=== PATIENT | female | born 1980 | race Caucasian/White ===

== ENCOUNTER 2020-06-09 20:26 | Emergency (ER) | payer MEDICAID ==
[~2020-06-09] VITALS: Ht 175.3 cm; Wt 78.5 kg
[2020-06-09] MEDS ORDERED: METHADONE HCL10 MG PO (20:43)
[2020-06-09] MEDS ORDERED: BACTRIM DS TAB1 EACH PO (20:44)
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
== END 2020-06-09 21:10 | disposition home or self-care (01) ==
LOC: ED 20:26
DX: L03.114 Cellulitis of left upper limb (principal); F11.10 Opioid abuse, uncomplicated; F17.200 Nicotine dependence, unspecified, uncomplicated; Z88.8 Allergy status to other drugs, medicaments and biological substances; Z88.0 Allergy status to penicillin; Z79.899 Other long term (current) drug therapy
CPT/HCPCS: 99283

== ENCOUNTER → 2020-06-12 | Emergency (ER) | payer MEDICAID ==
[~2020-06-12] VITALS: Ht 175.3 cm; Wt 78.5 kg
[~2020-06-12] MED LIST: BACTRIM DS TAB1 EACH PO; METHADONE HCL10 MG PO
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
--- OUTSIDE RECORDS SUMMARY | ~2020-06-12 | XMS | Encounter Summary ---
Demographics + + + | Address | [address] | | | [address] | | | [place] [address] | + + + | Home Phone | | + + + | Preferred Language | Unknown | + + + | Marital Status | Legally | + + + | Jain Affiliation | 1013 | + + + | Race | White | + + + | Ethnic Group | Not or | + + + Author + + + | Author | [facility] | | | and [place] | + + + | Organization | [facility] | | | and [...] Team Providers + +------+ + | Care Roof Tile Layer Name | Role | Phone | + +------+ + PCP | Unavailable | + +------+ + Encounter Details +--------+ + + + + | Date | Type | Department | Care Team | Description | +--------+ + + + + | 12/09/ | [facility] | YI JEFFERSON | Deon Garciater W, | | | 2008 - | Encounter | [facility] | [address] | | | | | EMERGENCY CENTER | [address] [place], [place] | | | 12/10/ | | [address] | [address] | | | 2007 | | [place] | | | | | | [id number] | | | | | | [phone] | | | +--------+ + + + [...] + + documented as of this encounter ED Notes Sergio Garcia MD - 07/18/2013 4:12 PM PSTPATIENT NAME: Madhuri Pennington TREATMENT DATE: 12/10/2007 AGE/SEX: 27/F [id number] : 1980 CHIEF COMPLAINT: Wants to kill herself, cut her wrists earlier tonight. HISTORY OF PRESENT ILLNESS: This is a 27-year-old woman who presents to the emergency dep artment this evening, having come by automobile with her parents from the [facility] where she states she has been depressed since age 13, wanting to . Tonight placed a significa nt laceration across her volar left wrist. PAST MEDICAL HISTORY: Past history indicates multiple suicide attempts, depression dating back many years, and diagnosis of bipolar illness. CURRENT MEDICATIONS: Effexor, trazodone, Ativan, clonazepam and was recently started on l ithium. ALLERGIES: Penicillin, Naprosyn and Phenergan. HABITS: Cigarettes: One pack per day. Has been a drug user, methamphetamines up until s everal months ago, and has used marijuana sporadically. Uses alcohol occasionally. FAMILY AND SOCIAL HISTORY: She was for three years, has a no contact order with h er . They are . She has children ages nine and two, daughters who are in her care but are this evening with her . Her parents are in attendance with her in the emergency department [facility]. REVIEW OF SYSTEMS: CONSTITUTIONAL: She has had 20 pounds of weight gain over the past 12 months. Eyes, ears, nose and throat negative. CARDIOVASCULAR: No chest pain, palpitations . RESPIRATORY: No cough or wheeze. GASTROINTESTINAL: Some post-meal symptoms of nausea, occasional abdominal pain. GENITOURINARY: No urinary or vaginal symptoms. MUSCULOSKELET AL: Negative. Skin and endocrine negative. PHYSICAL EXAMINATION: GENERAL: Physical exam shows a woman who is occasionally tearful, stating she wants to . VITAL SIGNS: Blood pressure of 114/79, pulse 103, respirations 16, temperature 98. HEENT: Eyes show equally reactive pupils. Full extraocular movements. Mouth and throat negative. NECK: Supple. There is no adenopathy. There is a question of a slight goiter present. No nodules are palpable. CHEST: Clear. HEART: Regular rate and rhythm, normal auscultation, no murmurs heard. ABDOMEN: Soft, mild amount of obesity , no organomegaly, masses or tenderness. EXTREMITIES: No calf tenderness, no edema. Ther marcos is a 5 cm full-thickness laceration to the volar left wrist transversely. She has ann l sensation in the fingers, normal finger function and motor strength. COURSE IN THE EMERGENCY DEPARTMENT: The patient was given Ativan 1 mg IM, Lortab 5 mg p.o ., Benadryl 25 mg p.o. Her wrist initially was evaluated and was cleansed, prepped, draped , infiltrated with 1% Xylocaine and MADHURI PENNINGTON [id number] [facility] [id number] EMERGENCY DEPARTMENT RECORD Sergio morales MD E-Sign: N [facility] THIS REPORT IS CONFIDENTIAL AND NOT TO BE RELEASED WITHOUT PROPER AUTHORIZATION. [facility] epinephrine, and a single-layer skin closure with interrupted 5-0 nylon sutures, 10 suture s were placed. Labs were obtained with CBC, CMP, UA which were all within normal limits. Blood alcohol level and TSH were pending. A urine toxicology screen showed positive for ma rijuana and benzodiazepines. Patient was seen by psychiatric triage. EMERGENCY DEPARTMENT DIAGNOSIS: 1. Depression with suicidal ideation and suicide attempt this evening. 2. Bipolar illnes s. 3. A 5 cm laceration left wrist. 4. History of abdominal pain, possible gallbladder disease. DISPOSITION: Patient, after being seen by psychiatric triage, plans [facility] were made, but beds are not available either at [place] or at [facility] this night. Patient is contracted for safety and will go to a motel this evening for the rest of the night with her parents and has been instructed to call caryn mccrary to psychiatric triage in the morning for possible inpatient therapy. Sergio Garcia MD P WWB/sle #[id number] cc: Sergio morales MD TOÑO PENNINGTON [id number] [facility] [id number] EMERGENCY DEPARTMENT RECORD Sergio morales MD E-Sign: N [facility] THIS REPORT IS CONFIDENTIAL AND NOT TO BE RELEASED WITHOUT PROPER AUTHORIZATION.Electronica llnii signed by Ngozi Littlejohn Conversion at 07/20/2013 4:58 AM PSTdocumented in this enc ounter Plan of Treatment Not on filedocumented as of this encounter Visit Diagnoses Not on filedocumented in this encounter"
--- OUTSIDE RECORDS SUMMARY | ~2020-06-12 | XMS | Encounter Summary ---
Demographics + + + | Address | [address] | | | [address] | | | [place] [address] | + + + | Home Phone | | + + + | Preferred Language | Unknown | + + + | Marital Status | Legally | + + + | Pentecostalism Affiliation | 1013 | + + + | Race | White | + + + | Ethnic Group | Not or | + + + Author + + + | Author | [facility] | | | and [place] | + + + | Organization | [facility] | | | [...] Team Providers + +------+ + | Care Executive Director Name | Role | Phone | + +------+ + | No, Physician | PCP | Unavailable | + +------+ + Reason for Referral Evaluate & Treat (Emergency) +--------+ + + + + + | Status | Reason | Specialty | Diagnoses / | Referred By | Referred To | | | | | Procedures | Contact | Contact | +--------+ + + + + + | Closed | Specialty | Wound Care | Diagnoses | Silvino, | [facility] | | | Services | | Encounter | Ting Elizondo, | Wound Care | | | Required | | for post | PA-C [address] | | | | | surgical | [address] | [place], | | | | | wound check | [place], [place] | [place] [address] | | | | | Encounter | [address] | Phone: | | | | | for removal | Phone: | [phone] | | | | | of abscess | [phone] | Fax: | | | | | packing | Fax: | [phone] | | | | | | [phone] | | +--------+ + + + + + Reason for Visit + + + | Reason | Comments | + + + | Post-op Problem | pt states she was reccently admitted but left ama prior to wound | | | care instructions. states she has packing in her arm and needs to | | | follow up with wound clinic. states she cannot get ahcarolin of | | | ulises who did surgery on arm. | + + + Encounter Details +--------+ + + + + | Date | Type | Department | Care Team | Description | +--------+ + + + + | 04/17/ | Emergency | [facility] | Ting Dubois, | Encounter for post | | 2020 | | MEDICAL CENTER | [place] [address] | surgical wound check | | | | EMER[facility]ENTER | [address] [place], [place] | (Primary Dx); | | | | [address] | [address] | Encounter for | | | | [place], [place] | | removal of abscess | | | | [address] | Curt Ortiz | packing | | | | [phone] | MD Russell [address] | | | | [address] | | | | | | [place] [address] | | | | | | [phone] | | | | | | | | +--------+ + + + + Social History + +-------+ +--------+------+ | Tobacco Use | Types | Packs/Day | Years | Date | | | | | Used | | + +-------+ +--------+------+ | Current Every Day | | 0.25 | | | | Smoker | | | | | + +-------+ +--------+------+ + +---+---+---+ | Smokeless Tobacco: | | | | | Never Used | | | | + +---+---+---+ + + +---------+ + | Alcohol Use | Drinks/Week | oz/Week | Comments | + + +---------+ + | Not Currently | | | Alcoholic | | | | | Drinks/day: rarely | + + +---------+ + + + + | Sex Assigned at | Date Recorded | | | | + + + | Not on file | | + + + documented as of this encounter Last Filed Vital Signs + + + + + | Vital Sign | Reading | Time Taken | Comments | + + + + + | Blood Pressure | 106/66 | 04/17/2020 1:57 PM | | | | | PDT | | + + + + + | Pulse | 83 | 04/17/2020 1:57 PM | | | | | PDT | | + + + + + | Temperature | 36.4 C (97.6 F) | 04/17/2020 1:57 PM | | | | | PDT | | + + + + + | Respiratory Rate | 16 | 04/17/2020 1:57 PM | | | | | PDT | | + + + + + | Oxygen Saturation | 100% | 04/17/2020 1:57 PM | | | | | PDT | | + + + + + | Inhaled Oxygen | - | - | | | Concentration | | | | + + + + + | Weight | 78 kg (171 lb 15.3 | 04/17/2020 1:57 PM | | | | oz) | PDT | | + + + + + | Height | - | - | | + + + + + | Body Mass Index | 25.39 | 04/15/2020 9:17 AM | | | | | PDT | | + + + + + documented in this encounter Functional Status + + + + | Functional Status | Response | Date of Assessment | + + + + | Are you blind or do you have serious | No | 04/15/2020 | | difficulty seeing, even when wearing | | | | glasses? | | | + + + + | Do you have serious difficulty walking or | No | 04/15/2020 | | climbing stairs? (5 years old or older) | | | + + + + | Do you have difficulty dressing or bathing? | No | 04/15/2020 | | (5 years old or older) | | | + + + + | Because of a physical, mental, or emotional | No | 04/15/2020 | | condition, do you have difficulty doing | | | | errands alone such as visiting a doctor's | | | | office or shopping? [15 years old or | | | | older)] | | | + + + + + + + + | Cognitive Status | Response | Date of Assessment | + + + + | Because of a physical, mental, or emotional | No | 04/15/2020 | | condition, do you have serious difficulty | | | | concentrating, remembering, or making | | | | decisions? (5 years old or older) | | | + + + + documented as of this encounter Discharge Instructions Instructions Ting Dubois PA-C - 04/17/2020Take your antibiotics as directed. You ma y want to take a probiotic or eat some yogurt to make sure your gut and vaginal bacteria sta y healthy. Follow directions from the wound care nurse on how to manage your wound. Please call the wound care clinic and your surgeon to schedule follow-up visits. I wrote you a karlo ne care referral. Please return to the ER for any new or worsening symptoms such as fever, increased arm pain, arm redness, etc. AttachmentsThe following attachments cannot be sent through Care Everywhere.Wound Care ([facility])documented in this encounter Medications at Time of Discharge + + + +---------+ + + | Medication | Sig | Dispensed | Refills | Start | End Date | | | | | | Date | | + + + +---------+ + + | Albuterol Sulfate | AERS | | 0 | 02/01/20 | | | (PROAIR HFA IN) | | | | 12 | | + + + +---------+ + + | baclofen | Take 1 tablet by | | 0 | 09/27/19 | | | (LIORESAL) 10 mg | mouth 3 (three) | | | 18 | | | tablet | times daily. | | | | | + + + +---------+ + + | bismuth | | | 0 | | | | subsalicylate (PEPTO | | | | | | | BISMOL) 262 mg/15 | | | | | | | mL suspension | | | | | | + + + +---------+ + + | buprenorphine | USE PER TAPER | | 0 | 04/28/20 | | | (SUBUTEX) 2 mg SUBL | INSTRUCTIONS | | | 18 | | + + + +---------+ + + | | PLACE 1 & 1 2 (ONE & | | 0 | 03/06/20 | | | buprenorphine-naloxo | ONE HALF) TABLETS | | | 19 | | | ne (SUBOXONE) 8-2 mg | UNDER THE TONGUE | | | | | | SL tablet | TWICE DAILY FOR 7 | | | | | | | DAYS | | | | | + + + +---------+ + + | buPROPion | | | 0 | 05/02/20 | | | (WELLBUTRIN XL) 150 | | | | 18 | | | mg 24 hr tablet | | | | | | + + + +---------+ + + | docusate sodium | One po bid for stool | | 0 | 04/04/20 | | | (COLACE) 100 mg | softening | | | 17 | | | capsule | | | | | | + + + +---------+ + + | EPINEPHrine | TOÑO | | 0 | 02/01/20 | | | (EPIPEN IJ) | | | | 12 | | + + + +---------+ + + | EPINEPHrine | Inject 0.3 mLs into | | 0 | 20 | | | auto-injector 0.3 | the muscle as | | | 14 | | | mg/0.3 mL injection | needed. | | | | | + + + +---------+ + + | fluticasone | | | 0 | 10/19/19 | | | (FLONASE) 50 | | | | 17 | | | mcg/nasal spray | | | | | | + + + +---------+ + + | fluticasone | 2 INH per nostril | | 0 | 02/01/20 | | | (FLONASE) 50 | daily | | | 12 | | | mcg/nasal spray | | | | | | + + + +---------+ + + | hydrOXYzine | TAKE ONE CAPSULE BY | | 0 | 05/03/20 | | | (VISTARIL) 50 MG | MOUTH EVERY 6 HOURS | | | 18 | | | capsule | NEEDED | | | | | + + + +---------+ + + | ibuprofen | Take 600 mg by mouth | | 0 | 02/01/20 | | | (ADVIL,MOTRIN) 600 | every 6 hours as | | | 12 | | | MG tablet | needed. | | | | | + + + +---------+ + + | | TB24; Take one | | 0 | 02/01/20 | | | Loratadine-Pseudoeph | tablet orally daily | | | 12 | | | edrine (CLARITIN-D | | | | | | | 24 HOUR PO) | | | | | | + + + +---------+ + + | multivitamin | one tablet by mouth | | 0 | 02/01/20 | | | (THERAGRAN) tablet | daily | | | 12 | | + + + +---------+ + + | naproxen | Take 1 tablet by | | 0 | 03/03/20 | | | (NAPROSYN) 500 mg | mouth 2 (two) times | | | 17 | | | tablet | daily as needed. | | | | | + + + +---------+ + + | ondansetron | Take 1 tablet by | 12 | 0 | 01/04/20 | | | (ZOFRAN ODT) 4 mg | mouth every 8 hours | tablet | | 20 | | | disintegrating | as needed for | | | | | | tablet | Nausea. | | | | | + + + +---------+ + + | ondansetron | TAKE 1 TABLET BY | | 0 | 03/01/20 | | | (ZOFRAN) 4 mg tablet | MOUTH EVERY 6 HOURS | | | 19 | | + + + +---------+ + + | PEG | Take 8 oz by mouth | | 0 | 12/01/19 | | | [id number]-NaCl- | every 20 (twenty) | | | 18 | | | NaSulf 227.1 g PACK | minutes. Drink 8oz | | | | | | | every 20 minutes | | | | | | | until bowel | | | | | | | movements occur | | | | | + + + +---------+ + + | tiZANidine | Take 1-2 capsules by | | 0 | 05/03/20 | | | (ZANAFLEX) 4 MG | mouth nightly as | | | 17 | | | capsule | needed for Muscle | | | | | | | spasms. | | | | | + + + +---------+ + + | traZODone | TAKE 1 OR 2 TABLETS | | 0 | 05/03/20 | | | (DESYREL) 50 mg | BY MOUTH AT BEDTIME | | | 18 | | | tablet | NEEDED | | | | | + + + +---------+ + + | clindamycin | Take 1 capsule by | 30 | 0 | 04/16/20 | | | (CLEOCIN) 300 MG | mouth 3 times daily | capsule | | 20 | 0 | | capsule | for 10 days. | | | | | + + + +---------+ + + | doxycycline | Take 1 capsule by | 28 | 0 | 04/16/20 | | | (VIBRAMYCIN) 100 mg | mouth 2 times daily | capsule | | 20 | 0 | | capsule | for 14 days. | | | | | + + + +---------+ + + | lactobacillus | Take 1 tablet by | 84 | 0 | 04/16/20 | | | (FLORANEX) tablet | mouth 3 times daily | tablet | | 20 | 0 | | | for 28 days. | | | | | + + + +---------+ + + documented as of this encounter Progress Notes Rachel Dowell RN - 04/17/2020 3:10 PM PDT 04/17/20 1506 Visit Information Visit Type Initial wound assessment Wound 04/15/201756 Incision Right shoulder Placement Date/Time: 04/15/201756 Present on Hospital Admission: Yes Primary Wound Type : Incision Side: Right Location: shoulder Wound WDL ex Dressing Appearance moist drainage Base clean;moist;pink;granulating Wound Base Comment Muscle noted. Periwound Area intact;dry Wound Length (cm) 2.5 cm Wound Width (cm) 7 cm Wound Depth (cm) 1.5 cm Wound Surface Area (cm^2) 17.5 cm^2 Wound Volume (cm^3) 26.25 cm^3 Undermining [depth (cm)/Location] 9-12 1.5cm, 4-8 oclock 8cm Drainage Characteristics/Odor serosanguineous Drainage Amount small Wound Cleaning cleansed with;sterile normal saline Dressing silver impregnated dressing;hydrofiber;foam;elastic bandage Packing packed with-specify (1 full sheet and 1/2 sheet of aquacel AG+) Wound Bed% Granulation 51-75% Wound Image Visit Summary Skilled Needs Yes Interventions to be Provided Ongoing assessment needed Discipline Providing Treatment WOCN Next Wound/Ostomy Visit Date 04/24/20 Floor RN called regarding need for dressing change, pt left AMA after surgical debridement by Dr. Frank. Pt stating she doesn't think she can do this dressing change, pt will have foll ow up appt with [facility] for wound management. Dressing applied today for pt, lidocaine used to wound bed for pain control. 1 sheet of aquacel AG+ used to undermining and to fill wound bed. 1/2 sheet of aquacel AG+ placed on top. Covered with foam border and secured with jyothi wrap. As long as no strike thru drainage to foam dressing, ok to leave dressing 3-5 days and have follow up wound dressing done at [facility]. JOSE Lisa RN CWON 04/17/20 15:16 PDT [facility] ED Notes Melly Kapadia RN - 04/17/2020 2:20 PM PDTWound care nurse called to assist with dressing. ing Dubois PA-C - 04/17/2020 1:[address] [facility] Department of Emergency Medicine No flowsheet data found. History of Present Illness Patient Identification Minoo Watson is a 40 y.o. female. Patient information was obtained from patient History/Exam limitations: none. Patient presented to the Emergency Department by: Car Chief Complaint Chief Complaint Patient presents with Post-op Problem pt states she was reccently admitted but left ama prior to wound care instructions. state s she has packing in her arm and needs to follow up with wound clinic. states she cannot get ahold of dr frank who did surgery on arm. 40 y.o. female presents to ED with chief complaint of wound check. She has a history of a nxiety, depression and IM heroin abuse. She presented to the ED on 04/14 for shoulder pain, C T scan showed a large abscess. She was admitted and received IV antibiotics and I&D was per formed by Dr. Frank on 04/15 and a small needle fragment was also removed at that time. She le ft AMA last night. She was prescribed doxycycline and clindamycin. She comes in today for w ound check and directions on how to get into wound care. She reports feeling well. PCP: No Physician on file Immunization History Administered Date(s) Administered TDAP, (ADOL/ADULT) 02/14/2011, 05/01/2012, 02/29/2016 Past Medical History: Diagnosis Date Asthma due to seasonal allergies Back pain 12/18/2009 Bipolar disorder (HCC) 09/2008 Patient denies Depression Herniated disc, cervical C5,C6 Heroin abuse (HCC) Intramuscular use IVDU (intravenous drug user) Joint pain Seasonal allergies Past Surgical History: Procedure Laterality Date SECTION x 2 COLONOSCOPY HERNIA REPAIR HYSTERECTOMY Bilateral 04/13/2017 Procedure: ROBOTIC ASSISTED LAPAROSCOPIC HYSTERECTOMY WITH SALPINGECTOMY; Surgeon: Glenn aleman MD; Location: [facility] MAIN OR; Service: TIRE LAYER; Laterality: Bilateral; INCISION AND DRAINAGE Right 04/15/2020 Procedure: INCISION AND DRAINAGE -DELTOID; Surgeon: Minoo Frank MD; Location: [facility] MAIN OR UPPER GASTROINTESTINAL ENDOSCOPY 2009 Prior to Admission medications Medication Sig Start Date End Date Taking? Authorizing Provider Albuterol Sulfate (PROAIR HFA IN) AERS 02/01/12 DATA MIGRATION RICK SR baclofen (LIORESAL) 10 mg tablet Take 1 tablet by mouth 3 (three) times daily. 09/27/17 Hi storical Provider, bismuth subsalicylate (PEPTO BISMOL) 262 mg/15 mL suspension Historical Provider, buprenorphine (SUBUTEX) 2 mg SUBL USE PER TAPER INSTRUCTIONS 04/28/18 Historical Provider, buprenorphine-naloxone (SUBOXONE) 8-[address] 1 & 1 2 (ONE & ONE HALF) TABLETS U NDER THE TONGUE TWICE DAILY FOR 7 DAYS 03/06/19 Historical Provider, buPROPion (WELLBUTRIN XL) 150 mg 24 hr tablet 05/02/18 Historical Provider, clindamycin (CLEOCIN) 300 MG capsule Take 1 capsule by mouth 3 times daily for 10 days. 04/1604/26/20 Marty Alvarez MD docusate sodium (COLACE) 100 mg capsule One po bid for stool softening 04/04/17 Historical Provider, doxycycline (VIBRAMYCIN) 100 mg capsule Take 1 capsule by mouth 2 times daily for 14 days. 04/16/20 04/30/20 Marty Alvarez MD EPINEPHrine (EPIPEN IJ) TOÑO 02/01/12 DATA MIGRATION RICK SR EPINEPHrine auto-injector 0.3 mg/0.3 mL injection Inject 0.3 mLs into the muscle as needed. 02/25/14 Historical Provider, fluticasone (FLONASE) 50 mcg/nasal spray 10/19/16 Historical Provider, fluticasone (FLONASE) 50 mcg/nasal spray 2 INH per nostril daily 02/01/12 DATA MIGRATION E DI SR hydrOXYzine (VISTARIL) 50 MG capsule TAKE ONE CAPSULE BY MOUTH EVERY 6 HOURS NEEDED 05/03 Historical Provider, ibuprofen (ADVIL,MOTRIN) 600 MG tablet Take 600 mg by mouth every 6 hours as needed. 2 DATA MIGRATION RICK SR lactobacillus (FLORANEX) tablet Take 1 tablet by mouth 3 times daily for 28 days. 04/16/2005/14/20 Marty Alvarez MD Loratadine-Pseudoephedrine (CLARITIN-D 24 HOUR PO) TB24; Take one tablet orally daily DATA MIGRATION RICK SR multivitamin (THERAGRAN) tablet one tablet by mouth daily 02/01/12 DATA MIGRATION RICK SR naproxen (NAPROSYN) 500 mg tablet Take 1 tablet by mouth 2 (two) times daily as needed. 02/11 10/29 Historical Provider, ondansetron (ZOFRAN ODT) 4 mg disintegrating tablet Take 1 tablet by mouth every 8 hours as needed for Nausea. 01/04/20 Vitaly Kaufman MD ondansetron (ZOFRAN) 4 mg tablet TAKE 1 TABLET BY MOUTH EVERY 6 HOURS 03/01/19 Historical Provider, PEG 5885-RMa-[id number]-NaCl-NaSulf 227.1 g PACK Take 8 oz by mouth every 20 (twenty) minutes. D rink 8oz every 20 minutes until bowel movements occur 11/30/17 Historical Provider, tiZANidine (ZANAFLEX) 4 MG capsule Take 1-2 capsules by mouth nightly as needed for Muscle spasms. 05/03/17 Historical Provider, traZODone (DESYREL) 50 mg tablet TAKE 1 OR 2 TABLETS BY MOUTH AT BEDTIME NEEDED 05/03/18 Historical Provider, Allergies Allergen Reactions Bee Venom Anaphylaxis Codeine Hives, Rash and Shortness Of Breath Morphine Morphine And Related Other (See Comments) Abstracted Penicillins Hives Promethazine Hcl Droperidol Anxiety Lactose Intolerance (Gi) Other (See Comments) Social History Socioeconomic History Marital status: Legally Spouse name: Not on file Number of children: Not on file Years of education: Not on file Highest education level: Not on file Occupational History Not on file Social Needs Financial resource strain: Not on file Food insecurity Worry: Not on file Inability: Not on file Transportation needs Medical: Not on file Non-medical: Not on file Tobacco Use Smoking status: Current Every Day Smoker Packs/day: 0.25 Smokeless tobacco: Never Used Substance and Sexual Activity Alcohol use: Not Currently Comment: Alcoholic Drinks/day: rarely Drug use: Yes Types: Heroin, Methamphetamines Comment: Drug use: No Sexual activity: Yes Lifestyle Physical activity Days per week: Not on file Minutes per session: Not on file Stress: Not on file Relationships Social connections Talks on phone: Not on file Gets together: Not on file Attends restoration service: Not on file Active member of club or organization: Not on file Attends meetings of clubs or organizations: Not on file Relationship status: Not on file Intimate partner violence Fear of current or ex partner: Not on file Emotionally abused: Not on file Physically abused: Not on file Forced sexual activity: Not on file Other Topics Concern Not on file Social History Narrative Lives in [place], independent with activities of daily living, no falls, full code. Has 2 children. Fabien recently. 14 yrs old Daughter has severe depression. Continues t o smoke a pack a day. Since August relapsed on heroin abuse denies alcohol use. Family History Problem Relation Age of Onset Stroke Father Stroke Maternal Grandmother Diabetes Maternal Grandmother Diabetes Maternal Grandfather Heart attack Maternal Grandfather Malig hypertherm Neg Hx Review of Systems Review of Systems As in history of present illness. A ten-system review was otherwise negative. Pertinent positives: Healing wound Physical Exam Patient Vitals for the past 24 hrs: BP Temp Temp src Pulse Resp SpO2 Weight 04/17/20 1357 106/66 36.4 C (97.6 F) Temporal 83 16 100 % 78 kg (171 lb 15.3 oz) Body mass index is 25.39 kg/m. No LMP recorded. Patient has had a hysterectomy. Pulse Oximetry interpretation: normal Physical Exam Physical Exam Constitutional: Comments: nontoxic appearing, NAD HENT: Head: Normocephalic. Eyes: Conjunctiva/sclera: Conjunctivae normal. Neck: Musculoskeletal: Normal range of motion. Pulmonary: Effort: Pulmonary effort is normal. Musculoskeletal: Comments: Moving all extremities. No deformity Neurological: General: No focal deficit present. Psychiatric: Mood and Affect: Mood normal. Skin: General: Skin is warm and dry. RUE: Large postsurgical dressing over the right upper arm. When removed there is an 8 cm t ransverse incision with large amount of packing in place. No surrounding erythema or draina ge. No odor. Medical Decision Making and Emergency Department Course Records Reviewed Old medical records. Nursing notes. ED Department Course 14:08 -called Dr. Frank, pt's surgeon. She recommends removing the packing which is one long strip of Kerlix. Apply wet-to-dry dressing and refer her to wound care. 14:15 - called wound care nurse who will come evaluate pt MDM: 40 y.o. female presents with wound check. Vitals: WNL. Shee is afebrile and nontoxic-appea ring. Packing was removed and new dressing was placed. Wound care states that wet-to-dry d ressings need to be changed 3 times a day. Patient does not tolerate dressing changes on he r own, she starts to gag. She therefore felt that that an aquacel dressing would be best fo r her. She states that this will likely last up to a week. Wound care discussed with pt. Wou nd care referral written. The social media content manager tried to get her an appointment with wound care , however they will not accept referral from the hospital and need a referral from a primary . Patient does not have a primary. They are working with insurance to get an exception wri tten. If patient is unable to get in with wound care this week she will return here for rec heck. Advised on ED return precautions. All questions addressed. Medications lidocaine (XYLOCAINE) 4% topical solution 10 mL (10 mLs Topical Given 04/17/20 1447) Laboratory Evaluation Results None Available Labs reviewed and interpreted by me. Radiology Evaluation Available radiology studies reviewed and interpreted contemporaneously by me. Diagnosis 1. Encounter for post surgical wound check 2. Encounter for removal of abscess packing Disposition: ED Disposition ED Disposition Condition Comment Discharge Good Follow-up Information [facility]. Specialty: Emergency Medicine Why: wound recheck in 3 days if you can't get in with wound care Contact information: [address] [facility] [address] GENERAL SURGERY. Why: call today or tomorrow for a post op visit Contact information: [address] [facility] [address] [facility] OUTPATIENT WOUND [facility]ARE. Specialty: Wound Care Why: wound care - call today to schedule appointment Contact information: [address] [facility] [address] Discharge Medications: This note was dictated using voice recognition software. Please contact me if there are an y questions regarding its content. Ting Dubois PA-C 04/17/20 1520 Addendum for dragon dictation error Ting Dubois PA-C 04/17/20 1520 Associated attestation - Curt Ortiz MD - 04/17/2020 3:30 PM PDTI have supervis ed the advanced architectural practice manager and have reviewed the note. documented in this encounter Miscellaneous Notes Plan of Izzy De Luna MSW - 04/18/2020 11:33 AM PDTCalled Wound Care clinic again to follow up this morning to see if they had heard back from Dr. Frank's office. [facility] that they did receive a new wound care referral from Dr Conrad and that kirstin ent was given an appt with [facility] General [facility] for today for follow up.Electronically sig evette by FLAKO Villaseñor at 04/18/2020 11:43 AM PDTPlan of Izzy De Luna MSW - 0 04/17/2020 4:[address] Frank's office again, left message, informed that "Pineda" had already left the office before getting the message but the office is aware of the patient's needs for wound care to be set up.Electronically signed by FLAKO Villaseñor at 0 4:58 PM PDTPlan of Izzy De Luna MSW - 04/17/2020 3:31 PM PDTReceived call shari khoury from [facility]ound Care ([facility]) who states insurance will require the wound care order, the therapy plan, and the insurance auth all from Dr. Frank's office before wound care can b e set up. 3:26pm contacted Dr. Frank's office [phone], spoke with vice president payment who will send message shari khoury to provider for assistance. 3:3 3 PM PDTPlan of Care - Izzy Anguiano MSW - 04/17/2020 3:16 PM PDTMet with patient who st ates she is in agreement with following up with OP wound care, reports she has transportatio n and knows where the clinic is. Contacted [facility]/Wound Care [phone] option 2 who acknowledges receipt of the referral but s tates that [facility] is requiring an order from a PCP, patient does not have a PCP. [facility] is awaiting call back for possible insurance auth from [facility] without PCP. Updated provider Ting; will await update from [facility], patient may need to d/c and f/ up on insurance auth after d/c. 3 :19 PM PDTdocumented in this encounter Plan of Treatment + +------+--------+ + + | Name | Type | Priori | Associated Diagnoses | Date/Time | | | | ty | | | + +------+--------+ + + | ED INFORMATION | MARTHA | Routin | | 04/17/2020 1:51 PM | | EXCHANGE | | e | | PDT | + +------+--------+ + + + + +--------+ + + | Name | Type | Priori | Associated Diagnoses | Order Schedule | | | | ty | | | + + +--------+ + + | Ambulatory Referral | Outpatient | STAT | Encounter for post | Ordered: 04/17/2020 | | to [facility]ound | Referral | | surgical wound | | | Clinic | | | check Encounter for | | | | | | removal of abscess | | | | | | packing | | + + +--------+ + + documented as of this encounter Procedures + +--------+ + + + | Procedure Name | Priori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
--- OUTSIDE RECORDS SUMMARY | ~2020-06-12 | XMS | Encounter Summary ---
Demographics + + + | Address | [address] | | | [address] | | | [place] [address] | + + + | Home Phone | | + + + | Preferred Language | Unknown | + + + | Marital Status | Legally | + + + | Bahai Affiliation | 1013 | + + + | Race | White | + + + | Ethnic Group | Not or | + + + Author + + + | Author | [facility] | | | and [place] | + + + | Organization | [facility] | | | and [place] | + + + | Address | Unknown | + + + | Phone | Unavailable | + + + Support + + +---------+ + | Name | Relationship | Address | Phone | + + +---------+ + | Magalis Love | ECON | Unknown | | + + +---------+ + | Tom Valdivia | ECON | Unknown | | + + +---------+ + Care Team Providers + +------+ + | Care Spa Host Name | Role | Phone | + +------+ + PCP | Unavailable | + +------+ + Encounter Details +--------+ + + + + | Date | Type | Department | Care Team | Description | +--------+ + + + + | 08/03/ | Emergency | [facility] | Jamilah Bhattn S, | Acute generalized | | 2017 - | | MEDICAL CENTER | MD [address] | abdominal pain; Slow | | | | EMERGENCY CENTER | [place], [place] | transit | | 04/15/ | | [address] | [address] | constipation | | 2017 | | [place], [place] | | | | | | [address] | | | | | | [phone] | | | +--------+ + + + [...] + + + | Blood Pressure | 110/62 | 04/15/2017 12:03 AM | | | | | PDT | | + + + + + | Pulse | 63 | 04/15/2017 12:03 AM | | | | | PDT | | + + + + + | Temperature | 36.7 C (98 F) | 04/15/2017 12:03 AM | | | | | PDT | | + + + + + | Respiratory Rate | 17 | 04/15/2017 12:03 AM | | | | | PDT | | + + + + + | Oxygen Saturation | - | - | | + + + + + | Inhaled Oxygen | - | - | | | Concentration | | | | + + + + + | Weight | 94.8 kg (209 lb) | 04/15/2017 12:03 AM | | | | | PDT | | + + + + + | Height | - | - | | + + + + + | Body Mass Index | 30.86 | 04/13/2017 5:57 PM | | | | | PDT | | + + + + + documented in this encounter Medications at Time of [...] bid for stool | | 0 | / | | | (COLACE) 100 mg | [...] 0.3 mLs into | | 0 | 02/26/20 | | | auto-injector 0.3 | the [...] + + + +---------+ + + | loratadine | Take 10 mg by mouth | | 0 | 02/01/20 | | | (CLARITIN) 10 mg | Daily. | | | 12 | 0 | | tablet | | | | | | + + + +---------+ + + | omeprazole | Take 20 mg by mouth | | 0 | 02/01/20 | | | (PRILOSEC) 20 mg | Daily. | | | 12 | 0 | | capsule | | | | | | + + + +---------+ + + | polyethylene | 17 GM by mouth with | | 0 | 02/01/20 | | | glycol (MIRALAX) | 8 oz. of water by | | | 12 | 0 | | powder | mouth daily for | | | | | | | constipation | | | | | + + + +---------+ + + | venlafaxine | Take 150 mg by mouth | | 0 | 02/01/20 | | | (EFFEXOR XR) 150 mg | Daily. | | | 12 | 0 | | 24 hr capsule | | | | | | + + + +---------+ + + documented as of this encounter Progress Notes Conversion Transaction, Provider Unknown - 04/14/2017 7:11 PM PDTFormatting of this note m ight be different from the original. Case Management by FLAKO Lopez at 04/14/171910 Author: FLAKO Lopez Service: (none) Author Type: Frozen Food Selector Filed: 04/14/171910 Date of Service: 04/14/171910 Status: Signed Customer Account Manager: FLAKO Lopez (Frozen Food Selector) [place] PDMP Report Rx Details (6 Mo.) Fill Date Drug Description Qty. Prescriber CS MED 2017-04-11 OXYCODONE HCL 5 MG TABLET 40 [facility] 2 50 2017-04-07 HYDROCODON-ACETAMINOPHN 10-325 120 ANN [facility]G 2 40 2017-04-01 HYDROCODON-ACETAMINOPHN 10-325 30 ANN ANG 2 42.857 2017-03-08 DIAZEPAM 2 MG TABLET 14 TOM MAJANO 0 2017-03-03 HYDROCODON-ACETAMINOPHN 10-325 120 ANN ANG 2 40 2017-01-31 HYDROCODON-ACETAMINOPHN 10-325 120 ANN ANG 2 40 2017-01-03 HYDROCODON-ACETAMINOPHN 10-325 120 ANN ANG 2 40 2016-12-06 HYDROCODON-ACETAMINOPHN 10-325 120 ANN ANG 2 40 2016-11-05 HYDROCODON-ACETAMINOPHN 10-325 120 ANN ANG 2 40 docume nted in this encounter ED Notes Alan Bhatt MD - 04/14/2017 7:17 PM PDTFormatting of this note might be different f rom the original. ED Provider Notes by Alan Bhatt DO at 04/14/171916 Author: Alan Bhatt DO Service: Emergency Department Author Type: Physician Filed: 04/15/171925 Date of Service: 04/14/171916 Status: Signed Customer Account Manager: Alan Bhatt DO (Physician) [facility] Department of Emergency Medicine 7:17 PM 04/14/2017 History of Present Illness Patient Identification Minoo Pennington is a 37 y.o. female. Patient information was obtained from patient. History/Exam limitations: none. Patient presented to the Emergency Department by: Car Chief Complaint Chief Complaint Patient presents with Post-op Problem "I had a hysterectomy yesterday, I can't pee and I haven't pooped in 5 days" Pt presents to the ED with post op problem. Onset of symptoms was today, with a worsening c ourse since that time. Severity is described as moderate. Patient says that she had a hyster ectomy yesterday performed by Dr. Scott, and has been experiencing extreme suprapubic p ain today. She called [facility], spoke with Dr. Bey, who advised her to present to ED because it was after hours. Patient also complains of constipation, has not had a BM in 5 days, and urinary rentention. Denies fever or any other symptoms at this time The patient reports am bulation and movement worsens symptoms, and nothing relieves symptoms. Care prior to arrival consisted of stool softeners for constipation with no relief. Past Medical History Diagnosis Date Asthma due to seasonal allergies Back pain 12/18/2009 Bipolar disorder (HCC) 09/2008 Herniated disc, cervical C5,C6 Joint pain Seasonal allergies Past Surgical History Procedure Laterality Date SECTION x 2 COLONOSCOPY ESOPHAGOGASTRODUODENOSCOPY 2009 HERNIA REPAIR ROBOTIC ASSISTED HYSTERECTOMY Bilateral 04/13/2017 Procedure: ROBOTIC ASSISTED LAPAROSCOPIC HYSTERECTOMY WITH SALPINGECTOMY; Surgeon: Lexy aleman MD; Location: [facility] MAIN OR; Service: JOB ORDER CLERK; Laterality: Bilateral; Prior to Admission medications Medication Sig Start Date End Date Taking? Authorizing Provider Bismuth Subsalicylate (PEPTO-BISMOL PO) Take by mouth. Historical Provider docusate sodium (COLACE) 100 MG capsule One po bid for stool softening 04/04/17 Lexy guzman MD EPINEPHrine (EPIPEN) 0.3 MG/0.3ML injection Inject 0.3 mLs into the muscle as needed. RITIKA Holt fluticasone (FLONASE) 50 MCG/ACT nasal 1 spray by Each Nare route daily. 10/19/16 10/19/17 Yuri Her PA-C HYDROcodone-acetaminophen (NORCO) 10-325 MG per tablet Take 1 tablet by mouth every 6 (six) hours as needed for Pain. 04/07/17 RITIKA Woodward ibuprofen (MOTRIN) 800 MG tablet Take 1 tablet by mouth every 8 (eight) hours as needed for Pain. 04/04/17 04/14/17 Lexy Scott MD naproxen (NAPROSYN) 500 MG tablet Take 1 tablet by mouth 2 (two) times daily as needed. 02/11 10/29 RITIKA Woodward oxyCODONE (ROXICODONE) 5 MG immediate release tablet Take 1 tablet by mouth every 4 (four) hours as needed for Pain. 04/04/17 04/14/17 Lexy Scott MD polyethylene glycol (GLYCOLAX) packet Take 17 g by mouth daily. Historical Provider tizanidine (ZANAFLEX) 4 MG capsule Take 1 capsule by mouth 2 (two) times daily as needed fo r Muscle spasms. 1 to 2 tablets at bedtime. 03/03/17 RITIKA Woodward Allergies Allergen Reactions Bee Venom Anaphylaxis Morphine And Related Other (See Comments) Abstracted Penicillins Hives Inapsine [Droperidol] Anxiety Lactose Intolerance (Gi) Abdominal Pain Social History Social History Marital status: Spouse name: N/A Number of children: N/A Years of education: N/A Occupational History Not on file. Social History Main Topics Smoking status: Current Every Day Smoker Packs/day: 0.50 Years: 17.00 Smokeless tobacco: Never Used Alcohol use Yes Comment: rarely Drug use: No Comment: Quit IV drug use in 2010. Sexual activity: Not on file Other Topics Concern Not on file Social History Narrative No narrative on file Family History Problem Relation Age of Onset Stroke Father Stroke Maternal Grandmother Diabetes Maternal Grandmother Diabetes Maternal Grandfather Heart attack Maternal Grandfather Malig hypertherm Neg Hx Review of Systems Constitutional: Negative for: fever or chills Cardiovascular: Negative for: chest pain Respiratory: Negative for: cough or shortness of breath Gastrointestinal: Positive for: abdominal pain secondary to hysterectomy performed yesterd ay Negative for: vomiting or abdominal pain Genitourinary: Positive for: decreased urine output and constipation Negative for: dysuria, flank pain, or hematuria Musculoskeletal: Negative for: myalgias or arthralgias Skin: Negative for: rash or lesion Neuro and psych: Negative for: fainting or dizziness All other systems were reviewed and are subjectively reported as negative. Physical Exam BP 119/77 (BP Location: Left upper arm) | Pulse 79 | Temp 98 F (36.7 C) (Temporal) | Resp 18 | Wt 94.8 kg (209 lb) | LMP 03/21/2017 (Approximate) | SpO2 97% | BMI 30.86 kg/ m Vitals: WNL Pulse Oximetry Interpretation: Normal General: Alert, in moderate distress, but not requiring any emergent interventions Eyes: Normal inspection, pupils equal and round, non-icteric sclera ENT: Ears normal Nose normal without discharge or drainage Pharynx normal with no exudates or discharge Neck: Normal inspection with no lymphadenopathy Supple Full ROM Cardiovascular: Normal rate and rhythm, no extra sounds No murmurs rubs or gallops Focal PMI Respiratory: No respiratory distress or wheezing Normal excursion No retractions Abdomen: Soft, non-tender, non-distended Hyperactive bowel sounds Cramping Back: Normal inspection Without tenderness or deformity Skin: Color normal Warm and dry Neuro: No gross motor/sensory deficit GCS 15 No cerebellar deficits Alert and oriented to person, place, time and situation. Medical Decision Making and Emergency Department Course ED Department Course Pt presents with abdominal pain secondary to post op. On exam patient has hyperactive bowel sounds, and is cramping. I have considered the possible differential diagnoses, but are no t limited to: Acute urinary retention constipated after surgery bowel obstruction, vs other. Will order labs, imaging, treat symptomatically, and reevaluate patient. 9:02 PM XR abdominal is negative. There are no signs of perforation or obstruction. 10:14 PM UA resulted and is normal. Cardiac panel shows decreased platelets (134), elevated neutrophils (8.06), otherwise unremarkable. 10:16 PM Pt reevaluation. Patient feels crampy, but is tolerating well. I have discussed my clinical impression and treatment plan with the pt. We have specificall y discussed the signs and symptoms that would constitute the need for an immediate return to the ED, the importance of continued outpatient f/u and the importance of compliance with th e d/c instructions. Medications lidocaine (XYLOCAINE) 2 % uro-ject gel 10 mL (10 mLs Urethral Given 04/14/171950) sodium chloride (bolus) 0.9 % 2,000 mL (0 mLs Intravenous Stopped 04/14/172152) diazepam (VALIUM) injection 10 mg (10 mg Intravenous Given 04/14/172054) diphenhydrAMINE (BENADRYL) injection 50 mg (50 mg Intravenous Given 04/14/172054) lactulose (CHRONULAC) 10 GM/15ML solution 20 g (20 g Oral Given 04/14/172041) aluminum-magnesium hydroxide-simethicone (MAALOX) 200-200-20 MG/5ML suspension 30 mL (30 mL s Oral Given 04/14/172041) polyethylene glycol (GoLYTELY,NuLYTELY) suspension 4,000 mL (4,000 mLs Oral Given 04/14/17) metoclopramide (REGLAN) injection 10 mg (10 mg Intravenous Given 04/14/172301) Patient Vitals for the past 24 hrs: BP Pulse Resp SpO2 04/15/17 0002 110/62 63 17 - 04/14/17 2320 104/62 65 14 97 % 04/14/17 2100 136/82 63 14 94 % 04/14/177 115/72 77 16 99 % Records Reviewed Old ED records reviewed (Using the electronic record system of [facility], Mirela williamson reviewed the records with regard to the past medical/surgical history, previous medic ations, and allergies). Nursing notes reviewed for chief complaint, medications, clinical presentation and vital si gns Laboratory Evaluation Results Procedure Component Value Ref Range Date/Time Type and Screen [[id number]] Collected: 04/14/172206 Order Status: Completed Specimen: Blood Updated: 04/14/178 ABO/RH(D) O NEGATIVE ANTIBODY SCREEN NEGATIVE ARM BAND NUMBER -- [id number] Testing performed at [facility];[address] [place] [address];[place] [address] Cardiac Panel [[id number]] (Abnormal) Collected: 04/14/172200 Order Status: Completed Updated: 04/14/172238 WBC 11.63 (H) 3.80 - 11.00 K/uL RBC 3.95 3.70 - 5.10 M/uL HGB 11.7 11.3 - 15.5 g/dL HCT 34.6 34.0 - 46.0 % MCV 87.5 80.0 - 100.0 fl MCH 29.6 27.0 - 34.0 pg MCHC 33.8 32.0 - 35.5 g/dL RDW SD 41.1 37 - 53 fl PLT 134 (L) 150 - 400 K/uL MPV 9.1 fl DIFF TYPE AUTOMATED NEUTROPHILS 69.24 % LYMPHOCYTES 21.17 % MONOCYTES 7.99 % EOSINOPHILS 0.66 % BASOPHILS 0.94 % NEUTROPHILS ABS 8.06 (H) 1.90 - 7.40 K/uL LYMPHOCYTES ABS 2.46 1.00 - 3.90 K/uL MONOCYTES ABS 0.93 (H) 0.00 - 0.80 K/uL EOSINOPHILS ABS 0.08 0.00 - 0.50 K/uL BASOPHILS ABS 0.11 (H) 0.00 - 0.10 K/uL Platelet Estimate DECREASED Diff Comment SLIDE SCANNED, AGREES WITH AUTOMATED RESULTS. SODIUM 141 135 - 145 mmol/L POTASSIUM 3.7 3.5 - 4.9 mmol/L CHLORIDE 110 (H) 99 - 109 mmol/L CO2 26 23 - 32 mmol/L ANION GAP AGAP 10 5 - 20 mmol/L GLUCOSE 88 65 - 99 mg/dL BUN 11 8 - 25 mg/dL CREATININE 0.64 0.50 - 1.00 mg/dL BUN/CREAT 18 CALCIUM 8.3 (L) 8.5 - 10.5 mg/dL TOTAL PROTEIN 6.4 6.3 - 8.2 g/dL Albumin 3.3 (L) 3.6 - 5.0 g/dL GLOBULIN 3.1 1.3 - 4.9 g/dL A/G 1.1 1.0 - 2.4 TBIL 0.3 0.1 - 1.5 mg/dL ALK PHOS 46 35 - 115 U/L AST 10 10 - 45 U/L ALT 21 10 - 65 U/L EGFR >60 >60 mL/min/1.73m2 CPK 48 30 - 240 U/L INR 1.0 APTT 21 (L) 23 - 32 seconds MMB <1.0 0.5 - 3.6 ng/mL CK-MB Index UNABLE TO CALCULATE Urinalysis (reflex to microscopic/reflex to culture) [[id number]] Collected: 04/14/17 19 50 Order Status: Completed Specimen: Urine, Clean Catch Updated: 04/14/172001 COLOR UA YELLOW CLARITY CLEAR Specific [place], UA 1.024 1.002 - 1.030 LEUKOCYTE ESTERASE NEGATIVE NEGATIVE NITRITE NEGATIVE NEGATIVE UROBILINOGEN NORMAL <1.1 mg/dL PROTEIN NEGATIVE NEGATIVE mg/dL PH,URINE 5.0 5.0 - 8.0 BLOOD NEGATIVE NEGATIVE KETONES NEGATIVE NEGATIVE mg/dL BILIRUBIN NEGATIVE NEGATIVE GLUCOSE NEGATIVE NEGATIVE mg/dL I personally reviewed the lab results and they have been posted to the chart. Pertinent po sitive and negative findings have been addressed appropriately. Radiology and EKG Evaluation Imaging Results XR Acute Abdominal Series (Final result) Result time 04/14/17 20:51:10 Final result by Matt Rhodes DO (04/14/17 20:51:10) Impression: 1. No evidence of obstruction or perforation. Narrative: [facility] 1980 XR ABDOMEN ACUTE SERIES 04/14/2017 8:13 PM INDICATION: Abdominal pain COMPARISON: 03/07/2017 TECHNIQUE: Abdominal series, 3 views, single AP view of the chest, 2 views of the abdomen FINDINGS: The heart is borderline prominent. Subsegmental atelectasis noted within the rig ht lung base. No significant pleural effusion. Bowel gas pattern is nonspecific. A moderate amount of formed stool is seen throughout the colon, more pronounced on the right. No dilated loops of small bowel or air-fluid levels are demonstrated. No free intraperitoneal air is seen. ED Diagnoses Final diagnoses Acute generalized abdominal pain Slow transit constipation Disposition: ED Disposition ED Disposition Condition Comment Discharge Good Follow-up Information Follow up With Specialties Details Why Contact Info [facility] Emergency Department Emergency Medicine 12-24 hours for fo llow up [address] [facility] [address] Nery Maynard MD Family Medicine please call tomorrow to arrange outpatient follow up in e next 10-14 days for your ED visit and your elevated blood pressure [address], [place] [address] [facility] [address] Lexy Scott MD Obstetrics and Gynecology as previously scheduled. [address] [facility] [address] Discharge Medications: Discharge Medication List as of 04/14/2017 11:36 PM Alan Bhatt. This document has been prepared with a voice recognition system. The possibility of "sound alike" corporate strategy analyst errors, addition and/or deletions may occur. If there is any question p lease contact the author of the document. Procedures Additional Documentation Procedures Attending Provider Note: IAlan DO personally performed the services describe d in this documentation, as scribed by Mariia Barros in my presence, and it is both accurate and complete. Chart Reviewed and Completed: 04/15/2017 7:26 PM Scribe: Benjamin Ferrer, scribing for and in the presence of Alan Bhatt DO. Signed by: Benjamin Peguero 04/14/2017 11:16 PM Alan Bhatt DO 04/15/17 192 documented in this encounter Plan of Treatment Not on filedocumented as of this encounter Procedures + +--------+ + + + | Procedure Name | Priori | Date/Time | Associated Diagnosis | Comments | | | ty | | | | + +--------+ + + + | TYPE AND SCREEN | Routin | 04/14/2017 | | Results for this | | | e | 10:07 PM | | procedure are in the | | | | PDT | | results section. | + +--------+ + + + | HISTORICAL LAB PANEL | Routin | 04/14/2017 | | Results for this | | RESULT | e | 10:01 PM | | procedure are in the | | | | PDT | | results section. | + +--------+ + + + | XR ABDOMEN AP | Routin | 04/14/2017 | | Results for this | | UPRIGHT KUB AND PA | e | 8:13 PM | | procedure are in the | | CHEST | | PDT | | results section. | + +--------+ + + + | URINALYSIS, REFLEX | Routin | 04/14/2017 | | Results for this | | MICROSCOPIC AND/OR | e | 7:50 PM | | procedure are in the | | CULTURE | | PDT | | results section. | + +--------+ + + + documented in this encounter Results Type and Screen (04/14/2017 10:07 PM PDT) + + + + + + | Component | Value | Ref Range | Performed | Pathologist | | | | | At | Signature | + + + + + + | ABO Rh | O NEGATIVE | | EXTERNAL | | | | | | LAB | | + + + + + + | Antibody | NEGATIVE | | EXTERNAL | | | Screen | | | LAB | | + + + + + + | BB BAND | [id number] | | EXTERNAL | | | | performed at [facility];[address] | | LAB | | | | [address];[place] | | | | | | [address] | | | | + + + + + + + + | Specimen | + + | Blood specimen | | (specimen) | + + + +---------+ + + | Performing | Address | City/State/Zipcode | Phone Number | | Organization | | | | + +---------+ + + | EXTERNAL LAB | | | | + +---------+ + + HISTORICAL LAB PANEL RESULT (04/14/2017 10:01 PM PDT) + + + + + + | Component | Value | Ref Range | Performed | Pathologist | | | | | At | Signature | + + + + + + | WBC | 11.63 (H) | 3.80 - 11.00 | EXTERNAL | | | | | K/uL | LAB | | + + + + + + | Non- | 3.95 | 3.70 - 5.10 | EXTERNAL | | | Red Blood | | M/uL | LAB | | | Cells | | | | | | Counted | | | | | + + + + + + | Hemoglobin | 11.7 | 11.3 - 15.5 | EXTERNAL | | | | | g/dL | LAB | | + + + + + + | Hematocrit, | 34.6 | 34.0 - 46.0 % | EXTERNAL | | | POC | | | LAB | | + + + + + + | MCV | 87.5 | 80.0 - 100.0 fl | EXTERNAL | | | | | | LAB | | + + + + + + | MCH | 29.6 | 27.0 - 34.0 pg | EXTERNAL | | | | | | LAB | | + + + + + + | MCHC | 33.8 | 32.0 - 35.5 | EXTERNAL | | | | | g/dL | LAB | | + + + + + + | RDW-CV | 41.1 | 37 - 53 fl | EXTERNAL | | | | | | LAB | | + + + + + + | Platelet | 134 (L) | 150 - 400 K/uL | EXTERNAL | | | Count | | | LAB | | | Plasma | | | | | + + + + + + | MPV | 9.1 | fl | EXTERNAL | | | | | | LAB | | + + + + + + | Differentia | AUTOMATED | | EXTERNAL | | | l Type | | | LAB | | + + + + + + | % Segmented | 69.24 | % | EXTERNAL | | | | | | LAB | | | Neutrophils | | | | | + + + + + + | % | 21.17 | % | EXTERNAL | | | Lymphocytes | | | LAB | | + + + + + + | % Monocytes | 7.99 | % | EXTERNAL | | | | | | LAB | | + + + + + + | % | 0.66 | % | EXTERNAL | | | Eosinophils | | | LAB | | + + + + + + | % Basophils | 0.94 | % | EXTERNAL | | | | | | LAB | | + + + + + + | Absolute | 8.06 (H) | 1.90 - 7.40 | EXTERNAL | | | Segmented | | K/uL | LAB | | | Neutrophils | | | | | + + + + + + | Absolute | 2.46 | 1.00 - 3.90 | EXTERNAL | | | Lymphocytes | | K/uL | LAB | | + + + + + + | Absolute | 0.93 (H) | 0.00 - 0.80 | EXTERNAL | | | Monocytes | | K/uL | LAB | | + + + + + + | Absolute | 0.08 | 0.00 - 0.50 | EXTERNAL | | | Eosinophils | | K/uL | LAB | | + + + + + + | Absolute | 0.11 (H) | 0.00 - 0.10 | EXTERNAL | | | Basophils | | K/uL | LAB | | + + + + + + | Platelet | DECREASED | | EXTERNAL | | | Estimate | | | LAB | | + + + + + + | Differentia | SLIDE SCANNED, AGREES | | EXTERNAL | | | l Comments | WITH AUTOMATED RESULTS. | | LAB | | + + + + + + | Na | 141 | 135 - 145 | EXTERNAL | | | | | mmol/L | LAB | | + + + + + + | K | 3.7 | 3.5 - 4.9 | EXTERNAL | | | | | mmol/L | LAB | | + + + + + + | Cl | 110 (H) | 99 - 109 mmol/L | EXTERNAL | | | | | | LAB | | + + + + + + | CO2 | 26 | 23 - 32 mmol/L | EXTERNAL | | | | | | LAB | | + + + + + + | Anion Gap | 10 | 5 - 20 mmol/L | EXTERNAL | | | | | | LAB | | + + + + + + | Glucose, | 88 | 65 - 99 mg/dL | EXTERNAL | | | Fasting | | | LAB | | + + + + + + | BUN | 11 | 8 - 25 mg/dL | EXTERNAL | | | | | | LAB | | + + + + + + | Creatinine | 0.64 | 0.50 - 1.00 | EXTERNAL | | | | | mg/dL | LAB | | + + + + + + | BUN/Creatin | 18 | | EXTERNAL | | | ine Ratio | | | LAB | | + + + + + + | Calcium | 8.3 (L) | 8.5 - 10.5 | EXTERNAL | | | | | mg/dL | LAB | | + + + + + + | Protein, | 6.4 | 6.3 - 8.2 g/dL | EXTERNAL | | | Total | | | LAB | | + + + + + + | Albumin | 3.3 (L) | 3.6 - 5.0 g/dL | EXTERNAL | | | | | | LAB | | + + + + + + | Globulin | 3.1 | 1.3 - 4.9 g/dL | EXTERNAL | | | | | | LAB | | + + + + + + | A/G Ratio | 1.1 | 1.0 - 2.4 | EXTERNAL | | | | | | LAB | | + + + + + + | Bilirubin | 0.3 | 0.1 - 1.5 mg/dL | EXTERNAL | | | Total | | | LAB | | + + + + + + | ALP, | 46 | 35 - 115 U/L | EXTERNAL | | | External | | | LAB | | + + + + + + | AST | 10 | 10 - 45 U/L | EXTERNAL | | | | | | LAB | | + + + + + + | ALT | 21 | 10 - 65 U/L | EXTERNAL | | | | | | LAB | | + + + + + + | Estimated | >60Comment: GFR <60: | mL/min/1.73m2 | EXTERNAL | | | GFR | CHRONIC KIDNEY DISEASE, | | LAB | | | | IF FOUND OVER A 3 MONTH | | | | | | PERIOD.GFR <15: KIDNEY | | | | | | FAILURE.FOR | | | | | | AMERICANS, MULTIPLY THE | | | | | | CALCULATED GFR BY 1.210. | | | | | | | | | | + + + + + + | CK, Total | 48 | 30 - 240 U/L | EXTERNAL | | | | | | LAB | | + + + + + + | INR | 1.0Comment: REFERENCE | | EXTERNAL | | | | RANGE:0.9 - 1.2 | | LAB | | | | NON-ANTICOAGULATED2.0 | | | | | | - 3.0 ALL OTHER | | | | | | THERAPEUTIC | | | | | | INDICATIONS2.5 - 3.5 | | | | | | MECHANICAL HEART VALVES, | | | | | | RECURRENT OR SYSTEMIC | | | | | | EMBOLISM | | | | + + + + + + | aPTT, | 21 (L) | 23 - 32 seconds | EXTERNAL | | | Patient | | | LAB | | + + + + + + | CK-MB | <1.0 | 0.5 - 3.6 ng/mL | EXTERNAL | | | | | | LAB | | + + + + + + | CK-MB Index | UNABLE TO | | EXTERNAL | | | | CALCULATEComment: | | LAB | | | | Testing performed at | | | | | | [facility];[address] [place] [address] | | | | | | Blvd;[place] [address] | | | | + + + + + + + + | Specimen | + + | | + + + +---------+ + + | Performing | Address | City/State/Zipcode | Phone Number | | Organization | | | | + +---------+ + + | EXTERNAL LAB | | | | + +---------+ + + XR Abd Supine and Upright w 1 Vw Chest (04/14/2017 8:13 PM PDT) + + | Specimen | + + | | + + + + + | Impressions | Performed At | + + + | 1. No evidence of obstruction or perforation. Electronically | | | signed by Matt Rhodes on 04/14/2017 8:51 PM | | + + + + + + | Narrative | Performed At | + + + | [facility] 1980 XR ABDOMEN ACUTE SERIES 04/14/2017 8:13 | | | PM INDICATION: Abdominal pain COMPARISON: 03/07/2017 | | | TECHNIQUE: Abdominal series, 3 views, single AP view of the chest, 2 | | | views of the abdomen FINDINGS: The heart is borderline | | | prominent. Subsegmental atelectasis noted within the right lung base. | | | No significant pleural effusion. Bowel gas pattern is nonspecific. | | | A moderate amount of formed stool is seen throughout the colon, more | | | pronounced on the right. No dilated loops of small bowel or air-fluid | | | levels are demonstrated. No free intraperitoneal air is seen. | | + + + + + | Procedure Note | + + | Eron, Yahir Conversion - 04/26/2019 3:47 AM PDT MINOO PENNINGTON1980XR ABDOMEN | | ACUTE SERIES04/14/2017 8:13 PM INDICATION: Abdominal pain COMPARISON: 03/07/2017 TECHNIQUE: | | Abdominal series, 3 views, single AP view of the chest, 2 views of the abdomen | | FINDINGS: The heart is borderline prominent. Subsegmental atelectasis noted within the | | right lung base. No significant pleural effusion. Bowel gas pattern is nonspecific. A | | moderate amount of formed stool is seen throughout the colon, more pronounced on the | | right. No dilated loops of small bowel or air-fluid levels are demonstrated. No free | | intraperitoneal air is seen. IMPRESSION: 1. No evidence of obstruction or perforation. | | | |TECHNIQUE: Abdominal series, 3 views, single AP view of the chest, 2 views of the abdomen | | | |FINDINGS: The heart is borderline prominent. Subsegmental atelectasis noted within the rig ht lung base. No significant pleural effusion. | | | |Bowel gas pattern is nonspecific. A moderate amount of formed stool is seen throughout the colon, more pronounced on the right. No dilated loops of small bowel or air-fluid levels are demonstrated. No free intraperitoneal air is seen. | | | |IMPRESSION: | |1. No evidence of obstruction or perforation. | | | | | + + Urinalysis, Reflex Microscopic and/or Culture (04/14/2017 7:50 PM PDT) + + + + + + | Component | Value | Ref Range | Performed | Pathologist | | | | | At | Signature | + + + + + + | Color | YELLOW | | EXTERNAL | | | | | | LAB | | + + + + + + | Clarity, | CLEAR | | EXTERNAL | | | Urine | | | LAB | | + + + + + + | Specific | 1.024 | 1.002 - 1.030 | EXTERNAL | | | [place], | | | LAB | | | Urine | | | | | + + + + + + | Leukocyte | NEGATIVE | | EXTERNAL | | | [place], | | | LAB | | | Urine | | | | | + + + + + + | Nitrite, | NEGATIVE | | EXTERNAL | | | Urine | | | LAB | | + + + + + + | Urobilinoge | NORMAL | mg/dL | EXTERNAL | | | n, Urine | | | LAB | | + + + + + + | Protein, | NEGATIVE | mg/dL | EXTERNAL | | | Urine | | | LAB | | + + + + + + | pH, Urine | 5.0 | 5.0 - 8.0 | EXTERNAL | | | | | | LAB | | + + + + + + | Blood, | NEGATIVE | | EXTERNAL | | | Urine | | | LAB | | + + + + + + | Ketones | NEGATIVE | mg/dL | EXTERNAL | | | | | | LAB | | + + + + + + | Bilirubin, | NEGATIVE | | EXTERNAL | | | Urine | | | LAB | | + + + + + + | Glucose, | NEGATIVEComment: Testing | mg/dL | EXTERNAL | | | Urine | performed at [facility];[address] | | LAB | | | | [address];[place] | | | | | | [address] | | | | + + + + + + + + | Specimen | + + | | + + + +---------+ + + | Performing | Address | City/State/Zipcode | Phone Number | | Organization | | | | + +---------+ + + | EXTERNAL LAB | | | | + +---------+ + + documented in this encounter Visit Diagnoses + + | Diagnosis | + + | Acute generalized abdominal pain Abdominal pain, generalized | + + | Slow transit constipation | + + documented in this encounter
--- OUTSIDE RECORDS SUMMARY | ~2020-06-12 | XMS | Encounter Summary ---
Demographics + + + | Address | [address] | | | [address] [facility] [address] [facility] | | | [place] [address] | + + + | Home Phone | | + + + | Preferred Language | Unknown | + + + | Marital Status | Legally | + + + | Scientologist Affiliation | 1013 | + + + | Race | White | + + + | Ethnic Group | Not or | + + + Author + + + | Author | [facility] | | | and [place]ana | + + + | Organization | [facility] | | | [...] Team Providers + +------+ + | Care Band Log Mill And Carriage Operator Name | Role | Phone | + +------+ + PCP | Unavailable | + +------+ + Encounter Details +--------+ + + + + | Date | Type | Department | Care Team | Description | +--------+ + + + + | 06/22/ | Hospital | [facility] | Julio César Liriano MD | Spinal Stenosis of | | 2009 | Encounter | CONVERSION DEP [address] | [address] | Lumbar Region | | | | [address] | [place] [address] | | | | | [place], [place] | [phone] | | | | | [address] | | | | | [phone] | | | +--------+ + + + [...] + +--------+ + + + | XR LUMBAR SPINE 4 + | Routin | 03/03/2009 | | Results for this | | VW | e | 12:15 PM | | procedure are in the | | | | PDT | | results section. | + +--------+ + + + | XR THORACIC SPINE 3 | Routin | 03/03/2009 | | Results for this | | VW | e | 12:15 PM | | procedure are in the | | | | PDT | | results section. | + +--------+ + + + documented in this encounter Results XR Lumbar Spine 4 + Vw (03/03/2009 12:15 PM PDT) + + | Specimen | + + | | + + + + + | Narrative | Performed At | + + + | [id number] | | | Page 1 RADIOLOGY | | | / | | | O/P [facility] | | | NAME: [place] [address] | | | | | | | | | DATE OF : 1980 ORDER NUMBER: [id number] | | | EXAM DATE/TIME: 03/03/2009 11:58 A ORDERING PHYSICIAN: NORMAN | | | JULIO CÉSAR Nelson ORDER DETAIL: [id number] / / CARYN EXAM DESCRIPTION: XR LUMBAR | | | SPINE 4-5V | | | | | | FOUR-VIEW LUMBAR SPINE SERIES 03/03/2009 HISTORY Low back pain, | | | possible spinal stenosis. FINDINGS Frontal, lateral, and | | | bilateral oblique views of the lumbar spine show normal vertebral | | | body height, alignment, and disk spaces. There appears to be a | | | transitional vertebrae with lumbarization of the S1 segment. No | | | spondylolysis or spondylolisthesis. Sacroiliac joints are | | | unremarkable. IMPRESSION 1. Lumbarization of the S1 segment. 2. | | | No evidence of fractures. Read by JB LIND MD | | | 03/03/2009 01:29 P Electronically Signed by JB LIND MD | | | 03/04/2009 07:48 A P | | | 06:06 P DTB/yodit/[id number]/ cc: JB LIND MD JULIO CÉSAR | | | Omar LIRIANO MD | | + + + + + | Procedure Note | + + | Yahir Littlejohn Conversion - 05/07/2019 4:00 AM PDT | | [id number] Page 1 | | RADIOLOGY / | | O/P | | [facility] NAME: MADHURI PENNINGTON | | [place] [address] | | | | DATE OF : 1980 | | | | ORDER NUMBER: [id number] | | EXAM DATE/TIME: 03/03/2009 11:58 A | | ORDERING PHYSICIAN: JULIO CÉSAR LIRIANO | | ORDER DETAIL: [id number] / / CARYN | | EXAM DESCRIPTION: XR LUMBAR SPINE 4-5V | | | | FOUR-VIEW LUMBAR SPINE SERIES 03/03/2009 | | | | HISTORY | | Low back pain, possible spinal stenosis. | | | | FINDINGS | | Frontal, lateral, and bilateral oblique views of the lumbar spine show | | normal vertebral body height, alignment, and disk spaces. There appears | | to be a transitional vertebrae with lumbarization of the S1 segment. No | | spondylolysis or spondylolisthesis. Sacroiliac joints are unremarkable. | | | | IMPRESSION | | 1. Lumbarization of the S1 segment. | | 2. No evidence of fractures. | | | | | | Read by | | JB LIND MD 03/03/2009 01:29 P | | Electronically Signed by | | JB LIND MD 03/04/2009 07:48 A | | | | P | | P | | DTB/[facility]/[id number]/ | | cc: JB LIND MD | | JULIO CÉSAR LIRIANO MD | + + XR Thoracic Spine 3 Vw (03/03/2009 12:15 PM PDT) + + | Specimen | + + | | + + + + + | Narrative | Performed At | + + + | [id number] | | | Page 1 RADIOLOGY | | | / | | | O/P [facility] | | | NAME: [place] [address] | | | | | | | | | DATE OF : 1980 ORDER NUMBER: [id number] | | | EXAM DATE/TIME: 03/03/2009 12:01 P ORDERING PHYSICIAN: NORMAN | | | JULIO CÉSAR Nelson ORDER DETAIL: [id number] / / CARYN EXAM DESCRIPTION: XR THORACIC | | | SPINE 3 VIEWS | | | | | | THORACIC SPINE THREE VIEWS 03/03/2009 HISTORY Back pain, possible | | | spinal stenosis. TECHNIQUE Frontal and lateral views of the | | | thoracic spine with a swimmer's view of the cervicothoracic junction | | | are presented. FINDINGS Vertebral body height, alignment and disk | | | spaces are preserved. No compression fractures are identified. No | | | lytic or blastic lesions. No paravertebral soft tissue masses. | | | Pedicles are present. There are twelve vaw-wmsrunh-rxfv vertebral | | | bodies. IMPRESSION 1. Unremarkable thoracic spine series. No | | | evidence of compression fractures. 2. Conventional radiographs | | | are relatively insensitive for stenosis and cross-sectional | | | imaging with MRI would be much more sensitive and specific. | | | Read by JB LIND MD 03/03/2009 01:31 P | | | Electronically Signed by JB LIND MD 03/04/2009 07:48 A | | | P P DTB/fela/[id number]/ | | | cc: MD JULIO CÉSAR NORTH MD | | + + + + + | Procedure Note | + + | Yahir Littlejohn Conversion - 05/07/2019 4:00 AM PDT | | [id number] Page 1 | | RADIOLOGY / | | O/P | | [facility] NAME: MADHURI PENNINGTON | | [place] [address] | | | | DATE OF : 1980 | | | | ORDER NUMBER: [id number] | | EXAM DATE/TIME: 03/03/2009 12:01 P | | ORDERING PHYSICIAN: JULIO CÉSAR LIRIANO | | ORDER DETAIL: 7170 / / CARYN | | EXAM DESCRIPTION: XR THORACIC SPINE 3 VIEWS | | | | THORACIC SPINE THREE VIEWS 03/03/2009 | | | | HISTORY | | Back pain, possible spinal stenosis. | | | | TECHNIQUE | | Frontal and lateral views of the thoracic spine with a swimmer's view of | | the cervicothoracic junction are presented. | | | | FINDINGS | | Vertebral body height, alignment and disk spaces are preserved. No | | compression fractures are identified. No lytic or blastic lesions. No | | paravertebral soft tissue masses. Pedicles are present. There are twelve | | ika-sjldklo-wvwk vertebral bodies. | | | | IMPRESSION | | 1. Unremarkable thoracic spine series. No evidence of compression | | fractures. | | 2. Conventional radiographs are relatively insensitive for stenosis and | | cross-sectional imaging with MRI would be much more sensitive and | | specific. | | | | | | | | | | | | | | | | | | Read by | | JB LIND MD 03/03/2009 01:31 P | | Electronically Signed by | | JB LIND MD 03/04/2009 07:48 A | | | | P | | P | | DTB/felap/[id number]/ | | cc: JB LIND MD | | JULIO CÉSAR LIRIANO MD | + + documented in this encounter Visit Diagnoses + + | Diagnosis | + + | Spinal stenosis, lumbar region, without neurogenic claudication | + + documented in this encounter"
--- OUTSIDE RECORDS SUMMARY | ~2020-06-12 | XMS | Encounter Summary ---
Demographics + + + | Address | [address] | | | [address] [facility] | | | [place] [address] | + + + | Home Phone | | + + + | Preferred Language | Unknown | + + + | Marital Status | Legally | + + + | Yarsani Affiliation | 1013 | + + + | Race | White | + + + | Ethnic Group | Not or | + + + Author + + + | Author | [facility] | | | and [place] | + + + | Organization | [facility] | | [...] Team Providers + +------+ + | Care Screen Stretcher Name | Role | Phone | + +------+ + PCP | Unavailable | + +------+ + Encounter Details +--------+ + + + + | Date | Type | Department | Care Team | Description | +--------+ + + + + | 08/10/ | Emergency | [facility] | Conversion | Injury, Other and | | 2006 | | MEDICAL CENTER | Transaction, | Unspecified, Elbow, | | | | EMERGENCY CENTER | Provider Unknown | Forearm, and Wrist | | | | [address] | | | | | | [place], [place] | (Fax) | | | | | [address] | | | | | | [phone] | | | +--------+ + + + [...] filedocumented as of this encounter Visit Diagnoses + + | Diagnosis | + + | Injury, other and unspecified, elbow, forearm, and wrist | + + documented in this encounter"
--- OUTSIDE RECORDS SUMMARY | ~2020-06-12 | XMS | Encounter Summary ---
Demographics + + + | Address | [address] | | | [address] [facility] | | | [place] [address] | + + + | Home Phone | | + + + | Preferred Language | Unknown | + + + | Marital Status | Legally | + + + | Christian Affiliation | 1013 | + + + | Race | White | + + + | Ethnic Group | Not or | + + + Author + + + | Author | [facility] | | | and [place]ana | + + + | Organization | [facility] | | | [...] Team Providers + +------+ + | Care Air Conditioning Specialist Name | Role | Phone | + +------+ + | No, Physician | PCP | Unavailable | + +------+ + Reason for Visit + +--------+ + | Reason | Onset | Comments | | | Date | | + +--------+ + | Referral Question | 04/21/ | Outgoing (Clarification Needed) | | | 2020 | | + +--------+ + Encounter Details +--------+ + + + + | Date | Type | Department | Care Team | Description | +--------+ + + + + | 04/21/ | Telephone | [facility] | Magdy Conrad, | Referral Question | | 2020 | | GENERAL SURGERY [address] | PURCHASING MANAGER [address] | (Outgoing | | | | [address] | [address] [place], | (Clarification | | | | [place], [place] | [place] [address] | Needed)) | | | | [address] | [phone] | | | | | [phone] | | | +--------+ + + + [...] + + documented as of this encounter Functional Status + + + [...] + + documented as of this encounter Miscellaneous Notes Telephone Encounter - Danielle García [place]ienna - 04/22/2020 8:16 AM PDTAntionette [facility], is martell ling again for Referral Question (Outgoing (Clarification Needed)) and would like a call back. Additional Call Details: Stated they cannot see patient until they have had 4 weeks post o p. Please call Antionette back at ext [phone]. elephone Encounter - Jean Murcia RN - 04/21/2020 2:53 PM PDTAttempted to return a call to Meera. No answer. LM to call. Left contact information. Electronically signed by Jean Montoya RN at 04/12 3:25 PM PDTTelephone Encounter - Claire Harris - 04/21/2020 2:31 PM PDTReynaldo [facility]and [facility], is calling regarding Referral Question (Outgoing (Clarification Needed)) and would like a call back. Additional Call Details: Caller states she is needing to have some clarification on the wo und care referral. Please call Meera back at [phone] extension: [phone]. If this is a symptom based call, was patient offered triage? Not Applicable If this is a symptom based call and you were unable to immediately transfer the call to a margarita klein picking crew supervisor was caller made aware that if at any time she feels it is an emergency they sh ould call 911 or go to the nearest emergency room? not applicable documented in this encounter Plan of Treatment Not on filedocumented as of this encounter Visit Diagnoses Not on filedocumented in this encounter Additional Health Concerns + + + + + | Infection | Onset Date | Last Indicated | Resolved Time | + + + + + | Methicillin-resistan | 04/15/2020 | 04/15/2020 | | | t Staphylococcus | | | | | aureus | | | | + + + + + documented as of this encounter"
--- OUTSIDE RECORDS SUMMARY | ~2020-06-12 | XMS | Encounter Summary ---
Demographics + + + | Address | [address] | | | [address] [facility] | | | [place] [address] | + + + | Home Phone | | + + + | Preferred Language | Unknown | + + + | Marital Status | Legally | + + + | Restoration Affiliation | 1013 | + + + | Race | White | + + + | Ethnic Group | Not or | + + + Author + + + | Author | [facility] | | | and [place]ana | + + + | Organization | [facility] | | | [...] Team Providers + +------+ + | Care Mold Changer Name | Role | Phone | + +------+ + PCP | Unavailable | + +------+ + Encounter Details +--------+ + + + + | Date | Type | Department | Care Team | Description | +--------+ + + + + | 09/23/ | Hospital | [facility] | Marquis Araiza MD | Unspecified | | 2009 | Encounter | MEDICAL CENTER | [address] | Nonpsychotic Mental | | | | CLINICAL DECISION | [place] [address] | Disorder | | | | [address] | Glenny Pickering DO | | | | | [place], [place] | [address] | | | | | [address] | [place] [address] | | | | | [phone] | [phone] | | | | | | | [...] | + +--------+ + + + | CT SOFT TISSUE NECK | Routin | 09/23/2008 | | Results for this | | WO CONTRAST | e | 2:20 AM | | procedure are in the | | | | PST | | results section. | + +--------+ + + + documented in this encounter Results CT Soft Tissue Neck wo Contrast (09/23/2008 2:20 AM PST) + + | Specimen | + + | | + + + + + | Narrative | Performed At | + + + | [id number] | | | Page 1 Diagnostic Outsourced | | | MED 307 1/ | | | OPO [facility] | | | NAME: [place] [address] | | | | | | | | | DATE OF : 1980 ORDER NUMBER: [id number] | | | EXAM DATE/TIME: 09/23/2008 01:58 A ORDERING PHYSICIAN: JOSE | | | MITCHEL Tran ORDER DETAIL: [id number] / / HCT EXAM DESCRIPTION: CT SOFT | | | TISSUE NECK | | | | | | SOFT TISSUE NECK CT WITHOUT CONTRAST 09/23/2008 CLINICAL HISTORY | | | Post hanging. TECHNIQUE Axial noncontrast images were obtained. | | | FINDINGS Helical scanning of the neck with IV contrast injection | | | demonstrated normal appearance to parotid glands, submandibular | | | glands, and thyroid gland. No evidence to cervical lymph node | | | enlargement. No mass, fluid collection or vocal cord abnormality | | | identified. IMPRESSION NEGATIVE CT SCAN OF THE NECK. Read | | | by LEXY WONG MD 09/23/2008 02:40 A Electronically Signed by LEXY | | | MD MARVIN 09/24/2008 05:20 A A DT: | | | 09/23/2008 01:42 P SHAN/sllivia/[id number]/ cc: MITCHEL GARCIA MD | | | MD LEXY HERRERA MD JORGE G | | | MD OK ARAIZA MD | | + + + + + | Procedure Note | + + | Eron, Rad Conversion - 05/07/2019 4:00 AM PDT | | [id number] Page 1 | | Diagnostic Outsourced MED 307 1/ | | OPO | | [facility] NAME: MINOO PENNINGTON | | [place] [address] | | | | DATE OF : 1980 | | | | ORDER NUMBER: [id number] | | EXAM DATE/TIME: 09/23/2008 01:58 A | | ORDERING PHYSICIAN: MITCHEL GARCIA | | ORDER DETAIL: [id number] / / HCT | | EXAM DESCRIPTION: CT SOFT TISSUE NECK | | | | SOFT TISSUE NECK CT WITHOUT CONTRAST 09/23/2008 | | | | CLINICAL HISTORY | | Post hanging. | | | | TECHNIQUE | | Axial noncontrast images were obtained. | | | | FINDINGS | | Helical scanning of the neck with IV contrast injection demonstrated | | normal appearance to parotid glands, submandibular glands, and thyroid | | gland. No evidence to cervical lymph node enlargement. No mass, fluid | | collection or vocal cord abnormality identified. | | | | IMPRESSION | | NEGATIVE CT SCAN OF THE NECK. | | | | | | Read by | | LEXY WONG MD 09/23/2008 02:40 A | | Electronically Signed by | | LEXY WONG MD 09/24/2008 05:20 A | | | | A | | P | | MM/[id number]/[id number]/ | | cc: MITCHEL GARCIA MD | | PRIETO JEFFRIES MD | | LEXY WONG MD | | MARQUIS ARAIZA MD | | OK RAMON MD | + + documented in this encounter Visit Diagnoses + + | Diagnosis | + + | Unspecified nonpsychotic mental disorder | + + documented in this encounter"
--- OUTSIDE RECORDS SUMMARY | ~2020-06-12 | XMS | Encounter Summary ---
Demographics + + + | Address | [address] | | | [address] | | | [place] [address] | + + + | Home Phone | | + + + | Preferred Language | Unknown | + + + | Marital Status | Legally | + + + | Caodaism Affiliation | 1013 | + + + | Race | White | + + + | Ethnic Group | Not or | + + + Author + + + | Author | [facility] | | | and [place]ana | + + + | Organization | [facility] | | | and [...] Team Providers + +------+ + | Care Negative Turner Name | Role | Phone | + +------+ + PCP | Unavailable | + +------+ + Encounter Details +--------+ + + + + | Date | Type | Department | Care Team | Description | +--------+ + + + + | 08/17/ | Emergency | [facility] | Alan Bhatt, | Unspecified Disorder | | 2008 | | MEDICAL CENTER | MD [address] | of the Teeth and | | | | EMERGENCY CENTER | [place], [place] | Supporting | | | | [address] | [address] | Structures | | | | [place], [place] | | | | | | [address] | | | | | | [phone] | | | +--------+ + + + [...] | Diagnosis | + + | Unspecified disorder of the teeth and supporting structures | + + documented in this encounter"
--- OUTSIDE RECORDS SUMMARY | ~2020-06-12 | XMS | Encounter Summary ---
Demographics + + + | Address | [address] | | | [address] [facility] | | | [place] [address] | + + + | Home Phone | | + + + | Preferred Language | Unknown | + + + | Marital Status | Legally | + + + | Sikh Affiliation | 1013 | + + + | Race | White | + + + | Ethnic Group | Not or | + + + Author + + + | Author | [facility] | | | and [place] | + + + | Organization | [facility] | | | and [...] Team Providers + +------+ + | Care Database Architect Name | Role | Phone | + +------+ + PCP | Unavailable | + +------+ + Encounter Details +--------+ + + + + | Date | Type | Department | Care Team | Description | +--------+ + + + + | 06// | Emergency | [facility] | Alex Rhoades | Unspecified Backache | | 2008 | | MEDICAL CENTER | DO [address] | | | | | EMERGENCY CENTER | [place], [place] | | | | | [address] | [address] | | | | | [place], [place] | | | | | | [address] | | | | | | [phone] | | | +--------+ + + + [...] + | Diagnosis | + + | Backache, unspecified | + + documented in this encounter"
--- OUTSIDE RECORDS SUMMARY | ~2020-06-12 | XMS | Encounter Summary ---
Demographics + + + | Address | [address] | | | [address] [facility] | | | [place] [address] | + + + | Home Phone | | + + + | Preferred Language | Unknown | + + + | Marital Status | Legally | + + + | Shinto Affiliation | 1013 | + + + | Race | White | + + + | Ethnic Group | Not or | + + + Author + + + | Author | [facility] | | | and [place] | + + + | Organization | [facility] | | | [...] Team Providers + +------+ + | Care Cuff Slitter Name | Role | Phone | + +------+ + PCP | Unavailable | + +------+ + Encounter Details +--------+ + + + + | Date | Type | Department | Care Team | Description | +--------+ + + + + | 12/08/ | Emergency | [facility] | Vinod, Donell C, | Anxiety State, | | 2008 | | MEDICAL CENTER | MD [address] | Unspecified | | | | EMERGENCY CENTER | [place], [place] | | | | | [address] | [address] | | | | | [place], [place] | [phone] | | | | | [address] | | | | | | [phone] | | | +--------+ + + + [...] + | Diagnosis | + + | Anxiety state, unspecified | + + documented in this encounter"
--- OUTSIDE RECORDS SUMMARY | ~2020-06-12 | XMS | Encounter Summary ---
Demographics + + + | Address | [address] | | | [address] [facility] | | | [place] [address] | + + + | Home Phone | | + + + | Preferred Language | Unknown | + + + | Marital Status | Legally | + + + | Mormon Affiliation | 1013 | + + + | Race | White | + + + | Ethnic Group | Not or | + + + Author + + + | Author | [facility] | | | and [place]ana | + + + | Organization | [facility] | | | [...] Team Providers + +------+ + | Care Vendor Specialist Name | Role | Phone | + +------+ + PCP | Unavailable | + +------+ + Encounter Details +--------+ + + + + | Date | Type | Department | Care Team | Description | +--------+ + + + + | 03/26/ | Emergency | [facility] | Alonso Ramos | Vomiting Alone | | 2008 | | MEDICAL CENTER | MD [address] | | | | | EMERGENCY CENTER | [place], [place] | | | | | [address] [facility] | [address] | | | | | [place], [place] | [phone] | | | | | [address] | | | | | | [phone] | | | +--------+ + + + [...] + | Diagnosis | + + | Vomiting alone | + + documented in this encounter"
--- OUTSIDE RECORDS SUMMARY | ~2020-06-12 | XMS | Encounter Summary ---
Demographics + + + | Address | [address] | | | [address] | | | [place] [address] | + + + | Home Phone | | + + + | Preferred Language | Unknown | + + + | Marital Status | Legally | + + + | Zoroastrianism Affiliation | 1013 | + + + | Race | White | + + + | Ethnic Group | Not or | + + + Author + + + | Author | [facility] | | | and [place] | + + + | Organization | [facility] | | | [...] Team Providers + +------+ + | Care Warp Dyeing Tender Name | Role | Phone | + +------+ + PCP | Unavailable | + +------+ + Encounter Details +--------+ + + + + | Date | Type | Department | Care Team | Description | +--------+ + + + + | 03/06/ | Emergency | [facility] | Zafar Penny, | Menometrorrhagia; | | 2017 - | | [facility] | MD [address] | Displacement of | | | | EMERGENCY CENTER | [place] [address] | intrauterine | | 03/07/ | | [address] | [phone] | contraceptive | | 2017 | | [place], [place] | | device, initial | | | | [id number] | | encounter | | | | [phone] | | | +--------+ + + + [...] + + + | Blood Pressure | 130/80 | 03/07/2017 12:34 AM | | | | | PDT | | + + + + + | Pulse | 68 | 03/07/2017 12:34 AM | | | | | PDT | | + + + + + | Temperature | 36.7 C (98.1 F) | 03/07/2017 12:34 AM | | | | | PDT | | + + + + + | Respiratory Rate | 17 | 03/07/2017 12:34 AM | | | | | PDT | | + + + + + | Oxygen Saturation | - | - | | + + + + + | Inhaled Oxygen | - | - | | | Concentration | | | | + + + + + | Weight | 96.3 kg (212 lb 4.8 | 03/07/2017 12:34 AM | | | | oz) | PDT | | + + + + + | Height | - | - | | + + + + + | Body Mass Index | 31.35 | 03/03/2017 11:39 AM | | | | | PDT [...] Sulfate | AERS | | 0 | / | | | (PROAIR HFA IN) | | | | 12 | | + + + +---------+ + + | EPINEPHrine | TOÑO | | 0 | 05/20 | | | (EPIPEN IJ) | | [...] documented as of this encounter ED Notes Conversion Transaction, Provider Unknown - 03/06/2017 8:21 PM PDTFormatting of this note m ight be different from the original. ED Notes by Vinh Gonzales RN at 03/06/172020 Author: Vinh Gonzales RN Service: (none) Author Type: Registered Nurse Filed: 03/06/172022 Date of Service: 03/06/172020 Status: Signed Sales Data Analyst: Vinh Gonzales RN (Registered Nurse) Pt states she has always had horrible periods. Pt states IUD placed in January because she hear d it help relieve her periods. Pt stating her periods have been worse since IUD placement a nd her Abd cramps are unbearable Vinh Gonzales RN 03/06/172022 immZafar dasilva MD - 03/06/2017 8:18 PM PDTFormatting of this note might be different from the o riginal. ED Provider Notes by Zafar Penny MD at 03/06/172017 Author: Zafar Penny MD Service: Emergency Department Author Type: Physician Filed: 03/08/17638 Date of Service: 03/06/172017 Status: Signed Sales Data Analyst: Zafar Penny MD (Physician) [facility] Department of Emergency Medicine 8:18 PM History of Present Illness Patient Identification Minoo Pennington is a 37 y.o. female. Patient information was obtained from patient. History/Exam limitations: none. Patient presented to the Emergency Department by: Car Chief Complaint Chief Complaint Patient presents with Groin Pain recent IUD placement; 01/31/17 Abdominal Cramping This is a 37 y.o. female with chief complaint of abdominal pain. Onset of symptoms was a fe w days ago, with a worsening course since that time. The symptoms are currently described t o be of moderate severity. On 01/31 the patient received Mirena IUD, and reports having vagin al bleeding w/ abdominal cramping since 02/04; patient reports at this time that she has had abnormal periods her entire life, on average lasting 2.5 weeks. Pt also describes this abdo mariah cramping as "feels like a cramp x100." Pt denies fever, vomiting, diarrhea, purulent v aginal discharge, flank pain, urinary pain, and any other sx at this time. Patient reports s he is otherwise healthy. Patient received no care prior to arrival. Denies any h/o recent se xual activity. Other significant factors in the PMH are noted and include: Chronic neck pain and allergies . PCP: MOISE COOPER Past Medical History Diagnosis Date Back pain 12/18/2009 Bipolar disorder (HCC) 09/2008 Asthma Herniated disc, cervical C5,C6 Past Surgical History Procedure Laterality Date Esophagogastroduodenoscopy 2009 Colonoscopy section x 2 Hernia repair Prior to Admission medications Medication Sig Start Date End Date Taking? Authorizing Provider Bismuth Subsalicylate (PEPTO-BISMOL PO) Take by mouth. Historical Provider EPINEPHrine (EPIPEN) 0.3 MG/0.3ML injection Inject 0.3 mLs into the muscle as needed. RITIKA Holt fluticasone (FLONASE) 50 MCG/ACT nasal 1 spray by Each Nare route daily. 10/19/16 10/19/17 Yuri Her PA-C HYDROcodone-acetaminophen (NORCO) 10-325 MG per tablet Take 1 tablet by mouth every 6 (six) hours as needed for Pain. 03/03/17 RITIKA [place] HYDROcodone-acetaminophen (NORCO) 10-325 MG per tablet Take 1 tablet by mouth every 6 (six) hours as needed for Pain. 03/31/17 RITIKA [place] Multiple Vitamin (MULTIVITAMINS) TABS 02/01/12 Historical Provider naproxen (NAPROSYN) 500 MG tablet Take 1 tablet by mouth 2 (two) times daily as needed. 02/11 10/29 RITIKA [place] pantoprazole (PROTONIX) 40 MG tablet Take 1 tablet by mouth every morning before breakfast. 01/12/17 03/13/17 Jamaal Sims MD tizanidine (ZANAFLEX) 4 MG capsule Take 1 capsule by mouth 2 (two) times daily as needed fo r Muscle spasms. 1 to 2 tablets at bedtime. 03/03/17 RITIKA [place] Allergies Allergen Reactions Bee Venom Anaphylaxis Morphine And Related Other (See Comments) Abstracted Penicillins Hives Inapsine [Droperidol] Anxiety Lactose Intolerance (Gi) Abdominal Pain Social History Social History Marital Status: Spouse Name: N/A Number of Children: N/A Years of Education: N/A Occupational History Not on file. Social History Main Topics Smoking status: Current Every Day Smoker -- 1.00 packs/day for 17 years Smokeless tobacco: Never Used Alcohol Use: No Drug Use: No Comment: Quit IV drug use in 2010. Sexual Activity: Not on file Other Topics Concern Not on file Social History Narrative Family History Problem Relation Age of Onset Stroke Father Stroke Maternal Grandmother Diabetes Maternal Grandmother Diabetes Maternal Grandfather Heart attack Maternal Grandfather Review of Systems Review of Systems Constitutional: Negative for fever and chills. Gastrointestinal: Positive for abdominal pain. Genitourinary: Pos for vaginal bleeding Skin: Negative for rash. All other systems reviewed and are negative. Physical Exam BP 122/84 mmHg | Pulse 76 | Temp(Src) 98.1 F (36.7 C) (Temporal) | Resp 22 | Wt 96.3 kg (212 lb 4.9 oz) | SpO2 98% Vitals: Tachypnea, otherwise WNL Pulse Oximetry Interpretation: Normal General: Alert, in no acute distress, non-toxic Head: Normocephalic. Atraumatic. Eyes: Normal inspection, pupils equal and round, non-icteric, EOM full ENT: Ears and nose normal external inspection Pharynx normal Moist mucous membranes, pink appearing Neck: Normal inspection Supple No lymphadenopathy. No JVD CVS: Rate and rhythm normal No Bruits. No murmurs Respiratory: Breath sounds normal bilaterally, normal chest rise and fall, no obvious traum a Abdomen: Soft, non-distended, Bowel sounds unremarkable. Suprapubic tenderness, L worse capo n R w/ equivocal rebound. No masses. No hernias. Rectal deferred Back: No point tenderness. Moves without difficulty Extremities: Moves all extremities without pain or restriction. No obvious deformity. Well perfused. No calf tenderness No leg swelling Skin: Color normal. Warm and dry. No rash noted Neuro: No gross motor/sensory deficits noted. No facial asymmetry Medical Decision Making and Emergency Department Course ED Department Course 8:18 PM Pt presents to the ED complaining of lower abdominal pain. On exam, pt has suprapub ic tenderness. I feel that the list of possible emergent diagnoses that the patient requires an evaluation for includes (but is not limited to) acute appendicitis, cholecystitis, pancreatitis, diver ticulitis, bowel obstruction, urolithiasis, inflammatory bowel disease, misplaced IUD, perfo rated IUD, vs other. I believe that laboratory testing and further diagnostic testing is ne cessary to ensure that there is no acute emergent cause of the symptoms. 10:06 PM Reviewed labs. Currently unremarkable. 11:32 PM Reviewed US. IUD was poorly visualized. 11:38 PM Patient reevaluation. Patient is stable at this time. I updated the pt on current ED results. She reports she would prefer not to have the IUD removed tonight, and I will con keith w/ Dr. Scott, OB, to see when she can f/u w/ him for removal. 11:45 PM Discussed pt's case w/ Dr. Scott, who recommends a KUB. If Mirena is there, i t will show up on XR, otherwise he will see the patient on Tuesday03/09/17 at 0750. IUD is present and available on KUB. Also noted that the pt has mod constipation. I have discussed my clinical impression and treatment plan with the pt. Patient is stable a t this time and does not meet admission criteria. We have specifically discussed the signs a nd symptoms that would constitute the need for an immediate return to the ED, the importance of continued outpatient f/u and the importance of compliance with the d/c instructions. I h ave answered any questions that the pt has to the best of my ability. Based upon the pt s history, physical exam, ED course, and diagnostic studies, I feel capo t there is no current emergent medical condition that warrants admission, transfer, or furth er ED treatment at this time. Medications ketorolac (TORADOL) injection 60 mg (60 mg Intramuscular Given 03/06/172314) Filed Vitals: 03/06/17201403/06/17 2309 03/06/17 2329 03/07/17 0033 BP: 122/84 148/99 122/83 130/80 Pulse: 76 80 69 68 Temp: 98.1 F (36.7 C) TempSrc: Temporal Resp: Weight: 96.3 kg (212 lb 4.9 oz) SpO2: 98% 100% 98% 98% Records Reviewed Old medical records. Nursing notes. Previous ED visits for similar and unrelated complaints. Laboratory Evaluation Results Procedure Component Value Ref Range Date/Time Urine test (LAB) [[id number]] Collected: 03/06/172158 Order Status: Completed Specimen Information: Urine from Urine, Clean Catch Updated: 03/07/17210 Preg Test, Ur NEGATIVE NEGATIVE Urinalysis (reflex to micro/reflex to culture) [[id number]] (Abnormal) Collected: 03/06 Order Status: Completed Specimen Information: Urine, Clean Catch Updated: 03/06/17 12 COLOR UA YELLOW CLARITY CLEAR Specific [place], UA 1.017 1.002 - 1.030 LEUKOCYTE ESTERASE NEGATIVE NEGATIVE NITRITE NEGATIVE NEGATIVE UROBILINOGEN NORMAL <1.1 mg/dL PROTEIN NEGATIVE NEGATIVE mg/dL PH,URINE 6.0 5.0 - 8.0 BLOOD MODERATE (A) NEGATIVE KETONES NEGATIVE NEGATIVE mg/dL BILIRUBIN NEGATIVE NEGATIVE GLUCOSE NEGATIVE NEGATIVE mg/dL WBC 0-2 0 - 5 /hpf RBC 3-5 0 - 5 /hpf BACTERIA 1+ (A) NONE SEEN EPITHELIAL 16-25 /lpf Mucus, UA 1+ C-Reactive Protein [[id number]] (Abnormal) Collected: 03/06/172054 Order Status: Completed Specimen Information: Blood Updated: 03/06/172200 CRP 0.5 (H) <0.5 mg/dL Complete Metabolic Panel [[id number]] Collected: 03/06/172054 Order Status: Completed Specimen Information: Blood Updated: 03/06/172200 SODIUM 142 135 - 145 mmol/L POTASSIUM 4.2 3.5 - 4.9 mmol/L CHLORIDE 109 99 - 109 mmol/L CO2 25 23 - 32 mmol/L ANION GAP AGAP 12 5 - 20 mmol/L GLUCOSE 96 65 - 99 mg/dL BUN 19 8 - 25 mg/dL CREATININE 0.76 0.50 - 1.00 mg/dL BUN/CREAT 25 CALCIUM 9.1 8.5 - 10.5 mg/dL TOTAL PROTEIN 7.2 6.3 - 8.2 g/dL Albumin 3.9 3.6 - 5.0 g/dL GLOBULIN 3.3 1.3 - 4.9 g/dL A/G 1.2 1.0 - 2.4 TBIL 0.3 0.1 - 1.5 mg/dL ALK PHOS 63 35 - 115 U/L AST 13 10 - 45 U/L ALT 23 10 - 65 U/L EGFR >60 >60 mL/min/1.73m2 Protime-INR [[id number]] Collected: 03/06/172054 Order Status: Completed Specimen Information: Blood Updated: 03/06/172153 INR 1.0 CBC w Auto Diff [[id number]] Collected: 03/06/172054 Order Status: Completed Specimen Information: Blood Updated: 03/06/172129 WBC 7.81 3.80 - 11.00 K/uL RBC 4.24 3.70 - 5.10 M/uL HGB 12.7 11.3 - 15.5 g/dL HCT 36.3 34.0 - 46.0 % MCV 85.6 80.0 - 100.0 fl MCH 29.9 27.0 - 34.0 pg MCHC 34.9 32.0 - 35.5 g/dL RDW SD 39.8 37 - 53 fl PLT 193 150 - 400 K/uL MPV 9.0 fl DIFF TYPE AUTOMATED NEUTROPHILS 60.04 % LYMPHOCYTES 28.09 % MONOCYTES 6.75 % EOSINOPHILS 4.29 % BASOPHILS 0.83 % NEUTROPHILS ABS 4.69 1.90 - 7.40 K/uL LYMPHOCYTES ABS 2.19 1.00 - 3.90 K/uL MONOCYTES ABS 0.53 0.00 - 0.80 K/uL EOSINOPHILS ABS 0.34 0.00 - 0.50 K/uL BASOPHILS ABS 0.07 0.00 - 0.10 K/uL I personally reviewed the lab results and they have been posted to the chart. Pertinent po sitive and negative findings have been addressed appropriately. Radiology and EKG Evaluation Imaging Results XR abdomen 1 View (KUB) (Final result) Result time: 03/07/17 09:54:37 Final result by Rad Results In Eron (03/07/17 09:54:37) Impression: 1. Nonobstructive bowel gas pattern. Narrative: [facility]OO P[facility]INGTON XR ABDOMEN 1 VIEW HISTORY: Abdominal pain. TECHNIQUE: Supine anterior view of the abdomen. COMPARISON: 03/03/2006 FINDINGS: Moderate amount of stool within the colon. Nonobstructive bowel gas pattern. The osseous st ructures are intact. Intrauterine device seen centrally within the pelvis. Properitoneal fat stripes are maintained. Calcification on the left side of the pelvis that is stable and lik pavithra represents a phlebolith. Ultrasound pelvis, non- (Final result) Result time: 03/06/17 23:30:41 Final result by Rad Results In Eron (03/06/17 23:30:41) Impression: 1. IUD is poorly seen. Echogenic shadowing area along the right uterine wall which could re present a portion of the IUD. 2. Prominent uterus with suspected myomatous changes. 3. Thickened heterogeneous endometrium with some increased blood flow signal. Endometrial m argins are not well seen. 4. Ovaries could not be visualized. RADIA Electronically signed by Glenn Montoya MD on Mar 06 2017 11:30PM Referring Provider Line: [phone] ID: [id number] Narrative: EXAM: PELVIC ULTRASOUND EXAM DATE: 03/06/2017 11:10 PM. CLINICAL HISTORY: Pelvic pain. Recent IUD. Unable to feel the IUD strings. Constant heavy b leeding. COMPARISON: 05/01/2002. TECHNIQUE: Realtime transabdominal pelvic scan performed for overall evaluation, and transv aginal scan for more detailed evaluation, with static image documentation. FINDINGS: Uterus: 12.4 cm. Anteverted position. Masses: Suspected myomatous uterus. Endometrium: Thickened and heterogeneous with increased blood flow. The margins of the endo metrium are not well seen. Right Ovary: Not seen. Left Ovary: Not seen. Free Fluid: None. Other: Echogenic shadowing area along the right side of the uterine wall. This could repres ent a portion of the IUD, but difficult to be certain. Preliminary result by Rad Results In Eron (03/06/17 23:29:37) Impression: 1. IUD is poorly seen. Echogenic shadowing area along the right uterine wall which could re present a portion of the IUD. 2. Prominent uterus with suspected myomatous changes. 3. Thickened heterogeneous endometrium with some increased blood flow signal. Endometrial m argins are not well seen. 4. Ovaries could not be visualized. RADIA Read by Glenn Montoya MD on Mar 06 2017 11:29PM ED Diagnoses Final diagnoses Menometrorrhagia Displacement of intrauterine contraceptive device, initial encounter Disposition: ED Disposition Orders Discharge Condition at discharge: Stable Follow-up Information Follow up With Details Comments Contact Info Glenn Scott MD on 03/09/17 ay 7:50 AM [address] [facility] [address] [facility] Emergency Department If symptoms worsen [address] [facility] [address] Discharge Medications: Discharge Medication List as of 03/07/2017 12:42 AM START taking these medications Details ketorolac (TORADOL) 10 MG tablet Take 1 tablet by mouth every 6 (six) hours as needed for P ain., Starting 03/06/2017, Until Tue03/11/17, Print Zafar Penny MD Procedures Additional Documentation Procedures Attending Provider Note: I, Zafar Penny MD personally performed the services described in this documentation, as scribed by Mariluz Galaviz in my presence, and it is both accurate and complete. Chart Reviewed and Completed: 03/08/2017 6:39 AM Scribe: Benjamin Allen, scribing for and in the presence of Zafar Penny MD. Signed by: Benjamin Burdick 03/07/2017 12:51 AM Zafar Penny MD 03/08/17 0639 documented in this e ncounter Plan of Treatment Not on filedocumented as of this encounter Procedures + +--------+ + + + | Procedure Name | Priori | Date/Time | Associated Diagnosis | Comments | | | ty | | | | + +--------+ + + + | XR ABDOMEN AP | Routin | 03/07/2017 | | Results for this | | | e | 12:47 AM | | procedure are in the | | | | PDT | | results section. | + +--------+ + + + | US NON-OB | Routin | 03/06/2017 | | Results for this | | TRANSVAGINAL | e | 11:09 PM | | procedure are in the | | | | PDT | | results section. | + +--------+ + + + | URINALYSIS, REFLEX | Routin | 03/06/2017 | | Results for this | | MICROSCOPIC AND/OR | e | 9:59 PM | | procedure are in the | | CULTURE | | PDT | | results section. | + +--------+ + + + | HCG, URINE, QUAL | Routin | 03/06/2017 | | Results for this | | | e | 9:59 PM | | procedure are in the | | | | PDT | | results section. | + +--------+ + + + | EXTERNAL LAB: CBC | Routin | 03/06/2017 | | Results for this | | | e | 8:55 PM | | procedure are in the | | | | PDT | | results section. | + +--------+ + + + | PROTIME INR | Routin | 03/06/2017 | | Results for this | | | e | 8:55 PM | | procedure are in the | | | | PDT | | results section. | + +--------+ + + + | C-REACTIVE PROTEIN | Routin | 03/06/2017 | | Results for this | | | e | 8:55 PM | | procedure are in the | | | | PDT | | results section. | + +--------+ + + + | COMPREHENSIVE | Routin | 03/06/2017 | | Results for this | | METABOLIC PANEL | e | 8:55 PM | | procedure are in the | | | | PDT | | results section. | + +--------+ + + + documented in this encounter Results XR Abdomen AP (03/07/2017 12:47 AM PDT) + + | Specimen | + + | | + + + + + | Impressions | Performed At | + + + | 1. Nonobstructive bowel gas pattern. | | + + + + + + | Narrative | Performed At | + + + | MINOO [facility]INGTON XR ABDOMEN 1 VIEW HISTORY: Abdominal pain. | | | TECHNIQUE: Supine anterior view of the abdomen. COMPARISON: | | | 03/03/2006 FINDINGS: Moderate amount of stool within the colon. | | | Nonobstructive bowel gas pattern. The osseous structures are intact. | | | Intrauterine device seen centrally within the pelvis. Properitoneal | | | fat stripes are maintained. Calcification on the left side of the | | | pelvis that is stable and likely represents a phlebolith. | | + + + + + | Procedure Note | + + | Eron, Rad Conversion - 04/26/2019 3:47 AM PDT [facility] ABDOMEN 1 VIEW | | HISTORY:Abdominal pain. TECHNIQUE:Supine anterior view of the abdomen. | | COMPARISON:03/03/2006 FINDINGS:Moderate amount of stool within the colon. Nonobstructive | | bowel gas pattern. The osseous structures are intact. Intrauterine device seen centrally | | within the pelvis. Properitoneal fat stripes are maintained. Calcification on the left | | side of the pelvis that is stable and likely represents a phlebolith. IMPRESSION: 1. | | Nonobstructive bowel gas pattern. Electronically signed by Gregory Bustamante DO on | | 03/07/2017 9:54 AM | | | |COMPARISON: | |03/03/2006 | | | |FINDINGS: | |Moderate amount of stool within the colon. Nonobstructive bowel gas pattern. The osseous st ructures are intact. Intrauterine device seen centrally within the pelvis. Properitoneal fat stripes are maintained. | |Calcification on the left side of the pelvis | |that is stable and likely represents a phlebolith. | | | |IMPRESSION: | |1. Nonobstructive bowel gas pattern. | | | | | + + US Non-Ob Transvaginal (03/06/2017 11:09 PM PDT) + + | Specimen | + + | | + + + + + | Impressions | Performed At | + + + | 1. IUD is poorly seen. Echogenic shadowing area along the right | | | uterine wall which could represent a portion of the IUD. 2. Prominent | | | uterus with suspected myomatous changes. 3. Thickened heterogeneous | | | endometrium with some increased blood flow signal. Endometrial margins | | | are not well seen. 4. Ovaries could not be visualized. RADIA | | | Electronically signed by Glenn Montoya MD on Mar 06 2017 11:30PM | | | Referring Provider Line: [phone] ID: [id number] | | + + + + + + | Narrative | Performed At | + + + | EXAM: PELVIC ULTRASOUND EXAM DATE: 03/06/2017 11:10 PM. | | | CLINICAL HISTORY: Pelvic pain. Recent IUD. Unable to feel the IUD | | | strings. Constant heavy bleeding. COMPARISON: 05/01/2002. | | | TECHNIQUE: Realtime transabdominal pelvic scan performed for overall | | | evaluation, and transvaginal scan for more detailed evaluation, with | | | static image documentation. FINDINGS: Uterus: 12.4 cm. Anteverted | | | position. Masses: Suspected myomatous uterus. Endometrium: | | | Thickened and heterogeneous with increased blood flow. The margins of | | | the endometrium are not well seen. Right Ovary: Not seen. Left | | | Ovary: Not seen. Free Fluid: None. Other: Echogenic shadowing | | | area along the right side of the uterine wall. This could represent a | | | portion of the IUD, but difficult to be certain. | | + + + + + | Procedure Note | + + | Eron, Rad Conversion - 04/26/2019 3:47 AM PDT EXAM:PELVIC ULTRASOUND EXAM DATE: | | 03/06/2017 11:10 PM. CLINICAL HISTORY: Pelvic pain. Recent IUD. Unable to feel the IUD | | strings. Constant heavy bleeding. COMPARISON: 05/01/2002. TECHNIQUE: Realtime | | transabdominal pelvic scan performed for overall evaluation, and transvaginal scan for | | more detailed evaluation, with static image documentation. FINDINGS:Uterus: 12.4 cm. | | Anteverted position.Masses: Suspected myomatous uterus.Endometrium: Thickened and | | heterogeneous with increased blood flow. The margins of the endometrium are not well | | seen. Right Ovary: Not seen.Left Ovary: Not seen. Free Fluid: None. Other: Echogenic | | shadowing area along the right side of the uterine wall. This could represent a portion | | of the IUD, but difficult to be certain. IMPRESSION: 1. IUD is poorly seen. Echogenic | | shadowing area along the right uterine wall which could represent a portion of the | | IUD.2. Prominent uterus with suspected myomatous changes.3. Thickened heterogeneous | | endometrium with some increased blood flow signal. Endometrial margins are not well | | seen.4. Ovaries could not be visualized. RADIA Electronically signed by Glenn Montoya MD | | on Mar 06 2017 11:30PM Referring Provider Line: [phone] ID: [id number] | | | |Right Ovary: Not seen. | |Left Ovary: Not seen. | | | |Free Fluid: None. | | | |Other: Echogenic shadowing area along the right side of the uterine wall. This could repres ent a portion of the IUD, but difficult to be certain. | | | |IMPRESSION: | | | |1. IUD is poorly seen. Echogenic shadowing area along the right uterine wall which could re present a portion of the IUD. | |2. Prominent uterus with suspected myomatous changes. | |3. Thickened heterogeneous endometrium with some increased blood flow signal. Endometrial m argins are not well seen. | |4. Ovaries could not be visualized. | | | |RADIA | | | | Electronically signed by Glenn Montoya MD on Mar 06 2017 11:30PM Referring Provider Line: [phone] ID: [id number] | + + Urinalysis, Reflex Microscopic and/or Culture (03/06/2017 9:59 PM PDT) + + + + + [...] + + + + | Specific | 1.017 | 1.002 - 1.030 | EXTERNAL | | | [place], | | | LAB | | | [...] + + + | pH, Urine | 6.0 | 5.0 - 8.0 | EXTERNAL | | | | | | LAB | | + + + + + + | Blood, | MODERATE (A) | | EXTERNAL | | | Urine [...] + + + + | Glucose, | NEGATIVE | mg/dL | EXTERNAL | | | Urine | | | LAB | | + + + + + + | WBC, UA | 0-2 | 0 - 5 /hpf | EXTERNAL | | | | | | LAB | | + + + + + + | RBC, UA | 3-5 | 0 - 5 /hpf | EXTERNAL | | | | | | LAB | | + + + + + + | Bacteria, | 1+ (A) | | EXTERNAL | | | UA | | | LAB | | + + + + + + | Epithelial | 16-25 | /lpf | EXTERNAL | | | Cells | | | LAB | | + + + + + + | Mucus, | 1+Comment: Testing | | EXTERNAL | | | Urine | performed at [facility];[address] | | LAB | | | | [address];[place] | | | | | | [address] | | | | + + + + + + + + | Specimen | + + | | + + + +---------+ + + | Performing | Address | City/State/Zipcode | Phone Number | | Organization | | | | + +---------+ + + | EXTERNAL LAB | | | | + +---------+ + + , Urine, Qual (03/06/2017 9:59 PM PDT) + + + + + + | Component | Value | Ref Range | Performed | Pathologist | | | | | At | Signature | + + + + + + | Preg Test, | NEGATIVEComment: Testing | | EXTERNAL | | | Ur | performed at [facility];[address] | | LAB | | | | [address];[place] | | | | | | [address] | | | | + + + + + + + + | Specimen | + + | Urine specimen | | (specimen) | + + + +---------+ + + | Performing | Address | City/State/Zipcode | Phone Number | | Organization | | | | + +---------+ + + | EXTERNAL LAB | | | | + +---------+ + + Protime INR (03/06/2017 8:55 PM PDT) + + + + + [...] SYSTEMIC | | | | | | EMBOLISMTesting | | | | | | performed at [facility] | | | | | | [facility];[place], [place] | | | | | | [address] | | | | + + + + + + + + | Specimen | + + | Blood specimen | | (specimen) | + + + +---------+ + + | Performing | Address | City/State/Zipcode | Phone Number | | Organization | | | | + +---------+ + + | EXTERNAL LAB | | | | + +---------+ + + External Lab: CBC (03/06/2017 8:55 PM PDT) + + + + + + | Component | Value | Ref Range | Performed | Pathologist | | | | | At | Signature | + + + + + + | WBC | 7.81 | 3.80 - 11.00 | EXTERNAL | | | | | K/uL | LAB | | + + + + + + | Non- | 4.24 | 3.70 - 5.10 | EXTERNAL | | | Red Blood | | M/uL | LAB | | | Cells | | | | | | Counted | | | | | + + + + + + | Hemoglobin | 12.7 | 11.3 - 15.5 | EXTERNAL | | | | | g/dL | LAB | | + + + + + + | Hematocrit, | 36.3 | 34.0 - 46.0 % | EXTERNAL | | | POC | | | LAB | | + + + + + + | MCV | 85.6 | 80.0 - 100.0 fl | EXTERNAL | | | | | | LAB | | + + + + + + | MCH | 29.9 | 27.0 - 34.0 pg | EXTERNAL | | | | | | LAB | | + + + + + + | MCHC | 34.9 | 32.0 - 35.5 | EXTERNAL | | | | | g/dL | LAB | | + + + + + + | RDW-CV | 39.8 | 37 - 53 fl | EXTERNAL | | | | | | LAB | | + + + + + + | Platelet | 193 | 150 - 400 K/uL | EXTERNAL | | | Count | | | LAB | | | Plasma | | | | | + + + + + + | MPV | 9.0 | fl | EXTERNAL | | | | | | LAB | | + + + + + + | Differentia | AUTOMATED | | EXTERNAL | | | l Type | | | LAB | | + + + + + + | % Segmented | 60.04 | % | EXTERNAL | | | | | | LAB | | | Neutrophils | | | | | + + + + + + | % | 28.09 | % | EXTERNAL | | | Lymphocytes | | | LAB | | + + + + + + | % Monocytes | 6.75 | % | EXTERNAL | | | | | | LAB | | + + + + + + | % | 4.29 | % | EXTERNAL | | | Eosinophils | | | LAB | | + + + + + + | % Basophils | 0.83 | % | EXTERNAL | | | | | | LAB | | + + + + + + | Absolute | 4.69 | 1.90 - 7.40 | EXTERNAL | | | Segmented | | K/uL | LAB | | | Neutrophils | | | | | + + + + + + | Absolute | 2.19 | 1.00 - 3.90 | EXTERNAL | | | Lymphocytes | | K/uL | LAB | | + + + + + + | Absolute | 0.53 | 0.00 - 0.80 | EXTERNAL | | | Monocytes | | K/uL | LAB | | + + + + + + | Absolute | 0.34 | 0.00 - 0.50 | EXTERNAL | | | Eosinophils | | K/uL | LAB | | + + + + + + | Absolute | 0.07Comment: Testing | 0.00 - 0.10 | EXTERNAL | | | Basophils | performed at [facility];[address] | [address] | LAB | | | | [address];[place], [place] | | | | | | [address] | | | | + + + + + + + + | Specimen | + + | Blood specimen | | (specimen) | + + + +---------+ + + | Performing | Address | City/State/Zipcode | Phone Number | | Organization | | | | + +---------+ + + | EXTERNAL LAB | | | | + +---------+ + + C-Reactive Protein (03/06/2017 8:55 PM PDT) + + + + + + | Component | Value | Ref Range | Performed | Pathologist | | | | | At | Signature | + + + + + + | CRP | 0.5 (H)Comment: Testing | mg/dL | EXTERNAL | | | | performed at [facility];[address] | | LAB | | | | [address];[place] | | | | | | [address] | | | | + + + + + + + + | Specimen | + + | Blood specimen | | (specimen) | + + + +---------+ + + | Performing | Address | City/State/Zipcode | Phone Number | | Organization | | | | + +---------+ + + | EXTERNAL LAB | | | | + +---------+ + + Comprehensive Metabolic Panel (03/06/2017 8:55 PM PDT) + + + + + + | Component | Value | Ref Range | Performed | Pathologist | | | | | At | Signature | + + + + + + | Na | 142 | 135 - 145 | EXTERNAL | | | | | mmol/L | LAB | | + + + + + + | K | 4.2 | 3.5 - 4.9 | EXTERNAL | | | | | mmol/L | LAB | | + + + + + + | Cl | 109 | 99 - 109 mmol/L | EXTERNAL | | | | | | LAB | | + + + + + + | CO2 | 25 | 23 - 32 mmol/L | EXTERNAL | | | | | | LAB | | + + + + + + | Anion Gap | 12 | 5 - 20 mmol/L | EXTERNAL | | | | | | LAB | | + + + + + + | Glucose, | 96 | 65 - 99 mg/dL | EXTERNAL | | | Fasting | | | LAB | | + + + + + + | BUN | 19 | 8 - 25 mg/dL | EXTERNAL | | | | | | LAB | | + + + + + + | Creatinine | 0.76 | 0.50 - 1.00 | EXTERNAL | | | | | mg/dL | LAB | | + + + + + + | BUN/Creatin | 25 | | EXTERNAL | | | ine Ratio | | | LAB | | + + + + + + | Calcium | 9.1 | 8.5 - 10.5 | EXTERNAL | | | | | mg/dL | LAB | | + + + + + + | Protein, | 7.2 | 6.3 - 8.2 g/dL | EXTERNAL | | | Total | | | LAB | | + + + + + + | Albumin | 3.9 | 3.6 - 5.0 g/dL | EXTERNAL | | | | | | LAB | | + + + + + + | Globulin | 3.3 | 1.3 - 4.9 g/dL | EXTERNAL | | | | | | LAB | | + + + + + + | A/G Ratio | 1.2 | 1.0 - 2.4 | EXTERNAL | | | | | | LAB | | + + + + + + | Bilirubin | 0.3 | 0.1 - 1.5 mg/dL | EXTERNAL | | | Total | | | LAB | | + + + + + + | ALP, | 63 | 35 - 115 U/L | EXTERNAL | | | External | | | LAB | | + + + + + + | AST | 13 | 10 - 45 U/L | EXTERNAL | | | | | | LAB | | + + + + + + | ALT | 23 | 10 - 65 U/L | EXTERNAL [...] | | | | CALCULATED GFR BY | | | | | | 1.210.Testing performed | | | | | | at [facility] [address] | | | | | | [facility];[place] [address] | | | | + + + [...] + | Diagnosis | + + | Menometrorrhagia Excessive or frequent menstruation | + + | Displacement of intrauterine contraceptive device, initial encounter | + + documented in this encounter
--- OUTSIDE RECORDS SUMMARY | ~2020-06-12 | XMS | Encounter Summary ---
Demographics + + + | Address | [address] | | | [address] | | | [place] [address] | + + + | Home Phone [...] Author + + + | Author | [facility] | | | and [place] | + + + | Organization | [facility] | | | and [...] Team Providers + +------+ + | Care Nurse Aide Name | Role | Phone | + +------+ + PCP | Unavailable | + +------+ + Encounter Details +--------+ + + + + | Date | Type | Department | Care Team | Description | +--------+ + + + + | 09/07/ | Emergency | [facility] | Alonso Ramos | Unspecified Disorder | | 2006 | | [facility] | MD [address] [facility] | [address] [place], [place] | Supporting | | | | [address] | [address] | Structures | | | | [place], [place] | [phone] | | | | | [address] | | | | | | [phone] | | | +--------+ + + + [...]
--- OUTSIDE RECORDS SUMMARY | ~2020-06-12 | XMS | Encounter Summary ---
Demographics + + + | Address | [address] | | | [address] | | | [place] [address] | + + + | Home Phone | | + + + | Preferred Language | Unknown | + + + | Marital Status | Legally | + + + | Zoroastrian Affiliation | 1013 | + + + | Race | White | + + + | Ethnic Group | Not or | + + + Author + + + | Author | [facility] [place] | | | and [place] | + + + | Organization | [facility] [place] | | | and [...] Team Providers + +------+ + | Care Tonnage Compilation Clerk Name | Role | Phone | + +------+ + PCP | Unavailable | + +------+ + Encounter Details +--------+ + + + + | Date | Type | Department | Care Team | Description | +--------+ + + + + | 05/10/ | Hospital | [facility] | Kenyon Ward MD | | | 2002 | Encounter | [facility] | [address] | | | | | C[address] | [place] [address] | | | | | [address] | [phone] | | | | | [place] | | | | | | [address] | | | | | | [phone] | | | +--------+ + + + [...]
--- OUTSIDE RECORDS SUMMARY | ~2020-06-12 | XMS | Encounter Summary ---
Demographics + + + | Address | [address] | | | [address] | | | [place] [address] | + + + | Home Phone [...] + + + | Author | [facility] [place] | | | and [place] | + + + | Organization | [facility] [place] | | [...] Team Providers + +------+ + | Care Data Report Analyst Name | Role | Phone | + +------+ + PCP | Unavailable | + +------+ + Encounter Details +--------+ + + + + | Date | Type | Department | Care Team | Description | +--------+ + + + + | 12/26/ | Emergency | [facility] | Alan Bhatt, | Pain in Limb | | 2006 | | [facility] | [address] | | | | | EMERGENCY CENTER | [place], [place] | | | | | [address] | [id number] | | | | | [place], [place] | | | | | | [address] | | | | | | [phone] | | | +--------+ + + + [...] + | Diagnosis | + + | Pain in soft tissues of limb Pain in limb | + + documented in this encounter"
--- OUTSIDE RECORDS SUMMARY | ~2020-06-12 | XMS | Encounter Summary ---
Demographics + + + | Address | [address] | | | [address] | | | [place] [address] | + + + | Home Phone | | + + + | Preferred Language | Unknown | + + + | Marital Status | Legally | + + + | Uatsdin Affiliation | 1013 | + + + | Race | White | + + + | Ethnic Group | Not or | + + + Author + + + | Author | [facility] | | | and [place] | + + + | Organization | [facility] | | | [...] Team Providers + +------+ + | Care Shade Classifier Name | Role | Phone | + +------+ + | Nery Maynard MD | PCP | | + +------+ + Reason for Visit +---------+ + | Reason | Comments | +---------+ + | Abscess | R shoulder, | +---------+ + Auth/Cert +--------+--------+ + + + + | Status | Reason | Specialty | Diagnoses / | Referred By | Referred To | | | | | Procedures | Contact | Contact | +--------+--------+ + + + + | | | | Diagnoses | | | | | | | IVDU | | | | | | | (intravenous | | | | | | | drug user) | | | | | | | Current | | | | | | | smoker | | | | | | | Abscess of | | | | | | | deltoid | | | | | | | region Mild | | | | | | | | | | | | | | intermittent | | | | | | | asthma | | | | | | | without | | | | | | | complication | | | | | | | Heroin | | | | | | | abuse (HCC) | | | | | | | | | | +--------+--------+ + + + + Encounter Details +--------+---------+ + + + | Date | Type | Department | Care Team | Description | +--------+---------+ + + + | 04/15/ | Surgery | [facility] | Minoo Frank | INCISION AND | | 2019 | | [facility] | MD Ashlee | DRAINAGE -DELTOID | | | | OPERATING ROOM [address] | | | | | | [address] | | | | | | [place], [place] | | | | | | [address] | | | | | | [phone] | | | +--------+---------+ + + + Social History + +-------+ [...] | | | + +---+---+---+ + + | Tobacco Cessation: Ready to Quit: No | + + + + +---------+ + | Alcohol Use [...] + + + | Blood Pressure | 122/71 | 04/15/2020 6:10 PM | | | | | PDT | | + + + + + | Pulse | 79 | 04/15/2020 6:10 PM | | | | | PDT | | + + + + + | Temperature | 36.7 C (98.1 F) | 04/15/2020 5:43 PM | | | | | PDT | | + + + + + | Respiratory Rate | 8 | 04/15/2020 6:10 PM | | | | | PDT | | + + + + + | Oxygen Saturation | 100% | 04/15/2020 6:10 PM | | | | | PDT | | + + + + + | Inhaled Oxygen | - | - | | | Concentration | | | | + + + + + | Weight | 77.1 kg (170 lb) | 04/15/2020 9:17 AM | | | | | PDT | | + + + + + | Height | 175.3 cm (5' 9") | 04/15/2020 9:17 AM | | | | | PDT | | + + + + + | Body Mass Index | 25.43 | 04/15/2020 9:17 AM | | | [...] + documented as of this encounter Discharge Summaries Marty Alvarez MD - 04/16/2020 1:40 PM PDTFormatting of this note might be diffe rent from the original. [facility] Service: Hospitalist Discharge Summary Pt: Minoo Watson AGE/SEX: 40 y.o. female ROOM: [id number] PCP: Nery Maynard MD : 1980 Admit date: 04/15/2020 Discharge date and time: 04/16/2020 1:40 PM PDT Admitting Physician: Boyd Connelly MD Discharge Physician: Marty Arredondo MD-RY3; Aleks Colindres MD Consults: General Surgery: Minoo Frank MD Primary Discharge Diagnoses: Active Hospital Problems Diagnosis Abscess of deltoid region Heroin abuse Current smoker Episode of recurrent major depressive disorder Leukocytosis Mild intermittent asthma without complication Resolved Hospital Problems No resolved problems to display. Procedures: Right deltoid abscess and removal of foreign body Discharged Condition: stable Significant Diagnostic Studies: Xr Shoulder Right 2 + Vw Result Date: 04/15/2020 RIGHT SHOULDER TWO VIEWS CLINICAL INFORMATION: Abscess. Evaluate for retained foreign body . COMPARISON: XR ABDOMEN ACUTE SERIES (04/14/2017); CT SOFT TISSUE NECK UN (09/23/2008); FINDIN GS: Severe soft tissue swelling of the proximal upper arm surrounding a 9 mm wirelike foreig n body. Bones intact. No significant arthropathy. Severe soft tissue swelling of the proximal upper arm surrounding a 9 mm wirelike foreign b karly. Final Report Signed by: Kobi Crocker Zachary Sign Date/Time: 04/15/2020 3:[address] Shoulder Right W Contrast Result Date: 04/15/2020 CT RIGHT SHOULDER WITH CONTRAST CLINICAL INFORMATION: Shoulder pain, fever, infection suspe cted. COMPARISON: XR SHOULDER RIGHT 2 + VW (04/15/2020); PROCEDURE: Volume CT acquisition with multiplanar reconstructions. At least one of the following CT dose optimization techniques were used: Automated exposure control; Adjustment of mA and/or kV according to patient size; Use of iterative reconstruction technique. FINDINGS: Lateral right shoulder subcutaneous so ft tissue stranding overlying a large rim enhancing collection within the deltoid muscle hazel suring 9.6 x 7.7 x 4.3 cm, and . Along medial margin of this collection is a small needle-like metallic foreign body, . Normal bones. Visible lungs clear. 9.6 x 7.7 x 4.3 cm deltoid muscle abscess. 12 mm needle fragment along the medial margin o f the abscess. Final Report Signed by: Kobi Crocker Zachary Sign Date/Time: 04/15/2020 4:47 AM HPI and Hospital Course: Minoo Watson is a 40 year old woman with depression, anxiety, and IM heroin use (patie nt denies any IV injection). She presented to the ED on the morning of 04/14 with several days of severe right shoulder pain, swelling, and redness. She was tachycardic but afebrile, wit h leukocytosis of 13. CT shoulder showed large abscess of the deltoid muscle, with a small n eedle fragment buried in the muscle belly. Patient was admitted for continued IV antibiotics and pain control; Surgery performed I&D o n the evening of 04/15, draining 330 mL of purulent material and removed a small needle fragme nt from the tissue. She was monitored overnight, and remained afebrile with normal vital sig ns. On the morning of 04/16, the patient was agitated and complaining of opiate withdrawal. 10 mg of methadone was given to treat her shoulder pain and reduce withdrawal symptoms. She remai evette agitated, and stated that she wanted a cigarette. She then decided she wished to leave [facility]. I advised her of the need for ongoing IV antibiotics and finalized wound cultur e to direct our choice of outpatient antibiotics. Patient refused to stay. She was provided prescriptions for oral doxycycline and clindamycin, as empiric treatment o f skin infections with MRSA coverage. She was advised to follow up with her PCP for referral to establish with Wound Care clinic. She was advised to return to the ED if she becomes fe rile. Discharge Vitals: Vitals: 04/15/20 2015 04/15/20 2110 04/16/20 0054 04/16/20 0420 BP: 113/70 119/80 113/69 116/60 Pulse: 77 79 90 82 Resp: 15 18 16 16 Temp: 36.8 C (98.3 F) 36.9 C (98.5 F) 36.8 C (98.2 F) 36.9 C (98.5 F) TempSrc: Oral Oral Oral Axillary SpO2: 99% 99% 98% 98% Weight: 78.1 kg (172 lb 2.9 oz) Height: Discharge Exam: Physical Exam Constitutional: She is oriented to person, place, and time and well-developed, well-nourish ed, and in no distress. No distress. HENT: Head: Normocephalic and atraumatic. Mouth/Throat: No oropharyngeal exudate. Eyes: Conjunctivae and EOM are normal. No scleral icterus. Neck: Normal range of motion. Neck supple. Cardiovascular: Normal rate, regular rhythm, normal heart sounds and intact distal pulses. No murmur heard. Pulmonary/Chest: Effort normal and breath sounds normal. No respiratory distress. She has n o wheezes. She has no rales. Abdominal: Soft. Bowel sounds are normal. She exhibits no distension. There is no abdominal tenderness. Musculoskeletal: Normal range of motion. General: No tenderness, deformity or edema. Neurological: She is alert and oriented to person, place, and time. No cranial nerve defici t. Coordination normal. Skin: Skin is warm and dry. No rash noted. She is not diaphoretic. No erythema. Incision site covered; bandage clean and dry. Psychiatric: Mood, memory and affect normal. Affect anxious. Nursing note and vitals reviewed. LABS: Recent Labs Lab 04/16/2072704/15/20310 WBC 11.29* 13.39* HGB 10.6* 12.7 HCT 31.8* 38.2 PLT 325 315 MONOPCT 6.20 8.10 Recent Labs Lab 04/16/2028 04/15/20 031 NA 141 137 K 4.3 3.8 CL 111* 102 CO2 25 29 BUN 8 11 CALCIUM 8.6 9.8 ALKPHOS 80 91 ALT 20 11 AST 10 13 Recent Labs Lab 04/16/20 07 MG 1.8 Disposition: Patient left AGAINST MEDICAL ADVICE prior to completion of her planned course of therapy. W as precribed empiric oral antibiotics and directed to follow up with PCP. Patient Instructions: Discharge Medications New Medications Details clindamycin 300 MG capsule Take 1 capsule by mouth 3 times daily for 10 days. aka: CLEOCIN doxycycline 100 mg capsule Take 1 capsule by mouth 2 times daily for 14 days. aka: VIBRAMYCIN lactobacillus tablet Take 1 tablet by mouth 3 times daily for 28 days. aka: FLORANEX Unchanged Medications Details baclofen 10 mg tablet Take 1 tablet by mouth 3 (three) times daily. aka: LIORESAL bismuth subsalicylate 262 mg/15 mL suspension aka: PEPTO BISMOL buprenorphine 2 mg Subl USE PER TAPER INSTRUCTIONS aka: SUBUTEX buprenorphine-naloxone 8-[address] 1 & 1 2 (ONE & ONE HALF) TABLETS UNDER THE TONGUE TWICE DAILY FOR 7 DAYS aka: SUBOXONE buPROPion 150 mg 24 hr tablet aka: WELLBUTRIN XL CLARITIN-D 24 HOUR PO TB24; Take one tablet orally daily docusate sodium 100 mg capsule One po bid for stool softening aka: COLACE EPIPEN IJ TOÑO EPINEPHrine auto-injector 0.3 mg/0.3 mL injection Inject 0.3 mLs into the muscle as needed. FLONASE 50 mcg/nasal spray Generic drug: fluticasone 2 INH per nostril daily fluticasone 50 mcg/nasal spray aka: FLONASE hydrOXYzine 50 MG capsule TAKE ONE CAPSULE BY MOUTH EVERY 6 HOURS NEEDED aka: VISTARIL ibuprofen 600 MG tablet Take 600 mg by mouth every 6 hours as needed. aka: ADVIL,MOTRIN multivitamin tablet one tablet by mouth daily naproxen 500 mg tablet Take 1 tablet by mouth 2 (two) times daily as needed. aka: NAPROSYN ondansetron 4 mg disintegrating tablet Take 1 tablet by mouth every 8 hours as needed for Nausea. aka: ZOFRAN ODT ondansetron 4 mg tablet TAKE 1 TABLET BY MOUTH EVERY 6 HOURS aka: ZOFRAN PEG [id number]-NaSulf 227.1 g Pack Take 8 oz by mouth every 20 (twenty) minutes. Drink 8oz every 20 minutes until bowel movem ents occur PROAIR HFA IN AERS tiZANidine 4 MG capsule Take 1-2 capsules by mouth nightly as needed for Muscle spasms. aka: ZANAFLEX traZODone 50 mg tablet TAKE 1 OR 2 TABLETS BY MOUTH AT BEDTIME NEEDED aka: DESYREL Discontinued Medications EFFEXOR XR 150 mg 24 hr capsule Generic drug: venlafaxine HYDROcodone-acetaminophen 10-325 mg per tablet aka: NORCO hydrOXYzine hydrochloride 25 mg tablet aka: ATARAX loratadine 10 mg tablet aka: CLARITIN omeprazole 20 mg capsule aka: priLOSEC Activity: as tolerated Diet: regular diet Wound Care: as directed Nery Maynard MD [address] [address] [facility] [address] [address] [facility] [phone] Schedule an appointment as soon as possible for a visit in 1 week Nery Maynard MD [address] [facility] [phone] Signed: Marty Alvarez MD-RY3 04/16/2020 1:40 PM PDT Associated attestation - Aleks Colindres MD - 04/17/2020 2:31 PM PDTPatient seen and exami evette, case discussed veterinary medical officer and I had extensive discussion with the patient about t he need of IV antibiotic due to shoulder abscess and risk of bacteremia which can be life-th reatening. Patient wants to go out have a cigarette and offered nicotine patch which she de clined. Patient left AGAINST MEDICAL ADVICE though I have given her doxycycline and clindam ycin. She was advised to follow-up with her primary care doctordocumented in this encounter Medications at Time of [...] | 0 | 12/01/19 | | | [id number]- | every 20 (twenty) | | | [...] documented as of this encounter Progress Notes Lisha Valentine RN - 04/16/2020 9:30 AM PDTPt very anxious this AM, stated repeatedly s he wanted to leave. Pt throwing things around the room. Notified Dr. Arredondo, whom came and s poke with pt. Dr. and pt agreed pt would stay, and would be given methadone. Pt given dose o f methadone. Pt remained anxious and upset, stating she no longer wanted to stay. Pt reminde d of her talk with Dr. Arredondo. Pt stated she wanted to smoke, if she could smoke she would s pierre. Pt offered nicotine patch, pt stated she already had one. Dr. Arredondo came and spoke wit h pt a second time. Dr. Arredondo and a second doctor explained to her in great detail and at [facility] about her need to stay for IV antibiotics and wound care. Pt was educated on risks of leaving early, including developing sepsis and/or dying. Pt acknowledged understanding. Pt r epeated several times that she wasn't withdrawing from heroin, she just wanted to smoke. Doc tors acknowledged her frustration, but deferred to [facility]'s no smoking policy. Pt stated she would leave AMA, pt stated she knew the risks of leaving AMA. IV removed by this RN. Explained to pt that this RN was unsure about what type of care the wound required, and that it's possible pt wouldn't be able to manage it herself. Pt educate d on fact that wound currently was packed with gauze, and would need outpatient wound care. Pt stated she was going to get wound care at the place 'across [facility] Verified with pt that she meant [facility], pt agreed. Pt left ambulatory in [facility], as she stat ed her own clothes were too tight.Electronically signed by Lisha Valentine, KAISER at 0 3:36 PM PDTElvie Hurd RN - 04/15/2020 6:35 PM PDTPatient transported to room. Connected to vitals equipment. Call light and personal belongings on table positioned close to patient. Call light turned on and ASSET MANAGEMENT COORDINATOR arrived to room. RN in new admit room. ASSET MANAGEMENT COORDINATOR will no mercyy RN of arrival. Oral Temp 98.0*F. Patient as comfortable as possible due to the situatio n and has call light next to hand. Dressing clean, dry and intact. Maria T Tran, Senior Compensation Consultant - 0 1:56 PM PDT Vancomycin Dosing Per Pharmacy Subjective/Objective Minoo Watson is a 40 y.o. female started on vancomycin 04/15 for SSTI abscess. PMH: hx of IVDU, asthma, GERD, and major depression. Pt with hx of IVDU recently injected heroin into right deltoid and has been experiencing pa in, swelling, tenderness and fever chills for the past 4 days. Imaging showed foreign body/n eedle in deltoid with abscess. Additional antimicrobials: ceftriaxone 1g daily (04/15- ) Quadriplegic/Paraplegic: no Diabetes: no Baseline Serum Creatinine: ~0.7 Current Vital Signs: BP 119/72 | Pulse 79 | Temp 36.5 C (97.7 F) (Oral) | Resp 15 | Ht 1.753 m (5' 9") | Wt 77.1 kg (170 lb) | LMP (Exact Date) | SpO2 99% | No | BMI 25.10 kg/m Recent Labs Lab 04/15/20 0311 WBC 13.39* PROCALCITONI <0.05 CREA 0.71 Estimated Creatinine Clearance: 111 mL/min (based on SCr of 0.71 mg/dL). Microbiology Results (72 hrs) Procedure Component Value Units Date/Time MRSA NAAT [[id number]] Collected: 04/15/20 0945 Order Status: Completed Lab Status: Final result Updated: 04/15/20 1229 Specimen: Tissue from Nares SOURCE: NARES(NOSE) Result NEGATIVE Comment: [place] performed at [facility] [place] [address];[place] [address] Coronavirus (COVID-19) NAAT [[id number]] Collected: 04/15/20 0603 Order Status: Completed Lab Status: Final result Updated: 04/15/20 0737 Specimen: Tissue from Nasopharynx SARS-CoV-2, NAAT (COVID-19) NEGATIVE Comment: This test was developed and its performance characteristics determined by [employer]. It has not been cleared or approved by the [place] FDA. This test has been authorized by FDA under an Emergency Use Authorization (EUA). Clinicians should be advised to consider a patients signs, symptoms, history, and results of other diagnostic tests when interpreting results. Testing performed at [facility] [place] [address];[place] [address] Vancomycin Dosing History Date Dosing Regimen Admin Times Trough SCr Comments Day 1 04/15 1.75g ONCE 0556 0.71 MRSA NAAT negative Day 2 Day 3 (check cx on day 3) (Discontinue if cultures negative) Day 4 Day 5 *SCr = mg/dL [vanco] = mcg/mL Imaging: CT Shoulder: 9.6 x 7.7 x 4.3 cm deltoid muscle abscess. 12 mm needle fragment along the med ial margin of the abscess Xray: Severe soft tissue swelling of the proximal upper arm surrounding a 9 mm wirelike for eign body. Assessment/Plan Vancomycin Load: 1750 mg (~23 mg/kg) IV x 1. Was sufficient Maintenance Dose: 1250 mg IV q8h (~16 mg/kg/dose) Rationale: Based on Kadlec dosing nomogram, current renal function, and desired trough. Target trough: 15-20 mcg/ml Concurrent potentially nephrotoxic medications: None. Culture monitoring: No blood cultures taken prior to patient receiving antibiotics. Blood c ultures x 2 ordered. MRSA NAAT negative. Will monitor culture(s) for growth, identification, and sensitivities. Plan for level: 04/16 at 1300. Prior to 5th vanco dose. Pharmacy will continue to follow and make adjustments to vancomycin therapy as indicated. Thank You, Maria T Blank, Senior Compensation Consultant, 04/15/2020, 1:32 PM PDT avis-Marty Marie MD - 04/15/2020 12:25 PM PDT Service: Hospitalist Progress Note Pt: Minoo Watson AGE/SEX: 40 y.o. female ROOM: [id number] : 1980 PCP: Nery Maynard MD ADMIT DATE: 04/15/2020 TODAY'S DATE: 04/15/2020 Hospital Day/Hospital Course: LOS: 0 days Minoo Waston is a 40 year old woman with depression, anxiety, and IM heroin use (patie nt denies any IV injection). She presented to the ED on the morning of 04/14 with several days of severe right shoulder pain, swelling, and redness. She was tachycardic but afebrile, wit h leukocytosis of 13. CT shoulder showed large abscess of the deltoid muscle, with a small n eedle fragment buried in the muscle belly. Patient was admitted for IV antibiotics and pain control; Surgery was consulted for incisio n & drainage of the abscess. SUBJECTIVE: Patient was tearful throughout the morning, explaining that she is grieving the of he r son and her daughter's recent mental health problems. She is regretful for her recent rela pse into heroin, which began last winter. Her right shoulder pain is still present, but impr ming with dilaudid and toradol. She is worried about heroin withdrawal. No chest pain, SOB, orthopnea or PND. No abdominal pain, diarrhea, or N/V. No dizziness or lightheadedness. No fever or headache. Scheduled Medications: cefTRIAXone 1 g Intravenous Q24H enoxaparin 40 mg Subcutaneous Q24H fluticasone 2 spray Each Nare BID ketorolac 30 mg Intravenous Q6H pantoprazole 40 mg Oral QAM AC vancomycin per pharmacy Other Pharmacy Consult venlafaxine 150 mg Oral Daily Continuous Infusions sodium chloride 0.9% 100 mL (04/15/20 0948) PRN Medications acetaminophen, albuterol, docusate sodium, HYDROmorphone, ibuprofen, melatonin, nicotine, n icotine, ondansetron, polyethylene glycol, senna, traZODone Allergy: Allergies Allergen Reactions Bee Venom Anaphylaxis Codeine Hives, Rash and Shortness Of Breath Morphine Morphine And Related Other (See Comments) Abstracted Penicillins Hives Promethazine Hcl Droperidol Anxiety Lactose Intolerance (Gi) Other (See Comments) OBJECTIVE: Vitals: Vitals with Comments 04/15/2020 04/15/2020 04/15/2020 04/15/2020 SYSTOLIC 132 148 126 - DIASTOLIC 76 92 71 - Pulse 86 90 79 - Temp - - 97.9 - Resp - 18 18 - Weight - - - 170 lbs Height - - - 5' 9" SPO2 99 99 100 - BMI - - - 25.2 kg/m2 I&O Detailed Table: Intake/Output Summary (Last 24 hours) at 04/15/2020 1225 Last data filed at 04/15/2020 0845 Gross per 24 hour Intake 2000 ml Output Net 2000 ml Patient Vitals for the past 96 hrs: Weight 04/15/20 0917 77.1 kg (170 lb) 04/15/20 0249 77.3 kg (170 lb 6.7 oz) Physical Examination: Physical Exam Constitutional: She is oriented to person, place, and time and well-developed, well-nourish ed, and in no distress. No distress. HENT: Head: Normocephalic and atraumatic. Right Ear: External ear normal. Mouth/Throat: No oropharyngeal exudate. Eyes: Conjunctivae and EOM are normal. No scleral icterus. Neck: Normal range of motion. Neck supple. Cardiovascular: Normal rate, regular rhythm, normal heart sounds and intact distal pulses. No murmur heard. Pulmonary/Chest: Effort normal and breath sounds normal. No respiratory distress. She has n o wheezes. She has no rales. Abdominal: Soft. Bowel sounds are normal. She exhibits no distension. There is no abdominal tenderness. Musculoskeletal: Normal range of motion. General: No tenderness, deformity or edema. Neurological: She is alert and oriented to person, place, and time. No cranial nerve defici t. Coordination normal. Skin: Skin is warm and dry. No rash noted. She is not diaphoretic. There is erythema. Large abscess seen over right deltoid muscle, with overlying skin indurated and erythematou s. Psychiatric: Mood, memory, affect and judgment normal. Nursing note and vitals reviewed. LABS: Recent Labs Lab 04/15/20310 WBC 13.39* HGB 12.7 HCT 38.2 PLT 315 MONOPCT 8.10 Recent Labs Lab 04/15/20310 NA 137 K 3.8 CL 102 CO2 29 BUN 11 CREA 0.71 CALCIUM 9.8 ALKPHOS 91 ALT 11 AST 13 Microbiology Results (Last 14 Days by Collected Date with Culture/Sensitivity) Procedure Component Value Units Date/Time Culture, Blood [[id number]] Order Status: Sent Lab Status: No result Specimen: Peripheral Blood Culture, Blood [[id number]] Order Status: Sent Lab Status: No result Specimen: Peripheral Blood MRSA NAAT [[id number]] Collected: 04/15/20 0945 Order Status: Sent Lab Status: In process Updated: 04/15/20 1121 Specimen: Tissue from Nares Coronavirus (COVID-19) NAAT [[id number]] Collected: 04/15/20 0603 Order Status: Completed Lab Status: Final result Updated: 04/15/20 0737 Specimen: Tissue from Nasopharynx SARS-CoV-2, NAAT (COVID-19) NEGATIVE Comment: This test was developed and its performance characteristics determined by [employer]. It has not been cleared or approved by the [place] FDA. This test has been authorized by FDA under an Emergency Use Authorization (EUA). Clinicians should be advised to consider a patients signs, symptoms, history, and results of other diagnostic tests when interpreting results. [place] [facility] [place] [place] [address];[place] [address] Diagnostic Imaging: Impressions only: Xr Shoulder Right 2 + Vw Result Date: 04/15/2020 RIGHT SHOULDER TWO VIEWS CLINICAL INFORMATION: Abscess. Evaluate for retained foreign body . COMPARISON: XR ABDOMEN ACUTE SERIES (04/14/2017); CT SOFT TISSUE NECK UN (09/23/2008); FINDIN GS: Severe soft tissue swelling of the proximal upper arm surrounding a 9 mm wirelike foreig n body. Bones intact. No significant arthropathy. Severe soft tissue swelling of the proximal upper arm surrounding a 9 mm wirelike foreign b karly. Final Report Signed by: Kobi Crocker, Tom Sign Date/Time: 04/15/2020 3:[address] Shoulder Right W Contrast Result Date: 04/15/2020 CT RIGHT SHOULDER WITH CONTRAST CLINICAL INFORMATION: Shoulder pain, fever, infection suspe cted. COMPARISON: XR SHOULDER RIGHT 2 + VW (04/15/2020); PROCEDURE: Volume CT acquisition with multiplanar reconstructions. At least one of the following CT dose optimization techniques were used: Automated exposure control; Adjustment of mA and/or kV according to patient size; Use of iterative reconstruction technique. FINDINGS: Lateral right shoulder subcutaneous so ft tissue stranding overlying a large rim enhancing collection within the deltoid muscle hazel suring 9.6 x 7.7 x 4.3 cm, and . Along medial margin of this collection is a small needle-like metallic foreign body, 8/55. Normal bones. Visible lungs clear. 9.6 x 7.7 x 4.3 cm deltoid muscle abscess. 12 mm needle fragment along the medial margin o f the abscess. Final Report Signed by: Kobi Crocker, Tom Sign Date/Time: 04/15/2020 4:47 AM PROBLEM LIST Principal Problem: Abscess of deltoid region Active Problems: Heroin abuse Current smoker Episode of recurrent major depressive disorder Leukocytosis Mild intermittent asthma without complication Resolved Problems: * No resolved hospital problems. * ASSESSMENT & PLAN Abscess of deltoid region: Patient presented with SIRS criteria (Tachycardia & Leukocytosis ) but no signs of end-organ dysfunction, and normal lactate; no concern for severe sepsis, b acteremia, or endocarditis at this time but cannot rule this out without blood cultures. Unf ortunately these were not drawn prior to antibiotic administration. Blood cultures drawn thi s morning and will be followed up; wound drainage will be sent for culture as well. Source of infection shown to be large abscess of right deltoid muscle related to IM injecti on of heroin. Incision & Drainage planned for this afternoon with Dr. Frank. Discussed case w ith ID Ballistic Technician, who felt there was no need for their involvement at this time. We have br oad coverage with vancomycin + cephalosporin, and will tailor medications to wound/blood cul tures, currently pending. We will consult ID in the future if workup shows concern for endoc arditis or bacteremia. - IV vancomycin - IV ceftriaxone - NPO for planned surgery - Normal saline 100 mL/hr while NPO - IV toradol 30 mg Q6H prn - IV dilaudid: 1 mg Q2H prn Episode of recurrent major depressive disorder: Patient endorses long-term struggles with d epression and anxiety, but worse since her son's last year. She relates the grief and stress around that event for leading towards her relapse. She has been prescribed Effexor bu t is not currently taking this. May benefit from initiation of SSRI, but will defer to PCP a nd/or Psychiatry. - Telepsych consult Heroin abuse: Patient currently getting IV dilaudid, which should delay withdrawal. Expect to transition away from opiate medications after I&D. Can consider suboxone when withdrawal signs emerge. Patient expresses desire and intent to discontinue use of heroin. Refer patien t to [facility] for outpatient Suboxone therapy. Mild intermittent asthma: Chronic, stable. Not in exacerbation. Breathing comfortably on ro om air. - Albuterol inhaler PRN Current smoker: Nicotine replacement during admission - Nicotine patch 21 mg daily Diet: NPO prior to I&D, then General Diet DVT Prophylaxis: Lovenox GI Prophylaxis: Pantoprazole Code Status: Full Code Disposition: Inpatient Marty Alvarez MD-RY3 04/15/2020 12:25 PM PDT Associated attestation - Aleks Colindres MD - 04/15/2020 3:11 PM PDTPatient seen and mikaela alas, case discussed veterinary medical officer and I am in agreement with his clinical documentation a s well as plan of care except I would consult general surgery and for some reason blood cult ure not sent before initiating antibiotic hence we will send blood cultures now. Patient wa s in intractable pain hence increase Dilaudid 1 mg every 2 hours as needed. We are awaiting general surgery to perform I&D and will follow-up abscess culturesdocumented in this encoun ter H&P Notes Boyd Connelly MD - 04/15/2020 6:19 AM PDTFormatting of this note might be different fro m the original. [facility] Service: Hospitalist Admission History & Physical Date of Admission: 04/15/2020 Primary Care Physician: Nery Maynard MD Reason for Admission: Large right deltoid abscess with SIRS History Obtained From: History obtained from chart review and the patient. CHIEF COMPLAINT: Chief Complaint Patient presents with Abscess R shoulder, HISTORY OF PRESENT ILLNESS The patient is a 40 y.o. female with significant past medical history of heroin abuse, mild intermittent asthma, current smoker, GERD and major depression. Patient was on Suboxone 24 mg prescribed by [facility]. Quit in June 2019. Relapsed on heroin since 2018. Currently not using IV. She has been doing IM injections into her deltoid since August. Denies prior history of hepatitis C hepatitis B HIV and MRSA. Presented to the emergency room with chief complaint of increasing right deltoid pain swell ing warmth tenderness redness for the past 4 days associated with fever chills. She has a s mall area of induration in the left deltoid without erythema warmth. No pain but mildly ten yaquelin. Maximum intensity of pain in the right deltoid is 9. At home she was doing heroin and ibuprofen for pain relief. Pain is worse with movement. She has decreased range of motion of the right shoulder. No other areas of cellulitis.Denies exposure to COVID patient. Den ies any rhinorrhea sore throat headache cough anosmia loss of taste diarrhea. No tingling o r numbness of the right arm. Normal motor function. Work-up in the emergency room she was afebrile but tachycardic normotensive not tachypneic or hypoxic. Blood work showed leukocytosis of 13,000 with mild neutrophilia no bandemia. N o anemia or thrombocytopenia. CMP was normal. CRP elevated at 58. Lactic acid was normal. X-ray of the right shoulder showed severe soft tissue swelling of the proximal upper arm s urrounding a 9 mm wire-like foreign body. Subsequent CT scan of the right shoulder reported deltoid abscess measuring 9.6 x 7.7 x 4.3 cm. There is a 12 mm needle fragment along the m edial margin of the abscess. Patient was given vancomycin and clindamycin in the emergency room. General surgeon Dr. Burgos was consulted. Recommended admission to the hospitalist. Medications vancomycin in saline IVPB 1 g (has no administration in time range) nicotine (NICODERM) 14 mg/24 hr 1 patch (has no administration in time range) ketorolac (TORADOL) injection 30 mg (30 mg Intravenous Given 04/15/20 0342) sodium chloride 0.9% (NS) bolus 2,000 mL (0 mLs Intravenous Stopped 04/15/20 0441) clindamycin in dextrose (CLEOCIN) IVPB 900 mg (0 mg Intravenous Stopped 04/15/20 0412) iohexol (OMNIPAQUE 350) 350 mg/mL injection 100 mL (100 mLs Intravenous Given 04/15/20 0433) Allergies Allergen Reactions Bee Venom Anaphylaxis Morphine Morphine And Related Other (See Comments) Abstracted Penicillins Hives Promethazine Hcl Droperidol Anxiety Lactose Intolerance (Gi) Other (See Comments) Review of Systems Constitutional: Positive for activity change, appetite change, chills and fever. Negative f or diaphoresis, fatigue and unexpected weight change. HENT: Negative for congestion, postnasal drip, rhinorrhea, sinus pressure and sore throat. Eyes: Negative for visual disturbance. Respiratory: Negative for apnea, cough, chest tightness, shortness of breath and wheezing. Cardiovascular: Negative for chest pain, palpitations and leg swelling. Gastrointestinal: Positive for constipation. Negative for abdominal distention, abdominal p ain, blood in stool, diarrhea, nausea and vomiting. Endocrine: Negative for cold intolerance, heat intolerance, polydipsia, polyphagia and poly uria. Genitourinary: Negative for decreased urine volume, difficulty urinating, dysuria, flank pa in, frequency, hematuria and urgency. Underwent hysterectomy Musculoskeletal: Positive for arthralgias, joint swelling and myalgias. Negative for gait p roblem, neck pain and neck stiffness. Skin: Negative for rash and wound. Allergic/Immunologic: Negative for immunocompromised state. Neurological: Negative for dizziness, seizures, syncope, facial asymmetry, speech difficult y, weakness and headaches. Hematological: Negative for adenopathy. Does not bruise/bleed easily. Psychiatric/Behavioral: Positive for depression, dysphoric mood and substance abuse. Negati ve for confusion, hallucinations, sleep disturbance and suicidal ideas. The patient is nervo us/anxious. Very tearful depressed as daughter was recently diagnosed with mental health disorder Active comorbid conditions include: - asthma - GERD - psychiatric problem - depression - Drugs/Alcohol/Tobacco - substance abuse; other; Heroin - tobacco use Past Medical History: Diagnosis Date Asthma due to seasonal allergies Back pain 12/18/2009 Bipolar disorder ([facility]) 09/2008 Patient denies Depression Herniated disc, cervical C5,C6 Heroin abuse ([facility]) Intramuscular use IVDU (intravenous drug user) Joint pain Seasonal allergies Past Surgical History: Procedure Laterality Date SECTION x 2 COLONOSCOPY HERNIA REPAIR HYSTERECTOMY Bilateral 04/13/2017 Procedure: ROBOTIC ASSISTED LAPAROSCOPIC HYSTERECTOMY WITH SALPINGECTOMY; Surgeon: Glenn aleman MD; Location: [facility] MAIN OR; Service: CHOCOLATE TEMPERER; Laterality: Bilateral; UPPER GASTROINTESTINAL ENDOSCOPY 2009 Reviewed with the patient, only taking venlafaxine ibuprofen. Prior to Admission medications Medication Sig Start [...] mg 24 hr tablet 05/02/18 Historical Provider, docusate sodium (COLACE) 100 mg capsule One po bid for stool softening 04/04/17 Historical Provider, EPINEPHrine (EPIPEN IJ) TOÑO 02/01/12 DATA MIGRATION RICK SR EPINEPHrine auto-injector 0.3 mg/0.3 mL injection Inject 0.3 mLs into the muscle as needed. 02/25/14 Historical Provider, fluticasone (FLONASE) 50 mcg/nasal spray 10/19/16 Historical Provider, fluticasone (FLONASE) 50 mcg/nasal spray 2 INH per nostril daily 02/01/12 DATA MIGRATION E DI SR HYDROcodone-acetaminophen (NORCO) 10-325 mg per tablet Take 1 tablet by mouth every 6 (six) hours as needed for Pain. 10/28/17 Historical Provider, hydrOXYzine (VISTARIL) 50 MG capsule TAKE ONE CAPSULE BY MOUTH EVERY 6 HOURS NEEDED 05/03 Historical Provider, hydrOXYzine hydrochloride (ATARAX) 25 mg tablet Take 1 tablet by mouth every 6 hours as nee ded for Anxiety. 01/04/20 Vitaly Kaufman MD ibuprofen (ADVIL,MOTRIN) 600 MG tablet Take 600 mg by mouth every 6 hours as needed. 2 DATA MIGRATION RICK SR loratadine (CLARITIN) 10 mg tablet Take 10 mg by mouth Daily. 02/01/12 DATA MIGRATION RICK SR Loratadine-Pseudoephedrine (CLARITIN-D 24 HOUR PO) TB24; Take one tablet orally daily DATA MIGRATION RICK SR multivitamin (THERAGRAN) tablet one tablet by mouth daily 02/01/12 DATA MIGRATION RICK SR naproxen (NAPROSYN) 500 mg tablet Take 1 tablet by mouth 2 (two) times daily as needed. 02/11 10/29 Historical Provider, omeprazole (PRILOSEC) 20 mg capsule Take 20 mg by mouth Daily. 02/01/12 DATA MIGRATION RICK SR ondansetron (ZOFRAN ODT) 4 mg disintegrating tablet Take 1 tablet by mouth every 8 hours as needed for Nausea. 01/04/20 Vitaly Kaufman MD ondansetron (ZOFRAN) 4 mg tablet TAKE 1 TABLET BY MOUTH EVERY 6 HOURS 03/01/19 Historical Provider, PEG [id number] 227.1 g PACK Take 8 oz by mouth every 20 (twenty) minutes. D rink 8oz every 20 minutes until bowel movements occur 11/30/17 Historical Provider, tiZANidine (ZANAFLEX) 4 MG capsule Take 1-2 capsules by mouth nightly as needed for Muscle spasms. 05/03/17 Historical Provider, traZODone (DESYREL) 50 mg tablet TAKE 1 OR 2 TABLETS BY MOUTH AT BEDTIME NEEDED 05/03/18 Historical Provider, venlafaxine (EFFEXOR XR) 150 mg 24 hr capsule Take 150 mg by mouth Daily. 02/01/12 DATA IL GRATION RICK SR Social History Socioeconomic History Marital status: Legally [...] status: Current Every Day Smoker Packs/day: 0.25 Substance and Sexual Activity Alcohol use: Yes Comment: Alcoholic Drinks/day: rarely Drug use: Yes Comment: Drug use: No Sexual activity: Not on file Lifestyle Physical activity Days per week: Not on file Minutes per session: Not on file Stress: Not on file Relationships Social connections Talks on phone: Not on file Gets together: Not on file Attends gnosticism service: Not on file Active member of [...] on file Social History Narrative Lives in [place], independent with activities of daily living, no falls, full code. Has 2 children. Fabien recently. 14 yrs old Daughter has severe depression. Continues t o smoke a pack a day. Since August relapsed on heroin abuse denies alcohol use. family history includes Diabetes in her maternal grandfather and maternal grandmother; Hear t attack in her maternal grandfather; Stroke in her father and maternal grandmother. PHYSICAL EXAM VITAL SIGNS BP 121/79 | Pulse 91 | Temp 37.6 C (99.7 F) (Temporal) | Resp 20 | Wt 77.3 kg (170 lb 6.7 oz) | SpO2 100% | BMI 25.17 kg/m Physical Exam Vitals signs (Sinus tachycardia improving) and nursing note reviewed. Constitutional: General: She is not in acute distress. Appearance: Normal appearance. She is well-developed and normal weight. She is not ill-a ppearing, toxic-appearing or diaphoretic. Comments: Very tearful HENT: Head: Normocephalic and atraumatic. Nose: Nose normal. No congestion or rhinorrhea. Mouth/Throat: Mouth: Mucous membranes are moist. Pharynx: Oropharynx is clear. No oropharyngeal exudate or posterior oropharyngeal erythe ma. Eyes: General: No scleral icterus. Extraocular Movements: Extraocular movements intact. Conjunctiva/sclera: Conjunctivae normal. Pupils: Pupils are equal, round, and reactive to light. Neck: Musculoskeletal: Normal range of motion and neck supple. No neck rigidity. Thyroid: No thyromegaly. Vascular: No JVD. Cardiovascular: Rate and Rhythm: Regular rhythm. Tachycardia present. Pulses: Normal pulses. Heart sounds: Normal heart sounds. No murmur. No friction rub. No gallop. Pulmonary: Effort: Pulmonary effort is normal. No respiratory distress. Breath sounds: Normal breath sounds. No wheezing or rales. Chest: Chest wall: No tenderness. Abdominal: General: Bowel sounds are normal. There is no distension. Palpations: Abdomen is soft. Tenderness: There is no abdominal tenderness. There is no right CVA tenderness, left CVA tenderness or guarding. Musculoskeletal: General: No tenderness or deformity. Right lower leg: No edema. Left lower leg: No edema. Comments: Large abscess on the right deltoid about the size of a grapefruit. No signs o f DVT of the right upper extremity. Neurovascularly intact. Decreased range of motion at the right shoulder limited by pain. Lymphadenopathy: Cervical: No cervical adenopathy. Skin: General: Skin is warm and dry. Coloration: Skin is not jaundiced. Findings: Erythema and rash present. Neurological: General: No focal deficit present. Mental Status: She is alert and oriented to person, place, and time. Mental status is at baseline. Cranial Nerves: No cranial nerve deficit. Sensory: No sensory deficit. Motor: No weakness or abnormal muscle tone. Coordination: Coordination normal. Deep Tendon Reflexes: Reflexes normal. Comments: Gait not tested Psychiatric: Behavior: Behavior normal. Thought Content: Thought content normal. Judgment: Judgment normal. Comments: Very tearful DATA Recent Results (from the past 24 hour(s)) CBC with Differential Result Value Ref Range WBC 13.39 (H) 3.80 - 11.00 K/uL Red Blood Cells 4.36 3.70 - 5.10 M/uL Hemoglobin 12.7 11.3 - 15.5 g/dL Hematocrit 38.2 34.0 - 46.0 % MCV 87.6 80.0 - 100.0 fl MCH 29.1 27.0 - 34.0 pg MCHC 33.2 32.0 - 35.5 g/dL RDW-SD 37.8 37 - 53 fl Platelet Count 315 150 - 400 K/uL MPV 9.6 fl Diff Type AUTOMATED % nRBC 0.0 0 /100WBC % Neutrophils 74.50 % IMMATURE GRANULOCYTE 0.30 % % Lymphocytes 14.70 % Monocyte % 8.10 % Eosinophils % 2.20 % Basophils % 0.20 % Neutrophils, Absolute 9.96 (H) 1.90 - 7.40 K/uL IMMATURE GRANS AB 0.04 0.00 - 0.07 K/uL Absolute Lymphocytes 1.97 1.00 - 3.90 K/uL Absolute Monocytes 1.09 (H) 0.00 - 0.80 K/uL Eosinophils, Absolute 0.30 0.00 - 0.50 K/uL Basophils, Absolute 0.03 0.00 - 0.10 K/uL Comprehensive Metabolic Panel Result Value Ref Range Na 137 135 - 145 mmol/L K 3.8 3.5 - 4.9 mmol/L Cl 102 99 - 109 mmol/L CO2 29 23 - 32 mmol/L Anion Gap 10 5 - 20 mmol/L Glucose 127 (H) 65 - 99 mg/dL BUN 11 8 - 25 mg/dL Creatinine 0.71 0.50 - 1.00 mg/dL BUN/Creatinine Ratio 15 Calcium 9.8 8.5 - 10.5 mg/dL Protein, Total 7.4 6.3 - 8.2 g/dL Albumin 4.6 3.6 - 5.0 g/dL Globulin 2.8 1.3 - 4.9 g/dL A/G Ratio 1.6 1.0 - 2.4 BILIRUBIN, TOTAL 0.4 0.1 - 1.5 mg/dL ALK PHOS 91 35 - 115 U/L AST 13 10 - 45 U/L ALT 11 10 - 65 U/L Estimated GFR >60 >60 mL/min/1.73m2 C-Reactive Protein Result Value Ref Range CRP 15.5 (H) <0.5 mg/dL Lactic Acid Result Value Ref Range Lactate, Serum 1.8 0.4 - 2.0 mmol/L HCG, Serum, Quant Result Value Ref Range hCG Quant, Serum <4 <4 mIU/mL Microbiology Results (Last 7) Date with Culture/Sensitivity) Procedure Component Value Units Date/Time Coronavirus (COVID-19) NAAT [[id number]] Collected: 04/15/20 0615 Order Status: Sent Lab Status: No result Specimen: Tissue from Nasopharynx IMAGING Recent Results (from the past 360 hour(s)) XR Shoulder Right 2 + Vw Narrative RIGHT SHOULDER TWO VIEWS CLINICAL INFORMATION: Abscess. Evaluate for retained foreign body. COMPARISON: XR ABDOMEN ACUTE SERIES (04/14/2017); CT SOFT TISSUE NECK UN (09/23/2008); FINDINGS: Severe soft tissue swelling of the proximal upper arm surrounding a 9 mm wirelike foreign body. Bones intact. No significant arthropathy. Impression Severe soft tissue swelling of the proximal upper arm surrounding a 9 mm wirelike foreign body. Final Report Signed by: Kobi Crocker Zachary Sign Date/Time: 04/15/2020 3:[address] Shoulder Right w Contrast Narrative CT RIGHT SHOULDER WITH CONTRAST CLINICAL INFORMATION: Shoulder pain, fever, infection suspected. COMPARISON: XR SHOULDER RIGHT 2 + VW (04/15/2020); PROCEDURE: Volume CT acquisition with multiplanar reconstructions. At least one of the following CT dose optimization techniques were used: Automated exposure control; Adjustment of mA and/or kV according to patient size; Use of iterative reconstruction technique. FINDINGS: Lateral right shoulder subcutaneous soft tissue stranding overlying a large rim enhancing collection within the deltoid muscle measuring 9.6 x 7.7 x 4.3 cm, and . Along medial margin of this collection is a small needle-like metallic foreign body, . Normal bones. Visible lungs clear. Impression 9.6 x 7.7 x 4.3 cm deltoid muscle abscess. 12 mm needle fragment along the medial margin of the abscess. Final Report Signed by: Kobi Crocker Zachary Sign Date/Time: 04/15/2020 4:47 AM ASSESSMENT & PLAN Principal Problem: Abscess of deltoid region Active Problems: Heroin abuse Current smoker Episode of recurrent major depressive disorder Leukocytosis Mild intermittent asthma without complication 40 years old female with history of heroin abuse presented with large right deltoid abscess associated with SIRS. Has leukocytosis sinus tachycardia. CT shows a broken needle in the deltoid. has been consulted for incision and drainage. Will admit to acute care. Ordered vancomycin and Rocephin. MRSA screen of the nares. Wound cultures will be sent [facility]. Follow the blood cultures wound cultures adjust antibiotics accordingly. Acute right deltoid pain: Ordered Dilaudid 1 mg IV every 4 as needed ibuprofen 400 mg p.o. every 6 hours. Will need physical therapy of the right upper extremity after incision and d rainage. Heroin abuse: IM use. Denies recent IV drug use. Considering to go back to Suboxone clini c post discharge from the hospital. Current smoker counseled on smoking cessation nicotine replacement with nicotine patch orde red. Mild intermittent asthma without complication. Ordered albuterol inhalers as needed. I do not hear any wheezing and patient is not in any respiratory distress. Major depressive disorder: Acute stressors, agreeable for telemetry psych consult ordered. Resume venlafaxine. DVT prophylaxis with subcu Lovenox ordered. History of GERD: Stable without acute exacerbation. Ordered oral Protonix daily. Full code Boyd Connelly MD 04/15/2020 6:19 AM PDT d ocumented in this encounter Consult Notes Minoo Frank MD - 04/15/2020 3:37 PM PDTAssociated Order(s): PROVIDER TO PROVIDER CONSULT Consultation Note Referring Provider: Dr Connelly Reason for Consultation: Should Abscess Hospital Day: LOS: 0 days History Obtained from: Patient History of Present Illness: This is a 40 y.o. female patient who presented to [facility] with a chi ef complaint of 4 day history of right shoulder pain. She was injected heroin and later capo t day had her right shoulder have pain, redness. It kept getting worse over next 4 days. S he last used heroin 2 days ago in other shoulder. Admits to fevers, pain, no nausea, or vom iting. She is very anxious and says she does not want to use heroin again. Assessment and Plan: The patient has right shoulder abscess - will take for I&D today - consult wound care post op - continue ABx - consult social work for rehab placement/informatino Past Medical History: Diagnosis Date Asthma due to seasonal allergies Back pain 12/18/2009 Bipolar disorder ([facility]) 09/2008 Patient denies Depression Herniated disc, cervical C5,C6 Heroin abuse ([facility]) Intramuscular use IVDU (intravenous drug user) Joint pain Seasonal allergies Past Surgical History: Procedure Laterality Date SECTION x 2 COLONOSCOPY HERNIA REPAIR HYSTERECTOMY Bilateral 04/13/2017 Procedure: ROBOTIC ASSISTED LAPAROSCOPIC HYSTERECTOMY WITH SALPINGECTOMY; Surgeon: Glenn aleman MD; Location: [facility] MAIN OR; Service: CHOCOLATE TEMPERER; Laterality: Bilateral; UPPER GASTROINTESTINAL ENDOSCOPY 2009 Family History Problem Relation Age of Onset Stroke Father Stroke Maternal Grandmother Diabetes Maternal Grandmother Diabetes Maternal Grandfather Heart attack Maternal Grandfather Malig hypertherm Neg Hx Social History Socioeconomic History Marital status: Legally [...] file Gets together: Not on file Attends gnosticism service: Not on file Active member of [...] on file Social History Narrative Lives in [place], independent with activities of daily living, no falls, full code. Has 2 children. Fabien recently. 14 yrs old Daughter has severe depression. Continues t o smoke a pack a day. Since August relapsed on heroin abuse denies alcohol use. Family and Social history reviewed. No pertinent findings noted other than above. Current Facility-Administered Medications: acetaminophen (TYLENOL) tablet 650 mg, 650 mg, Oral, Q6H PRN, Boyd Connelly MD albuterol 90 mcg/puff inhaler 2 puff, 2 puff, Inhalation, RT Q4H PRN, Boyd Connelly MD cefTRIAXone (ROCEPHIN) IVPB 1 g, 1 g, Intravenous, Q24H, Boyd Connelly MD, Last Rate : 100 mL/hr at 04/15/20 0953, 1 g at 04/15/20 0953 docusate sodium (COLACE) capsule 100 mg, 100 mg, Oral, BID PRN, Boyd Connelly MD enoxaparin (LOVENOX) 40 mg/0.4 mL injection 40 mg, 40 mg, Subcutaneous, Q24H, Boyd Connelly MD fluticasone (FLONASE) 50 mcg/nasal spray 2 spray, 2 spray, Each Nare, BID, Boyd siddiqi MD HYDROmorphone (DILAUDID) injection 1 mg, 1 mg, Intravenous, Q2H PRN, Aleks Colindres MD , 1 mg at 04/15/20 1436 ibuprofen (ADVIL, MOTRIN) tablet 400 mg, 400 mg, Oral, Q8H PRN, Boyd Connelly MD ketorolac (TORADOL) injection 30 mg, 30 mg, Intravenous, Q6H, Marty Alvarez MD, 30 mg at 04/15/20 1228 melatonin tablet 6 mg, 6 mg, Oral, Nightly PRN, Boyd Connelly MD nicotine (NICODERM) 21 mg/24 hr 1 patch, 1 patch, Transdermal, Daily PRN, Boyd roa MD nicotine (NICORETTE) gum 2 mg, 2 mg, Buccal, Q1H PRN, Boyd Connelly MD ondansetron (ZOFRAN) injection 4 mg, 4 mg, Intravenous, Q6H PRN, Boyd Connelly MD pantoprazole (PROTONIX) DR tablet 40 mg, 40 mg, Oral, QAM AC, Boyd Connelly MD polyethylene glycol (MIRALAX) powder 17 g, 17 g, Oral, Daily PRN, Boyd Connelly MD senna (SENOKOT) tablet 8.6 mg, 8.6 mg, Oral, BID PRN, Boyd Connelly MD sodium chloride 0.9% (NS) infusion, , Intravenous, Continuous, Boyd Connelly MD, Las t Rate: 100 mL/hr at 04/15/20 0948, 100 mL at 04/15/20 0948 traZODone (DESYREL) tablet 50 mg, 50 mg, Oral, Nightly PRN, Boyd Connelly MD vancomycin in NS (VANCOCIN) IVPB 1,250 mg, 15 mg/kg, Intravenous, Q8H, Charline Kelley [facility] Resident, Last Rate: 166.7 mL/hr at 04/15/20 1436, 1,250 mg at 04/15/20 1436 vancomycin per pharmacy, , Other, Pharmacy Consult, Boyd Connelly MD Allergies Allergen Reactions Bee Venom Anaphylaxis Codeine Hives, Rash and Shortness Of Breath Morphine Morphine And Related Other (See Comments) Abstracted Penicillins Hives Promethazine Hcl Droperidol Anxiety Lactose Intolerance (Gi) Other (See Comments) BP 119/72 | Pulse 79 | Temp 36.5 C (97.7 F) (Oral) | Resp 15 | Ht 1.753 m (5' 9") | Wt 77.1 kg (170 lb) | LMP (Exact Date) | SpO2 99% | No | BMI 25.10 kg/m Scheduled Medications cefTRIAXone 1 g Intravenous Q24H enoxaparin 40 mg Subcutaneous Q24H fluticasone 2 spray Each Nare BID ketorolac 30 mg Intravenous Q6H pantoprazole 40 mg Oral QAM AC vancomycin 15 mg/kg Intravenous Q8H vancomycin per pharmacy Other Pharmacy Consult Continuous Infusions sodium chloride 0.9% 100 mL (04/15/20 0948) PRN Medications acetaminophen, albuterol, docusate sodium, HYDROmorphone, ibuprofen, melatonin, nicotine, n icotine, ondansetron, polyethylene glycol, senna, traZODone Objective: Vital Signs: BP 119/72 | Pulse 79 | Temp 36.5 C (97.7 F) (Oral) | Resp 15 | Ht 1.753 m (5' 9") | Wt 77.1 kg (170 lb) | LMP (Exact Date) | SpO2 99% | No | BMI 25.10 kg/m Data: Recent Results (from the past 24 hour(s)) CBC with Differential Result Value Ref Range WBC 13.39 (H) 3.80 - 11.00 K/uL Red Blood Cells 4.36 3.70 - 5.10 M/uL Hemoglobin 12.7 11.3 - 15.5 g/dL Hematocrit 38.2 34.0 - 46.0 % MCV 87.6 80.0 - 100.0 fl MCH 29.1 27.0 - 34.0 pg MCHC 33.2 32.0 - 35.5 g/dL RDW-SD 37.8 37 - 53 fl Platelet Count 315 150 - 400 K/uL MPV 9.6 fl Diff Type AUTOMATED % nRBC 0.0 0 /100WBC % Neutrophils 74.50 % IMMATURE GRANULOCYTE 0.30 % % Lymphocytes 14.70 % Monocyte % 8.10 % Eosinophils % 2.20 % Basophils % 0.20 % Neutrophils, Absolute 9.96 (H) 1.90 - 7.40 K/uL IMMATURE GRANS AB 0.04 0.00 - 0.07 K/uL Absolute Lymphocytes 1.97 1.00 - 3.90 K/uL Absolute Monocytes 1.09 (H) 0.00 - 0.80 K/uL Eosinophils, Absolute 0.30 0.00 - 0.50 K/uL Basophils, Absolute 0.03 0.00 - 0.10 K/uL Comprehensive Metabolic Panel Result Value Ref Range Na 137 135 - 145 mmol/L K 3.8 3.5 - 4.9 mmol/L Cl 102 99 - 109 mmol/L CO2 29 23 - 32 mmol/L Anion Gap 10 5 - 20 mmol/L Glucose 127 (H) 65 - 99 mg/dL BUN 11 8 - 25 mg/dL Creatinine 0.71 0.50 - 1.00 mg/dL BUN/Creatinine Ratio 15 Calcium 9.8 8.5 - 10.5 mg/dL Protein, Total 7.4 6.3 - 8.2 g/dL Albumin 4.6 3.6 - 5.0 g/dL Globulin 2.8 1.3 - 4.9 g/dL A/G Ratio 1.6 1.0 - 2.4 BILIRUBIN, TOTAL 0.4 0.1 - 1.5 mg/dL ALK PHOS 91 35 - 115 U/L AST 13 10 - 45 U/L ALT 11 10 - 65 U/L Estimated GFR >60 >60 mL/min/1.73m2 C-Reactive Protein Result Value Ref Range CRP 15.5 (H) <0.5 mg/dL Lactic Acid Result Value Ref Range Lactate, Serum 1.8 0.4 - 2.0 mmol/L HCG, Serum, Quant Result Value Ref Range hCG Quant, Serum <4 <4 mIU/mL Procalcitonin Result Value Ref Range PROCALCITONIN <0.05 <0.5 ng/mL Coronavirus (COVID-19) NAAT Specimen: Nasopharynx; Tissue Result Value Ref Range SARS-CoV-2, NAAT (COVID-19) NEGATIVE NEG MRSA NAAT Specimen: Nares; Tissue Result Value Ref Range SOURCE: NARES(NOSE) Result NEGATIVE MRSNEG Radiology: Recent Results (from the past 360 hour(s)) XR Shoulder Right 2 + Vw Narrative RIGHT SHOULDER TWO VIEWS CLINICAL INFORMATION: Abscess. Evaluate for retained foreign body. COMPARISON: XR ABDOMEN ACUTE SERIES (04/14/2017); CT SOFT TISSUE NECK UN (09/23/2008); FINDINGS: Severe soft tissue swelling of the proximal upper arm surrounding a 9 mm wirelike foreign body. Bones intact. No significant arthropathy. Impression Severe soft tissue swelling of the proximal upper arm surrounding a 9 mm wirelike foreign body. Final Report Signed by: Kobi Crocker Zachary Sign Date/Time: 04/15/2020 3:[address] Shoulder Right w Contrast Narrative CT RIGHT SHOULDER WITH CONTRAST CLINICAL INFORMATION: Shoulder pain, fever, infection suspected. COMPARISON: XR SHOULDER RIGHT 2 + VW (04/15/2020); PROCEDURE: Volume CT acquisition with multiplanar reconstructions. At least one of the following CT dose optimization techniques were used: Automated exposure control; Adjustment of mA and/or kV according to patient size; Use of iterative reconstruction technique. FINDINGS: Lateral right shoulder subcutaneous soft tissue stranding overlying a large rim enhancing collection within the deltoid muscle measuring 9.6 x 7.7 x 4.3 cm, and . Along medial margin of this collection is a small needle-like metallic foreign body, . Normal bones. Visible lungs clear. Impression 9.6 x 7.7 x 4.3 cm deltoid muscle abscess. 12 mm needle fragment along the medial margin of the abscess. Final Report Signed by: Kobi Crocker Zachary Sign Date/Time: 04/15/2020 4:47 AM I have personally reviewed the radiographic imaging and concur with the radiologists interp retation. Review of Systems: Constitutional: Negative. HENT: Negative. Eyes: Negative. Respiratory: Negative. Cardiovascular: Negative. Gastrointestinal: Negative Genitourinary: Negative. Musculoskeletal: See HPI. Neurological: Negative. Psychiatric/Behavioral: Negative. Physical Exam: Constitutional: She is oriented to person, place, and time. She appears well-developed and well-nourished. No distress. HENT: Head: Normocephalic and atraumatic. Right Ear: External ear normal. Left Ear: External ear normal. Nose: Nose normal. Eyes: Conjunctivae and EOM are normal. Right eye exhibits no discharge. Left eye exhibits no discharge. No scleral icterus. Neck: Normal range of motion. No JVD present. No tracheal deviation present. Cardiovascular: Normal rate. Pulmonary/Chest: Effort normal. No stridor. No respiratory distress. Abdominal: Soft. She exhibits no distension. Musculoskeletal: Right shoulder with large abscess, TTP, erythema and fluctuance Lymphadenopathy: No visible adenopathy. Neurological: Alert and oriented to person, place, and time. Skin: Skin is warm and dry. No rash noted. She is not diaphoretic. No erythema. No pallor. Psychiatric: She has a normal mood and affect. Her behavior is normal. Thought content normal. Nursing note and vitals reviewed. Signed: Minoo Frank MD usuAlisha alejo, ACCOUNTING CLERK - 04/15/2020 10:15 AM PDTAssociated Order(s): IP TELEPSYCH CONSULT Tele-Psychiatry Social Work Initial Consultation ID: venice Purvis 40 y.o. y.o. female : 1980 Site of Service [id number] Date of Service: 04/15/2020 Admit Date : 04/15/2020, Hospital Day: 0 Consent This exam was initially conducted via a secure 256-bit AES encrypted bidirectional video se ssion. You have chosen to receive care through the use of telemedicine. Telemedicine enables [facility] care providers at different locations to provide safe, effective and convenient care throu gh the use of technology. As with any health care service, there are risks associated with t he use of telemedicine, including equipment failure, poor image resolution and information s ecurity issues. Do you understand the risks and benefits of telemedicine as I have explained them to you? y es Have your questions regarding telemedicine been answered? yes Do you consent to the use of telemedicine in your medical care today?yes Reason for Consult: The patient is Minoo Watson, a 40 year old female admitted to the hospital to treat a de ltoid abscess secondary to IM drug use. The patient reports a history of depression, increa sed following the of her son in August 2019. The patient also reports her daughter is experiencing mental health issues. Originating Site [facility] Referral: Patient is referred by Dr Connelly History obtained from: Patient, Chart review and Referring MD Communication limitations noted:None Chief Complaint: "Scared, nervous, anxious, depressed." Met with the patient to complete mental health/risk assessment, and to provide therapeutic support. The patient reports that her son in August 2019, and since this event she h as been "numbing out with drugs." The patient reports that her son, 20 years old, of l iver failure. The patient reports that she had one year of sobriety prior to this event, ho wever, the loss resulted in a relapse. The patient reports that she has a 14 [address] who is also experiencing profound depression at the loss; the patient reports concern th at her daughter needs help and her substance use is impeding that. The patient reports a long history of injecting heroin. The patient reports that she had a period of six years' sobriety, and during that time she was employed and attending school. The patient reports having a relapse and gaining another year of sobriety following that. The patient reports that her sobriety was assisted through the use of Suboxone, and the kirstin ent reports a desire to engage with MAT again. The patient reports a history of depression, and states that her depression has always been worse when she is using heroin. The patient reports that her depression worsened immediate ly following the of her son and her relapse on heroin. The patient reports experienci ng wishes to be , but reports no active suicidal ideation. The patient reports that she has experienced sleep disturbances resulting from her depression, as well as deficits in in terpersonal interactions to include isolation behaviors. The patient reports that she is currently feeling nervous/anxious about her upcoming surger y later today. The patient reports that she is most concerned with the pain she may experie nce following the procedure. Past Psychiatric History: Previous Diagnosis: Depression Past psychiatric outpatient care: The patient reports that she briefly received outpatient care through [facility]. Past psychiatric hospitalizations: The patient reports no past psychiatric hospitalization, but acknowledges a stay at a crisis facility for 3 days. Suicide attempts: The patient reports history of remote suicide attempt 15-20 years ago. N o further information provided. Med trials: The patient reports she is not currently taking any medication. The patient rep orts she has previously taken Wellbutrin and Effexor. The patient reports that she tried to restart Effexor recently, however, it made her ill. Patient's identified baseline: The patient reports that she was working prior to [facility], and has been job seeking. The patient reports that she has regular contact with family. Changes in functioning: Sleep The patient reports that she has been sleeping 4-5 hours per night since June 2019 . Interpersonal Interactions The patient reports that she has been more irritable in interact ions with others. The patient reports that she has been more isolative; the patient reports that her father is her "best friend" and they used to see each other and talk regularly, ho wever, she has only seen her father twice since August. Psychiatric Legal Status: Status: Voluntary Family Psychiatric History None reported Substance use: Current Substance Use: Type of Substance Used: Heroin Frequency of Use: Daily Amount: Unknown Last Used: Unknown See chart for for results of Utox/BAL Current treatment: no History: History of withdrawal complications (choose all that apply): unknown Most recent period of sobriety and length of sobriety: The patient reports that she was sob er for one year prior to relapse in August 2019 Past treatment history and outcome:The patient reports that she recently went to detox one month ago, and relapsed the same day of discharge. The patient reports that she was previou sly taking Suboxone and that it worked well for her. Losses experienced by the patient due to substance use: The patient reports that her relati onship with her parents is currently strained due to her use. Social History: The patient reports that she attended school and earned an Associate's degree with an aCommerce focus. 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 The pa brittany reports a history of trauma, however, reports that it is not currently impacting her. Family demographics and relationships: The patient reports that her parents live nearby and are supportive, however, they are unha ppy with her recent relapse. The patient reports that her mother is currently caring for he r 14 year old daughter. The patient reports that she has a supportive boyfriend, stating th at they have been together for almost one year. Current living situation and daily activities: The patient reports living with her boyfriend and her daughter. Access to firearms: did not ask History of trauma? Yes The patient provides no specific details Legal history: None reported Patient identified strengths: History of sobriety, willingness to engage in treatment Social History Socioeconomic History Marital status: Legally [...] file Gets together: Not on file Attends gnosticism service: Not on file Active member of [...] on file Social History Narrative Lives in [place], independent with activities of daily living, no falls, full code. Has 2 children. Fabien recently. 14 yrs old Daughter has severe depression. Continues t o smoke a pack a day. Since August relapsed on heroin abuse denies alcohol use. Meds: Medications Prior to Admission Medication Sig Dispense Refill Albuterol Sulfate (PROAIR HFA IN) AERS baclofen (LIORESAL) 10 mg tablet Take 1 tablet by mouth 3 (three) times daily. bismuth subsalicylate (PEPTO BISMOL) 262 mg/15 mL suspension buprenorphine (SUBUTEX) 2 mg SUBL USE PER TAPER INSTRUCTIONS 0 buprenorphine-naloxone (SUBOXONE) 8-[address] 1 & 1 2 (ONE & ONE HALF) TABLE TS UNDER THE TONGUE TWICE DAILY FOR 7 DAYS 0 buPROPion (WELLBUTRIN XL) 150 mg 24 hr tablet 0 docusate sodium (COLACE) 100 mg capsule One po bid for stool softening EPINEPHrine (EPIPEN IJ) TOÑO EPINEPHrine auto-injector 0.3 mg/0.3 mL injection Inject 0.3 mLs into the muscle as nee ded. fluticasone (FLONASE) 50 mcg/nasal spray fluticasone (FLONASE) 50 mcg/nasal spray 2 INH per nostril daily HYDROcodone-acetaminophen (NORCO) 10-325 mg per tablet Take 1 tablet by mouth every 6 ( six) hours as needed for Pain. hydrOXYzine (VISTARIL) 50 MG capsule TAKE ONE CAPSULE BY MOUTH EVERY 6 HOURS NEEDED 0 hydrOXYzine hydrochloride (ATARAX) 25 mg tablet Take 1 tablet by mouth every 6 hours as needed for Anxiety. (Patient not taking: Reported on 04/15/2020.) 12 tablet 0 ibuprofen (ADVIL,MOTRIN) 600 MG tablet Take 600 mg by mouth every 6 hours as needed. loratadine (CLARITIN) 10 mg tablet Take 10 mg by mouth Daily. (Patient not taking: Repo rted on 04/15/2020.) Loratadine-Pseudoephedrine (CLARITIN-D 24 HOUR PO) TB24; Take one tablet orally daily multivitamin (THERAGRAN) tablet one tablet by mouth daily naproxen (NAPROSYN) 500 mg tablet Take 1 tablet by mouth 2 (two) times daily as needed. omeprazole (PRILOSEC) 20 mg capsule Take 20 mg by mouth Daily. (Patient not taking: Rep orted on 04/15/2020.) ondansetron (ZOFRAN ODT) 4 mg disintegrating tablet Take 1 tablet by mouth every 8 hour s as needed for Nausea. 12 tablet 0 ondansetron (ZOFRAN) 4 mg tablet TAKE 1 TABLET BY MOUTH EVERY 6 HOURS 0 PEG [id number] 227.1 g PACK Take 8 oz by mouth every 20 (twenty) minute s. Drink 8oz every 20 minutes until bowel movements occur tiZANidine (ZANAFLEX) 4 MG capsule Take 1-2 capsules by mouth nightly as needed for Mus roxy spasms. traZODone (DESYREL) 50 mg tablet TAKE 1 OR 2 TABLETS BY MOUTH AT BEDTIME NEEDED 0 venlafaxine (EFFEXOR XR) 150 mg 24 hr capsule Take 150 mg by mouth Daily. (Patient not taking: Reported on 04/15/2020.) Current Facility-Administered Medications: acetaminophen (TYLENOL) tablet 650 mg, 650 mg, Oral, Q6H PRN, Boyd Connelly MD albuterol 90 mcg/puff inhaler 2 puff, 2 puff, Inhalation, RT Q4H PRN, Boyd Connelly MD cefTRIAXone (ROCEPHIN) IVPB 1 g, 1 g, Intravenous, Q24H, Boyd Connelly MD, Last Rate : 100 mL/hr at 04/15/20 0953, 1 g at 04/15/20 0953 docusate sodium (COLACE) capsule 100 mg, 100 mg, Oral, BID PRN, Boyd Connelly MD enoxaparin (LOVENOX) 40 mg/0.4 mL injection 40 mg, 40 mg, Subcutaneous, Q24H, Boyd Connelly MD fluticasone (FLONASE) 50 mcg/nasal spray 2 spray, 2 spray, Each Nare, BID, Boyd siddiqi MD HYDROmorphone (DILAUDID) injection 1 mg, 1 mg, Intravenous, Q6H PRN, Caro Omer D, 1 mg at 04/15/20 0745 ibuprofen (ADVIL, MOTRIN) tablet 400 mg, 400 mg, Oral, Q8H PRN, Boyd Connelly MD ketorolac (TORADOL) injection 30 mg, 30 mg, Intravenous, Q6H, Marty Alvarez MD melatonin tablet 6 mg, 6 mg, Oral, Nightly PRN, Boyd Connelly MD nicotine (NICODERM) 21 mg/24 hr 1 patch, 1 patch, Transdermal, Daily PRN, Boyd roa MD nicotine (NICORETTE) gum 2 mg, 2 mg, Buccal, Q1H PRN, Boyd Connelly MD ondansetron (ZOFRAN) injection 4 mg, 4 mg, Intravenous, Q6H PRN, Boyd Connelly MD pantoprazole (PROTONIX) DR tablet 40 mg, 40 mg, Oral, QAM AC, Boyd Connelly MD polyethylene glycol (MIRALAX) powder 17 g, 17 g, Oral, Daily PRN, Boyd Connelly MD senna (SENOKOT) tablet 8.6 mg, 8.6 mg, Oral, BID PRN, Boyd Connelly MD sodium chloride 0.9% (NS) infusion, , Intravenous, Continuous, Boyd Connelly MD, Las t Rate: 100 mL/hr at 04/15/20 0948, 100 mL at 04/15/20 0948 traZODone (DESYREL) tablet 50 mg, 50 mg, Oral, Nightly PRN, Boyd Connelly MD vancomycin per pharmacy, , Other, Pharmacy Consult, Boyd Connelly MD venlafaxine (EFFEXOR XR) ER capsule 150 mg, 150 mg, Oral, Daily, Boyd Connelly MD Taking OTC medications: unknown Allergies: Allergies Allergen Reactions Bee Venom Anaphylaxis Codeine Hives, Rash and Shortness Of Breath Morphine Morphine And Related Other (See Comments) Abstracted Penicillins Hives Promethazine Hcl Droperidol Anxiety Lactose Intolerance (Gi) Other (See Comments) Vitals: BP 126/71 | Pulse 79 | Temp 36.6 C (97.9 F) (Oral) | Resp 18 | Ht 1.753 m (5' 9") | Wt 77.1 kg (170 lb) | LMP (Exact Date) | SpO2 100% | No | BMI 25.10 kg/ m Labs: Lab Results Component Value Date WBC 13.39 (H) 04/15/2020 RBC 4.36 04/15/2020 HGB 12.7 04/15/2020 HCT 38.2 04/15/2020 MCV 87.6 04/15/2020 MCH 29.1 04/15/2020 MCHC 33.2 04/15/2020 PLT 315 04/15/2020 MPV 9.6 04/15/2020 DIFFTYPE AUTOMATED 04/15/2020 Imaging: @[id number]@ Mental Status Exam: Appearance:age appropriate Behavior:normal Speech: appropriate quality, quantity and organization of sentences Mood:depressed Affect tearful Thought process Normal Thought content: Auditory Hallucinations: no Visual Hallucinations: no Paranoid Ideation no Suicidal Ideation: no Homicidal Ideation: no Delusions: no Cognition:Oriented to time, place and person Insight: Good Judgment fair Risk Assessment Risk Assessment and Safety Planning needed? Yes Tele-Psychiatry Social Work Risk Assessment Volant Suicide Severity Rating Scale (C-SSRS): Is the patient able to participate in C-SSRS? Yes 1. In the past month, have you wished you were or wished you could go to sleep and not wake up? Yes 2. In the past month, have you actually had any thoughts of killing yourself? No If YES to 2, ask questions 3, 4, 5, and 6. If NO to 2, go directly to question 6. 3. Have you been thinking about how you might kill yourself? N/A 4. Have you had these thoughts and had some intention of acting on them? N/A 5. Have you started to work out or worked out the details of how to kill yourself? Do you i ntend to carry out this plan? N/A 6. Have you EVER done anything, started to do anything, or prepared to do anything to end y our life? Yes If YES, ask: Was this within the past 3 months?No Suicide Inquiry Suicidal Ideation The patient reports that she has thoughts of wishing she were , starting after the deat h of her son. The patient denies any active suicidal ideation, denies any planning activiti es. Plan No Intent No intent History of Suicidal Behavior History of prior suicide attempts? Yes Number of prior attempts: One Most recent attempt: The patient reports 15-20 years ago History of aborted suicide attempts? No History of non-suicidal self-injury? No Presence of precipitating stressors/activating events: Presence of despair due to loss and Family turmoil Additional clinically significant scenarios linked to increased risk: Presence of hopelessn ess, Presence of a major depressive episode and Substance abuse or dependence Protective Factors (may not counteract significant acute suicide risk factors): Identifies reasons for living, Future orientation and Responsibility to family/others Safety Planning Is safety planning needed at this time? No Assessment: Minoo Watson is a 40 y.o. y.o. female with a history of heroin use and depression adm itted to the hospital to treat a deltoid abscess. The patient reports that she has been exp eriencing significant depression following the of her son in August 2019, exacerbate d by severe depression experienced by her teenage daughter. The patient reports that she re lapsed on heroin following this loss, and that too has contributed to her depression. The patient reports no active SI, no planning activities; the patient states that she wants to get better - both from a mental health and a substance use standpoint - in order to be t here for her daughter. The patient's depression appears to be significant, and she would be nefit from outpatient care to address her symptoms and allow her to process her loss. The p atient would be best served receiving that treatment in context with MAT in the form of Subo xone, which she has previously used successfully. The patient reports desire to engage in cristiana th. Level of Care Utilization System (LOCUS) Risk of Harm: Moderate risk of harm as evidenced by absence of reported SI/HI, but with pre sence of a significant loss in conjunction with a remote history of suicide attempt, complic ated by active substance use disorder. Functional Status: Moderate impairment as evidenced by report of recent withdrawal from sig nificant relationships/isolation from others, as well as report of significant sleep disturb ances. Medical, Addictive, and Psychiatric Co-Morbidity: Major co-morbidity as evidenced by presen ce of opioid use disorder that appears uncontrolled and is exacerbating her depression (by h er report) Level of Stress in Recovery Environment: Highly stressful environment as evidenced by exper iencing a profound loss that has significantly disrupted every day life. Level of Support in Recovery Environment: Limited support in environment as evidenced by re port of natural supports present, however, with report that some of those supports are strai evette at this time due to substance use. Treatment and Recovery History: Moderate or equivocal response to treatment and recovery ma rosamaria Engagement and Recovery Status:Unengaged and stuck DSM V Diagnosis: Opiod use disorder Major depressive disorder Treatment Plan/Recomendations The patient is expressing a desire to restart suboxone, a therapy that she has previously u sed in the past successfully. Would greatly appreciate a consult with addiction medicine to see if this can be set up for her prior to discharge. The patient would benefit from engagement with outpatient behavioral health, particularly a program that can address the co-occurring REZA. Would greatly appreciate case management as sistance with securing this resource for her. The patient would also like information about outpatient services for her daughter, who also is experiencing significant depression that is currently untreated. Follow up We are happy to follow up on this patient if needed and follow with you while she is on you r service . Re-consult through the portal if you would like further follow up. Please do not hesitate to call us through the [employer] if you have questions. Time / Billing A total of 20 minutes were spent face to face with the patient via interactive tele[employer]. Greater than 50% of the patient face to face time were spent in counseling &/o r coordination of care regarding depression. Minoo Watson Electronically Signed by: FLAKO Aguilar, ANIMAL SCIENCE INSTRUCTOR 04/15/2020 10:43 AM PDT CONFIDENTIAL: DO NOT COPY WITHOUT WRITTEN PERMISSION TO RELEASE MENTAL HEALTH RECORDS documented in this encounter ED Notes Oma Lino, RN - 04/15/2020 6:31 AM PDTPt "kaziengutierrez" comes to nurses station stat ing he has her phone which he would like to pass on to the patient. This RN stated that due to strict hospital policy on pt visitors visitor is not allowed back. Pt "kaziend" then st ates "well she is going to come to the lobby and give me a hug" This RN called Johnny SAAB pt's nurse and informed pt of the request Johnny SAAB states "no". Pt friend then "you can either tra nsfer me to her or you can call the police." pt friend then stated "did you hear that?" "you can either transfer me to her or call the police" This RN then proceeded to call security. ethany, Jamaal Seaman MD - 04/15/2020 2:58 AM PDT [facility] Department of Emergency Medicine No flowsheet data found. 2:58 AM PDT History of Present Illness Patient Identification Minoo Watson is a 40 y.o. female. Minoo Watson Patient information was obtained from patient History/Exam limitations: none. Patient presented to the Emergency Department by: Car Chief Complaint Chief Complaint Patient presents with Abscess R shoulder, The patient presents to the emergency department with chief complaints of a shoulder absces s. Onset of symptoms was four days ago, with a gradually worsening course since that time. T he symptoms are described to be of moderate severity. The patient also complains of a fever. The patient describes the quality and location of the symptoms as the following: right shou lder swelling and pain. The patient denies any other symptoms at this time. The patient repo rts being 6 years clean from heroin when she relapsed three weeks ago and injected into the right shoulder. 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 PCP: Nery Maynard MD Past Medical History: Diagnosis Date Asthma due [...] WITH SALPINGECTOMY; Surgeon: Glenn aleman MD; Location: [facility] MAIN OR; Service: CHOCOLATE TEMPERER; Laterality: Bilateral; UPPER GASTROINTESTINAL ENDOSCOPY 2009 Prior to Admission [...] mg 24 hr tablet 05/02/18 Historical Provider, docusate sodium (COLACE) 100 mg capsule One po bid for stool softening 04/04/17 Historical Provider, EPINEPHrine (EPIPEN IJ) TOÑO 02/01/12 DATA MIGRATION RICK SR EPINEPHrine auto-injector 0.3 mg/0.3 mL injection Inject 0.3 mLs into the muscle as needed. 02/25/14 Historical Provider, fluticasone (FLONASE) 50 mcg/nasal spray 10/19/16 Historical Provider, fluticasone (FLONASE) 50 mcg/nasal spray 2 INH per nostril daily 02/01/12 DATA MIGRATION E DI SR HYDROcodone-acetaminophen (NORCO) 10-325 mg per tablet Take 1 tablet by mouth every 6 (six) hours as needed for Pain. 10/28/17 Historical Provider, hydrOXYzine (VISTARIL) 50 MG capsule TAKE ONE CAPSULE BY MOUTH EVERY 6 HOURS NEEDED 05/03 Historical Provider, hydrOXYzine hydrochloride (ATARAX) 25 mg tablet Take 1 tablet by mouth every 6 hours as nee ded for Anxiety. 01/04/20 Vitaly Kaufman MD ibuprofen (ADVIL,MOTRIN) 600 MG tablet Take 600 mg by mouth every 6 hours as needed. 2 DATA MIGRATION RICK SR loratadine (CLARITIN) 10 mg tablet Take 10 mg by mouth Daily. 02/01/12 DATA MIGRATION RICK SR Loratadine-Pseudoephedrine (CLARITIN-D 24 HOUR PO) TB24; Take one tablet orally daily DATA MIGRATION RICK SR multivitamin (THERAGRAN) tablet one tablet by mouth daily 02/01/12 DATA MIGRATION RICK SR naproxen (NAPROSYN) 500 mg tablet Take 1 tablet by mouth 2 (two) times daily as needed. 02/11 10/29 Historical Provider, omeprazole (PRILOSEC) 20 mg capsule Take 20 mg by mouth Daily. 02/01/12 DATA MIGRATION RICK SR ondansetron (ZOFRAN ODT) 4 mg disintegrating tablet Take 1 tablet by mouth every 8 hours as needed for Nausea. 01/04/20 Vitaly Kaufman MD ondansetron (ZOFRAN) 4 mg tablet TAKE 1 TABLET BY MOUTH EVERY 6 HOURS 03/01/19 Historical Provider, PEG [id number] 227.1 g PACK Take 8 oz by mouth every 20 (twenty) minutes. D rink 8oz every 20 minutes until bowel movements occur 11/30/17 Historical Provider, tiZANidine (ZANAFLEX) 4 MG capsule Take 1-2 capsules by mouth nightly as needed for Muscle spasms. 05/03/17 Historical Provider, traZODone (DESYREL) 50 mg tablet TAKE 1 OR 2 TABLETS BY MOUTH AT BEDTIME NEEDED 05/03/18 Historical Provider, venlafaxine (EFFEXOR XR) 150 mg 24 hr capsule Take 150 mg by mouth Daily. 02/01/12 DATA IL GRATION RICK SR Allergies Allergen Reactions Bee Venom Anaphylaxis Codeine [...] file Gets together: Not on file Attends gnosticism service: Not on file Active member of [...] on file Social History Narrative Lives in [place], independent with activities of daily living, no [...] Hx Review of Systems Constitutional: Negative for: fever, chills or weight loss. HEENT: Negative for: head trauma, ear pain, sore throat or acute visual disturbance. Cardiovascular/Respiratory: Negative for: chest pain, syncope, shortness of breath or cough . Gastrointestinal: Negative for: abdominal pain, nausea, vomiting, diarrhea, or black or bl oody stools. Genitourinary: Negative for: dysuria or urinary problems. Musculoskeletal: Negative for: back pain Positive for right shoulder pain Skin: Negative for: rash or lesions. Neuro: Negative for: headache, focal muscle weakness, seizure or acute neur ological problems. All systems reviewed and otherwise negative Physical Exam Temp: 37.6 C (99.7 F) Pulse: 139 Resp: 24 BP: 126/72 SpO2: 100 % Vitals Interpretation: tachycardic, tachypneic, otherwise normal Pulse Oximetry interpretation: Normal General: Alert, in no apparent distress Eyes: Normal inspection, pupils equal and round, non-icteric CVS: Tachycardic No murmurs, rubs or gallops Respiratory: Breath sounds normal bilaterally, no wheezing or crackles Abdomen: Soft, non-tender, non-distended No guarding or rebound Skin: Warm and dry No rash Large abscess on the right shoulder/deltoid, no significant erythema. Musculoskeletal: Moves all extremities Neuro: No gross motosensory deficit Medical Decision Making and Emergency Department Course Records Reviewed Old medical records. Nursing notes. Previous ED visits for similar and unrelated complaints. ED Department Course 2:58 AM PDT Patient with history of IV drug use present to the ED with a right shoulder ab scess. Patient exhibits a large abscess over the right shoulder. Labs and imaging will be or dered. Differential diagnosis: Abscess, sepsis. 3:16 AM PDT: CBC with differential results show a low WBC of 13.39. Lactic acid normal. 3:18 AM PDT: XR Shoulder Right 2+ Vw Impression: Severe soft tissue swelling of the proximal upper arm surrounding a 9 mm wirelike foreign b karly. 3:32 AM PDT: Re-evaluation. Discussed XR indicating needle in the right shoulder with mildred diana. The patient says this needle fragment is not new and has been present for a few years. 4:47 AM PDT: CT Shoulder w Contrast Impression: 9.6 x 7.7 x 4.3 cm deltoid muscle abscess. 12 mm needle fragment along the medial margin of the abscess. 5:08 AM: The abscess is located in the deltoid muscle, as opposed to being subcutaneous. I believe it will be more appropriate to have it I&D in the OR. Will consult Dr. Cottrell, surge ry. 5:14 AM: Consulted Dr. Cottrell, surgery, about abscess in the right deltoid muscle. He recomme nded admitting her to the hospital and to give her vancomycin. I spoke with patient about ad mission and she was agreeable. 5:28 AM Discussed patient with Dr. Connelly, hospitalist. Dr. Connelly is aware of and accepts e patient into their services. Will continue to closely monitor the patient in the emergency department until they can be brought into Dr. Connelly's services. Medications albuterol 90 mcg/puff inhaler 2 puff ( Inhalation MAR Unhold 04/15/201836) fluticasone (FLONASE) 50 mcg/nasal spray 2 spray (2 sprays Each Nare Given 04/15/20 2100) ibuprofen (ADVIL, MOTRIN) tablet 400 mg ( Oral MAR Unhold 04/15/201836) pantoprazole (PROTONIX) DR tablet 40 mg ( Oral MAR [facility]hold 04/15/201836) traZODone (DESYREL) tablet 50 mg ( Oral MAR [facility]hold 04/15/201836) enoxaparin (LOVENOX) 40 mg/0.4 mL injection 40 mg ( Subcutaneous MAR Unhold 04/15/201836) sodium chloride 0.9% (NS) infusion (100 mLs Intravenous New Bag 04/15/20 0948) acetaminophen (TYLENOL) tablet 650 mg ( Oral MAR [facility]hold 04/15/201836) melatonin tablet 6 mg ( Oral MAR [facility] 04/15/201836) docusate sodium (COLACE) capsule 100 mg ( Oral MAR Unhold 04/15/201836) senna (SENOKOT) tablet 8.6 mg ( Oral MAR Unhold 04/15/201836) polyethylene glycol (MIRALAX) powder 17 g ( Oral MAR [facility]hold 04/15/201836) ondansetron (ZOFRAN) injection 4 mg ( Intravenous MAR [facility]hold 04/15/201836) nicotine (NICODERM) 21 mg/24 hr 1 patch ( Transdermal MAR [facility]hold 04/15/201836) nicotine (NICORETTE) gum 2 mg ( Buccal MAR [facility]hold 04/15/201836) vancomycin per pharmacy ( Other MAR Unhold 04/15/201836) cefTRIAXone (ROCEPHIN) IVPB 1 g ( Intravenous MAR Unhold 04/15/201836) ketorolac (TORADOL) injection 30 mg (30 mg Intravenous Given 04/16/20 0034) HYDROmorphone (DILAUDID) injection 1 mg (1 mg Intravenous Given 04/16/20 0226) vancomycin in NS (VANCOCIN) IVPB 1,250 mg (1,250 mg Intravenous New Bag 04/15/20 2228) ketorolac (TORADOL) injection 30 mg (30 mg Intravenous Given 04/15/20 0342) sodium chloride 0.9% (NS) bolus 2,000 mL (0 mLs Intravenous Stopped 04/15/20 0441) clindamycin in dextrose (CLEOCIN) IVPB 900 mg (0 mg Intravenous Stopped 04/15/202) iohexol (OMNIPAQUE 350) 350 mg/mL injection 100 mL (100 mLs Intravenous Given 04/15/20 0433) HYDROmorphone (DILAUDID) injection 1 mg (1 mg Intravenous Given 04/15/20555) vancomycin in saline IVPB 1.75 g (1.75 g Intravenous New Bag 04/15/20555) ondansetron (ZOFRAN) 2 mg/mL injection ( Given 04/15/20555) povidone-iodine (BETADINE) 10% external solution (has no administration in time range) fentaNYL (PF) 50 mcg/mL injection (has no administration in time range) propofol (DIPRIVAN) 10 mg/mL (has no administration in time range) dexamethasone (DECADRON) 4 mg/mL injection (has no administration in time range) ondansetron (ZOFRAN) 2 mg/mL injection (has no administration in time range) Vitals: 04/15/20 1950 04/15/20201404/15/20210904/16/20 0054 BP: 108/72 113/70 119/80 113/69 Pulse: 77 77 79 90 Resp: 15 15 18 16 Temp: 36.9 C (98.4 F) 36.8 C (98.3 F) 36.9 C (98.5 F) 36.8 C (98.2 F) TempSrc: Axillary Oral Oral Oral SpO2: 99% 99% 99% 98% Weight: Height: Laboratory Evaluation Results Procedure Component Value Ref Range Date/Time Coronavirus (COVID-19) NAAT [[id number]] Collected: 04/15/20602 Order Status: Completed Specimen: Tissue from Nasopharynx Updated: 04/15/20736 SARS-CoV-2, NAAT (COVID-19) NEGATIVE NEG C-Reactive Protein [[id number]] (Abnormal) Collected: 04/15/20310 Order Status: Completed Specimen: Blood Updated: 04/15/20336 CRP 15.5 <0.5 mg/dL Comprehensive Metabolic Panel [[id number]] (Abnormal) Collected: 04/15/20310 Order Status: Completed Specimen: Blood Updated: 04/15/20336 Na 137 135 - 145 mmol/L K 3.8 3.5 - 4.9 mmol/L Cl 102 99 - 109 mmol/L CO2 29 23 - 32 mmol/L Anion Gap 10 5 - 20 mmol/L Glucose 127 65 - 99 mg/dL BUN 11 8 - 25 mg/dL Creatinine 0.71 0.50 - 1.00 mg/dL BUN/Creatinine Ratio 15 Calcium 9.8 8.5 - 10.5 mg/dL Protein, Total 7.4 6.3 - 8.2 g/dL Albumin 4.6 3.6 - 5.0 g/dL Globulin 2.8 1.3 - 4.9 g/dL A/G Ratio 1.6 1.0 - 2.4 BILIRUBIN, TOTAL 0.4 0.1 - 1.5 mg/dL ALK PHOS 91 35 - 115 U/L AST 13 10 - 45 U/L ALT 11 10 - 65 U/L Estimated GFR >60 >60 mL/min/1.73m2 HCG, Serum, Quant [[id number]] Collected: 04/15/20310 Order Status: Completed Specimen: Blood Updated: 04/15/20335 hCG Quant, Serum <4 <4 mIU/mL Lactic Acid [[id number]] Collected: 04/15/20310 Order Status: Completed Specimen: Blood Updated: 04/15/20335 Lactate, Serum 1.8 0.4 - 2.0 mmol/L CBC with Differential [[id number]] (Abnormal) Collected: 04/15/20310 Order Status: Completed Specimen: Blood Updated: 04/15/20317 WBC 13.39 3.80 - 11.00 K/uL Red Blood Cells 4.36 3.70 - 5.10 M/uL Hemoglobin 12.7 11.3 - 15.5 g/dL Hematocrit 38.2 34.0 - 46.0 % MCV 87.6 80.0 - 100.0 fl MCH 29.1 27.0 - 34.0 pg MCHC 33.2 32.0 - 35.5 g/dL RDW-SD 37.8 37 - 53 fl Platelet Count 315 150 - 400 K/uL MPV 9.6 fl Diff Type AUTOMATED % nRBC 0.0 0 /100WBC % Neutrophils 74.50 % IMMATURE GRANULOCYTE 0.30 % % Lymphocytes 14.70 % Monocyte % 8.10 % Eosinophils % 2.20 % Basophils % 0.20 % Neutrophils, Absolute 9.96 1.90 - 7.40 K/uL IMMATURE GRANS AB 0.04 0.00 - 0.07 K/uL Absolute Lymphocytes 1.97 1.00 - 3.90 K/uL Absolute Monocytes 1.09 0.00 - 0.80 K/uL Eosinophils, Absolute 0.30 0.00 - 0.50 K/uL Basophils, Absolute 0.03 0.00 - 0.10 K/uL Available Labs reviewed and interpreted by me. Radiology and EKG Evaluation Imaging Results CT Shoulder Right w Contrast (Final result) Result time 04/15/20 04:47:34 Final result by Tom Crocker MD (04/15/20 04:47:34) Impression: 9.6 x 7.7 x 4.3 cm deltoid muscle abscess. 12 mm needle fragment along the medial margin of the abscess. Final Report Signed by: Kobi Crocker Zachary Sign Date/Time: 04/15/2020 4:47 AM Narrative: CT RIGHT SHOULDER WITH CONTRAST CLINICAL INFORMATION: Shoulder pain, fever, infection suspected. COMPARISON: XR SHOULDER RIGHT 2 + VW (04/15/2020); PROCEDURE: Volume CT acquisition with multiplanar reconstructions. At least one of the following CT dose optimization techniques were used: Automated exposure control; Adjustment of mA and/or kV according to patient size; Use of iterative reconstruction technique. FINDINGS: Lateral right shoulder subcutaneous soft tissue stranding overlying a large rim enhancing collection within the deltoid muscle measuring 9.6 x 7.7 x 4.3 cm, 6 and . Along medial margin of this collection is a small needle-like metallic foreign body, . Normal bones. Visible lungs clear. XR Shoulder Right 2 + Vw (Final result) Result time 04/15/20 03:37:03 Final result by Tom Crocker MD (04/15/20 03:37:03) Impression: Severe soft tissue swelling of the proximal upper arm surrounding a 9 mm wirelike foreign body. Final Report Signed by: Kobi Crocker Zachary Sign Date/Time: 04/15/2020 3:37 AM Narrative: RIGHT SHOULDER TWO VIEWS CLINICAL INFORMATION: Abscess. Evaluate for retained foreign body. COMPARISON: XR ABDOMEN ACUTE SERIES (04/14/2017); CT SOFT TISSUE NECK UN (09/23/2008); FINDINGS: Severe soft tissue swelling of the proximal upper arm surrounding a 9 mm wirelike foreign body. Bones intact. No significant arthropathy. Available radiology studies reviewed and interpreted contemporaneously by me. Diagnosis 1. Abscess of deltoid region 2. IVDU (intravenous drug user) 3. Current smoker 4. Heroin abuse (HCC) 5. Mild intermittent asthma without complication Disposition: ED Disposition ED Disposition Condition Comment Admit Clinical impression: Abscess of deltoid region [[id number]] Clinical impression: IVDU (intravenous drug user) [[id number]] Admitting provider: CORIE HOSPITALIST [[id number]] Expected patient class: Observation [104] Level of service: Medical Procedures: Procedures Attending Provider Note: Jamaal Dietz MD personally performed the services described in this documentation, as scribed by Zoraida Mascorro and Gerri Jaimes in my presence, and it is both accurate and complete. Chart Reviewed and Completed. Scribe: Barron Benitez scribing for and in the presence of MD Carlos Mullins Completed by: Barron Lua 04/16/2020 3:14 AM PDT Scribe: Gerri Dietz scribe, scribing for and in the presence of Caro Mullins Completed by: barron Hong 04/16/20 3:14 AM PDT. Jamaal Sims MD 04/16/20 0315 documented in this e ncounter Miscellaneous Notes Plan of Care - Ana Lilia Dickerson, RN - 04/16/2020 8:09 AM PDTCare Management Initial Asse ssment Readmission Risk: HIGH Pt admitted with abscess ue to IVDU. She lives at home with family and is independent with her ADLs. She does not use a walker, cane, oxygen, etc. Status Prior to Admission or Illness Arrival From: admitted as an inpatient, home or self-care Lives With: significant other, child(edward), dependent Living Arrangements: mobile home Caregiver For: child(edward) Functional Status: independent. Transportation Available: family or friend will provide Care Management Concerns Readmission Within Last 30 Days: no previous admission in last 30 days PCP: Nery Maynard MD Contact Information Family Contact Information: Name: Vaughn . [place] Needs Assessment Current Outpt/Agency/Support Groups: none Anticipated Changes Related to Illness: inability to care for self Concerns to be Addressed: no discharge needs identified Services Anticipated at Discharge: education services Equipment Used at Home: none Initial Plan Anticipated Discharge Disposition: home Electronically signed: Ana Lilia Dickerson RN 04/16/2020 8:09 AM PDT 0930: pt leaving AMA. lan of Eugenie Fritz RN - 04/16/2020 7:57 AM PDTPatient call light was on this am, when I went to her room she was yelling, cursing and throwing things. She threw her ca ll light towards the door when I was standing in the doorway talking to her. She was yellin g to take her IV's out and she was going home. MD notified, whom stated they will come see the patient. Eugenie Downing RN 04/16/2020 7:59 AM PDT lan of Zulema Ball RN - 04/16/2020 2:44 AM PDT VSS at this time. Pt refused BC draws explained to pt the importance of BC, pt agreed. Pt no w refusing morning labs, explained to pt the importance of morning labs especially with her recent surgery and draining wound. Pt still denied and stated for lab to come back in an juan manuel r. Pts incision was draining serous fluid, it had leaked on to bed, reinforced dressing with gauze and tape, there is now shadowing over the reinforcement dressing. Skin feels soft to the touch. Otherwise no other acute changes. Hourly rounding uneventful. End of shift audit complete. Zulema hKan RN Problem: Pain Acute Goal: Optimal Pain Control Outcome: Ongoing, progressing Pt medicated for pain x2 with PRN. Electronically signed by Zulema Khan RN at 020 6:37 AM PDTOp Note - Minoo Frank MD - 04/15/2020 7:26 PM PDT OPERATIVE REPORT PATIENT NAME: Minoo Watson AGE: 40 y.o. TODAY'S DATE: 04/15/20 Surgeon: Minoo Frank MD Surgical Assists: Shanta Santillan PA-C Anesthesiologist: Amadou Hong MD Anesthesia: General with endotracheal intubation Pre-op Diagnosis: Right deltoid abscess Post-op Diagnosis: Right deltoid abscess and removal of foreign body Procedure: 1) Incision and drainage right deltoid abscess 2) Removal foreign body right deltoid Indications: Right deltoid abscess Findings: >330 cc purulence in deltoid abscess cavity Small metal fragment of needle retrieved from subcutaneous tissue Estimated Blood Loss: 50cc Transfused: None Complications: None apparent Specimens: Cultures of wound taken Drains: None Technique/Procedure Description: The patient was taken back to the operating room, she was transferred to the operating room table. She was secured to the table with all pressure points supported. She was sedated a nd intubated per anesthesia. Scheduled antibiotics were continued. The patient's right del toid was prepped and draped in standard sterile fashion. A time out was performed, all were present and all in agreement. A 10 blade scalpel was used to make a curvilinear incision along the right deltoid over the area of fluctuance. Immediately, purulence was found. Cultures were taken. Over 330cc of purulence was evacuated. The pulse lavage cargoman was used to wash the cavity. A small metal object, consistent with a broken injection needle was found. This was removed and se nt to pathology. There were no other cavities or loculations. Hemostasis was achieved with hemostasis. Adrian stra was placed in the cavity. The cavity was packed with bedadine soaked kerlex and a dry dressing placed. The patient was woken, extubated and sent to recovery in stable condition. The patient tolerated the procedure well, there were no complications and all counts correc t x 2. Electronically signed by: Minoo Frank MD, 04/15/20 [facility] lan of Care - A Ely moore RN - 04/15/2020 12:15 PM PDTCare plan started Problem: Infection Goal: Infection Symptom Resolution Outcome: Ongoing, progressing Problem: Adult Inpatient Plan of Care Goal: Plan of Care Review Outcome: Ongoing, progressing Goal: Patient-Specific Goal Outcome: Ongoing, progressing Goal: Absence of Hospital-Acquired Illness or Injury Outcome: Ongoing, progressing Goal: Optimal Comfort and Wellbeing Outcome: Ongoing, progressing Goal: Readiness for Transition of Care Outcome: Ongoing, progressing Goal: Rounds/Family Conference Outcome: Ongoing, progressing Problem: Fall Injury Risk Goal: Absence of Fall and Fall-Related Injury Outcome: Ongoing, progressing Problem: Pain Acute Goal: Optimal Pain Control Outcome: Ongoing, progressing Problem: Opioid Dependence or Withdrawal Goal: Withdrawal Symptom Control Outcome: Ongoing, progressing documented in this en counter Plan of Treatment + +------+--------+ + + | Name | Type | Priori | Associated Diagnoses | Date/Time | | | | ty | | | + +------+--------+ + + | ED INFORMATION | MARTHA | Routin | | 04/15/2020 2:47 AM | | EXCHANGE | | e | | PDT | + +------+--------+ + + documented as of this encounter Procedures + +--------+ + + + | Procedure Name | Priori | Date/Time | Associated Diagnosis | Comments | | | ty | | | | + +--------+ + + + | CBC WITH | Routin | 04/16/2020 | | Results for this | | DIFFERENTIAL | e | 7:28 AM | | procedure are in the | | | | PDT | | results section. | + +--------+ + + + | MAGNESIUM | Routin | 04/16/2020 | | Results for this | | | e | 7:28 AM | | procedure are in the | | | | PDT | | results section. | + +--------+ + + + | COMPREHENSIVE | Routin | 04/16/2020 | | Results for this | | METABOLIC PANEL | e | 7:28 AM | | procedure are in the | | | | PDT | | results section. | + +--------+ + + + | CULTURE, BLOOD | STAT | 04/16/2020 | | Results for this | | | | 12:46 AM | | procedure are in the | | | | PDT | | results section. | + +--------+ + + + | CULTURE, BLOOD | STAT | 04/16/2020 | | Results for this | | | | 12:05 AM | | procedure are in the | | | | PDT | | results section. | + +--------+ + + + | URINALYSIS WITH | Routin | 04/15/2020 | | Results for this | | MICROSCOPIC WITH | e | 10:23 PM | | procedure are in the | | CULTURE IF INDICATED | | PDT | | results section. | + +--------+ + + + | RT EXTUBATION | Routin | 04/15/2020 | | | | | e | 5:39 PM | | | | | | PDT | | | + +--------+ + + + | HC BACTERIAL CULTURE | Routin | 04/15/2020 | | Results for this | | - OTHR SOURCE | e | 5:23 PM | | procedure are in the | | | | PDT | | results section. | + +--------+ + + + | HC BACTERIAL CULTURE | Routin | 04/15/2020 | | Results for this | | - OTHR SOURCE | e | 5:22 PM | | procedure are in the | | | | PDT | | results section. | + +--------+ + + + | INCISION AND | | 04/15/2020 | Abscess of deltoid | | | DRAINAGE | | 4:44 PM | region | | | | | PDT | | | + +--------+ + + + +---+--------+ | | | | | Specia | | | l | | | Needs | | | Right | | | | | | should | | | er | | | absces | | | s. | +---+--------+ + +--------+ +---+ + | MRSA NAAT | Routin | 04/15/2020 | | Results for this | | | e | 9:45 AM | | procedure are in the | | | | PDT | | results section. | + +--------+ +---+ + | HEPATITIS C AB | Routin | 04/15/2020 | | Results for this | | | e | 9:02 AM | | procedure are in the | | | | PDT | | results section. | + +--------+ +---+ + | HIV 1 AND 2 AB, | Routin | 04/15/2020 | | Results for this | | REFLEX | e | 9:02 AM | | procedure are in the | | | | PDT | | results section. | + +--------+ +---+ + | CORONAVIRUS | STAT | 04/15/2020 | | Results for this | | (COVID-19) NAAT | | 6:03 AM | | procedure are in the | | | | PDT | | results section. | + +--------+ +---+ + | CT SHOULDER RIGHT W | STAT | 04/15/2020 | | Results for this | | CONTRAST | | 4:34 AM | | procedure are in the | | | | PDT | | results section. | + +--------+ +---+ + | XR SHOULDER RIGHT 2 | AURA | 04/15/2020 | | Results for this | | + VW | | 3:32 AM | | procedure are in the | | | | PDT | | results section. | + +--------+ +---+ + | PROCALCITONIN, SERUM | Add-On | 04/15/2020 | | Results for this | | | | 3:11 AM | | procedure are in the | | | | PDT | | results section. | + +--------+ +---+ + | CBC WITH | STAT | 04/15/2020 | | Results for this | | DIFFERENTIAL | | 3:11 AM | | procedure are in the | | | | PDT | | results section. | + +--------+ +---+ + | C-REACTIVE PROTEIN | STAT | 04/15/2020 | | Results for this | | | | 3:11 AM | | procedure are in the | | | | PDT | | results section. | + +--------+ +---+ + | HCG, SERUM, QUANT | STAT | 04/15/2020 | | Results for this | | | | 3:11 AM | | procedure are in the | | | | PDT | | results section. | + +--------+ +---+ + | LACTIC ACID | STAT | 04/15/2020 | | Results for this | | | | 3:11 AM | | procedure are in the | | | | PDT | | results section. | + +--------+ +---+ + | COMPREHENSIVE | STAT | 04/15/2020 | | Results for this | | METABOLIC PANEL | | 3:11 AM | | procedure are in the | | | | PDT | | results section. | + +--------+ +---+ + | ED INFORMATION | Routin | 04/15/2020 | | | | EXCHANGE | e | 2:47 AM | | | | | | PDT | | | + +--------+ +---+ + +---+--------+ | | | | | Proced | | | ure | | | Note - | | | Rick, | | | Lab In | | | | | | Hlseve | | | n - | | | 04/15/ | | | 2019 | | | 2:48 | | | AM PDT | | | | | | [...] | | | FICATI | | | ON?/ | | | | | | 0 | | | 02:46? | | | GORGE | | | , | | | JENNIF | | | ER | | | L?MRN: | | | | | | [id number] | | | [id number] | | | riteri | | | a Met | | | 2 in | | | 2Secur | | | ity | | | [...] | | | system | | | .Presc | | | riptio | | | n Drug | | | | | | Report | | | (12 | | | Mo.)Rx | | | | | | Detail | | | sFill | | | Date | | | Drug | | | Descri | | | ption | | | Qty. | | | Prescr | | | iber | | | CS MED | | | | | | 2019- | | | 1-22 | | | [...] | | | Center | | | 2 0 | | | [place] | | | s | | | Medica | | | l | | | Center | | | 3 0 | | | Total | | | 6 0 | | | Note: | | [...] | | | int: | | | RT | | | SHOULD | | | ER | | | ABSCES | | | S Apr | | | 24, | | [...] | | s [facility] | | | [place] | | | [place] | | | [place] | | | ncy | | | Chief | | | Compla | | | int: | | | ABD | | | PAIN | | | Recent | | | | | | Inpati | | | ent | | | Visit | | | Summar | | | yNo | | | record | | | ed | | | inpati | | | ent | | | visits | | | . Care | | | | | | TeamPr | | | [...] MD | | | | | | [employer]ap[employer] Planning Manager | | | al | | | [...] | | | /notif | | | [id number] | | | [id number] | | | [id number] | | | [id number] | | | [id number] | | | [id number] | | | 31 | | | PLEASE | | | [...] m | +---+--------+ documented in this encounter Results Magnesium (04/16/2020 7:28 AM PDT) + + + + + + | Component | Value | Ref Range | Performed | Pathologist | | | | | At | Signature | + + + + + + | Magnesium | 1.8Comment: Testing | 1.7 - 2.4 mg/dL | [facility] | | | | performed at [facility] [place] | | LABORATORY | | | | [facility];[place], [place] | | | | | | [address] | | | | + + + + + + + + | Specimen | + + | Blood | + + + + + + + | Performing | Address | City/State/Zipcode | Phone Number | | Organization | | | | + + + + + | [facility] | [address] | [place] [address] | [phone] | + + + + + Comprehensive Metabolic Panel (04/16/2020 7:28 AM PDT) + + + + + + | Component | Value | Ref Range | Performed | Pathologist | | | | | At | Signature | + + + + + + | Na | 141 | 135 - 145 | [facility] | | | | | mmol/L | LABORATORY | | + + + + + + | K | 4.3 | 3.5 - 4.9 | [facility] | | | | | mmol/L | LABORATORY | | + + + + + + | Cl | 111 (H) | 99 - 109 mmol/L | [facility] | | | | | | LABORATORY | | + + + + + + | CO2 | 25 | 23 - 32 mmol/L | [facility] | | | | | | LABORATORY | | + + + + + + | Anion Gap | 9 | 5 - 20 mmol/L | [facility] | | | | | | LABORATORY | | + + + + + + | Glucose | 130 (H) | 65 - 99 mg/dL | [facility] | | | | | | LABORATORY | | + + + + + + | BUN | 8 | 8 - 25 mg/dL | [facility] | | | | | | LABORATORY | | + + + + + + | Creatinine | 0.60 | 0.50 - 1.00 | [facility] | | | | | mg/dL | LABORATORY | | + + + + + + | BUN/Creatin | 13 | | [facility] | | | ine Ratio | | | LABORATORY | | + + + + + + | Calcium | 8.6 | 8.5 - 10.5 | [facility] | | | | | mg/dL | LABORATORY | | + + + + + + | Protein, | 6.4 | 6.3 - 8.2 g/dL | [facility] | | | Total | | | LABORATORY | | + + + + + + | Albumin | 2.4 (L) | 3.6 - 5.0 g/dL | [facility] | | | | | | LABORATORY | | + + + + + + | Globulin | 4.0 | 1.3 - 4.9 g/dL | [facility] | | | | | | LABORATORY | | + + + + + + | A/G Ratio | 0.6 (L) | 1.0 - 2.4 | [facility] | | | | | | LABORATORY | | + + + + + + | BILIRUBIN, | 0.3 | 0.1 - 1.5 mg/dL | [facility] | | | TOTAL | | | LABORATORY | | + + + + + + | ALK PHOS | 80 | 35 - 115 U/L | [facility] | | | | | | LABORATORY | | + + + + + + | AST | 10 | 10 - 45 U/L | [facility] | | | | | | LABORATORY | | + + + + + + | ALT | 20 | 10 - 65 U/L | [facility] | | | | | | LABORATORY | | + + + + + + | Estimated | >60Comment: GFR <60: | >60 | [facility] | | | GFR | CHRONIC KIDNEY DISEASE, | mL/min/1.73m2 | LABORATORY | | | | IF FOUND OVER A 3 MONTH | | | | | | PERIOD.GFR <15: KIDNEY | | | | | | FAILURE.FOR | | | | | | AMERICANS, MULTIPLY THE | | | | | | CALCULATED GFR BY | | | | | | 1.210.This eGFR is | | | | | | calculated using the | | | | | | MDRD IDMS traceable | | | | | | equation.Testing | | | | | | performed at [facility], [address] | | | | | [facility], | | | | | | [place] [address] | | | | + + + + + + + + | Specimen | + + | Blood | + + + + + + + | Performing | Address | City/State/Zipcode | Phone Number | | Organization | | | | + + + + + | [facility] | [address] | [place] [address] | [phone] | + + + + + CBC with Differential (04/16/2020 7:28 AM PDT) + + + + + + | Component | Value | Ref Range | Performed | Pathologist | | | | | At | Signature | + + + + + + | WBC | 11.29 (H) | 3.80 - 11.00 | [facility] | | | | | K/uL | LABORATORY | | + + + + + + | Red Blood | 3.70 | 3.70 - 5.10 | [facility] | | | Cells | | M/uL | LABORATORY | | + + + + + + | Hemoglobin | 10.6 (L) | 11.3 - 15.5 | [facility] | | | | | g/dL | LABORATORY | | + + + + + + | Hematocrit | 31.8 (L) | 34.0 - 46.0 % | [facility] | | | | | | LABORATORY | | + + + + + + | MCV | 85.9 | 80.0 - 100.0 fl | [facility] | | | | | | LABORATORY | | + + + + + + | MCH | 28.6 | 27.0 - 34.0 pg | [facility] | | | | | | LABORATORY | | + + + + + + | MCHC | 33.3 | 32.0 - 35.5 | [facility] | | | | | g/dL | LABORATORY | | + + + + + + | RDW-SD | 36.3 (L) | 37 - 53 fl | [facility] | | | | | | LABORATORY | | + + + + + + | Platelet | 325 | 150 - 400 K/uL | [facility] | | | Count | | | LABORATORY | | + + + + + + | MPV | 10.5Comment: NO NORMAL | fl | [facility] | | | | RANGE ESTABLISHED | | LABORATORY | | + + + + + + | Diff Type | AUTOMATED | | [facility] | | | | | | LABORATORY | | + + + + + + | % nRBC | 0.0 | 0 /100WBC | [facility] | | | | | | LABORATORY | | + + + + + + | % | 84.30 | % | [facility] | | | Neutrophils | | | LABORATORY | | + + + + + + | IMMATURE | 0.40 | % | [facility] | | | GRANULOCYTE | | | LABORATORY | | + + + + + + | % | 8.90 | % | [facility] | | | Lymphocytes | | | LABORATORY | | + + + + + + | Monocyte % | 6.20 | % | [facility] | | | | | | LABORATORY | | + + + + + + | Eosinophils | 0.00 | % | [facility] | | | % | | | LABORATORY | | + + + + + + | Basophils % | 0.20 | % | [facility] | | | | | | LABORATORY | | + + + + + + | Neutrophils | 9.51 (H) | 1.90 - 7.40 | [facility] | | | , Absolute | | K/uL | LABORATORY | | + + + + + + | IMMATURE | 0.05Comment: NOTE NEW | 0.00 - 0.07 | [facility] | | | GRANS AB | REFERENCE RANGE | K/uL | LABORATORY | | + + + + + + | Absolute | 1.01 | 1.00 - 3.90 | [facility] | | | Lymphocytes | | K/uL | LABORATORY | | + + + + + + | Absolute | 0.70 | 0.00 - 0.80 | [facility] | | | Monocytes | | K/uL | LABORATORY | | + + + + + + | Eosinophils | 0.00 | 0.00 - 0.50 | [facility] | | | , Absolute | | K/uL | LABORATORY | | + + + + + + | Basophils, | 0.02Comment: Testing | 0.00 - 0.10 | [facility] | | | Absolute | performed at [facility], [address] | K/uL | LABORATORY | | | | [address], | | | | | | [place] [address] | | | | + + + + + + + + | Specimen | + + | Blood | + + + + + + + | Performing | Address | City/State/Zipcode | Phone Number | | Organization | | | | + + + + + | [facility] | [address] | [place] [address] | [phone] | + + + + + Culture, Blood (04/16/2020 12:46 AM PDT) + + + + + + | Component | Value | Ref Range | Performed | Pathologist | | | | | At | Signature | + + + + + + | Special | LEFT HAND | | [facility] | | | Requests | | | LABORATORY | | + + + + + + | Special | Testing performed at | | [facility] | | | Requests | [facility] [place] [place] | | LABORATORY | | | | [place] [address] | | | | + + + + + + | RESULT | NO GROWTH 6 DAYS | | [facility] | | | | | | [facility] | | + + + + + + | RESULT | Testing performed at | | [facility] | | | | [facility], [address] | | LABORATORY | | | | [place] | | | | | | [id number]: Testing | | | | | | performed at [facility], [address] | | | | | [place] | | | | | | [address] | | | | + + + + + + + + | Specimen | + + | Blood - Peripheral | | blood specimen | | (specimen) | + + + + + + + | Performing | Address | City/State/Zipcode | Phone Number | | Organization | | | | + + + + + | [facility] | [address] | [place] [address] | [phone] | + + + + + Culture, Blood (04/16/2020 12:05 AM PDT) + + + + + + | Component | Value | Ref Range | Performed | Pathologist | | | | | At | Signature | + + + + + + | Special | LEFT HAND | | [facility] | | | Requests | | | LABORATORY | | + + + + + + | Special | Testing performed at | | [facility] | | | Requests | [facility];[address] | | LABORATORY | | | | [address];[place] [address] | | | | + + + + + + | RESULT | NO GROWTH 6 DAYS | | [facility] | | | | | | LABORATORY | | + + + + + + | RESULT | Testing performed at | | [facility] | | | | [facility], [address] [facility] | | LABORATORY | | | | [place], [place], [place] | | | | | | [id number]: Testing | | | | | | performed at [facility], [address] | [address] [place], [place], [place] | | | | | | [address] | | | | + + + + + + + + | Specimen | + + | Blood - Peripheral | | blood specimen | | (specimen) | + + + + + + + | Performing | Address | City/State/Zipcode | Phone Number | | Organization | | | | + + + + + | [facility] | [address] | [place] [address] | [phone] | + + + + + Urinalysis with Microscopic with Culture if Indicated (04/15/2020 10:23 PM PDT) + + + + + + | Component | Value | Ref Range | Performed | Pathologist | | | | | At | Signature | + + + + + + | Color, UA | YELLOW | | [facility] | | | | | | LABORATORY | | + + + + + + | Clarity, | CLEAR | | [facility] | | | Urine | | | LABORATORY | | + + + + + + | Specific | 1.009 | 1.002 - 1.030 | [facility] | | | [place], | | | LABORATORY | | | Urine | | | | | + + + + + + | Leukocyte | NEGATIVE | NEG | [facility] | | | esterase, | | | LABORATORY | | | UA | | | | | + + + + + + | Nitrite, UA | NEGATIVE | NEG | [facility] | | | | | | LABORATORY | | + + + + + + | Urobilinoge | <1.6 | <1.6 mg/dL | [facility] | | | n, Ur | | | LABORATORY | | + + + + + + | Protein, | NEGATIVE | NEG mg/dL | [facility] | | | Urine | | | LABORATORY | | | (mg/dL) | | | | | + + + + + + | pH, Urine | 7.0 | 5.0 - 8.0 | [facility] | | | | | | LABORATORY | | + + + + + + | Blood, UA | NEGATIVE | NEG | [facility] | | | | | | LABORATORY | | + + + + + + | Ketones, UA | NEGATIVE | NEG mg/dL | [facility] | | | | | | LABORATORY | | + + + + + + | Bilirubin, | NEGATIVE | NEG | [facility] | | | UA | | | LABORATORY | | + + + + + + | Glucose, Ur | NEGATIVE | NEG mg/dL | [facility] | | | | | | LABORATORY | | + + + + + + | WBC UA | 0-2 | 0 - 5 /hpf | [facility] | | | | | | LABORATORY | | + + + + + + | Red Blood | 0-2 | 0 - 5 /hpf | [facility] | | | Cells, | | | LABORATORY | | | Urine | | | | | + + + + + + | Squamous | 16-25 | /lpf | [facility] | | | Epithelial | | | LABORATORY | | | Cells, | | | | | | Urine | | | | | + + + + + + | Bacteria, | 2+ (A) | NONE | [facility] | | | Urine | | | LABORATORY | | + + + + + + | Mucus, | 1+Comment: Testing | | [facility] | | | Urine | performed at [facility], [address] | | LABORATORY | | | | [address], | | | | | | [place] [address] | | | | + + + + + + + + | Specimen | + + | Urine - Urine | | specimen obtained by | | clean catch | | procedure (specimen) | + + + + + + + | Performing | Address | City/State/Zipcode | Phone Number | | Organization | | | | + + + + + | [facility] | [address] | [place] [address] | [phone] | + + + + + Culture, Wound, Smear, w/Anaerobe (04/15/2020 5:23 PM PDT) + + + + + + | Component | Value | Ref Range | Performed | Pathologist | | | | | At | Signature | + + + + + + | Special | SAMPLE 2 R SHOULDER | | [facility] | | | Requests | | | LABORATORY | | + + + + + + | Special | Testing performed at | | [facility] | | | Requests | [place] | | LABORATORY | | | | [address];[place] [address] | | | | + + + + + + | Gram Stain | 1+ | | [facility] | | | Result | WBC'S SEEN | | LABORATORY | | | | | | | | + + + + + + | Gram Stain | 3+ | | [facility] | | | Result | GRAM POSITIVE COCCI | | LABORATORY | | | | | | | | + + + + + + | Gram Stain | Testing performed at | | [facility] | | | Result | [facility], [address] [facility] | | LABORATORY | | | | [place], [place] | | | | | | [address] | | | | + + + + + + | RESULT | 4+METHICILLIN RESISTANT | | [facility] | | | | S. AUREUS (MRSA) (A) | | LABORATORY | | | | (A) | | | | + + + + + + + + | Specimen | + + | | + + + + +--------+ + | Organism | Antibiotic | Method | Susceptibility | + + +--------+ + | Staphylococcus | Clindamycin | TAY | RESISTANT: | | aureus,Methicillin | | | Resistant | | resistant (MRSA) | | | | + + +--------+ + | Staphylococcus | Erythromycin | TAY | RESISTANT: | | aureus,Methicillin | | | Resistant | | resistant (MRSA) | | | | + + +--------+ + | Staphylococcus | Gentamicin | TAY | SUSCEPTIBLE: | | aureus,Methicillin | | | Sensitive | | resistant (MRSA) | | | | + + +--------+ + | Staphylococcus | Levofloxacin | TAY | SUSCEPTIBLE: | | aureus,Methicillin | | | Sensitive | | resistant (MRSA) | | | | + + +--------+ + | Staphylococcus | Moxifloxacin | TAY | SUSCEPTIBLE: | | aureus,Methicillin | | | Sensitive | | resistant (MRSA) | | | | + + +--------+ + | Staphylococcus | Oxacillin | TAY | RESISTANT: | | aureus,Methicillin | | | Resistant | | resistant (MRSA) | | | | + + +--------+ + | Staphylococcus | Tetracycline | TAY | SUSCEPTIBLE: | | aureus,Methicillin | | | Sensitive | | resistant (MRSA) | | | | + + +--------+ + | Staphylococcus | Trimethoprim + | TAY | SUSCEPTIBLE: | | aureus,Methicillin | Sulfamethoxazole | | Sensitive | | resistant (MRSA) | | | | + + +--------+ + | Staphylococcus | Vancomycin | TAY | SUSCEPTIBLE: | | aureus,Methicillin | | | Sensitive | | resistant (MRSA) | | | | + + +--------+ + +---+ + | | Comment: Testing | | | performed at [facility], | | | [address] [place], | | | [place] [address] | +---+ + + + + + + | Performing | Address | City/State/Zipcode | Phone Number | | Organization | | | | + + + + + | [facility] | [address] | [place] [address] | [phone] | + + + + + Culture, Wound, Smear, w/Anaerobe (04/15/2020 5:22 PM PDT) + + + + + + | Component | Value | Ref Range | Performed | Pathologist | | | | | At | Signature | + + + + + + | Special | SAMPLE 1 R SHOULDER | | [facility] | | | Requests | | | LABORATORY | | + + + + + + | Special | Testing performed at | | [facility] | | | Requests | [facility] | | LABORATORY | | | | [address];[place] [address] | | | | + + + + + + | Gram Stain | 2+ | | [facility] | | | Result | WBC'S SEEN | | LABORATORY | | | | | | | | + + + + + + | Gram Stain | 2+ | | [facility] | | | Result | GRAM POSITIVE COCCI | | LABORATORY | | | | | | | | + + + + + + | Gram Stain | Testing performed at | | [facility] | | | Result | [facility], [address] [facility] | | LABORATORY | | | | [address], [place], [place] | | | | | | [address] | | | | + + + + + + | RESULT | 2+METHICILLIN RESISTANT | | [facility] | | | | S. AUREUS (MRSA) (A) | | LABORATORY | | | | (A) | | | | + + + + + + + + | Specimen | + + | | + + + + +--------+ + | Organism | Antibiotic | Method | Susceptibility | + + +--------+ + | Staphylococcus | Clindamycin | TAY | RESISTANT: | | aureus,Methicillin | | | Resistant | | resistant (MRSA) | | | | + + +--------+ + | Staphylococcus | Erythromycin | TAY | RESISTANT: | | aureus,Methicillin | | | Resistant | | resistant (MRSA) | | | | + + +--------+ + | Staphylococcus | Gentamicin | TAY | SUSCEPTIBLE: | | aureus,Methicillin | | | Sensitive | | resistant (MRSA) | | | | + + +--------+ + | Staphylococcus | Levofloxacin | TAY | SUSCEPTIBLE: | | aureus,Methicillin | | | Sensitive | | resistant (MRSA) | | | | + + +--------+ + | Staphylococcus | Moxifloxacin | TAY | SUSCEPTIBLE: | | aureus,Methicillin | | | Sensitive | | resistant (MRSA) | | | | + + +--------+ + | Staphylococcus | Oxacillin | TAY | RESISTANT: | | aureus,Methicillin | | | Resistant | | resistant (MRSA) | | | | + + +--------+ + | Staphylococcus | Tetracycline | TAY | SUSCEPTIBLE: | | aureus,Methicillin | | | Sensitive | | resistant (MRSA) | | | | + + +--------+ + | Staphylococcus | Trimethoprim + | TAY | SUSCEPTIBLE: | | aureus,Methicillin | Sulfamethoxazole | | Sensitive | | resistant (MRSA) | | | | + + +--------+ + | Staphylococcus | Vancomycin | TAY | SUSCEPTIBLE: | | aureus,Methicillin | | | Sensitive | | resistant (MRSA) | | | | + + +--------+ + +---+ + | | Comment: Testing | | | performed at [facility], | | | [address], | | | [place] [address] | +---+ + + + + + + | Performing | Address | City/State/Zipcode | Phone Number | | Organization | | | | + + + + + | [facility] | [address] | [place] [address] | [phone] | + + + + + MRSA NAAT (04/15/2020 9:45 AM PDT) + + + + + + | Component | Value | Ref Range | Performed | Pathologist | | | | | At | Signature | + + + + + + | SOURCE: | NARES(NOSE) | | [facility] | | | | | | LABORATORY | | + + + + + + | Result | NEGATIVEComment: Testing | MRSNEG | [facility] | | | | performed at [facility] [place] | | LABORATORY | | | | [address];[place], [place] | | | | | | [address] | | | | + + + + + + + + | Specimen | + + | Tissue - Both | | anterior nares (body | | structure) | + + + + + + + | Performing | Address | City/State/Zipcode | Phone Number | | Organization | | | | + + + + + | [facility] | [address] | [place] [address] | [phone] | + + + + + HIV 1 and 2 Ab, Reflex (04/15/2020 9:02 AM PDT) + + + + + + | Component | Value | Ref Range | Performed | Pathologist | | | | | At | Signature | + + + + + + | HIV 1 and 2 | Non ReactiveComment: | Non Reactive | [facility] | | | Ab | Testing performed at Lab | | LABORATORY | | | | [place], [address] | | | | | [address], [facility] [address] | | | | + + + + + + + + | Specimen | + + | Blood | + + + + + + + | Performing | Address | City/State/Zipcode | Phone Number | | Organization | | | | + + + + + | [facility] | [address] | [place] [address] | [phone] | + + + + + Hepatitis C Ab (04/15/2020 9:02 AM PDT) + + + + + + | Component | Value | Ref Range | Performed | Pathologist | | | | | At | Signature | + + + + + + | HCV Ab | SPHEMOComment: Specimen | s/co ratio | [facility] | | | | was too hemolyzed for | | LABORATORY | | | | analysis.Tyler Carey | | | | | | Brittany. 04/17/2020-Humble | | | | | | | | | | | | | | | | | | Negative: < 0.8 | | | | | | | | | | | | | | | | | | Indeterminate: 0.8 - | | | | | | 0.9 | | | | | | | | | | | | Positive: > | | | | | | 0.9The CDC recommends | | | | | | that a positive HCV | | | | | | antibody resultbe | | | | | | followed up with a HCV | | | | | | Nucleic Acid | | | | | | Amplificationtest | | | | | | ([id number]).Testing | | | | | | performed at [facility], | | | | | | [address], [address], | | | | | | [facility] [address] | | | | + + + + + + + + | Specimen | + + | Blood | + + + + + + + | Performing | Address | City/State/Zipcode | Phone Number | | Organization | | | | + + + + + | [facility] | [address] | [place] [address] | [phone] | + + + + + Coronavirus (COVID-19) NAAT (04/15/2020 6:03 AM PDT) + + + + + + | Component | Value | Ref Range | Performed | Pathologist | | | | | At | Signature | + + + + + + | SARS-CoV-2, | NEGATIVEComment: This | NEG | [facility] | | | NAAT | test was developed and | | LABORATORY | | | (COVID-19) | its performance | | | | | | characteristics | | | | | | determined by[facility]epid. It | | | | | | has not been cleared or | | | | | | approved by the [place] FDA. | | | | | | This test has | | | | | | beenauthorized by FDA | | | | | | under an Emergency Use | | | | | | Authorization (EUA). | | | | | | Clinicians shouldbe | | | | | | advised to consider a | | | | | | patients signs, | | | | | | symptoms, history, and | | | | | | results ofother | | | | | | diagnostic tests when | | | | | | interpreting | | | | | | results.Testing | | | | | | performed at [facility];[address] | | | | [address];[place], [place] | | | | | | [address] | | | | + + + + + + + + | Specimen | + + | Tissue - Entire | | nasopharynx (body | | structure) | + + + + + + + | Performing | Address | City/State/Zipcode | Phone Number | | Organization | | | | + + + + + | [facility] | [address] | [place] [address] | [phone] | + + + + + CT Shoulder Right w Contrast (04/15/2020 4:34 AM PDT) + + | Specimen | + + | | + + + + + | Impressions | Performed At | + + + | 9.6 x 7.7 x 4.3 cm deltoid muscle abscess. 12 mm needle fragment | [facility] | | along the medial margin of the abscess. Final Report Signed | | | by: Kobi Crocker, Tom Duarte Date/Time: 04/15/2020 4:47 AM | | + + + + + + | Narrative | Performed At | + + + | CT RIGHT SHOULDER WITH CONTRAST CLINICAL INFORMATION: | [facility] | | Shoulder pain, fever, infection suspected. COMPARISON: XR | | | SHOULDER RIGHT 2 + VW (04/15/2020); PROCEDURE: Volume CT | | | acquisition with multiplanar reconstructions. At least one of the | | | following CT dose optimization techniques were used: Automated | | | exposure control; Adjustment of mA and/or kV according to patient | | | size; Use of iterative reconstruction technique. FINDINGS: | | | Lateral right shoulder subcutaneous soft tissue stranding overlying a | | | large rim enhancing collection within the deltoid muscle measuring | | | 9.6 x 7.7 x 4.3 cm, and . Along medial margin of this | | | collection is a small needle-like metallic foreign body, . | | | Normal bones. Visible lungs clear. | | + + + + + | Procedure Note | + + | Rick, [id number] - 04/15/2020 4:50 AM PDT | | CT RIGHT SHOULDER WITH CONTRAST | | | | CLINICAL INFORMATION: | | Shoulder pain, fever, infection suspected. | | | | COMPARISON: | | XR SHOULDER RIGHT 2 + VW (04/15/2020); | | | | PROCEDURE: | | Volume CT acquisition with multiplanar reconstructions. | | | | At least one of the following CT dose optimization techniques were | | used: Automated exposure control; Adjustment of mA and/or kV according | | to patient size; Use of iterative reconstruction technique. | | | | FINDINGS: | | Lateral right shoulder subcutaneous soft tissue stranding overlying a | | large rim enhancing collection within the deltoid muscle measuring 9.6 | | x 7.7 x 4.3 cm, and . Along medial margin of this collection | | is a small needle-like metallic foreign body, . Normal bones. | | Visible lungs clear. | | | | IMPRESSION: | | 9.6 x 7.7 x 4.3 cm deltoid muscle abscess. 12 mm needle fragment along | | the medial margin of the abscess. | | | | | | | | Final Report Signed by: Kobi Crocker Zachary | | Sign Date/Time: 04/15/2020 4:47 AM | + + + +---------+ + + | Performing | Address | City/State/Zipcode | Phone Number | | Organization | | | | + +---------+ + + | [facility] | | | | + +---------+ + + XR Shoulder Right 2 + Vw (04/15/2020 3:32 AM PDT) + + | Specimen | + + | | + + + + + | Impressions | Performed At | + + + | Severe soft tissue swelling of the proximal upper arm surrounding a | [facility] | | 9 mm wirelike foreign body. Final Report Signed by: Lizzette | | Tom Valentine M.D. Date/Time: 04/15/2020 3:37 AM | | + + + + + + | Narrative | Performed At | + + + | RIGHT SHOULDER TWO VIEWS CLINICAL INFORMATION: Abscess. | [facility] | | Evaluate for retained foreign body. COMPARISON: XR ABDOMEN | | | ACUTE SERIES (04/14/2017); CT SOFT TISSUE NECK UN (09/23/2008); | | | FINDINGS: Severe soft tissue swelling of the proximal upper arm | | | surrounding a 9 mm wirelike foreign body. Bones intact. No | | | significant arthropathy. | | + + + + + | Procedure Note | + + | Rick, [id number] - 04/15/2020 3:40 AM PDT | | RIGHT SHOULDER TWO VIEWS | | | | CLINICAL INFORMATION: | | Abscess. Evaluate for retained foreign body. | | | | COMPARISON: | | XR ABDOMEN ACUTE SERIES (04/14/2017); CT SOFT TISSUE NECK UN (09/23/2008); | | | | FINDINGS: | | Severe soft tissue swelling of the proximal upper arm surrounding a 9 | | mm wirelike foreign body. Bones intact. No significant arthropathy. | | | | IMPRESSION: | | Severe soft tissue swelling of the proximal upper arm surrounding a 9 | | mm wirelike foreign body. | | | | | | | | Final Report Signed by: Kobi Crocker Zachary | | Sign Date/Time: 04/15/2020 3:37 AM | + + + +---------+ + + | Performing | Address | City/State/Zipcode | Phone Number | | Organization | | | | + +---------+ + + | [facility] | | | | + +---------+ + + Procalcitonin (04/15/2020 3:11 AM PDT) + + + + + + | Component | Value | Ref Range | Performed | Pathologist | | | | | At | Signature | + + + + + + | PROCALCITON | <0.05Comment: | <0.5 ng/mL | [facility] | | | IN | INTERPRETIVE | | LABORATORY | | | | INFORMATION: | | | | | | PROCALCITONIN PCT <= | | | | | | 0.5 ng/mL: Low risk | | | | | | for progression to | | | | | | severe systemic | | | | | | bacterial infection | | | | | | (severe sepsis/septic | | | | | | shock). Does not | | | | | | exclude an infection, | | | | | | because localized | | | | | | infections may be | | | | | | associated with such low | | | | | | levels. If PCT is | | | | | | measured very early | | | | | | after bacterial | | | | | | challenge (usually <6 | | | | | | hours), results may | | | | | | still be low and | | | | | | should re-assess PCT | | | | | | 6-24 hours later. PCT | | | | | | >0.5 and <= 2 ng/mL: | | | | | | Moderate risk for | | | | | | progression to severe | | | | | | systemic infection | | | | | | (severe sepsis/septic | | | | | | shock). Other | | | | | | conditions are known | | | | | | to elevate PCT, patient | | | | | | should be closely | | | | | | monitored both | | | | | | clinically and by | | | | | | re-assessing PCT | | | | | | within 6-24 hours. PCT > | | | | | | 2 ng/mL: High | | | | | | likelihood for | | | | | | progression to severe | | | | | | systemic bacterial | | | | | | infection (severe | | | | | | sepsis/septic shock). | | | | | | PCT >= 10 ng/mL: | | | | | | High likelihood of | | | | | | severe sepsis or septic | | | | | | shock.Testing performed | | | | | | at [facility] [place] [place] [address] | | | | | | [facility];[place] [address] | | | | + + + + + + + + | Specimen | + + | Blood | + + + + + + + | Performing | Address | City/State/Zipcode | Phone Number | | Organization | | | | + + + + + | [facility] | [address] | [place] [address] | [phone] | + + + + + HCG, Serum, Quant (04/15/2020 3:11 AM PDT) + + + + + + | Component | Value | Ref Range | Performed | Pathologist | | | | | At | Signature | + + + + + + | hCG Quant, | <4Comment: APPROX | <4 mIU/mL | [facility] | | | Serum | GESTATIONAL AGE..APPROX | | LABORATORY | | | | HCG RANGE 0.2 - 1 WEEK . | | | | | | . . . . 5 - 501 - 2 | | | | | | WEEKS . . . . . 50 - | | | | | | 5002 - 3 WEEKS . . . . | | | | | | 100 - [address]295 - 4 WEEKS | | | | | | . . . . 500 - 063765 - | | | | | | 5 WEEKS . . . . 1000 - | | | | | | 963522 - 6 WEEKS . . . | | | | | | 82[address] - [id number] - 8 | | | | | | WEEKS . . . [address]1833 - | | | | | | 1629761 - 3 MONTHS . . . | | | | | | 58411 - 067159 Testing | | | | | | performed at [facility] [place] | | | | | | [address];[place] | | | | | | [address] | | | | + + + + + + + + | Specimen | + + | Blood | + + + + + + + | Performing | Address | City/State/Zipcode | Phone Number | | Organization | | | | + + + + + | [facility] | [address] | [place] [address] | [phone] | + + + + + Lactic Acid (04/15/2020 3:11 AM PDT) + + + + + + | Component | Value | Ref Range | Performed | Pathologist | | | | | At | Signature | + + + + + + | Lactate, | 1.8Comment: Testing | 0.4 - 2.0 | [facility] | | | Serum | performed at [facility] [place];[address] | mmol/L | LABORATORY | | | | [address];[place], [place] | | | | | | [address] | | | | + + + + + + + + | Specimen | + + | Blood | + + + + + + + | Performing | Address | City/State/Zipcode | Phone Number | | Organization | | | | + + + + + | [facility] | [address] | [place] [address] | [phone] | + + + + + C-Reactive Protein (04/15/2020 3:11 AM PDT) + + + + + + | Component | Value | Ref Range | Performed | Pathologist | | | | | At | Signature | + + + + + + | CRP | 15.5 (H)Comment: Testing | <0.5 mg/dL | [facility] | | | | performed at [facility] [place];[address] | | LABORATORY | | | | [address];[place] | | | | | | [address] | | | | + + + + + + + + | Specimen | + + | Blood | + + + + + + + | Performing | Address | City/State/Zipcode | Phone Number | | Organization | | | | + + + + + | [facility] | [address] | [place] [address] | [phone] | + + + + + Comprehensive Metabolic Panel (04/15/2020 3:11 AM PDT) + + + + + + | Component | Value | Ref Range | Performed | Pathologist | | | | | At | Signature | + + + + + + | Na | 137 | 135 - 145 | [facility] | | | | | mmol/L | LABORATORY | | + + + + + + | K | 3.8 | 3.5 - 4.9 | [facility] | | | | | mmol/L | LABORATORY | | + + + + + + | Cl | 102 | 99 - 109 mmol/L | [facility] | | | | | | LABORATORY | | + + + + + + | CO2 | 29 | 23 - 32 mmol/L | [facility] | | | | | | LABORATORY | | + + + + + + | Anion Gap | 10 | 5 - 20 mmol/L | [facility] | | | | | | LABORATORY | | + + + + + + | Glucose | 127 (H) | 65 - 99 mg/dL | [facility] | | | | | | LABORATORY | | + + + + + + | BUN | 11 | 8 - 25 mg/dL | [facility] | | | | | | LABORATORY | | + + + + + + | Creatinine | 0.71 | 0.50 - 1.00 | [facility] | | | | | mg/dL | LABORATORY | | + + + + + + | BUN/Creatin | 15 | | [facility] | | | ine Ratio | | | LABORATORY | | + + + + + + | Calcium | 9.8 | 8.5 - 10.5 | [facility] | | | | | mg/dL | LABORATORY | | + + + + + + | Protein, | 7.4 | 6.3 - 8.2 g/dL | [facility] | | | Total | | | LABORATORY | | + + + + + + | Albumin | 4.6 | 3.6 - 5.0 g/dL | [facility] | | | | | | LABORATORY | | + + + + + + | Globulin | 2.8 | 1.3 - 4.9 g/dL | [facility] | | | | | | LABORATORY | | + + + + + + | A/G Ratio | 1.6 | 1.0 - 2.4 | [facility] | | | | | | LABORATORY | | + + + + + + | BILIRUBIN, | 0.4 | 0.1 - 1.5 mg/dL | [facility] | | | TOTAL | | | LABORATORY | | + + + + + + | ALK PHOS | 91 | 35 - 115 U/L | [facility] | | | | | | LABORATORY | | + + + + + + | AST | 13 | 10 - 45 U/L | [facility] | | | | | | LABORATORY | | + + + + + + | ALT | 11 | 10 - 65 U/L | [facility] | | | | | | LABORATORY | | + + + + + + | Estimated | >60Comment: GFR <60: | >60 | [facility] | | | GFR | CHRONIC KIDNEY DISEASE, | mL/min/1.73m2 | LABORATORY | | | | IF FOUND OVER A 3 MONTH | | | | | | PERIOD.GFR <15: KIDNEY | | | | | | FAILURE.FOR | | | | | | AMERICANS, MULTIPLY THE | | | | | | CALCULATED GFR BY | | | | | | 1.210.This eGFR is | | | | | | calculated using the | | | | | | MDRD IDOK traceable | | | | | | equation.Testing | | | | | | performed at [facility] [place] | | | | | | [facility];[place], [place] | | | | | | [address] | | | | + + + + + + + + | Specimen | + + | Blood | + + + + + + + | Performing | Address | City/State/Zipcode | Phone Number | | Organization | | | | + + + + + | [facility] | [address] | [place] [address] | [phone] | + + + + + CBC with Differential (04/15/2020 3:11 AM PDT) + + + + + + | Component | Value | Ref Range | Performed | Pathologist | | | | | At | Signature | + + + + + + | WBC | 13.39 (H) | 3.80 - 11.00 | [facility] | | | | | K/uL | LABORATORY | | + + + + + + | Red Blood | 4.36 | 3.70 - 5.10 | [facility] | | | Cells | | M/uL | LABORATORY | | + + + + + + | Hemoglobin | 12.7 | 11.3 - 15.5 | [facility] | | | | | g/dL | LABORATORY | | + + + + + + | Hematocrit | 38.2 | 34.0 - 46.0 % | [facility] | | | | | | LABORATORY | | + + + + + + | MCV | 87.6 | 80.0 - 100.0 fl | [facility] | | | | | | LABORATORY | | + + + + + + | MCH | 29.1 | 27.0 - 34.0 pg | [facility] | | | | | | LABORATORY | | + + + + + + | MCHC | 33.2 | 32.0 - 35.5 | [facility] | | | | | g/dL | LABORATORY | | + + + + + + | RDW-SD | 37.8 | 37 - 53 fl | [facility] | | | | | | LABORATORY | | + + + + + + | Platelet | 315 | 150 - 400 K/uL | [facility] | | | Count | | | LABORATORY | | + + + + + + | MPV | 9.6Comment: NO NORMAL | fl | [facility] | | | | RANGE ESTABLISHED | | LABORATORY | | + + + + + + | Diff Type | AUTOMATED | | [facility] | | | | | | LABORATORY | | + + + + + + | % nRBC | 0.0 | 0 /100WBC | [facility] | | | | | | LABORATORY | | + + + + + + | % | 74.50 | % | [facility] | | | Neutrophils | | | LABORATORY | | + + + + + + | IMMATURE | 0.30 | % | [facility] | | | GRANULOCYTE | | | LABORATORY | | + + + + + + | % | 14.70 | % | [facility] | | | Lymphocytes | | | LABORATORY | | + + + + + + | Monocyte % | 8.10 | % | [facility] | | | | | | LABORATORY | | + + + + + + | Eosinophils | 2.20 | % | [facility] | | | % | | | LABORATORY | | + + + + + + | Basophils % | 0.20 | % | [facility] | | | | | | LABORATORY | | + + + + + + | Neutrophils | 9.96 (H) | 1.90 - 7.40 | [facility] | | | , Absolute | | K/uL | LABORATORY | | + + + + + + | IMMATURE | 0.04Comment: NOTE NEW | 0.00 - 0.07 | [facility] | | | GRANS AB | REFERENCE RANGE | K/uL | LABORATORY | | + + + + + + | Absolute | 1.97 | 1.00 - 3.90 | [facility] | | | Lymphocytes | | K/uL | LABORATORY | | + + + + + + | Absolute | 1.09 (H) | 0.00 - 0.80 | [facility] | | | Monocytes | | K/uL | LABORATORY | | + + + + + + | Eosinophils | 0.30 | 0.00 - 0.50 | [facility] | | | , Absolute | | K/uL | LABORATORY | | + + + + + + | Basophils, | 0.03Comment: Testing | 0.00 - 0.10 | [facility] | | | Absolute | performed at [facility] [place] | K/uL | LABORATORY | | | | [address];[place] | | | | | | [address] | | | | + + + + + + + + | Specimen | + + | Blood | + + + + + + + | Performing | Address | City/State/Zipcode | Phone Number | | Organization | | | | + + + + + | [facility] | [address] | [place] [address] | [phone] | + + + + + documented in this encounter Visit Diagnoses + + | Diagnosis | + + | Abscess of deltoid region Cellulitis and abscess of upper arm and forearm | + + documented in this encounter Administered Medications + +---------+ +------+-------+------+ | Medication Order | MAR | Action | Dose | Rate | Site | | | Action | Date | | | | + +---------+ +------+-------+------+ | cefTRIAXone (ROCEPHIN) IVPB 1 g | New Bag | 04/15/20 | 1 g | 100 | | | 1 g, Intravenous, Administer | | 20 9:53 | | mL/hr | | | over 30 Minutes, EVERY 24 HOURS, | | AM PDT | | | | | First dose on Tue04/15/20 at 0900, | | | | | | | Keep in refrigerator., | | | | | | | Indications: SKIN AND SOFT TISSUE | | | | | | | ABSCESS | | | | | | + +---------+ +------+-------+------+ +---+---+ | | | +---+---+ + +-------+ + +---+---+ | fluticasone (FLONASE) 50 | Given | 04/15/20 | 2 sprays | | | | mcg/nasal spray 2 spray 2 spray, | | 20 9:00 | | | | | Each Nare, 2 TIMES DAILY, First | | PM PDT | | | | | dose on Tue04/15/20 at 2100, Arjun | | | | | | | gently., | | | | | | + +-------+ + +---+---+ +---+---+ | | | +---+---+ + +-------+ +------+---+---+ | HYDROmorphone (DILAUDID) | Given | 04/16/20 | 1 mg | | | | injection 1 mg 1 mg, | | 20 7:49 | | | | | Intravenous, EVERY 2 HOURS PRN, | | AM PDT | | | | | Moderate Pain, Severe Pain, | | | | | | | Starting Tu04/15/20 at 1245, Use | | | | | | | IV morphine first if ordered. | | | | | | | Slow IV push, not faster than | | | | | | | 0.25 mg/minute. If ineffective or | | | | | | | not tolerated and unable to take | | | | | | | oral opioid - contact MD., | | | | | | + +-------+ +------+---+---+ +-------+ +------+---+---+ | Given | 04/16/20 | 1 mg | | | | | 20 2:26 | | | | | | AM PDT | | | | +-------+ +------+---+---+ | Given | 04/15/20 | 1 mg | | | | | 20 9:08 | | | | | | PM PDT | | | | +-------+ +------+---+---+ +---+---+ | | | +---+---+ + +-------+ +-------+---+---+ | ketorolac (TORADOL) injection | Given | 04/16/20 | 30 mg | | | | 30 mg 30 mg, Intravenous, EVERY | | 20 6:04 | | | | | 6 HOURS, First dose on Tue04/15/20 | | AM PDT | | | | | at 1200, For 5 days | | | | | | + +-------+ +-------+---+---+ +-------+ +-------+---+---+ | Given | 04/16/20 | 30 mg | | | | | 20 12:34 | | | | | | AM PDT | | | | +-------+ +-------+---+---+ | Given | 04/15/20 | 30 mg | | | | | 20 5:51 | | | | | | PM PDT | | | | +-------+ +-------+---+---+ +---+---+ | | | +---+---+ + +-------+ +-------+---+---+ | methadone tablet 10 mg 10 mg, | Given | 04/16/20 | 10 mg | | | | Oral, EVERY 12 HOURS, First dose | | 20 9:01 | | | | | on 8/5/20 at 0830 | | AM PDT | | | | + +-------+ +-------+---+---+ +---+---+ | | | +---+---+ + +---------+ +---------+-------+---+ | sodium chloride 0.9% (NS) | New Bag | 04/15/20 | 100 mLs | 100 | | | infusion at 100 mL/hr, | | 20 9:48 | | mL/hr | | | Intravenous, CONTINUOUS, Starting | | AM PDT | | | | | 04/15/20 at 0900 | | | | | | + +---------+ +---------+-------+---+ +---+---+ | | | +---+---+ + +---------+ + +--------+---+ | vancomycin in NS (VANCOCIN) | New Bag | 04/16/20 | 1,250 mg | 166.7 | | | IVPB 1,250 mg 1,250 mg (rounded | | 20 6:06 | | mL/hr | | | from 1,156.5 mg = 15 mg/kg | | AM PDT | | | | | 77.1 kg), Intravenous, | | | | | | | Administer over 90 Minutes, EVERY | | | | | | | 8 HOURS INTERVAL, First dose on | | | | | | | 04/15/20 at 1400, Keep in | | | | | | | refrigerator., Indications: SKIN | | | | | | | AND SOFT TISSUE ABSCESS | | | | | | + +---------+ + +--------+---+ +---------+ + +--------+---+ | New Bag | 04/15/20 | 1,250 mg | 166.7 | | | | 20 10:28 | | mL/hr | | | | PM PDT | | | | +---------+ + +--------+---+ | New Bag | 04/15/20 | 1,250 mg | 166.7 | | | | 20 2:36 | | mL/hr | | | | PM PDT | | | | +---------+ + +--------+---+ +---+---+ | | | +---+---+ documented in this encounter Additional Health Concerns + + + + + | Infection | Onset Date | Last Indicated | Resolved Time | + + + + + | Rule out COVID-19 | 04/15/2020 | 04/15/2020 | 04/15/2020 7:37 AM | | | | | PDT | + + + + + documented as of this encounter
--- OUTSIDE RECORDS SUMMARY | ~2020-06-12 | XMS | Encounter Summary ---
Demographics + + + | Address | [address] | | | [address] | | | [place] [address] | + + + | Home Phone | | + + + | Preferred Language | Unknown | + + + | Marital Status | Legally | + + + | Quaker Affiliation | 1013 | + + + [...] Team Providers + +------+ + | Care Gore Inserter Name | Role | Phone | + +------+ + PCP | Unavailable | + +------+ + Encounter Details +--------+ + + + + | Date | Type | Department | Care Team | Description | +--------+ + + + + | 11/16/ | Hospital | [facility] | Julio César Liriano MD | Spinal Stenosis of | | 2009 | Encounter | CONVERSION DEP [address] | [address] | Lumbar Region | | | | [address] | [place] [address] | | | | | [place], [place] | [phone] | | | | | [address] | | | | | | [phone] | | | +--------+ + + + [...] | + +--------+ + + + | MRI LUMBAR SPINE WO | Routin | 07/28/2009 | | Results for this | | CONTRAST | e | 12:26 PM | | procedure are in the | | | | PST | | results section. | + +--------+ + + + documented in this encounter Results MRI Lumbar Spine wo Contrast (07/28/2009 12:26 PM PST) + + | Specimen | + + | | + + + + + | Narrative | Performed At | + + + | [id number] | | | Page 1 RADIOLOGY | | | / | | | O/P [facility] | | | NAME: [place] [address] | | | | | | | | | DATE OF : 1980 ORDER NUMBER: [id number] | | | EXAM DATE/TIME: 07/28/2009 11:30 A ORDERING PHYSICIAN: [facility] | | | JULIO CÉSAR Nelson ORDER DETAIL: 1430 / / OMR EXAM DESCRIPTION: MRI LUMBAR | | | SPINE UNENHANCED | | | | | | MRI LUMBAR SPINE 07/28/2009 HISTORY A 29-year-old female, back | | | pain for about 6 months. TECHNIQUE Multiplanar, multisequence MRI | | | of the lumbar spine was obtained on an open 0.9 Celestina MR scanner. | | | CORRELATION Lumbar spine x-rays dated 03/03/2009. FINDINGS | | | There is transitional anatomy at the lumbosacral junction. This most | | | likely represents a lumbarized S1 segment with a small S1-2 disk | | | space. This would make the conus medullaris terminate at the level of | | | L1-2 disk space. The conus medullaris is normal in caliber and | | | signal. The vertebral heights and alignment are maintained. There is | | | no focal worrisome marrow signal abnormality. There is no | | | significant disk herniation, central canal stenosis, or neural | | | foraminal narrowing seen at L1-2, L2-3, L3-4, or L4-5. L5-S1: | | | There is minimal disk desiccation with a minimal disk bulge with mild | | | biforaminal components of disk. There is no significant central | | | canal stenosis. There is mild bilateral inferior neural foraminal | | | narrowing without compression of the exiting nerve roots. | | | IMPRESSION 1. Transitional anatomy as described above. 2. Mild | | | degenerative disk disease at L5-S1 without significant central | | | canal stenosis or compression of the exiting nerve roots. | | | Read by ELLIOTT DHALIWAL DO 07/28/2009 12:40 P Electronically Signed | | | by ELLIOTT DHALIWAL DO 07/29/2009 01:31 P P | | | A [facility]/[id number]/ cc: ELLIOTT DHALIWAL, | | | DO JULIO CÉSAR LIRIANO MD | | + + + + + | Procedure Note | + + | Yahir Littlejohn Conversion - 05/07/2019 4:00 AM PDT | | [id number] Page 1 | | RADIOLOGY / | | O/P | | [facility] NAME: MADHURI [address] | | [place] [address] | | | | DATE OF : 1980 | | | | ORDER NUMBER: [id number] | | EXAM DATE/TIME: 07/28/2009 11:30 A | | ORDERING PHYSICIAN: JULIO CÉSAR LIRIANO | | ORDER DETAIL: 1430 / / OMR | | EXAM DESCRIPTION: MRI LUMBAR SPINE UNENHANCED | | | | MRI LUMBAR SPINE 07/28/2009 | | | | HISTORY | | A 29-year-old female, back pain for about 6 months. | | | | TECHNIQUE | | Multiplanar, multisequence MRI of the lumbar spine was obtained on an | | open 0.9 Celestina MR scanner. | | | | CORRELATION | | Lumbar spine x-rays dated 03/03/2009. | | | | FINDINGS | | There is transitional anatomy at the lumbosacral junction. This most | | likely represents a lumbarized S1 segment with a small S1-2 disk space. | | This would make the conus medullaris terminate at the level of L1-2 disk | | space. The conus medullaris is normal in caliber and signal. The | | vertebral heights and alignment are maintained. There is no focal | | worrisome marrow signal abnormality. | | | | There is no significant disk herniation, central canal stenosis, or | | neural foraminal narrowing seen at L1-2, L2-3, L3-4, or L4-5. | | | | L5-S1: There is minimal disk desiccation with a minimal disk bulge with | | mild biforaminal components of disk. There is no significant central | | canal stenosis. There is mild bilateral inferior neural foraminal | | narrowing without compression of the exiting nerve roots. | | | | IMPRESSION | | 1. Transitional anatomy as described above. | | 2. Mild degenerative disk disease at L5-S1 without significant central | | canal stenosis or compression of the exiting nerve roots. | | | | | | | | Read by | | ELLIOTT DHALIWAL DO 07/28/2009 12:40 P | | Electronically Signed by | | ELLIOTT DHALIWAL DO 07/29/2009 01:31 P | | | | P | | A | | [facility]/[id number]/ | | cc: ELLIOTT DHALIWAL DO | | JULIO CÉSAR LIRIANO MD | + + documented in this encounter Visit Diagnoses + + | Diagnosis | + + | Spinal stenosis, lumbar region, without neurogenic claudication | + + documented in this encounter"
--- OUTSIDE RECORDS SUMMARY | ~2020-06-12 | XMS | Encounter Summary ---
Demographics + + + | Address | [address] | | | [address] | | | [place] [address] | + + + | Home Phone [...] Team Providers + +------+ + | Care Seedling Puller Name | Role | Phone | + +------+ + PCP | Unavailable | + +------+ + Encounter Details +--------+ + + + + | Date | Type | Department | Care Team | Description | +--------+ + + + + | 03/02/ | Emergency | [facility] | Alan Bhatt, | Abdominal Pain, | | 2008 | | [facility] | MD Abhilash GUTHRIE | Unspecified Site | | | | EM[facility]ENTER | [place], [place] | | | | | [address] | [address] | | | | | [place], [place] | | | | | | [address] | | | | | | [phone] | | | +--------+ + + + [...] + +--------+ + + + | US ABDOMEN LIMITED | Routin | 11/11/2008 | | Results for this | | | e | 10:14 PM | | procedure are in the | | | | PST | | results section. | + +--------+ + + + documented in this encounter Results US Abdomen Limited (11/11/2008 10:14 PM PST) + + | Specimen | + + | | + + + + + | Narrative | Performed At | + + + | [id number] | | | Page 1 Diagnostic Outsourced | | | ED ED 12/ | | | EMR [facility] | | | CENTER NAME: [place] [address] | | | | | | | | | DATE OF : 1980 ORDER NUMBER: | | | [id number] EXAM DATE/TIME: 11/11/2008 09:24 P ORDERING PHYSICIAN: | | | LISANDRA VÁZQUEZ ORDER DETAIL: [id number] / / HUS EXAM DESCRIPTION: | | | US ABDOMEN LIMITED | | | | | | ULTRASOUND ABDOMEN LIMITED 11/11/2008 CLINICAL HISTORY Abdominal | | | pain. FINDINGS The liver demonstrates normal size, morphology | | | and echotexture with no mass or biliary dilatation. The gallbladder | | | is contracted, but no stone is seen. The common bile duct is 3 mm. | | | Visualized portion of the pancreas is unremarkable, although it | | | is partially obscured by overlying bowel gas. The right kidney | | | measures 11 cm in length with a 1.7 x 2 cm mid pole simple cyst and a | | | 1.4 cm upper pole simple cyst and a 1.4 cm upper pole simple cyst, | | | but no mass or hydronephrosis. No shadowing stone seen. Portal | | | vein flow is patent toward the liver, as expected. IMPRESSION 1. | | | Contracted gallbladder, but no stone or biliary dilatation. 2. Two | | | small renal cysts. Read by PHIL THURMAN MD 11/11/2008 | | | 10:37 P Electronically Signed by PHIL THURMAN MD 11/12/2008 | | | 08:59 P P A | | | LES/vb/[id number]/ cc: PHYSICIAN ED PHIL THURMAN MD | | | DEONTE CALERO MD | | + + + + + | Procedure Note | + + | Eron, Rad Conversion - 05/07/2019 4:00 AM PDT | | [id number] Page 1 | | Diagnostic Outsourced ED ED / | | EMR | | [facility] NAME: MADHURI P[address] | | [place] [address] | | | | DATE OF : 1980 | | | | ORDER NUMBER: [id number] | | EXAM DATE/TIME: 11/11/2008 09:24 P | | ORDERING PHYSICIAN: LISANDRA VÁZQUEZ | | ORDER DETAIL: [id number] / / HUS | | EXAM DESCRIPTION: US ABDOMEN LIMITED | | | | ULTRASOUND ABDOMEN LIMITED 11/11/2008 | | | | CLINICAL HISTORY | | Abdominal pain. | | | | FINDINGS | | The liver demonstrates normal size, morphology and echotexture with no | | mass or biliary dilatation. The gallbladder is contracted, but no stone | | is seen. The common bile duct is 3 mm. | | | | Visualized portion of the pancreas is unremarkable, although it is | | partially obscured by overlying bowel gas. The right kidney measures 11 | | cm in length with a 1.7 x 2 cm mid pole simple cyst and a 1.4 cm upper | | pole simple cyst and a 1.4 cm upper pole simple cyst, but no mass or | | hydronephrosis. No shadowing stone seen. | | | | Portal vein flow is patent toward the liver, as expected. | | | | IMPRESSION | | 1. Contracted gallbladder, but no stone or biliary dilatation. | | 2. Two small renal cysts. | | | | | | Read by | | PHIL THURMAN MD 11/11/2008 10:37 P | | Electronically Signed by | | PHIL THURMAN MD 11/12/2008 08:59 P | | | | P | | A | | RAY/[id number]/ | | cc: PHYSICIAN ED | | PHIL THURMAN MD | | LISANDRA VÁZQUEZ PA-C | | OK RAMON MD | + + documented in this encounter Visit Diagnoses + + | Diagnosis | + + | Abdominal pain, unspecified site | + + documented in this encounter"
--- OUTSIDE RECORDS SUMMARY | ~2020-06-12 | XMS | Encounter Summary ---
Demographics + + + | Address | [address] | | | [address] | | | [place] [address] | + + + | Home Phone | | + + + | Preferred Language | Unknown | + + + | Marital Status | Legally | + + + | Yazidism Affiliation | 1013 | + + + | Race | White | + + + | Ethnic Group | Not or | + + + Author + + + | Author | [facility] | | | and [place] | + + + | Organization | [facility] | | | [...] Team Providers + +------+ + | Care Fleet Manager/Dispatch Name | Role | Phone | + +------+ + PCP | Unavailable | + +------+ + Encounter Details +--------+ + + + + | Date | Type | Department | Care Team | Description | +--------+ + + + + | 01/12/ | Emergency | [facility] | Jamaal Sims, | Abdominal pain, | | 2017 | | [facility] | MD Brian Tristan | unspecified location | | | | [facility] | [place] [address] | | | | | [address] | [phone] | | | | | [place], [place] | | | | | | [address] | | | | | | [phone] | | | +--------+ + + + [...] + + + | Blood Pressure | 142/79 | 01/12/2017 10:20 PM | | | | | PDT | | + + + + + | Pulse | 85 | 01/12/2017 10:20 PM | | | | | PDT | | + + + + + | Temperature | 36.8 C (98.2 F) | 01/12/2017 10:20 PM | | | | | PDT | | + + + + + | Respiratory Rate | 16 | 01/12/2017 10:20 PM | | | | | PDT | | + + + + + | Oxygen Saturation | - | - | | + + + + + | Inhaled Oxygen | - | - | | | Concentration | | | | + + + + + | Weight | 90.7 kg (200 lb) | 01/12/2017 10:20 PM | | | | | PDT | | + + + + + | Height | 175.3 cm (5' 9") | 01/12/2017 10:20 PM | | | | | PDT | | + + + + + | Body Mass Index | 29.53 | 01/12/2017 10:20 PM | | | | | PDT [...] ED Notes Conversion Transaction, Provider Unknown - 01/12/2017 10:30 PM PDTFormatting of this note m ight be different from the original. ED Notes by Jessica Mcfadden RN at 01/12/172229 Author: Jessica Mcfadden RN Service: (none) Author Type: Registered Nurse Filed: 01/12/172229 Date of Service: 01/12/172229 Status: Signed Rib Cloth Knitter: Jessica Mcfadden RN (Registered Nurse) Pt declines CT scan. Dr. Sims notified. Pt to be discharged AMA. Jessica Mcfadden RN 01/12/172229 onver emmett Transaction, Provider Unknown - 01/12/2017 10:07 PM PDT ED Notes by Nga Blanco RN at 01/12/172206 Author: Nga Blanco RN Service: (none) Author Type: Registered Nurse Filed: 01/12/172207 Date of Service: 01/12/172206 Status: Signed Rib Cloth Knitter: Nga Blanco RN (Registered Nurse) Answered call light, pt states "I am in so much pain." Nga Blanco RN 01/12/172207 onver emmett Transaction, Provider Unknown - 01/12/2017 8:55 PM PDT ED Notes by Jessica Mcfadden RN at 01/12/172054 Author: Jessica Mcfadden RN Service: (none) Author Type: Registered Nurse Filed: 01/12/172055 Date of Service: 01/12/172054 Status: Signed Rib Cloth Knitter: Jessica Mcfadden RN (Registered Nurse) This RN present for rectal exam performed by Dr. Sims. Negative for occult blood. Jessica Mcfadden RN 01/12/172055 onver emmett Transaction, Provider Unknown - 01/12/2017 8:35 PM PDT ED Notes by Jessica Mcfadden RN at 01/12/172034 Author: Jessica Mcfadden RN Service: (none) Author Type: Registered Nurse Filed: 01/12/172034 Date of Service: 01/12/172034 Status: Signed Rib Cloth Knitter: Jessiac Mcfadden RN (Registered Nurse) Pt in U/S at this time. Will medicate when scan complete. Jessica Mcfadden RN 01/12/172034 ime, Jamaal Seaman MD - 01/12/2017 8:03 PM PDT ED Provider Notes by Jamaal Sims MD at 01/12/172002 Author: Jamaal Sims MD Service: Emergency Department Author Type: Physician Filed: 01/13/176 Date of Service: 01/12/172002 Status: Signed Rib Cloth Knitter: Jamaal Sims MD (Physician) Procedure Orders: 1. POCT occult blood stool [[id number]] ordered by Jamaal Sims MD at 01/12/172099 [facility] Department of Emergency Medicine 8:09 PM 01/12/2017 History of Present Illness Patient Identification Minoo Pennington is a 36 y.o. female. Patient information was obtained from patient and parent. History/Exam limitations: none. Patient presented to the Emergency Department by: Car Chief Complaint Chief Complaint Patient presents with Abdominal Pain Onset 7 days ago. pt describes this as a diffuse cramping. Pt reports decrease appetite. Denies nausea Pt has hx of lactose intolerance. Diarrhea "it's like black tar" "I can barely make it to the toilet" onset 10 days ago. The patient presents to the emergency department with chief complaints of abdominal pain. O nset of symptoms was 1 week ago, with a constant course since that time. The symptoms are de scribed to be of moderate severity. The patient also complains of diarrhea, and black stools . The patient describes the quality and location of the symptoms as the following: sharp upp er abdominal pain. Patient has about 2 watery stools per day. Today her stools were a tar-li ke color of black. This pain feels similar to a flu type of pain, but she hasn't vomited or had nausea. She has a history of lactose intolerance. She has eaten some cheese recently and had a bout of diarrhea after eating the cheese. She also mentions she has had an esophageal endoscopy done and was diagnosed with GERD. She has a family history of gall bladder issues . She takes naproxen for neck issues. Care prior to arrival consisted of Imodium, with minim al relief. PCP: MOISE MAYNARD Past Medical History Diagnosis Date Back pain 12/18/2009 Bipolar disorder (HCC) 09/2008 Asthma Herniated disc, cervical C5,C6 Past Surgical History Procedure Laterality Date Esophagogastroduodenoscopy 2009 Colonoscopy section x 2 Hernia repair Prior to Admission medications Medication Sig Start Date End Date Taking? Authorizing Provider Bismuth Subsalicylate (PEPTO-BISMOL PO) Take by mouth. Yes Historical Provider HYDROcodone-acetaminophen (NORCO) 10-325 MG per tablet Take 1 tablet by mouth every 6 (six) hours as needed for Pain. 01/03/17 Yes RITIKA Woodward naproxen (NAPROSYN) 500 MG tablet Take 1 tablet by mouth 2 (two) times daily as needed. 12/12 12/27 Yes RITIKA Woodward tizanidine (ZANAFLEX) 4 MG capsule Take 1 capsule by mouth 2 (two) times daily as needed fo r Muscle spasms. 1 to 2 tablets at bedtime. 01/03/17 Yes RITIKA Woodward EPINEPHrine (EPIPEN) 0.3 MG/0.3ML injection Inject 0.3 mLs into the muscle as needed. RITIKA Holt fluticasone (FLONASE) 50 MCG/ACT nasal 1 spray by Each Nare route daily. 10/19/16 10/19/17 Yuri Her PA-C Multiple Vitamin (MULTIVITAMINS) TABS 02/01/12 Historical Provider Allergies Allergen Reactions Bee Venom Anaphylaxis Morphine [...] Diabetes Maternal Grandfather Heart attack Maternal Grandfather ROS Review of Systems Constitutional: Negative for: fever, chills or weight loss. HEENT: Negative for: head trauma, ear pain, sore throat or acute visual disturbance. Cardiovascular/Respiratory: Negative for: chest pain, syncope, shortness of breath or cough . Gastrointestinal: Negative for: nausea, vomiting Positive for abdominal pain, diarrhea, dark stools Genitourinary: Negative for: dysuria or urinary problems. Musculoskeletal: Negative for: back pain Skin: Negative for: rash or lesions. Neuro: Negative for: headache, focal muscle weakness, seizure or acute neur ological problems. Physical Exam BP 121/70 mmHg | Pulse 90 | Temp(Src) 98.2 F (36.8 C) (Oral) | Resp 16 | Ht 1.753 m (5' 9") | Wt 90.719 kg (200 lb) | BMI 29.52 kg/m2 | SpO2 97% Vitals Interpretation: pre-hypertensive Pulse Oximetry interpretation: Normal General: Alert, in no apparent distress Eyes: Normal inspection, pupils equal and round, non-icteric CVS: Rate and rhythm normal No murmurs, rubs or gallops Respiratory: Breath sounds normal bilaterally, no wheezing or crackles Abdomen: Soft, epigastric and RUQ tenderness, non-distended No guarding or rebound Rectal: Guaiac negative Skin: Warm and dry No rash Musculoskeletal: Moves all extremities Neuro: No gross motosensory deficit ED Course Medical Decision Making and Emergency Department Course ED Department Course 8:09 PM. Patient presents with upper abdominal pain. My DDx includes, but is not limited to : cholelithiasis, cholecystitis, PUD, GERD, inflammatory bowel disease, irritable bowel dis ease, gastroenteritis, pancreatitis, vs other. 8:15 PM Labs are unremarkable. 8:53 PM Rectal exam performed at this time with Jessica, female RN, as silk spreader. Stool is gu aiac negative. Pt just mentions she is taking Pepto Bismol; that could explain her dark sto ol. 9:45 PM US shows no evidence of cholelithiasis and argues against cholecystitis. 10:10 PM CRP is slightly elevated at 0.6. 10:13 PM Patient continues verbalizing unbearable abdominal pain. Will order a CT. Patient states she needs to take a test and would like to go home. I advised patient that if she wants to leave she is leaving AMA as I have not conclusively rule out serious intra abdominal pathology. Patient will leave AMA before receiving her CT. I explained the risks of leaving against medical advise including , permanent neurolog ic dysfunction, or loss of current lifestyle. Pt understands the risks and is of a sound min d to make decisions and still wants to leave against medical advise. Pt instructed that they can return to ER at any time for completion of service. Filed Vitals: 01/12/17192801/12/17204201/12/17211801/12/172217 BP: 121/70 134/64 117/72 142/79 Pulse: 90 82 72 85 Temp: 98.2 F (36.8 C) TempSrc: Oral Resp: 16 16 16 16 Height: 1.753 m (5' 9") Weight: 90.719 kg (200 lb) SpO2: 97% 98% 97% 99% Medications pantoprazole (PROTONIX) injection 40 mg (40 mg Intravenous Given 01/12/172037) sodium chloride (bolus) 0.9 % 1,000 mL (0 mLs Intravenous Stopped 01/12/172048) lidocaine viscous 2 % 10 mL, aluminum-magnesium hydroxide-simethicone (MAALOX) 200-200-20 M G/5ML 30 mL solution (40 mLs Oral Given 01/12/172118) ketorolac (TORADOL) injection 30 mg (30 mg Intravenous Given 01/12/172037) fentaNYL (SUBLIMAZE) injection 50 mcg (50 mcg Intravenous Given 01/12/172058) dicyclomine (BENTYL) injection 20 mg (20 mg Intramuscular Given 01/12/172215) Records Reviewed Old medical records. Nursing notes. Labs & Radiology Results Laboratory Evaluation Results Procedure Component Value Ref Range Date/Time C-Reactive Protein [[id number]] (Abnormal) Collected: 01/12/171949 Order Status: Completed Specimen Information: Blood Updated: 01/12/170 CRP 0.6 (H) <0.5 mg/dL Comprehensive metabolic panel [[id number]] Collected: 01/12/171949 Order Status: Completed Specimen Information: Blood Updated: 01/12/172011 SODIUM 143 135 - 145 mmol/L POTASSIUM 4.5 3.5 - 4.9 mmol/L CHLORIDE 105 99 - 109 mmol/L CO2 30 23 - 32 mmol/L ANION GAP AGAP 13 5 - 20 mmol/L GLUCOSE 91 65 - 99 mg/dL BUN 13 8 - 25 mg/dL CREATININE 0.83 0.50 - 1.00 mg/dL BUN/CREAT 16 CALCIUM 9.3 8.5 - 10.5 mg/dL TOTAL PROTEIN 7.4 6.3 - 8.2 g/dL Albumin 3.9 3.6 - 5.0 g/dL GLOBULIN 3.5 1.3 - 4.9 g/dL A/G 1.1 1.0 - 2.4 TBIL 0.2 0.1 - 1.5 mg/dL ALK PHOS 61 35 - 115 U/L AST 12 10 - 45 U/L ALT 20 10 - 65 U/L EGFR >60 >60 mL/min/1.73m2 Amylase [[id number]] Collected: 01/12/171949 Order Status: Completed Specimen Information: Blood Updated: 01/12/172011 AMYLASE 39 25 - 115 U/L Lipase [[id number]] Collected: 01/12/171949 Order Status: Completed Specimen Information: Blood Updated: 01/12/172011 LIPASE 92 73 - 393 U/L Urine microscopic only [[id number]] (Abnormal) Collected: 01/12/171951 Order Status: Completed Updated: 01/12/172011 WBC 1-5 0 - 5 /hpf RBC 1-5 0 - 5 /hpf EPITHELIAL 26-50 /lpf BACTERIA 1+ (A) NONE SEEN Urinalysis (reflex to microscopic/reflex to culture) [[id number]] (Abnormal) Collected: 01/12/171951 Order Status: Completed Specimen Information: Urine from Urine, Clean Catch Updated: 01/12/172011 COLOR UA YELLOW CLARITY CLEAR Specific [place], UA 1.025 1.001 - 1.035 LEUKOCYTE ESTERASE NEGATIVE NEGATIVE NITRITE NEGATIVE NEGATIVE UROBILINOGEN 0.2 <1.1 mg/dL PROTEIN NEGATIVE NEGATIVE mg/dL PH,URINE 6.0 4.6 - 8.0 BLOOD TRACE (A) NEGATIVE KETONES TRACE (A) NEGATIVE mg/dL BILIRUBIN NEGATIVE NEGATIVE GLUCOSE NEGATIVE NEGATIVE mg/dL Urine test (LAB) (if 12-55 and no hysterectomy) [[id number]] Collected: 1950 Order Status: Completed Specimen Information: Urine from Urine, Clean Catch Updated: 01/12/172005 Preg Test, Ur NEGATIVE NEGATIVE CBC W/Auto Diff (Reflex to Manual) [[id number]] Collected: 01/12/171949 Order Status: Completed Specimen Information: Blood Updated: 01/12/172003 WBC 8.23 3.80 - 11.00 K/uL RBC 4.50 3.70 - 5.10 M/uL HGB 13.1 11.3 - 15.5 g/dL HCT 38.9 34.0 - 46.0 % MCV 86.4 80.0 - 100.0 fl MCH 29.1 27.0 - 34.0 pg MCHC 33.7 32.0 - 35.5 g/dL RDW SD 41.1 37 - 53 fl PLT 215 150 - 400 K/uL MPV 8.7 fl DIFF TYPE AUTOMATED NEUTROPHILS 55.86 % LYMPHOCYTES 30.01 % MONOCYTES 8.93 % EOSINOPHILS 4.12 % BASOPHILS 1.08 % NEUTROPHILS ABS 4.60 1.90 - 7.40 K/uL LYMPHOCYTES ABS 2.47 1.00 - 3.90 K/uL MONOCYTES ABS 0.74 0.00 - 0.80 K/uL EOSINOPHILS ABS 0.34 0.00 - 0.50 K/uL BASOPHILS ABS 0.09 0.00 - 0.10 K/uL Radiology and EKG Evaluation Imaging Results Ultrasound abdomen, gallbladder (Final result) Result time: 01/12/17 21:41:29 Final result by Rad Results In [place]ron (01/12/17 21:41:29) Impression: 1. No evidence of cholelithiasis. 2. Contracted gallbladder produces a thickened appearance however there is a negative sono graphic Mosher sign argues against cholecystitis. Correlate clinically Narrative: MINOO PENNINGTON US ABDOMEN LIMITED 01/12/2017 9:17 PM MINOO PENNINGTON US ABDOMEN LIMITED 01/12/2017 9:17 PM History: 36 years. Female. Right upper quadrant pain TECHNIQUE: Imaging was performed using a curved array transducer. Grayscale and color flow techniques were utilized. COMPARISON: 11/11/2008 FINDINGS: Pancreas: The pancreas is normal in size and echotexture. No evidence of a dilated pancrea tic duct. Liver: The liver is normal in size and echogenicity. No evidence of hepatic mass or dilate d intrahepatic ducts. Gallbladder: The gallbladder is contracted consistent with either a recent meal or poor fun ction. Evaluation is limited at this time. If clinical symptoms persist, repeat examinatio n is recommended. Gallbladder Wall: The gallbladder wall is thickened measuring likely due to the contracted state 4 mm. Common bile duct: The common bile duct is normal measuring 2 mm. Peritoneal Findings: No ascites identified. Incidental Findings: 2 small simple cysts are noted in the right kidney Diagnosis & Disposition ED Diagnosis Final diagnosis Abdominal pain, unspecified location Disposition: ED Disposition AMA Date: 01/12/2017 Patient: Minoo Pennington Admitted: 01/12/2017 7:20 PM Attending Provider: Jamaal Sims MD Minoo Pennington has made the decision to leave the current treatment against the advice of me. She has been informed and understands the inherent risks, including , worsening symptoms. She has decided to accept the responsibility for her decision. Minoo Pennington and all necessary parties have been advised that she may return during any business hours for further evaluation or treatment. Her condition at time of discharge was stable. Minoo Pennington had current vital signs as follows: BP 142/79 |Pulse 85 |Temp 98.2 F (36.8 C) |Temp Src: Oral |Resp 16 |Ht 1.753 m (5' 9") |Wt 90.719 kg (200 lb) Follow-up Information Follow up With Details Comments Contact [facility] Emergency Department in [place] If symptoms worsen [address] [facility] [phone] Moise Maynard MD Schedule an appointment as soon as possible for a visit For follow up [address], [place] [address] [facility] [address] Discharge Medications: Discharge Medication List as of 01/12/2017 10:31 PM Procedures Additional Documentation Guaiac negative stool. Performed by ED provider. Hemoccult senior quality technician Passed. Attending Note: Documentation assistance provided by Dahiana Pinto ([email or web address]). Information recorded by the scribe has been reviewed and validated by . Mirela brennan with its contents. Signed by: Benjamin Timmons 01/12/2017 10:32 PM MD Jamaal Mullins MD 01/13/17 [id number] documented in this encounter Plan of Treatment Not on filedocumented as of this encounter Procedures + +--------+ + + + | Procedure Name | Priori | Date/Time | Associated Diagnosis | Comments | | | ty | | | | + +--------+ + + + | EXTERNAL LAB: OCCULT | Routin | 01/13/2017 | | Results for this | | BLOOD, SCREENING | e | 3:36 AM | | procedure are in the | | | | PDT | | results section. | + +--------+ + + + | US ABDOMEN LIMITED | Routin | 01/12/2017 | | Results for this | | | e | 9:17 PM | | procedure are in the | | | | PDT | | results section. | + +--------+ + + + | URINALYSIS, REFLEX | Routin | 01/12/2017 | | Results for this | | MICROSCOPIC AND/OR | e | 7:52 PM | | procedure are in the | | CULTURE | | PDT | | results section. | + +--------+ + + + | URINALYSIS, | Routin | 01/12/2017 | | Results for this | | MICROSCOPIC ONLY | e | 7:52 PM | | procedure are in the | | | | PDT | | results section. | + +--------+ + + + | HCG, URINE, QUAL | Routin | 01/12/2017 | | Results for this | | | e | 7:52 PM | | procedure are in the | | | | PDT | | results section. | + +--------+ + + + | EXTERNAL LAB: CBC | Routin | 01/12/2017 | | Results for this | | | e | 7:50 PM | | procedure are in the | | | | PDT | | results section. | + +--------+ + + + | C-REACTIVE PROTEIN | Routin | 01/12/2017 | | Results for this | | | e | 7:50 PM | | procedure are in the | | | | PDT | | results section. | + +--------+ + + + | LIPASE | Routin | 01/12/2017 | | Results for this | | | e | 7:50 PM | | procedure are in the | | | | PDT | | results section. | + +--------+ + + + | AMYLASE | Routin | 01/12/2017 | | Results for this | | | e | 7:50 PM | | procedure are in the | | | | PDT | | results section. | + +--------+ + + + | COMPREHENSIVE | Routin | 01/12/2017 | | Results for this | | METABOLIC PANEL | e | 7:50 PM | | procedure are in the | | | | PDT | | results section. | + +--------+ + + + documented in this encounter Results External Lab: Occult Blood, Screening (01/13/2017 3:36 AM PDT) + +-------+ + + + | Component | Value | Ref Range | Performed | Pathologist | | | | | At | Signature | + +-------+ + + + | Fecal | | | EXTERNAL | | | Occult | | | LAB | | | Blood, POC | | | | | + +-------+ + + + | CONTROL | yes | | EXTERNAL | | | | | | LAB | | + +-------+ + + + | FECAL | neg | | EXTERNAL | | | OCCULT BLD | | | LAB | | + +-------+ + + + + + | Specimen | + + | Stool specimen | | (specimen) | + + + + + | Narrative | Performed At | + + + | Jamaal Sims MD 01/13/2017 3:36 AM [facility] | EXTERNAL LAB | | [facility] Department of Emergency Medicine 8:09 PM | | | 01/12/2017 History of Present Illness Patient | | | Identification Minoo Pennington is a 36 y.o. female. Patient | | | information was obtained from patient and parent. History/Exam | | | limitations: none. Patient presented to the Emergency Department by: | | | Car Chief Complaint Chief Complaint Patient presents with | | | Abdominal Pain Onset 7 days ago. pt describes this as a diffuse | | | cramping. Pt reports decrease appetite. Denies nausea Pt has hx of | | | lactose intolerance. | | | Diarrhea "it's like black tar" "I can barely make it to the | | | toilet" onset 10 days ago. The patient presents to the | | | emergency department with chief complaints of abdominal pain. Onset | | | of symptoms was 1 week ago, with a constant course since that time. | | | The symptoms are described to be of moderate severity. The patient | | | also complains of diarrhea, and black stools. The patient describes | | | the quality and location of the symptoms as the following: sharp | | | upper abdominal pain. Patient has about 2 watery stools per day. | | | Today her stools were a tar-like color of black. This pain feels | | | similar to a flu type of pain, but she hasn't vomited or had nausea. | | | She has a history of lactose intolerance. She has eaten some cheese | | | recently and had a bout of diarrhea after eating the cheese. She | | | also mentions she has had an esophageal endoscopy done and was | | | diagnosed with GERD. She has a family history of gall bladder | | | issues. She takes naproxen for neck issues. Care prior to arrival | | | consisted of Imodium, with minimal relief. PCP: MOISE MAYNARD | | | Past Medical History Diagnosis Date | | | Back pain 12/18/2009 | | | Bipolar disorder (HCC) 09/2008 | | | Asthma | | | Herniated disc, cervical C5,C6 Past Surgical History | | | Procedure Laterality Date | | | Esophagogastroduodenoscopy 2009 | | | Colonoscopy | | | section x 2 | | | Hernia repair Prior to Admission medications Medication | | | Sig Start Date End Date Taking? Authorizing Provider Bismuth | | | Subsalicylate (PEPTO-BISMOL PO) Take by mouth. Yes Historical | | | Provider HYDROcodone-acetaminophen (NORCO) 10-325 MG per tablet Take | | | 1 tablet by mouth every 6 (six) hours as needed for Pain. 01/03/17 | | | Yes OpalRITIKA Valle naproxen (NAPROSYN) 500 MG tablet | | | Take 1 tablet by mouth 2 (two) times daily as needed. 01/03/17 Yes | | | Opal JULIO MurphyP tizanidine (ZANAFLEX) 4 MG capsule Take 1 | | | capsule by mouth 2 (two) times daily as needed for Muscle spasms. 1 | | | to 2 tablets at bedtime. 01/03/17 Yes Opal JULIO MurphyP | | | EPINEPHrine (EPIPEN) 0.3 MG/0.3ML injection Inject 0.3 mLs into the | | | muscle as needed. 02/25/14 RITIKA Holt fluticasone | | | (FLONASE) 50 MCG/ACT nasal 1 spray by Each Nare route daily. 10/19/16 | | | 10/19/17 Maye Her PA-C Multiple Vitamin (MULTIVITAMINS) TABS | | | 02/01/12 Historical Provider Allergies Allergen Reactions | | | | | | Bee Venom Anaphylaxis | | | Morphine And Related Other (See Comments) Abstracted | | | Penicillins Hives | | | Inapsine [Droperidol] Anxiety | | | Lactose Intolerance (Gi) Abdominal Pain Social History | | | Social History | | | Marital Status: Spouse Name: N/A | | | Number of Children: N/A | | | Years of Education: N/A Occupational History | | | Not on file. Social History Main Topics | | | Smoking status: Current Every Day Smoker -- 1.00 packs/day for 17 | | | years | | | Smokeless tobacco: Never Used | | | Alcohol Use: No | | | Drug Use: No Comment: Quit IV drug use in 2010. | | | Sexual Activity: Not on file Other Topics Concern | | | Not on file Social History Narrative Family History | | | Problem Relation Age of Onset | | | Stroke Father | | | Stroke Maternal Grandmother | | | Diabetes Maternal Grandmother | | | Diabetes Maternal Grandfather | | | Heart attack Maternal Grandfather Review of Systems | | | Constitutional: Negative for: fever, chills or weight loss. | | | HEENT: Negative for: | | | head trauma, ear pain, sore throat or acute visual disturbance. | | | Cardiovascular/Respiratory: Negative for: chest pain, syncope, | | | shortness of breath or cough. Gastrointestinal: Negative for: | | | nausea, vomiting Positive for abdominal pain, diarrhea, dark | | | stools Genitourinary: Negative for: dysuria or urinary | | | problems. Musculoskeletal: Negative for: back pain Skin: | | | Negative for: rash or lesions. Neuro: | | | Negative for: headache, focal muscle weakness, seizure or acute | | | neurological problems. Physical Exam BP 121/70 mmHg - | | | Pulse 90 - Temp(Src) 98.2 F (36.8 C) (Oral) - Resp 16 - Ht 1.753 | | | m (5' 9") - Wt 90.719 kg (200 lb) - BMI 29.52 kg/m2 - SpO2 97% | | | Vitals Interpretation: pre-hypertensive Pulse Oximetry | | | interpretation: Normal General: Alert, in no apparent distress | | | Eyes: Normal inspection, pupils equal and round, non-icteric CVS: | | | Rate and rhythm normal No murmurs, rubs or gallops | | | Respiratory: Breath sounds normal bilaterally, no wheezing or | | | crackles Abdomen: Soft, epigastric and RUQ tenderness, | | | non-distended No guarding or rebound Rectal: Guaiac negative | | | Skin: Warm and dry No rash Musculoskeletal: Moves all | | | extremities Neuro: No gross motosensory deficit ED Course | | | Medical Decision Making and Emergency Department Course ED | | | Department Course 8:09 PM. Patient presents with upper abdominal | | | pain. My DDx includes, but is not limited to: cholelithiasis, | | | cholecystitis, PUD, GERD, inflammatory bowel disease, irritable | | | bowel disease, gastroenteritis, pancreatitis, vs other. 8:15 PM | | | Labs are unremarkable. 8:53 PM Rectal exam performed at this | | | time with Jessica, female RN, as silk spreader. Stool is guaiac negative. | | | Pt just mentions she is taking Pepto Bismol; that could explain | | | her dark stool. 9:45 PM US shows no evidence of cholelithiasis and | | | argues against cholecystitis. 10:10 PM CRP is slightly elevated | | | at 0.6. 10:13 PM Patient continues verbalizing unbearable | | | abdominal pain. Will order a CT. Patient states she needs to | | | take a test and would like to go home. I advised patient that if | | | she wants to leave she is leaving AMA as I have not conclusively | | | rule out serious intraabdominal pathology. Patient will leave | | | AMA before receiving her CT. I explained the risks of leaving against | | | medical advise including , permanent neurologic dysfunction, | | | or loss of current lifestyle. Pt understands the risks and is of a | | | sound mind to make decisions and still wants to leave against | | | medical advise. Pt instructed that they can return to ER at any time | | | for completion of service. Filed Vitals: 01/12/17 | | | 1929 01/12/17204201/12/17211801/12/172217 BP: 121/70 134/64 | | | 117/72 142/79 Pulse: 90 82 72 85 Temp: 98.2 F (36.8 C) | | | TempSrc: Oral Resp: 16 16 16 16 Height: 1.753 m (5' 9") | | | Weight: 90.719 kg (200 lb) SpO2: 97% 98% 97% 99% | | | Medications pantoprazole (PROTONIX) injection 40 mg (40 mg | | | Intravenous Given 01/12/172037) sodium chloride (bolus) 0.9 % 1,000 | | | mL (0 mLs Intravenous Stopped 01/12/172048) lidocaine viscous 2 % 10 | | | mL, aluminum-magnesium hydroxide-simethicone (MAALOX) 200-200-20 | | | MG/5ML 30 mL solution (40 mLs Oral Given 01/12/172118) ketorolac | | | (TORADOL) injection 30 mg (30 mg Intravenous Given 01/12/172037) | | | fentaNYL (SUBLIMAZE) injection 50 mcg (50 mcg Intravenous Given | | | 01/12/172058) dicyclomine (BENTYL) injection 20 mg (20 mg | | | Intramuscular Given 01/12/17 2216) Records Reviewed Old medical | | | records. Nursing notes. Labs | | + + + + +---------+ + + | Performing | Address | City/State/Zipcode | Phone Number | | Organization | | | | + +---------+ + + | EXTERNAL LAB | | | | + +---------+ + + US Abdomen Limited (01/12/2017 9:17 PM PDT) + + | Specimen | + + | | + + + + + | Impressions | Performed At | + + + | 1. No evidence of cholelithiasis. 2. Contracted gallbladder | | | produces a thickened appearance however there is a negative | | | sonographic Mosher sign argues against cholecystitis. Correlate | | | clinically Electronically signed by Solo Sheffield MD on | | | 01/12/2017 9:41 PM | | + + + + + + | Narrative | Performed At | + + + | [facility] US ABDOMEN LIMITED 01/12/2017 9:17 PM [facility] US ABDOMEN LIMITED 01/12/2017 9:17 PM History: 36 | | | years. Female. Right upper quadrant pain TECHNIQUE: Imaging | | | was performed using a curved array transducer. Grayscale and color | | | flow techniques were utilized. COMPARISON: 11/11/2008 FINDINGS: | | | Pancreas: The pancreas is normal in size and echotexture. No | | | evidence of a dilated pancreatic duct. Liver: The liver is normal in | | | size and echogenicity. No evidence of hepatic mass or dilated | | | intrahepatic ducts. Gallbladder: The gallbladder is contracted | | | consistent with either a recent meal or poor function. Evaluation is | | | limited at this time. If clinical symptoms persist, repeat | | | examination is recommended. Gallbladder Wall: The gallbladder wall is | | | thickened measuring likely due to the contracted state 4 mm. Common | | | bile duct: The common bile duct is normal measuring 2 mm. Peritoneal | | | Findings: No ascites identified. Incidental Findings: 2 small simple | | | cysts are noted in the right kidney | | + + + + + | Procedure Note | + + | Eron, Rad Conversion - 04/26/2019 3:47 AM PDT [facility] ABDOMEN | | LIMITED01/12/2017 9:17 PM [facility] ABDOM[facility] LIMITED01/12/2017 9:17 PM History: 36 | | years. Female. Right upper quadrant pain TECHNIQUE:Imaging was performed using a | | curved array transducer. Grayscale and color flow techniques were utilized. | | COMPARISON:11/11/2008 FINDINGS:Pancreas: The pancreas is normal in size and echotexture. | | No evidence of a dilated pancreatic duct.Liver: The liver is normal in size and | | echogenicity. No evidence of hepatic mass or dilated intrahepatic ducts.Gallbladder: | | The gallbladder is contracted consistent with either a recent meal or poor function. | | Evaluation is limited at this time. If clinical symptoms persist, repeat examination is | | recommended.Gallbladder Wall: The gallbladder wall is thickened measuring likely due to | | the contracted state 4 mm.Common bile duct: The common bile duct is normal measuring 2 | | mm.Peritoneal Findings: No ascites identified.Incidental Findings: 2 small simple cysts | | are noted in the right kidney IMPRESSION: 1. No evidence of cholelithiasis.2. | | Contracted gallbladder produces a thickened appearance however there is a negative | | sonographic Mosher sign argues against cholecystitis. Correlate clinically | | | |FINDINGS: | |Pancreas: The pancreas is normal in size and echotexture. No evidence of a dilated pancrea tic duct. | |Liver: The liver is normal in size and echogenicity. No evidence of hepatic mass or dilate d intrahepatic ducts. | |Gallbladder: The gallbladder is contracted consistent with either a recent meal or poor fun ction. Evaluation is limited at this time. If clinical symptoms persist, repeat examinatio n is recommended. | |Gallbladder Wall: The gallbladder wall is thickened measuring likely due to the contracted state 4 mm. | |Common bile duct: The common bile duct is normal measuring 2 mm. | |Peritoneal Findings: No ascites identified. | |Incidental Findings: 2 small simple cysts are noted in the right kidney | | | |IMPRESSION: | |1. No evidence of cholelithiasis. | |2. Contracted gallbladder produces a thickened appearance however there is a negative sono graphic Mosher sign argues against cholecystitis. Correlate clinically | | | | | | | + + Urinalysis, Reflex Microscopic and/or Culture (01/12/2017 7:52 PM PDT) + + + + + [...] + + + + | Specific | 1.025 | 1.001 - 1.035 | EXTERNAL | | | [place], | | | LAB | | | [...] + + + + | Urobilinoge | 0.2 | mg/dL | EXTERNAL | | | n, Urine | | | LAB | | + + + + + + | Protein, | NEGATIVE | mg/dL | EXTERNAL | | | Urine | | | LAB | | + + + + + + | pH, Urine | 6.0 | 4.6 - 8.0 | EXTERNAL | | | | | | LAB | | + + + + + + | Blood, | TRACE (A) | | EXTERNAL | | | Urine | | | LAB | | + + + + + + | Ketones | TRACE (A) | mg/dL | EXTERNAL | | | | | | LAB | | + + + + + + | Bilirubin, | NEGATIVE | | EXTERNAL | | | Urine | | | LAB | | + + + + + + | Glucose, | NEGATIVEComment: Testing | mg/dL | EXTERNAL | | | Urine | performed at [facility], [address] | | LAB | | | | [address], | | | | | | [place] [address] | | | | + + + [...] + +---------+ + + , Urine, Qual (01/12/2017 7:52 PM PDT) + + + + + + | Component | Value | Ref Range | Performed | Pathologist | | | | | At | Signature | + + + + + + | Preg Test, | NEGATIVEComment: Testing | | EXTERNAL | | | Ur | performed at [facility], [address] | | LAB | | | | [address], | | | | | | [place] [address] | | | | + + + + + + + + | Specimen | + + | Urine specimen | | (specimen) | + + + +---------+ + + | Performing | Address | City/State/Zipcode | Phone Number | | Organization | | | | + +---------+ + + | EXTERNAL LAB | | | | + +---------+ + + Urinalysis, Microscopic Only (01/12/2017 7:52 PM PDT) + + + + + + | Component | Value | Ref Range | Performed | Pathologist | | | | | At | Signature | + + + + + + | WBC, UA | 1-5 | 0 - 5 /hpf | EXTERNAL | | | | | | LAB | | + + + + + + | RBC, UA | 1-5 | 0 - 5 /hpf | EXTERNAL | | | | | | LAB | | + + + + + + | Epithelial | 26-50 | /lpf | EXTERNAL | | | Cells | | | LAB | | + + + + + + | Bacteria, | 1+ (A)Comment: Testing | | EXTERNAL | | | UA | performed at [facility], [address] | | LAB | | | | [address], | | | | | | [place] [address] | | | | + + + + + + + + | Specimen | + + | | + + + +---------+ + + | Performing | Address | City/State/Zipcode | Phone Number | | Organization | | | | + +---------+ + + | EXTERNAL LAB | | | | + +---------+ + + External Lab: CBC (01/12/2017 7:50 PM PDT) + + + + + + | Component | Value | Ref Range | Performed | Pathologist | | | | | At | Signature | + + + + + + | WBC | 8.23 | 3.80 - 11.00 | EXTERNAL | | | | | K/uL | LAB | | + + + + + + | Non- | 4.50 | 3.70 - 5.10 | EXTERNAL | | | Red Blood | | M/uL | LAB | | | Cells | | | | | | Counted | | | | | + + + + + + | Hemoglobin | 13.1 | 11.3 - 15.5 | EXTERNAL | | | | | g/dL | LAB | | + + + + + + | Hematocrit, | 38.9 | 34.0 - 46.0 % | EXTERNAL | | | POC | | | LAB | | + + + + + + | MCV | 86.4 | 80.0 - 100.0 fl | EXTERNAL | | | | | | LAB | | + + + + + + | MCH | 29.1 | 27.0 - 34.0 pg | EXTERNAL | | | | | | LAB | | + + + + + + | MCHC | 33.7 | 32.0 - 35.5 | EXTERNAL | | | | | g/dL | LAB | | + + + + + + | RDW-CV | 41.1 | 37 - 53 fl | EXTERNAL | | | | | | LAB | | + + + + + + | Platelet | 215 | 150 - 400 K/uL | EXTERNAL | | | Count | | | LAB | | | Plasma | | | | | + + + + + + | MPV | 8.7 | fl | EXTERNAL | | | | | | LAB | | + + + + + + | Differentia | AUTOMATED | | EXTERNAL | | | l Type | | | LAB | | + + + + + + | % Segmented | 55.86 | % | EXTERNAL | | | | | | LAB | | | Neutrophils | | | | | + + + + + + | % | 30.01 | % | EXTERNAL | | | Lymphocytes | | | LAB | | + + + + + + | % Monocytes | 8.93 | % | EXTERNAL | | | | | | LAB | | + + + + + + | % | 4.12 | % | EXTERNAL | | | Eosinophils | | | LAB | | + + + + + + | % Basophils | 1.08 | % | EXTERNAL | | | | | | LAB | | + + + + + + | Absolute | 4.60 | 1.90 - 7.40 | EXTERNAL | | | Segmented | | K/uL | LAB | | | Neutrophils | | | | | + + + + + + | Absolute | 2.47 | 1.00 - 3.90 | EXTERNAL | | | Lymphocytes | | K/uL | LAB | | + + + + + + | Absolute | 0.74 | 0.00 - 0.80 | EXTERNAL | | | Monocytes | | K/uL | LAB | | + + + + + + | Absolute | 0.34 | 0.00 - 0.50 | EXTERNAL | | | Eosinophils | | K/uL | LAB | | + + + + + + | Absolute | 0.09Comment: Testing | 0.00 - 0.10 | EXTERNAL | | | Basophils | performed at [facility], [address] | K/uL | LAB | | | | [address], | | | | | | [place] [address] | | | | + + + + + + + + | Specimen | + + | Blood specimen | | (specimen) | + + + +---------+ + + | Performing | Address | City/State/Zipcode | Phone Number | | Organization | | | | + +---------+ + + | EXTERNAL LAB | | | | + +---------+ + + C-Reactive Protein (01/12/2017 7:50 PM PDT) + + + + + + | Component | Value | Ref Range | Performed | Pathologist | | | | | At | Signature | + + + + + + | CRP | 0.6 (H)Comment: Testing | mg/dL | EXTERNAL | | | | performed at [facility], [address] | | LAB | | | | [address], | | | | | | [place] [address] | | | | + + + + + + + + | Specimen | + + | Blood specimen | | (specimen) | + + + +---------+ + + | Performing | Address | City/State/Zipcode | Phone Number | | Organization | | | | + +---------+ + + | EXTERNAL LAB | | | | + +---------+ + + Lipase (01/12/2017 7:50 PM PDT) + + + + + + | Component | Value | Ref Range | Performed | Pathologist | | | | | At | Signature | + + + + + + | Lipase | 92Comment: Testing | 73 - 393 U/L | EXTERNAL | | | | performed at [facility], [address] | | LAB | | | | [address], | | | | | | [place] [address] | | | | + + + + + + + + | Specimen | + + | Blood specimen | | (specimen) | + + + +---------+ + + | Performing | Address | City/State/Zipcode | Phone Number | | Organization | | | | + +---------+ + + | EXTERNAL LAB | | | | + +---------+ + + Amylase (01/12/2017 7:50 PM PDT) + + + + + + | Component | Value | Ref Range | Performed | Pathologist | | | | | At | Signature | + + + + + + | Amylase | 39Comment: Testing | 25 - 115 U/L | EXTERNAL | | | | performed at [facility], [address] | | LAB | | | | [address], | | | | | | [place] [address] | | | | + + + [...] + +---------+ + + Comprehensive Metabolic Panel (01/12/2017 7:50 PM PDT) + + + + + + | Component | Value | Ref Range | Performed | Pathologist | | | | | At | Signature | + + + + + + | Na | 143 | 135 - 145 | EXTERNAL | | | | | mmol/L | LAB | | + + + + + + | K | 4.5 | 3.5 - 4.9 | EXTERNAL | | | | | mmol/L | LAB | | + + + + + + | Cl | 105 | 99 - 109 mmol/L | EXTERNAL | | | | | | LAB | | + + + + + + | CO2 | 30 | 23 - 32 mmol/L | EXTERNAL | | | | | | LAB | | + + + + + + | Anion Gap | 13 | 5 - 20 mmol/L | EXTERNAL | | | | | | LAB | | + + + + + + | Glucose, | 91 | 65 - 99 mg/dL | EXTERNAL | | | Fasting | | | LAB | | + + + + + + | BUN | 13 | 8 - 25 mg/dL | EXTERNAL | | | | | | LAB | | + + + + + + | Creatinine | 0.83 | 0.50 - 1.00 | EXTERNAL | | | | | mg/dL | LAB | | + + + + + + | BUN/Creatin | 16 | | EXTERNAL | | | ine Ratio | | | LAB | | + + + + + + | Calcium | 9.3 | 8.5 - 10.5 | EXTERNAL | | | | | mg/dL | LAB | | + + + + + + | Protein, | 7.4 | 6.3 - 8.2 g/dL | EXTERNAL | | | Total | | | LAB | | + + + + + + | Albumin | 3.9 | 3.6 - 5.0 g/dL | EXTERNAL | | | | | | LAB | | + + + + + + | Globulin | 3.5 | 1.3 - 4.9 g/dL | EXTERNAL | | | | | | LAB | | + + + + + + | A/G Ratio | 1.1 | 1.0 - 2.4 | EXTERNAL | | | | | | LAB | | + + + + + + | Bilirubin | 0.2 | 0.1 - 1.5 mg/dL | EXTERNAL | | | Total | | | LAB | | + + + + + + | ALP, | 61 | 35 - 115 U/L | EXTERNAL | | | External | | | LAB | | + + + + + + | AST | 12 | 10 - 45 U/L | EXTERNAL | | | | | | LAB | | + + + + + + | ALT | 20 | 10 - 65 U/L | EXTERNAL [...] | | | | | | at [facility], [address] | | | | | | [place] | | | | | | [address] | | | | + + + [...] | + + | Abdominal pain, unspecified location | + + documented in this encounter
--- OUTSIDE RECORDS SUMMARY | ~2020-06-12 | XMS | Encounter Summary ---
Demographics + + + | Address | [address] | | | [address] | | | [place] [address] | + + + | Home Phone | | + + + | Preferred Language | Unknown | + + + | Marital Status | Legally | + + + | Adventism Affiliation | 1013 | + + + | Race | White | + + + | Ethnic Group | Not or | + + + Author + + + | Author | [facility] | | | and [place] | + + + | Organization | [facility] | | [...] Team Providers + +------+ + | Care Christian Science Healer Name | Role | Phone | + +------+ + PCP | Unavailable | + +------+ + Encounter Details +--------+ + + + + | Date | Type | Department | Care Team | Description | +--------+ + + + + | 03/23/ | Emergency | [facility] | [facility], | | | 2009 | | [facility] | MD [address] | | | | | EMERGENCY CENTER | [place], [place] | | | | | [address] | [address] | | | | | [place], [place] | [phone] | | | | | [address] | | | | | | [phone] | | | +--------+ + + + [...]
--- OUTSIDE RECORDS SUMMARY | ~2020-06-12 | XMS | Encounter Summary ---
Demographics + + + | Address | [address] | | | [address] | | | [place] [address] | + + + | Home Phone | | + + + | Preferred Language | Unknown | + + + | Marital Status | Legally | + + + | Faith Affiliation | 1013 | + + + | Race | White | + + + | Ethnic Group | Not or | + + + Author + + + | Author | [facility] | | | and [place] | + + + | Organization | [facility] | | | [...] Team Providers + +------+ + | Care Books Salesperson Name | Role | Phone | + +------+ + PCP | Unavailable | + +------+ + Encounter Details +--------+ + + + + | Date | Type | Department | Care Team | Description | +--------+ + + + + | 08/01/ | Emergency | [facility] | Donell Brock, | Unspecified Backache | | 2008 | | MEDICAL CENTER | [address] | | | | | EMERGENCY CENTER | [place], [place] | | | | | [address] | [address] | | | | | [place], [place] | [phone] | | | | | [address] | | | | | | [phone] | | | +--------+ + + + [...]
--- OUTSIDE RECORDS SUMMARY | ~2020-06-12 | XMS | Encounter Summary ---
Demographics + + + | Address | [address] | | | [address] | | | [place] [address] | + + + | Home Phone | | + + + | Preferred Language | Unknown | + + + | Marital Status | Legally | + + + | Orthodox Affiliation | 1013 | + + + | Race | White | + + + | Ethnic Group | Not or | + + + Author + + + | Author | [facility] | | | and [place] | + + + | Organization | [facility] | | | and [...] Team Providers + +------+ + | Care Manager Fraud Name | Role | Phone | + +------+ + PCP | Unavailable | + +------+ + Encounter Details +--------+ + + + + | Date | Type | Department | Care Team | Description | +--------+ + + + + | 03/02/ | Emergency | [facility] | AnirudhZafar vale, | Rectal bleeding; | | 2015 | | [facility] | MD Brian HERNANDEZ | Diarrhea; | | | | [facility]Y [facility] | [place] [address] | Non-intractable | | | | [address] | [phone] | vomiting with | | | | [place], [place] | | nausea, vomiting of | | | | [phone] | | unspecified type | | | | [phone] | | | +--------+ + + + [...] + + + | Blood Pressure | 114/58 | 03/02/2016 3:10 PM | | | | | PDT | | + + + + + | Pulse | 68 | 03/02/2016 3:10 PM | | | | | PDT | | + + + + + | Temperature | 36.9 C (98.4 F) | 03/02/2016 3:10 PM | | | | | PDT | | + + + + + | Respiratory Rate | 17 | 03/02/2016 3:10 PM | | | | | PDT | | + + + + + | Oxygen Saturation | - | - | | + + + + + | Inhaled Oxygen | - | - | | | Concentration | | | | + + + + + | Weight | 93.9 kg (207 lb) | 03/02/2016 3:10 PM | | | | | PDT | | + + + + + | Height | - | - | | + + + + + | Body Mass Index | 30.57 | 02/29/2016 10:27 PM | | | | | PDT [...] EPINEPHrine | TOÑO | | 0 | 05//20 | | | (EPIPEN IJ) | | [...] ED Notes Conversion Transaction, Provider Unknown - 03/02/2016 3:23 PM PDTFormatting of this note m ight be different from the original. ED Notes by Ira Ball RN at 03/02/161522 Author: Ira Ball RN Service: (none) Author Type: Registered Nurse Filed: 03/02/16 1526 Date of Service: 03/02/161522 Status: Signed Substation Mechanic: Ira Ball RN (Registered Nurse) Pt declined taking [place] as "I have some at home. I have a whole bottle of 90 and they aren 't doing anything for this." Pt c/o abd cramping with feeling of needing to have a BM, but w as unable to produce a sample while in the ED. Pt refused a rectal exam to test for blood in her stool; "I am not doing that unless I get something for pain." Pt states she wants to le ave and go home to sit in her bath tub. "You need to take this IV out. I am about to take it out myself." DEONTE Medina, to pt's bedside to speak with the pt informing her that if she le ft she would be leaving against medical advise. IV was taken out by this RN. Pt requested a prescription for Bentyl for home after DEONTE Medina had left the room. This RN relayed the me ssage and DEONTE Medina, agreed. The pt had eloped prior to getting information for departure and her Rx. Ira Ball RN 03/02/16 1528 vans, Adam Elizondo PA-C - 03/02/2016 2:20 PM PDT ED Provider Notes by Adam Kate PA-C at 03/02/16 3335 Author: Adam Kate PA-C Service: (none) Author Type: Physician Typing Element Machine Operator Filed: 03/02/16 1547 Date of Service: 03/02/161419 Status: Attested Substation Mechanic: Adam Kate PA-C (Physician Typing Element Machine Operator) Cosigner: Zafar Penny MD at 03/03 0558 Attestation signed by Zafar Penny MD at 03/03/16 0558 I have reviewed the note and supervised the mid-level provider. Procedures [facility] [place] History of Present Illness Patient Identification Minoo Watson is a 36 y.o. female. Patient information was obtained from patient. History/Exam limitations: none. Patient presented to the Emergency Department by: Car Chief Complaint Chief Complaint Patient presents with Diarrhea Hematochezia Nausea The patient complains of abdominal pain, emesis, and hematochezia. Onset of symptoms was ye sterday. She reports blood in her stool this morning. She attributed her abdominal pain yest erday secondary to eating lactose which she reports she is lactose intolerance. No history o f rectal bleeding in the past with consuming lactose. She currently is on antibiotics for an abscess to her finger for which she reports is improving. Denies recent travel outside the [place]. Past Medical History Diagnosis Date Back pain 12/18/2009 Bipolar disorder (HCC) 09/2008 Asthma Past Surgical History Procedure Laterality Date Esophagogastroduodenoscopy 2010 Colonoscopy section x 2 Hernia repair Prior to Admission medications Medication Sig Start Date End Date Taking? Authorizing Provider Bismuth Subsalicylate (PEPTO-BISMOL PO) Take by mouth. Yes Historical Provider cephALEXin (KEFLEX) 500 MG capsule Take 1 capsule by mouth 4 (four) times daily. 02/29/16 Zafar Matt Later, DO EPINEPHrine (EPIPEN) 0.3 MG/0.3ML injection Inject 0.3 mLs into the muscle as needed. RITIKA Holt HYDROcodone-acetaminophen (NORCO) 10-325 MG per tablet Take 1 tablet by mouth every 6 (six) hours as needed for Pain. Historical Provider naproxen sodium (ANAPROX) 220 MG tablet Take 220 mg by mouth 2 (two) times daily with meals . Historical Provider sulfamethoxazole-trimethoprim (BACTRIM DS) 800-160 MG per tablet Take 1 tablet by mouth 2 ( two) times daily. 02/29/16 03/07/16 Zafar Matt Later, DO Allergies Allergen Reactions Bee Venom Anaphylaxis Morphine And Related Other (See Comments) Abstracted Penicillins Hives Inapsine [Droperidol] Anxiety Lactose Intolerance (Gi) Abdominal Pain History Social History Marital Status: Spouse Name: [...] Review of Systems Constitutional: Negative for: fever, chills, fatigue, sweats or weight loss Eyes: Negative for: decreased vision or irritated eyes Nose: Negative for: nosebleed Throat: Negative for: mouth sores Cardiovascular/Respiratory: Negative for: chest pain, shortness of breath, cough Gastrointestinal: Positive for: abdominal pain, vomiting, diarrhea, and bloody stools Genitourinary: Negative for: dysuria, hematuria, urinary problems Musculoskeletal: Negative for: myalgias and arthralgias Skin: Negative for: laceration or lesion Neuro and psych: Negative for: fainting, head injury, seizure, trouble walking Endocrine/Heme/Lymph: Negative for: swollen lymph nodes, easy bruising Physical Exam BP 118/72 mmHg | Pulse 86 | Temp(Src) 98.4 F (36.9 C) (Oral) | Resp 18 | Wt 93.895 kg ( 207 lb) | SpO2 97% | LMP 02/15/2016 (Approximate) Pulse Oximetry interpretation: Normal General: Alert, in mild distress Eyes: Normal inspection, pupils equal and round, non-icteric Cardiovascular: Rate and rhythm normal No murmurs Respiratory: Breath sounds normal bilaterally Abdomen: Soft, TTP to lower abdomen, non-distended No guarding or rebound Genitourinary: Deferred Rectal exam: Deferred Back: Normal inspection Skin: Color normal Warm and dry Healing laceration to left index finger without erythema, swelling, or discharge Neuro: No motor deficit No sensory deficit Normal gait ED Course Medical Decision Making and Emergency Department Course ED Department Course 1350 Patient seen. Non-toxic in appearance. Afebrile. Vitals normal. Differential diagnosis includes, but not limited to: gastroenteritis, c. Diff colitis, PUD, ischemia, versus others. Will obtain labs, provide fluids, and reassess. Hydrocodone ordered 1520 Patient has declined Hydrocodone. She reports she has taken it at home without any imp rovement and is wanting to leave AMA. I have discussed with patient that lab work is still p ending. Patient has declined rectal exam. I left patients room to print AMA form to obtain p atients signature. I have discussed with patient that she can return to ED at any time. 1525 Return to patients room and she appears to have eloped. Records Reviewed Old medical records. Nursing notes. Labs & Radiology Results Laboratory Evaluation Results Procedure Component Value Ref Range Date/Time Complete Metabolic Panel [[id number]] Collected: 03/02/161454 Order Status: Completed Specimen Information: Blood Updated: 03/02/16 1521 SODIUM 142 135 - 143 mmol/L POTASSIUM 3.9 3.5 - 4.9 mmol/L CHLORIDE 105 99 - 109 mmol/L CO2 24 23 - 32 mmol/L ANION GAP AGAP 17 5 - 20 mmol/L GLUCOSE 96 65 - 99 mg/dL BUN 9 8 - 25 mg/dL CREATININE 0.77 0.50 - 1.00 mg/dL BUN/CREAT 12 CALCIUM 8.8 8.5 - 10.5 mg/dL TOTAL PROTEIN 7.5 6.3 - 8.2 g/dL Albumin 3.9 3.6 - 5.0 g/dL GLOBULIN 3.6 1.3 - 4.9 g/dL A/G 1.1 1.0 - 2.4 TBIL 0.5 0.1 - 1.5 mg/dL ALK PHOS 56 35 - 115 U/L AST 12 10 - 45 U/L ALT 23 10 - 65 U/L EGFR >60 >60 mL/min/1.73m2 Lipase [[id number]] Collected: 03/02/161454 Order Status: Completed Specimen Information: Blood Updated: 03/02/16 1521 LIPASE 84 73 - 393 U/L C-Reactive Protein [[id number]] (Abnormal) Collected: 03/02/161454 Order Status: Completed Specimen Information: Blood Updated: 03/02/16 1521 CRP 1.6 (H) <0.5 mg/dL CBC w Auto Diff [[id number]] (Abnormal) Collected: 03/02/161454 Order Status: Completed Specimen Information: Blood Updated: 03/02/16 1507 WBC 9.63 3.80 - 11.00 K/uL RBC 4.88 3.70 - 5.10 M/uL HGB 14.1 11.3 - 15.5 g/dL HCT 41.8 34.0 - 46.0 % MCV 85.7 80.0 - 100.0 fl MCH 28.8 27.0 - 34.0 pg MCHC 33.6 32.0 - 35.5 g/dL RDW SD 39.4 37 - 53 fl PLT 209 150 - 400 K/uL MPV 9.0 fl DIFF TYPE AUTOMATED NEUTROPHILS 79.39 % LYMPHOCYTES 13.24 % MONOCYTES 5.14 % EOSINOPHILS 1.89 % BASOPHILS 0.34 % NEUTROPHILS ABS 7.65 (H) 1.90 - 7.40 K/uL LYMPHOCYTES ABS 1.28 1.00 - 3.90 K/uL MONOCYTES ABS 0.50 0.00 - 0.80 K/uL EOSINOPHILS ABS 0.18 0.00 - 0.50 K/uL BASOPHILS ABS 0.03 0.00 - 0.10 K/uL Urinalysis (reflex to microscopic/reflex to culture) [[id number]] Order Status: Sent Specimen Information: Urine from Urine, Clean Catch Urine Test [[id number]] Order Status: Sent Specimen Information: Urine from Urine, Clean Catch Radiology and EKG Evaluation Imaging Results None Diagnosis & Disposition ED Diagnoses Final diagnoses Rectal bleeding Diarrhea Non-intractable vomiting with nausea, vomiting of unspecified type Disposition: ED Disposition [facility] Date: 03/02/2016 Patient: Minoo Watson Admitted: 03/02/2016 1:44 PM Attending Provider: No att. providers found Minoo Watson has made the decision to leave the current treatment against the advice of me. She has been informed and understands the inherent risks, including and permanent disability.. She has decided to accept the responsibility for her decision. Minoo Watson and all necessary parties have been advised that she may return during any business hours for further evaluation or treatment. Her condition at time of discharge was stable. Minoo Watson had current vital signs as follows: BP 114/58 |Pulse 68 |Temp 98.4 F (36.9 C) |Temp Src: Oral |Resp 17 |Wt 93.895 kg (207 lb) |LMP 02/15/2016 Follow-up Information Follow up With Details Comments Contact [facility] Department in [place] If symptoms worsen [address] [facility] [id number] Nery Maynard MD Schedule an appointment as soon as possible for a visit [address] [facility] [id number] Discharge Medications: New Prescriptions DICYCLOMINE (BENTYL) 10 MG CAPSULE Take 1 capsule by mouth 4 (four) times daily before meals and nightly. Adam Kate PA-C 03/02/16 1547 Zafar Penny MD 03/03/16 0558 documented in this encounter Plan of Treatment Not on filedocumented as of this encounter Procedures + +--------+ + + + | Procedure Name | Priori | Date/Time | Associated Diagnosis | Comments | | | ty | | | | + +--------+ + + + | EXTERNAL LAB: CBC | Routin | 03/02/2016 | | Results for this | | | e | 2:55 PM | | procedure are in the | | | | PDT | | results section. | + +--------+ + + + | C-REACTIVE PROTEIN | Routin | 03/02/2016 | | Results for this | | | e | 2:55 PM | | procedure are in the | | | | PDT | | results section. | + +--------+ + + + | LIPASE | Routin | 03/02/2016 | | Results for this | | | e | 2:55 PM | | procedure are in the | | | | PDT | | results section. | + +--------+ + + + | COMPREHENSIVE | Routin | 03/02/2016 | | Results for this | | METABOLIC PANEL | e | 2:55 PM | | procedure are in the | | | | PDT | | results section. | + +--------+ + + + documented in this encounter Results External Lab: CBC (03/02/2016 2:55 PM PDT) + + + + + + | Component | Value | Ref Range | Performed | Pathologist | | | | | At | Signature | + + + + + + | WBC | 9.63Comment: Testing | 3.80 - 11.00 | EXTERNAL | | | | performed at [facility], [address] | K/uL | LAB | | | | [address] [place], | | | | | | [place] [address] | | | | + + + + + + | Non- | 4.88Comment: Testing | 3.70 - 5.10 | EXTERNAL | | | Red Blood | performed at [facility], [address] | M/uL | LAB | | | Cells | [address], | | | | | Counted | [place] [address] | | | | + + + + + + | Hemoglobin | 14.1Comment: Testing | 11.3 - 15.5 | EXTERNAL | | | | performed at [facility], [address] | g/dL | LAB | | | | [address], | | | | | | [place] [address] | | | | + + + + + + | Hematocrit, | 41.8Comment: Testing | 34.0 - 46.0 % | EXTERNAL | | | POC | performed at [facility], [address] | | LAB | | | | [address] [place], | | | | | | [place] [address] | | | | + + + + + + | MCV | 85.7Comment: Testing | 80.0 - 100.0 fl | EXTERNAL | | | | performed at [facility], [address] | | LAB | | | | [address] [place], | | | | | | [place] [address] | | | | + + + + + + | MCH | 28.8Comment: Testing | 27.0 - 34.0 pg | EXTERNAL | | | | performed at [facility], [address] | | LAB | | | | [address] [place], | | | | | | [place] [address] | | | | + + + + + + | MCHC | 33.6Comment: Testing | 32.0 - 35.5 | EXTERNAL | | | | performed at [facility], [address] | g/dL | LAB | | | | [address] [place], | | | | | | [place] [address] | | | | + + + + + + | RDW-CV | 39.4Comment: Testing | 37 - 53 fl | EXTERNAL | | | | performed at [facility], [address] | | LAB | | | | [address] [place], | | | | | | [place] [address] | | | | + + + + + + | Platelet | 209Comment: Testing | 150 - 400 K/uL | EXTERNAL | | | Count | performed at [facility], [address] | | LAB | | | Plasma | [address], | | | | | | [place] [address] | | | | + + + + + + | MPV | 9.0Comment: Testing | fl | EXTERNAL | | | | performed at [facility], [address] | | LAB | | | | [address] [place], | | | | | | [place] [address] | | | | + + + + + + | Differentia | AUTOMATEDComment: | | EXTERNAL | | | l Type | Testing performed at | | LAB | | | | [facility], [address], | | | | | | [place] [address] | | | | + + + + + + | % Segmented | 79.39Comment: Testing | % | EXTERNAL | | | | performed at [facility], [address] | | LAB | | | Neutrophils | [address], | | | | | | [place] [address] | | | | + + + + + + | % | 13.24Comment: Testing | % | EXTERNAL | | | Lymphocytes | performed at [facility], [address] | | LAB | | | | [address], | | | | | | [place] [address] | | | | + + + + + + | % Monocytes | 5.14Comment: Testing | % | EXTERNAL | | | | performed at [facility], [address] | | LAB | | | | [address] [place], | | | | | | [place] [address] | | | | + + + + + + | % | 1.89Comment: Testing | % | EXTERNAL | | | Eosinophils | performed at [facility], [address] | | LAB | | | | [address] [place], | | | | | | [place] [address] | | | | + + + + + + | % Basophils | 0.34Comment: Testing | % | EXTERNAL | | | | performed at [facility], [address] | | LAB | | | | [address] [place] [address], | | | | | | [place] [address] | | | | + + + + + + | Absolute | 7.65 (H)Comment: Testing | 1.90 - 7.40 | EXTERNAL | | | Segmented | performed at [facility], [address] | K/uL | LAB | | | Neutrophils | [address], | | | | | | [place] [address] | | | | + + + + + + | Absolute | 1.28Comment: Testing | 1.00 - 3.90 | EXTERNAL | | | Lymphocytes | performed at [facility], [address] | K/uL | LAB | | | | [address] [place], | | | | | | [place] [address] | | | | + + + + + + | Absolute | 0.50Comment: Testing | 0.00 - 0.80 | EXTERNAL | | | Monocytes | performed at [facility], [address] | K/uL | LAB | | | | [address] [place] [address], | | | | | | [place] [address] | | | | + + + + + + | Absolute | 0.18Comment: Testing | 0.00 - 0.50 | EXTERNAL | | | Eosinophils | performed at [facility], [address] | K/uL | LAB | | | | [address] [place], | | | | | | [place] [address] | | | | + + + + + + | Absolute | 0.03Comment: Testing | 0.00 - 0.10 | EXTERNAL | | | Basophils | performed at [facility], [address] | K/uL | LAB | | | | [address], | | | | | | [place] [address] | | | | + + + + + + + + | Specimen | + + | Blood specimen | | (specimen) | + + + +---------+ + + | Performing | Address | City/State/Zipcode | Phone Number | | Organization | | | | + +---------+ + + | EXTERNAL LAB | | | | + +---------+ + + C-Reactive Protein (03/02/2016 2:55 PM PDT) + + + + + + | Component | Value | Ref Range | Performed | Pathologist | | | | | At | Signature | + + + + + + | CRP | 1.6 (H)Comment: Testing | mg/dL | EXTERNAL | | | | performed at [facility], [address] | | LAB | | | | [address], | | | | | | [place] [address] | | | | + + + + + + + + | Specimen | + + | Blood specimen | | (specimen) | + + + +---------+ + + | Performing | Address | City/State/Zipcode | Phone Number | | Organization | | | | + +---------+ + + | EXTERNAL LAB | | | | + +---------+ + + Lipase (03/02/2016 2:55 PM PDT) + + + + + + | Component | Value | Ref Range | Performed | Pathologist | | | | | At | Signature | + + + + + + | Lipase | 84Comment: Testing | 73 - 393 U/L | EXTERNAL | | | | performed at [facility], [address] | | LAB | | | | [address], | | | | | | [place] [address] | | | | + + + [...] + +---------+ + + Comprehensive Metabolic Panel (03/02/2016 2:55 PM PDT) + + + + + + | Component | Value | Ref Range | Performed | Pathologist | | | | | At | Signature | + + + + + + | Na | 142Comment: Testing | 135 - 143 | EXTERNAL | | | | performed at [facility], [address] | mmol/L | LAB | | | | [address], | | | | | | [place] [address] | | | | + + + + + + | K | 3.9Comment: Testing | 3.5 - 4.9 | EXTERNAL | | | | performed at [facility], [address] | mmol/L | LAB | | | | [address], | | | | | | [place] [address] | | | | + + + + + + | Cl | 105Comment: Testing | 99 - 109 mmol/L | EXTERNAL | | | | performed at [facility], [address] | | LAB | | | | [address], | | | | | | [place] [address] | | | | + + + + + + | CO2 | 24Comment: Testing | 23 - 32 mmol/L | EXTERNAL | | | | performed at [facility], [address] | | LAB | | | | [address], | | | | | | [place] [address] | | | | + + + + + + | Anion Gap | 17Comment: Testing | 5 - 20 mmol/L | EXTERNAL | | | | performed at [facility], [address] | | LAB | | | | [address] [place], | | | | | | [place] [address] | | | | + + + + + + | Glucose, | 96Comment: Testing | 65 - 99 mg/dL | EXTERNAL | | | Fasting | performed at [facility], [address] | | LAB | | | | [address], | | | | | | [place] [address] | | | | + + + + + + | BUN | 9Comment: Testing | 8 - 25 mg/dL | EXTERNAL | | | | performed at [facility], [address] | | LAB | | | | [address] [place] [address], | | | | | | [place] [address] | | | | + + + + + + | Creatinine | 0.77Comment: Testing | 0.50 - 1.00 | EXTERNAL | | | | performed at [facility], [address] | mg/dL | LAB | | | | [address], | | | | | | [place] [address] | | | | + + + + + + | BUN/Creatin | 12Comment: Testing | | EXTERNAL | | | ine Ratio | performed at [facility], [address] | | LAB | | | | [address], | | | | | | [place] [address] | | | | + + + + + + | Calcium | 8.8Comment: Testing | 8.5 - 10.5 | EXTERNAL | | | | performed at [facility], [address] | mg/dL | LAB | | | | [address], | | | | | | [place] [address] | | | | + + + + + + | Protein, | 7.5Comment: Testing | 6.3 - 8.2 g/dL | EXTERNAL | | | Total | performed at [facility], [address] | | LAB | | | | [address], | | | | | | [place] [address] | | | | + + + + + + | Albumin | 3.9Comment: Testing | 3.6 - 5.0 g/dL | EXTERNAL | | | | performed at [facility], [address] | | LAB | | | | [address], | | | | | | [place] [address] | | | | + + + + + + | Globulin | 3.6Comment: Testing | 1.3 - 4.9 g/dL | EXTERNAL | | | | performed at [facility], [address] | | LAB | | | | [address], | | | | | | [place] [address] | | | | + + + + + + | A/G Ratio | 1.1Comment: Testing | 1.0 - 2.4 | EXTERNAL | | | | performed at [facility], [address] | | LAB | | | | [address], | | | | | | [place] [address] | | | | + + + + + + | Bilirubin | 0.5Comment: Testing | 0.1 - 1.5 mg/dL | EXTERNAL | | | Total | performed at [facility], [address] | | LAB | | | | [address], | | | | | | [place] [address] | | | | + + + + + + | ALP, | 56Comment: Testing | 35 - 115 U/L | EXTERNAL | | | External | performed at [facility], [address] | | LAB | | | | [address], | | | | | | [place] [address] | | | | + + + + + + | AST | 12Comment: Testing | 10 - 45 U/L | EXTERNAL | | | | performed at [facility], [address] | | LAB | | | | [address], | | | | | | [place] [address] | | | | + + + + + + | ALT | 23Comment: Testing | 10 - 65 U/L | EXTERNAL | | | | performed at [facility], [address] | | LAB | | | | [address], | | | | | | [place] [address] | | | | + + + [...] | | | | | | at [facility], [address] | | | | | | [place], [place] | | | | | | [address] | | | | + + + [...] + | Diagnosis | + + | Rectal bleeding Hemorrhage of rectum and anus | + + | Diarrhea | + + | Non-intractable vomiting with nausea, vomiting of unspecified type | + + documented in this encounter
--- OUTSIDE RECORDS SUMMARY | ~2020-06-12 | XMS | Encounter Summary ---
Demographics + + + | Address | [address] | | | [address] | | | [place] [address] | + + + | Home Phone | | + + + | Preferred Language | Unknown | + + + | Marital Status | Legally | + + + | Presybeterian Affiliation | 1013 | + + + | Race | White | + + + | Ethnic Group | Not or | + + + Author + + + | Author | [facility] | | | and [place] | + + + | Organization | [facility] | | | [...] Team Providers + +------+ + | Care Retirement Specialist Name | Role | Phone | + +------+ + PCP | Unavailable | + +------+ + Encounter Details +--------+ + + + + | Date | Type | Department | Care Team | Description | +--------+ + + + + | 01/23/ | Emergency | [facility] | [facility], | | | 2006 | | [facility] | MD [address] | | | | | EMERGENCY CENTER | [place], [place] | | | | | [address] | [address] | | | | | [place], [place] | [phone] | | | | | [address] | | | | | | [phone] | | | +--------+ + + + [...]
--- OUTSIDE RECORDS SUMMARY | ~2020-06-12 | XMS | Encounter Summary ---
Demographics + + + | Address | [address] | | | [address] [facility] | | | [place] [address] | + + + | Home Phone [...] Author + + + | Author | [facility] | | | and [place]ana | + + + | Organization | [facility] | | [...] Team Providers + +------+ + | Care Taker Off Hemp Fiber Name | Role | Phone | + +------+ + PCP | Unavailable | + +------+ + Encounter Details +--------+ + + + + | Date | Type | Department | Care Team | Description | +--------+ + + + + | 08/11/ | Emergency | [facility] | Zac Moreira, | Other acute | | 2015 | | MEDICAL CENTER | MD Brian HERNANDEZ | nonsuppurative | | | | [address] | [place] [address] | otitis media of both | | | | [address] | [phone] | ears, recurrence | | | | [place], [place] | | not specified; | | | | [address] | | Pharyngitis; Cough | | | | [phone] | | | +--------+ + + + [...] + + documented as of this encounter Medications at Time of Discharge + + + +---------+ + + | Medication | Sig | Dispensed | Refills | Start | End Date | | | | | | Date | | + + + +---------+ + + | Albuterol Sulfate | AERS | | 0 | 05/20 | | | (PROAIR HFA IN) | | | | 12 | | + + + +---------+ + + | EPINEPHrine | TOÑO | | 0 | //20 | | | (EPIPEN IJ) | | [...] documented as of this encounter ED Notes Reza Stern ARNP - 08/11/2015 4:52 PM PST ED Provider Notes by RITIKA Shaffer at 08/11/151651 Author: RITIKA Shaffer Service: -Emergency Author Type: Advanced Registered Nurse Pra ctitioner Filed: 08/11/151706 Date of Service: 08/11/151651 Status: Attested Musical Performer: RITIKA Shaffer (Nurse Practitioner) Cosigner: Zac Moreira MD at 1825 Attestation signed by Zac Moreira MD at 08/11/151825 I have reviewed the note and supervised the advanced cattle sprayer (APC). I was physically available for real-time consultation. Zac Moreira M.D., M.P.H. Procedures [facility] Department of Emergency Medicine HPI History of Present Illness Patient Identification Minoo Watson is a 35 y.o. female. Patient information was obtained from patient. History/Exam limitations: none. Patient presented to the Emergency Department by: Car Chief Complaint Chief Complaint Patient presents with Otalgia Cough The patient complains of cough with sore throat and bilateral ear pain. Onset of symptoms w as over the past week, with a worsening course since that time. The symptoms are described to be of [id number]-[id number] severity. The patient describes the quality and location of the sy mptoms as the following: Patient reports nonproductive cough with sore throat and bilateral ear pain. Patient also reports fatigue. Patient denies fever but reports chills. Past Medical History Diagnosis Date Back pain 12/18/2009 Bipolar disorder (HCC) 09/2008 Asthma Past Surgical History Procedure Laterality Date Esophagogastroduodenoscopy 2009 Prior to Admission medications Medication Sig Start Date End Date Taking? Authorizing Provider cetirizine-pseudoephedrine (ZYRTEC-D) 5-120 MG per tablet Take 1 tablet by mouth 2 (two) ti mes daily. 08/26/14 08/26/15 RITIKA Gomez EPINEPHrine (EPIPEN) 0.3 MG/0.3ML injection Inject 0.3 mLs into the muscle as needed. RITIKA Holt fluticasone (FLONASE) 50 MCG/ACT nasal 1 spray by Each Nare route daily. 01/01/15 01/01/16 RITIKA Cooper naproxen sodium (ANAPROX) 220 MG tablet Take 220 mg by mouth 2 (two) times daily with meals . Historical Provider omeprazole (PRILOSEC) 20 MG capsule Take 1 capsule by mouth every morning before breakfast. 01/01/15 01/01/16 RITIKA Holt Allergies Allergen Reactions Bee Venom Anaphylaxis Morphine And Related Other (See Comments) Abstracted Penicillins Hives Inapsine [Droperidol] Anxiety History Social History Marital Status: Spouse Name: N/A Number of Children: N/A Years of Education: N/A Occupational History Not on file. Social History Main Topics Smoking status: Current Every Day Smoker -- 1.00 packs/day for 17 years Smokeless tobacco: Never Used Alcohol Use: No Drug Use: No Sexual Activity: Not on file Other Topics Concern Not on file Social History Narrative Family History Problem Relation Age of Onset Stroke Father Stroke Maternal Grandmother Diabetes Maternal Grandmother Diabetes Maternal Grandfather Heart attack Maternal Grandfather ROS Review of Systems Constitutional: Negative for: fever, sweats or weight loss Positive for fatigue and chills Ears Positive for bilateral ear pain, right worse th an left Eyes: Negative for: decreased vision or irritated eyes Nose: Negative for: nosebleed Throat: Positive for sore throat with painful swallowing Cardiovascular/Respiratory: Negative for: chest pain, shortness of breath Positive for nonproductive cough cough Gastrointestinal: Negative for: abdominal pain, vomiting, diarrhea, black or bloody stools Genitourinary: Negative for: dysuria, hematuria, urinary problems Musculoskeletal: Negative for: myalgias and arthralgias Skin: Negative for: laceration or lesion Neuro and psych: Negative for: fainting, head injury, seizure, trouble walking Endocrine/Heme/Lymph: Negative for: swollen lymph nodes, easy bruising Physical Exam Physical Exam BP 147/91 mmHg | Pulse 85 | Temp(Src) 97.9 F (36.6 C) (Oral) | Resp 15 | Ht 1.753 m (5' 9.02") | Wt 103.2 kg (227 lb 8.2 oz) | BMI 33.58 kg/m2 | SpO2 96% | LMP 07/27/2015 Pulse Oximetry interpretation: Normal otherwise normal vital signs General: Alert, in no apparent distress, afebrile and nontoxic-appearing Eyes: Normal inspection, pupils equal and round, non-icteric ENT: Ears TMs with erythema, edema/bulging and loss of landmarks. Right is worse than left Nose normal Pharynx with erythema, edema and exudate/white patches. Dry mucous membranes Neck: Normal inspection Supple No lymphadenopathy No meningismus Cardiovascular: Rate and rhythm normal No murmurs Respiratory: Breath sounds diminished bilaterally, no wheezing or labored breathing Abdomen: Soft, non-tender, non-distended No guarding or rebound Genitourinary: Deferred Rectal exam: Deferred Back: Normal inspection Skin: Color normal Warm and dry No rash Neuro: No motor deficit No sensory deficit Normal gait ED Course Medical Decision Making and Emergency Department Course ED Department Course This patient has a cough, ear pain and sore throat with painful swallowing and an exam for otitis media and pharyngitis and tonsillitis. There is no peritonsillar abscess, no trismus and no signs of a deep tissue infection of the face and neck. The patient is able to swall ow and has a normal voice and vocalization. There is no indication of epiglotitis by histor y or examination. I will treat with oral antibiotics, and I will have the patient follow up with their regular doctor in the next 2 days to be re-assessed. Patient may return to the e mergency department for new or worsening symptoms. She agrees to plan of care. I have discussed my clinical impression and treatment plan with the patient. We have speci fically discussed the signs and symptoms that would constitute the need for an immediate ret urn to the Emergency Department, the importance of continued outpatient follow up and furthe r testing (if deemed necessary by the patient's regular doctor) and the importance of compli ance with the discharge instructions. I have answered any questions that the patient has to the best of my ability. Based upon the patient s history, physical exam, emergency depar tment course, and any laboratory and diagnostic studies which may have been performed, I fee l that there is no current emergent medical condition that warrants admission, transfer, or further emergency department treatment at this time. Records Reviewed Old medical records. Labs & Radiology Results Laboratory Evaluation Results None Radiology and EKG Evaluation Imaging Results None Diagnosis & Disposition ED Diagnoses Final diagnoses Other acute nonsuppurative otitis media of both ears, recurrence not specified Pharyngitis Cough Disposition: ED Disposition Discharge Condition at discharge: Stable Follow-up Information Follow up With Details Comments Contact Info RITIKA Holt Schedule an appointment as soon as possible for a visit in 10 days As needed for follow-up [address] [facility] [address] [facility] Emergency Department in [place] As needed, If symptoms worsen [address] [facility] [address] Discharge Medications: New Prescriptions ANTIPYRINE-BENZOCAINE (AURALGAN) OTIC SOLUTION Place 3 drops in ear(s) 3 (three) times daily. AZITHROMYCIN (ZITHROMAX) 250 MG TABLET Take 1 tablet by mouth daily. 2 tablets on the f irst day, then 1 tablet on days 2-5. BENZONATATE (TESSALON) 100 MG CAPSULE Take 1 capsule by mouth 3 (three) times daily as needed for Cough. GUAIFENESIN-DEXTROMETHORPHAN (ROBITUSSIN DM) 100-10 MG/5ML SYRUP Take 10 mLs by mouth e very 6 (six) hours as needed for Cough. IBUPROFEN (MOTRIN) 400 MG TABLET Take 1 tablet by mouth every 6 (six) hours as needed f or Pain. RITIKA Shaffer 08/11/15 1707 Zac Moreira MD 08/11/15 1826 onversio n Transaction, Provider Unknown - 08/11/2015 4:11 PM PSTFormatting of this note might be di fferent from the original. ED Notes by Minoo Caraballo RN at 08/11/151610 Author: Minoo Caraballo RN Service: (none) Author Type: Registered Nurse Filed: 08/11/151611 Date of Service: 08/11/151610 Status: Signed Musical Performer: Minoo Caraballo RN (Registered Nurse) Pt was seen at an Urgent Care about 10 days ago for similar issues. Was RX'd Prednisone, D oxicycline and Phenergane w/codeine syrup. She has taken the last of her medicine. Minoo Caraballo RN 08/11/151611 docume nted in this encounter Plan of Treatment Not on filedocumented as of this encounter Visit Diagnoses + + | Diagnosis | + + | Other acute nonsuppurative otitis media of both ears, recurrence not specified | + + | Pharyngitis Acute pharyngitis | + + | Cough | + + documented in this encounter
--- OUTSIDE RECORDS SUMMARY | ~2020-06-12 | XMS | Encounter Summary ---
Demographics + + + | Address | [address] | | | [address] [facility] | | | [place] [address] | + + + | Home Phone | | + + + | Preferred Language | Unknown | + + + | Marital Status | Legally | + + + | Taoism Affiliation | 1013 | + + + | Race | White | + + + | Ethnic Group | Not or | + + + Author + + + | Author | [facility] | | | and [place] | + + + | Organization | [facility] | | | and [...] Team Providers + +------+ + | Care Adoption Worker Name | Role | Phone | + +------+ + | No, Physician | PCP | Unavailable | + +------+ + Reason for Referral Evaluate & Treat (Routine) + + + + + + + | Status | Reason | Specialty | Diagnoses / | Referred By | Referred To | | | | | Procedures | Contact | Contact | + + + + + + + | Canceled | Specialty | Wound Care | Diagnoses | [place], | [facility] | | | Services | | Status post | Magdy Matt, | Wound Care | | | Required | | incision | SENIOR JAVA PROGRAMMER [address] | [address] | | | | | and drainage | [address] | [place], | | | | | | [place] [address] | [place] [address] | | | | | | [place], [place] | Phone: | | | | | | [address] | [phone] | | | | | | Phone: | Fax: | | | | | | [phone] | [phone] | | | | | | Fax: | | | | | | | [phone] | | + + + + + + + Encounter Details +--------+ + + + + | Date | Type | Department | Care Team | Description | +--------+ + + + + | 04/18/ | Clinical | [facility] | Magdy Conrad, | Status post incision | | 2020 | Support | GENERAL SURGERY 780 | SENIOR JAVA PROGRAMMER [address] | and drainage | | | | [address] | [address] [facility] [place], | (Primary Dx) | | | | [place], [place] | [place] [address] | | | | | [address] | [phone] | | | | | [phone] | | | +--------+ + + + [...] + + + | Blood Pressure | 122/84 | 04/18/2020 10:32 AM | | | | | PDT | | + + + + + | Pulse | 96 | 04/18/2020 10:32 AM | | | | | PDT | | + + + + + | Temperature | 36.9 C (98.4 F) | 04/18/2020 10:32 AM | | | | | PDT | | + + + + + | Respiratory Rate | - | - | | + + + + + | Oxygen Saturation | 100% | 04/18/2020 10:32 AM | | | | | PDT | | + + + + + | Inhaled Oxygen | - | - | | | Concentration | | | | + + + + + | Weight | - | - | | + + + + + | Height | - | - | | + + + + + | Body Mass Index | - | - | | + [...] documented as of this encounter Progress Notes Magdy Conrad ARNP - 04/18/2020 10:30 AM [id number] with history of heroin abuse seen in the hospital last week with an abscess to the right deltoid region, she underwent surgic al incision and drainage of right deltoid abscess, she is seen today for follow-up and to cr [facility] treatment plan for wound care. Patient appears to be doing well, she is afebrile and h as a nontoxic appearance. Gauze packing from wound was removed small no purulence was seen, wound was thoroughly washed out and repacked with saline moist gauze. Significant other in the room was instructed on how to perform wet-to-dry dressing changes. Patient referred to [facility] for evaluation and treatment. We will send a prescri ption for PRN Toradol to be taken prior to dressing changes. We will follow-up with this rachelle soto approximately 2 weeks for wound evaluation. RITIKA Stack [facility] Portions of this chart may have been created with voice recognition software. Occasional wr jose elias-word or "sound-alike" substitutions may have occurred, even after review, due to the inh erent limitations of voice recognition software. Please read the chart carefully and recogni ze, using context, where these substitutions have occurred. Personal communication is reques martha for any clarifications. documented in this e ncounter Plan of Treatment + + +--------+ + + | Name | Type | Priori | Associated Diagnoses | Order Schedule | | | | ty | | | + + +--------+ + + | Ambulatory Referral | Outpatient | Routin | Status post | Ordered: 04/18/2020 | | to [facility] Wound | Referral | e | incision and | | | Clinic | | | drainage | | + + +--------+ + + documented as of this encounter Visit Diagnoses + + | Diagnosis | + + | Status post incision and drainage - Primary | + + documented in this encounter Additional Health Concerns [...]
--- OUTSIDE RECORDS SUMMARY | ~2020-06-12 | XMS | Encounter Summary ---
Demographics + + + | Address | [address] | | | [address] [facility] | | | [place] [address] | + + + | Home Phone | | + + + | Preferred Language | Unknown | + + + | Marital Status | Legally | + + + | Methodist Affiliation | 1013 | + + + | Race | White | + + + | Ethnic Group | Not or | + + + Author + + + | Author | [facility] | | | and [place]ana | + + + | Organization | [facility] | | | [...] Providers + +------+ + | Care Executive Wellness Programs Director Name | Role | Phone | + +------+ + PCP | Unavailable | + +------+ + Encounter Details +--------+ + + + + | Date | Type | Department | Care Team | Description | +--------+ + + + + | 08/02/ | Emergency | [facility] | Alonso Ramos | Unspecified Backache | | 2008 | | MEDICAL CENTER | MD Adalid [address] | | | | | EMERGENCY CENTER | [place], [place] | | | | | [address] | [address] | | | | | [place], [place] | [phone] | | | | | [address] | | | | | | [phone] | | | +--------+ + + + [...]
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
--- OUTSIDE RECORDS SUMMARY | ~2020-06-12 | XMS | Encounter Summary ---
Demographics + + + | Address | [address] | | | [address] [facility] | | | [place] [address] | + + + | Home Phone [...] | Author | [facility] | | | and Carlosana | + + + | Organization | [facility] | | | and [...] Team Providers + +------+ + | Care Subcontract Manager Name | Role | Phone | + +------+ + PCP | Unavailable | + +------+ + Encounter Details +--------+ + + + + | Date | Type | Department | Care Team | Description | +--------+ + + + + | 08/03/ | Emergency | [facility] | Conversion | Unspecified Backache | | 2008 | | MEDICAL CENTER | Transaction, | | | | | EMERGENCY CENTER | Provider Unknown | | | | | [address] | | | | | | [place], [place] | (Fax) | | | | | [address] | | | | | | [phone] | | | +--------+ + + + [...]
--- OUTSIDE RECORDS SUMMARY | ~2020-06-12 | XMS | Encounter Summary ---
Demographics + + + | Address | [address] | | | [address] | | | [place] [address] | + + + | Home Phone | | + + + | Preferred Language | Unknown | + + + | Marital Status | Legally | + + + | Latter-Day Affiliation | 1013 | + + + | Race | White | + + + | Ethnic Group | Not or | + + + Author + + + | Author | [facility] | | | and [place] | + + + | Organization | [facility] | | | [...] Team Providers + +------+ + | Care Test Inspection Engineer Name | Role | Phone | + +------+ + PCP | Unavailable | + +------+ + Encounter Details +--------+ + + + + | Date | Type | Department | Care Team | Description | +--------+ + + + + | 03/ | Hospital | [facility] [place] [place] [facility] | Conversion | ACUTE PHARYNGITIS | | 2001 | Encounter | CONVERSION DEP [address] | Transaction, | | | | | PEARL HERNANDEZ | Provider Unknown | | | | | [place], [place] | [phone] | | | | | [phone] | (Fax) | | | | | [phone] | | | +--------+ + + + [...] | Diagnosis | + + | Acute pharyngitis | + + documented in this encounter"
--- OUTSIDE RECORDS SUMMARY | ~2020-06-12 | XMS | Encounter Summary ---
Demographics + + + | Address | [address] | | | [address] | | | [place] [address] | + + + | Home Phone | | + + + | Preferred Language | Unknown | + + + | Marital Status | Legally | + + + | Mandaeism Affiliation | 1013 | + + + | Race | White | + + + | Ethnic Group | Not or | + + + Author + + + | Author | [facility] | | | and [place] | + + + | Organization | [facility] | | | and [place] | + + + | Address | Unknown | + + + | Phone | Unavailable | + + + Support + + +---------+ + | Name | Relationship | Address | Phone | + + +---------+ + | Magalis Love | ECON | Unknown | | + + +---------+ + | Vaughnarron Valdivia | ECON | Unknown | | + + +---------+ + Care Team Providers + +------+ + | Care Advertising Sales Associate Name | Role | Phone | + +------+ + PCP | Unavailable | + +------+ + Encounter Details +--------+ + + + + | Date | Type | Department | Care Team | Description | +--------+ + + + + | 01/13/ | Hospital | [facility] | Yoel Navarro, | | | 2008 - | Encounter | CONVERSION [address] | MD | | | | | [address] | | | | 02/09/ | | [place] | | | | 2008 | | [address] | | | | | | [phone] | | | +--------+ + + + [...]
--- OUTSIDE RECORDS SUMMARY | ~2020-06-12 | XMS | Encounter Summary ---
Demographics + + + | Address | [address] | | | [address] | | | [place] [address] | + + + | Home Phone | | + + + | Preferred Language | Unknown | + + + | Marital Status | Legally | + + + | Lutheran Affiliation | 1013 | + + + | Race | White | + + + | Ethnic Group | Not or | + + + Author + + + | Author | [facility] | | | and [place] | + + + | Organization | [facility] | | | [...] Team Providers + +------+ + | Care Tread Builder Name | Role | Phone | + +------+ + PCP | Unavailable | + +------+ + Encounter Details +--------+ + + + + | Date | Type | Department | Care Team | Description | +--------+ + + + + | 06/19/ | Emergency | [facility] | Britney, Zafar Matt DO | Abscess of chocorua, | | 2016 | | MEDICAL CENTER | [address] | left | | | | [facility] | [place], [place] | | | | | [address] | [address] | | | | | [place] | [phone] | | | | | [address] | | | | | | [phone] | | | +--------+ + + + [...] + + + | Blood Pressure | 132/83 | 02/29/2016 10:27 PM | | | | | PDT | | + + + + + | Pulse | 84 | 02/29/2016 10:27 PM | | | | | PDT | | + + + + + | Temperature | 37.1 C (98.7 F) | 02/29/2016 10:27 PM | | | | | PDT | | + + + + + | Respiratory Rate | 18 | 02/29/2016 10:27 PM | | | | | PDT | | + + + + + | Oxygen Saturation | - | - | | + + + + + | Inhaled Oxygen | - | - | | | Concentration | | | | + + + + + | Weight | 93 kg (205 lb) | 02/29/2016 10:27 PM | | | | | PDT | | + + + + + | Height | 175.3 cm (5' 9") | 02/29/2016 10:27 PM | | | | | PDT | | + + + + + | Body Mass Index | 30.27 | 02/29/2016 10:27 PM | | | [...] EPINEPHrine | TOÑO | | 0 | / | | | (EPIPEN IJ) | | [...] documented as of this encounter ED Notes Later, Zafar Matt DO - 02/29/2016 9:37 PM PDT ED Provider Notes by Zafar Tan DO at 02/29/162136 Author: Zafar Tan DO Service: -Emergency Author Type: Physician Filed: 03/01/162122 Date of Service: 02/29/162136 Status: Signed Gis Developer: Zafar Tan DO (Physician) [facility] Department of Emergency Medicine 9:37 PM History of Present Illness Patient Identification Minoo Watson is a 36 y.o. female. Patient information was obtained from patient. History/Exam limitations: none. Patient presented to the Emergency Department by: Car Chief Complaint Chief Complaint Patient presents with Abscess R hand The patient presents to ED with complaints of skin abscess. Onset of symptoms was this morn ing, with a worsening course since that time. The symptoms are described to be of mild sever ity. The patient states that she believes that she was bitten by something earlier today and is complaining of a bump on her hand that is growing. The patient describes the quality and location of the symptoms as the following: a bump on the index finger of her L hand that ke eps growing and growing. The patient also complains of redness of the skin at the area of co mplaint. Patient denies any other problems at this time. There was no vocalized care [facility] [employer]. PCP: MOISE COOPER Past Medical History Diagnosis Date Back pain 12/18/2009 Bipolar disorder (HCC) 09/2008 Asthma Past Surgical History Procedure Laterality Date Esophagogastroduodenoscopy 2009 Prior to Admission medications Medication Sig Start Date End Date Taking? Authorizing Provider EPINEPHrine (EPIPEN) 0.3 MG/0.3ML injection Inject 0.3 mLs into the muscle as needed. RITIKA Holt naproxen sodium (ANAPROX) 220 MG tablet Take 220 mg by mouth 2 (two) times daily with meals . Historical Provider Allergies Allergen Reactions Bee Venom [...] Heart attack Maternal Grandfather Review of Systems Constitutional: Negative for fever, chills Eyes: Negative for vision changes Nose: Negative for congestion, nosebleeds Throat: Negative for sore throat CV/Resp: Negative for chest pain, pobvoltae-cn-pygrxu, cough GI: Negative for abdominal pain, nausea, vomiting, or diarrhea : Negative for urinary problems Musculoskeletal: Negative for back pain, joint pain Skin: Positive for abscess and redness around the abscess on the patient's R hand Negative for rash Neuro/Psych: Negative for headache Endo/heme/Lymph: Negative for swollen lymph nodes, easy bruising All other systems reviewed and negative except as noted. Physical Exam BP 135/81 mmHg | Pulse 75 | Temp(Src) 98.7 F (37.1 C) (Oral) | Resp 20 | Ht 1.753 m (5' 9") | Wt 92.987 kg (205 lb) | BMI 30.26 kg/m2 | SpO2 99% | LMP 02/15/2016 (Approximate) Vital signs interpretation: Normal Pulse Oximetry interpretation: Normal LIMITED TO AREA OF COMPLAINT General: Alert, in no apparent distress Eyes: Normal inspection, pupils equal and round, non-icteric ENT: Ears normal Nose normal Pharynx normal Neck: Normal inspection Supple Genitourinary: Deferred Rectal exam: Deferred Back: Normal inspection Skin: Color normal Warm and dry No rash Small abscess on L index finger with surrounding erythema. Neuro: Alert, no AMS No gross motor/sensory deficits Medical Decision Making and Emergency Department Course ED Department Course Patient presents to ED with complaints of an abscess on her R hand. On exam the patient has a small abscess on L index finger with surrounding erythema. My DDx includes, but is not l imited to: infected hair follicle, infected abscess, vs other. Will order a wound culture of the puss obtained from the wound, and reevaluate the patient. 9:43 PM Patient revisited, at this time I drained the patient's abscess. I used a local inf iltration of lidocaine with 1% epinephrine for anesthetic in the amount of 2 cc's. I drained a scant amount of bloody pus from the abscess. I then cleaned the area and applied bandage. At this time I asked the patient if she remembered when her last tetanus shot was and she k nows that it was more than 5 years ago. I discussed all ED results and my clinical impression with the patient. Patient is ready fo r discharge after a tetanus shot is given. I advised patient to follow up with a PCP and we discussed the emergent signs and symptoms that would necessitate a return to ED. All questio ns and concerns addressed. Will discharge home with Rx for keflex and bactrim DS. Records Reviewed Old medical records. Nursing notes. Previous [facility] ED visits for unrelated complaints. Laboratory Evaluation Results Procedure Component Value Ref Range Date/Time Wound culture [[id number]] Collected: 02/29/16 2150 Order Status: Completed Specimen Information: Wound from OTHR-w source desc (F6) Updat ed: 03/01/16 1549 Specimen Description OTHER CULTURE NO GROWTH AT THIS TIME Result: Testing performed at [facility], [address] [place] [address] I personally reviewed the lab results and they have been posted to the chart. Pertinent po sitive and negative findings have been addressed appropriately. Radiology and EKG Evaluation Imaging Results None ED Diagnosis Final diagnosis Abscess of finger, left Disposition: ED Disposition Orders Discharge Condition at discharge: Stable Follow-up Information Follow up With Details Comments Contact Info Moise Cooper MD In 1 week for follow up. [address], [place] [address] [facility] [address] [facility] Emergency Department in [place] If symptoms worsen. [address] [facility] [address] Discharge Medications: Discharge Medication List as of 02/29/2016 9:52 PM START taking these medications Details cephALEXin (KEFLEX) 500 MG capsule Take 1 capsule by mouth 4 (four) times daily., Starting 02/29/2016, Until Tue03/10/16, Print sulfamethoxazole-trimethoprim (BACTRIM DS) 800-160 MG per tablet Take 1 tablet by mouth 2 ( two) times daily., Starting 02/29/2016, Until Tue03/07/16, Print Procedures Additional Documentation Procedures Attending Note: Documentation assistance provided by Shruthi Sherman (Scribe). Information recorded by the scribe has been reviewed and validated by me. I ag ree with its contents. DO Zafar June DO 03/01/162122 documented in this en counter Plan of Treatment Not on filedocumented as of this encounter Procedures + +--------+ + + + | Procedure Name | Priori | Date/Time | Associated Diagnosis | Comments | | | ty | | | | + +--------+ + + + | CULTURE, WOUND, | Timed | 02/29/2016 | | Results for this | | SMEAR, W/ANAEROBE | | 9:50 PM | | procedure are in the | | | | PDT | | results section. | + +--------+ + + + documented in this encounter Results Culture, Wound, Smear, w/Anaerobe (02/29/2016 9:50 PM PDT) + + | Specimen | + + | | + + + + + | Narrative | Performed At | + + + | Specimen Description OTHER CULTURE | EXTERNAL LAB | | NO GROWTH 2 DAYS | | | Testing performed at [facility], [address] | | [place] [address] | | + + + + +---------+ + + | Performing | Address | City/State/Zipcode | Phone Number | | Organization | | | | + +---------+ + + | EXTERNAL LAB | | | | + +---------+ + + documented in this encounter Visit Diagnoses + + | Diagnosis | + + | Abscess of finger, left Cellulitis and abscess of finger, unspecified | + + documented in this encounter
--- OUTSIDE RECORDS SUMMARY | ~2020-06-12 | XMS | Encounter Summary ---
Demographics + + + | Address | [address] | | | [address] | | | [place] [address] | + + + | Home Phone [...] Author + + + | Author | [facility] | | | and [place] | + + + | Organization | [facility] | | | [...] Team Providers + +------+ + | Care Last Repairer Helper Name | Role | Phone | + +------+ + PCP | Unavailable | + +------+ + Encounter Details +--------+ + + + + | Date | Type | Department | Care Team | Description | +--------+ + + + + | 10/10/ | Abstract | [place] [facility] | DATA MIGRATION RICK | | | 2012 | | Conversion Location | SR | | | | | [address] [facility] [address] | | | | | | [place], [place] | | | | | | [address] | | | | | | [phone] | | | +--------+ + + + [...] + + + | Blood Pressure | 110/68 | 02/01/2012 12:00 AM | | | | | PDT | | + + + + + | Pulse | - | - | | + + + + + | Temperature | - | - | | + + + + + | Respiratory Rate | - | - | | + + + + + | Oxygen Saturation | - | - | | + + + + + | Inhaled Oxygen | - | - | | | Concentration | | | | + + + + + | Weight | 78.9 kg (174 lb) | 02/01/2012 12:00 AM | | | | | PDT | | + + + + + | Height | 175.3 cm (5' 9") | 02/01/2012 12:00 AM | | | | | PDT | | + + + + + | Body Mass Index | 25.7 | 02/01/2012 12:00 AM | | | | | PDT | | + + + + + documented in this encounter Plan of Treatment Not on filedocumented as of this encounter Visit Diagnoses Not on filedocumented in this encounter
--- OUTSIDE RECORDS SUMMARY | ~2020-06-12 | XMS | Encounter Summary ---
Demographics + + + | Address | [address] | | | [address] [facility] | | | [place] [address] | + + + | Home Phone [...] Author + + + | Author | [facility] | | | and [place] | + + + | Organization | [facility] | | [...] Team Providers + +------+ + | Care Locker Plant Attendant Name | Role | Phone | + +------+ + PCP | Unavailable | + +------+ + Encounter Details +--------+ + + + + | Date | Type | Department | Care Team | Description | +--------+ + + + + | 05// | Emergency | [facility] | Alonso Ramos | Poisoning by | | 2007 | | MEDICAL CENTER | MD [address] | Unspecified Drug or | | | | EM[facility]Y CENTER | [place], [place] | Medicinal Substance | | | | [address] | [address] | | | | | [place], [place] | [phone] | | | | | [address] | | | | | | [phone] | | | +--------+ + + + [...] + | Diagnosis | + + | Poisoning by unspecified drug or medicinal substance(977.9) Poisoning by unspecified | | drug or medicinal substance | + + documented in this encounter"
--- OUTSIDE RECORDS SUMMARY | ~2020-06-12 | XMS | Encounter Summary ---
Demographics + + + | Address | [address] | | | [address] [facility] [address] | | | [place] [address] | + + + | Home Phone | | + + + | Preferred Language | Unknown | + + + | Marital Status | Legally | + + + | Mosque Affiliation | 1013 | + + + | Race | White | + + + | Ethnic Group | Not or | + + + Author + + + | Author | [facility] | | | and [place] | + + + | Organization | [facility] | | [...] Team Providers + +------+ + | Care Target Developer Name | Role | Phone | + +------+ + PCP | Unavailable | + +------+ + Encounter Details +--------+ + + + + | Date | Type | Department | Care Team | Description | +--------+ + + + + | 02// | Emergency | [facility] | Yoel Mary | Nausea with Vomiting | | 2006 | | [facility]ICAL [facility]ENTER | MD [address] | | | | | EMERGENCY CENTER | [place] | | | | | [address] | [place] [address] | | | | | [place], [place] | [phone] | | | | | [address] | | | | | | [phone] | | | +--------+ + + + [...] + | Diagnosis | + + | Nausea with vomiting | + + documented in this encounter"
--- OUTSIDE RECORDS SUMMARY | ~2020-06-12 | XMS | Encounter Summary ---
Demographics + + + | Address | [address] | | | [address] [facility] | | | [place] [address] | + + + | Home Phone [...] Author + + + | Author | [facility] | | | and [place]ana | + + + | Organization | [facility] | | | [...] Team Providers + +------+ + | Care Supervisory Geographer Name | Role | Phone | + [...] +--------+--------+ + + + + Encounter Details +--------+ + + + + | Date | Type | Department | Care Team | Description | +--------+ + + + + | 04/15/ | Hospital | [facility] | Jamaal Sims, | Abscess of deltoid | | 2019 - | Encounter | [facility] | [address] | region (Primary Dx); | | | | CARE FLOOR [address] | [place] [address] | IVDU (intravenous | | 04/16/ | | [address] | [phone] | drug user); Current | | 2019 | | [place], [place] | | smoker; Heroin abuse | | | | [phone] | Boyd Connelly MD | ([facility]); Mild | | | | [phone] | [address] | intermittent asthma | | | | | [place] [address] | without complication | | | | | [phone] | | | | | | | | | | | | Aleks Colindres MD | | | | | | [address] | | | | | | [place] [address] | | | | | | [phone] | | | | | | | [...] + + + | Blood Pressure | 116/60 | 04/16/2020 4:20 AM | | | | | PDT | | + + + + + | Pulse | 82 | 04/16/2020 4:20 AM | | | | | PDT | | + + + + + | Temperature | 36.9 C (98.5 F) | 04/16/2020 4:20 AM | | | | | PDT | | + + + + + | Respiratory Rate | 16 | 04/16/2020 4:20 AM | | | | | PDT | | + + + + + | Oxygen Saturation | 98% | 04/16/2020 4:20 AM | | | | | PDT | | + + + + + | Inhaled Oxygen | - | - | | | Concentration | | | | + + + + + | Weight | 78.1 kg (172 lb 2.9 | 04/16/2020 4:20 AM | | | | oz) | [...] Minoo Watson AGE/SEX: 40 y.o. female ROOM: [facility]4454- PCP: Nery Maynard MD : 1980 Admit [...] She then decided she wished to leave [facility]. I advised her of the need for [...] return to the ED if she becomes oct ril. Discharge Vitals: Vitals: 04/15/20201404/15/20 2110 04/16/20 0054 04/16/20 0420 BP: 113/70 [...] and vitals reviewed. LABS: Recent Labs Lab 04/16/20 0728 04/15/20 031 WBC 11.29* 13.39* HGB 10.6* 12.7 HCT 31.8* 38.2 PLT 325 315 MONOPCT 6.20 8.10 Recent Labs Lab 04/16/20 0728 04/15/20 0311 NA 141 137 K 4.3 3.8 CL 111* 102 CO2 25 29 BUN 8 11 CALCIUM 8.6 9.8 ALKPHOS 80 91 ALT 20 11 AST 10 13 Recent Labs Lab 04/16/20 0728 MG 1.8 Disposition: Patient left AGAINST MEDICAL [...] MOUTH EVERY 6 HOURS aka: ZOFRAN PEG 1386-XGq-BdMdk-NaCl-NaSulf 227.1 g Pack Take 8 oz by [...] Wound Care: as directed Nery Maynard MD [address] [address] [facility] [address] [place] [phone] Schedule an appointment as soon as possible for a visit in 1 week Nery Maynard MD 37[address] [facility] [id number] Signed: Marty Alvarez MD-RY3 04/16/2020 1:40 PM PDT Associated attestation - Aleks Colindres MD - 04/17/2020 2:31 PM PDTPatient seen and exami evette, case discussed medical accounting clerk and I had extensive discussion with the [...] 0.3 mLs into | | 0 | / | | | auto-injector 0.3 | the [...] | 0 | 12/01/19 | | | 7089-XJx-LzDsg-NaCl- | every 20 (twenty) | | | [...] whom came and s poke with pt. and pt agreed pt would stay, and [...] to her in great detail and at [facility] about her need to stay for IV antibiotics and wound care. Pt was educated on risks of leaving early, including developing sepsis and/or dying. Pt acknowledged understanding. Pt r epeated several times that she wasn't withdrawing from heroin, she just wanted to smoke. Doc tors acknowledged her frustration, but deferred to [facility]'s no smoking policy. Pt stated [...] wound care at the place 'across from [facility]'s'. Verified with pt that she meant [facility], pt agreed. Pt left ambulatory in [facility], as she stat ed her own clothes were too tight.Electronically signed by Lisha Valentine RN at 0 3:36 PM PDTElvie Hurd RN - 04/15/2020 6:35 PM PDTPatient transported to room. Connected to vitals equipment. Call light and personal belongings on table positioned close to patient. Call light turned on and LEAD C DEVELOPER arrived to room. RN in new admit room. LEAD C DEVELOPER will no tify RN of arrival. Oral Temp 98.0*F. Patient as comfortable as possible due to the situatio n and has call light next to hand. Dressing clean, dry and intact. Maria T Tran, Recruitment Internship - 0 1:56 PM PDT Vancomycin Dosing [...] Procedure Component Value Units Date/Time MRSA NAAT [[id number]] Collected: 04/15/20 0945 Order Status: Completed Lab Status: Final result Updated: 04/15/20 1229 Specimen: Tissue from Nares SOURCE: NARES(NOSE) Result NEGATIVE Comment: Testing performed at [facility];[address] [place] [address] Coronavirus (COVID-19) NAAT [[id number]] Collected: 04/15/20 0603 Order Status: Completed Lab Status: Final result Updated: 04/15/20 0737 Specimen: Tissue from Nasopharynx SARS-CoV-2, NAAT (COVID-19) NEGATIVE Comment: This test was developed and its performance characteristics determined by [employer]. It has not been cleared or approved by the [place] FDA. This test has been authorized by FDA under an Emergency Use Authorization (EUA). Clinicians should be advised to consider a patients signs, symptoms, history, and results of other diagnostic tests when interpreting results. Testing performed at [facility];[address] [place] [address] Vancomycin Dosing History Date Dosing Regimen Admin [...] as indicated. Thank You, Maria T Blank, Recruitment Internship, 04/15/2020, 1:32 PM PDT avis-Marty Marie MD - 04/15/2020 12:25 PM PDT Service: Hospitalist Progress Note Pt: Minoo Watson AGE/SEX: 40 y.o. female ROOM: [id number] : 1980 PCP: Nery Maynard MD ADMIT DATE: 04/15/2020 TODAY'S DATE: 04/15/2020 Hospital Day/Hospital Course: LOS: 0 days Minoo Watson is a 40 year old [...] Procedure Component Value Units Date/Time Culture, Blood [[id number]] Order Status: Sent Lab Status: No result Specimen: Peripheral Blood Culture, Blood [[id number]] Order Status: Sent Lab Status: No result Specimen: Peripheral Blood MRSA NAAT [[id number]] Collected: 04/15/20 0945 Order Status: Sent Lab Status: In process Updated: 04/15/20 1121 Specimen: Tissue from Nares Coronavirus (COVID-19) NAAT [[id number]] Collected: 04/15/20 0603 Order Status: Completed Lab Status: Final result Updated: 04/15/20 0737 Specimen: Tissue from Nasopharynx SARS-CoV-2, NAAT (COVID-19) NEGATIVE Comment: This test was developed and its performance characteristics determined by [employer]. It has not been cleared or approved by the US FDA. This test has been authorized by FDA under an Emergency Use Authorization (EUA). Clinicians should be advised to consider a patients signs, symptoms, history, and results of other diagnostic tests when interpreting results. Testing performed at [facility];[address] [place] [address];[place] [address] Diagnostic Imaging: Impressions only: Xr Shoulder Right [...] Crocker Zachary Sign Date/Time: 04/15/2020 4:47 AM PROBLEM LIST [...] Dr. Frank. Discussed case w ith ID Radio News Writer, who felt there was no need for [...] use of heroin. Refer patien t to [facility] for outpatient Suboxone therapy. Mild intermittent [...] - 04/15/2020 3:11 PM PDTPatient seen and ermai evette, case discussed medical accounting clerk and I am in agreement with his [...] culturesdocumented in this encoun ter H&P Notes oByd Connelly MD - 04/15/2020 6:19 AM PDTFormatting [...] was on Suboxone 24 mg prescribed by [facility]. Quit in June 2019. Relapsed [...] WITH SALPINGECTOMY; Surgeon: Glenn aleman MD; Location: [facility] OR; Service: LABORATORY DEVELOPMENT TECHNICIAN; Laterality: Bilateral; UPPER GASTROINTESTINAL ENDOSCOPY 2009 Reviewed with the patient, only taking venlafaxine ibuprofen. Prior to Admission medications Medication Sig Start Date End Date Taking? Authorizing Provider Albuterol Sulfate (PROAIR HFA IN) AERS 02/01/12 DATA MIGRATION RICK SR baclofen (LIORESAL) 10 mg tablet Take 1 tablet by mouth 3 (three) times daily. 09/27/17 Ky storical Provider, bismuth subsalicylate (PEPTO BISMOL) 262 [...] EVERY 6 HOURS 03/01/19 Historical Provider, PEG 8230-LAn-SbZzy-NaCl-NaSulf 227.1 g PACK Take 8 oz by [...] 150 mg by mouth Daily. 02/01/12 DATA SD GRATION RICK SR Social History Socioeconomic History [...] file Gets together: Not on file Attends uatsdin service: Not on file Active member of [...] on file Social History Narrative Lives in [place], independent with activities of daily living, no [...] Component Value Units Date/Time Coronavirus (COVID-19) NAAT [[id number]] Collected: 04/15/20 0615 Order Status: Sent Lab [...] measuring 9.6 x 7.7 x 4.3 cm, 6/41 and 8/55. Along medial margin of this collection is a small needle-like metallic foreign body, 8/55. Normal bones. Visible lungs clear. Impression 9.6 [...] nares. Wound cultures will be sent du ring IND. Follow the blood cultures wound cultures [...] WITH SALPINGECTOMY; Surgeon: Glenn aleman MD; Location: [facility]; Service: LABORATORY DEVELOPMENT TECHNICIAN; Laterality: Bilateral; UPPER GASTROINTESTINAL ENDOSCOPY 2009 Family History Problem Relation Age of Onset Stroke Father Stroke Maternal Grandmother Diabetes Maternal Grandmother Diabetes Maternal Grandfather Heart attack Maternal Grandfather Jessica casas Neg Hx Social History Socioeconomic History Marital [...] file Gets together: Not on file Attends uatsdin service: Not on file Active member of [...] on file Social History Narrative Lives in [place], independent with activities of daily living, no falls, full code. Has 2 children. Stepson recently. 14 yrs old Daughter has severe [...] mg, 15 mg/kg, Intravenous, Q8H, [facility] Resident, Last Rate: 166.7 mL/hr at 04/15/20 [...] measuring 9.6 x 7.7 x 4.3 cm, 6/41 and 8/55. Along medial margin of this collection is a small needle-like metallic foreign body, 8/55. Normal bones. Visible lungs clear. Impression 9.6 [...] and vitals reviewed. Signed: Minoo Frank MD Alisha Chilel FIREWORKS ASSEMBLER - 04/15/2020 10:15 AM PDTAssociated Order(s): IP [...] through the use of telemedicine. Telemedicine enables [facility] providers at different locations to provide [...] that she briefly [facility]. Past psychiatric hospitalizations: The patient reports no [...] reports that she was working prior to [facility], and has been job seeking. The [...] and earned an Associate's degree with an [facility] focus. 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 (Patient not taking: Rosa rted on 04/15/2020.) Loratadine-Pseudoephedrine (CLARITIN-D 24 HOUR [...] BY MOUTH EVERY 6 HOURS 0 PEG 9239-UHu-KdWtu-NaCl-NaSulf 227.1 g PACK Take 8 oz by [...] MPV 9.6 04/15/2020 DIFFTYPE AUTOMATED 04/15/2020 Imaging: @[id number]@ Mental Status Exam: Appearance:age appropriate Behavior:normal Speech: appropriate quality, quantity and organization of sentences Mood:depressed Affect tearful Thought process Normal Thought content: Auditory Hallucinations: no Visual Hallucinations: no Paranoid Ideation no Suicidal Ideation: no Homicidal Ideation: no Delusions: no Cognition:Oriented to time, place and person Insight: Good Judgment fair Risk Assessment Risk Assessment and Safety Planning needed? Yes Tele-Psychiatry Social Work Risk Assessment [place] Suicide Severity Rating Scale (C-SSRS): Is the [...] or equivocal response to treatment and recovery eliud blank Engagement and Recovery Status:Unengaged and stuck DSM [...] not hesitate to call us through the [facility] if you have questions. Time / Billing A total of 20 minutes were spent face to face with the patient via interactive telehealth c ommunication. Greater than 50% of the patient face to face time were spent in counseling &/o r coordination of care regarding depression. Minoo L Gorge Electronically Signed by: FLAKO Aguilar, [facility] 04/15/2020 10:43 AM PDT CONFIDENTIAL: DO NOT COPY WITHOUT WRITTEN PERMISSION TO RELEASE MENTAL HEALTH RECORDS documented in this encounter ED Notes Oma Lino RN - 04/15/2020 6:31 AM PDTPt "boyfriend" comes to nurses station stat ing he has her phone which he would like to pass on to the patient. This RN stated that due to strict hospital policy on pt visitors visitor is not allowed back. Pt "boyfriend" then st ates "well she is going [...] This RN then proceeded to call security. Jamaal Pascal MD - 04/15/2020 2:58 AM PDT Ocean [...] he medication again.The patient had no care REGIONAL PLANNER. PCP: Nery Maynard MD Past Medical History: [...] ROBOTIC ASSISTED LAPAROSCOPIC HYSTERECTOMY WITH SALPINGECTOMY; Surgeon: Glnen aleman MD; Location: [facility] OR; Service: LABORATORY DEVELOPMENT TECHNICIAN; Laterality: Bilateral; UPPER GASTROINTESTINAL ENDOSCOPY 2009 Prior to Admission medications Medication Sig Start Date End Date Taking? Authorizing Provider Albuterol Sulfate (PROAIR HFA IN) AERS 02/01/12 DATA MIGRATION RICK SR baclofen (LIORESAL) 10 mg tablet Take 1 tablet by mouth 3 (three) times daily. 09/27/17 Ky storical Provider, bismuth subsalicylate (PEPTO BISMOL) 262 [...] EVERY 6 HOURS 03/01/19 Historical Provider, PEG 5937-KTc-SlAgn-NaCl-NaSulf 227.1 g PACK Take 8 oz by mouth every 20 (twenty) minutes. Gutierrez ballk 8oz every 20 minutes until bowel movements [...] 150 mg by mouth Daily. 02/01/12 DATA SD GRATION RICK SR Allergies Allergen Reactions Bee [...] file Gets together: Not on file Attends uatsdin service: Not on file Active member of [...] on file Social History Narrative Lives in [place], independent with activities of daily living, no [...] needle in the right shoulder with mildred nt. The patient says this needle fragment is [...] 2 spray (2 sprays Each Nare Given 04/15/202099) ibuprofen (ADVIL, MOTRIN) tablet 400 mg ( Oral MAR Unhold 04/15/201836) pantoprazole (PROTONIX) DR tablet 40 mg ( Oral MAR Unhold 04/15/201836) traZODone (DESYREL) tablet 50 mg ( Oral MAR Unhold 04/15/201836) enoxaparin (LOVENOX) 40 mg/0.4 mL injection 40 mg ( Subcutaneous MAR Unhold 04/15/201836) sodium chloride 0.9% (NS) infusion (100 mLs Intravenous New Bag 04/15/20 7774) acetaminophen (TYLENOL) tablet 650 mg ( Oral [...] injection 1 mg (1 mg Intravenous Given 04/15/20 0556) vancomycin in saline IVPB 1.75 g (1.75 g Intravenous New Bag 04/15/20 0556) ondansetron (ZOFRAN) 2 mg/mL injection ( Given 04/15/20 0556) povidone-iodine (BETADINE) 10% external solution (has no [...] Value Ref Range Date/Time Coronavirus (COVID-19) NAAT [[id number]] Collected: 04/15/20602 Order Status: Completed Specimen: Tissue from Nasopharynx Updated: 04/15/20736 SARS-CoV-2, NAAT (COVID-19) NEGATIVE NEG C-Reactive Protein [[id number]] (Abnormal) Collected: 04/15/20310 Order Status: Completed Specimen: Blood Updated: 04/15/20336 CRP 15.5 <0.5 mg/dL Comprehensive Metabolic Panel [[id number]] (Abnormal) Collected: 04/15/20310 Order Status: Completed Specimen: [...] GFR >60 >60 mL/min/1.73m2 HCG, Serum, Quant [[id number]] Collected: 04/15/20310 Order Status: Completed Specimen: Blood Updated: 04/15/20335 hCG Quant, Serum <4 <4 mIU/mL Lactic Acid [[id number]] Collected: 04/15/20310 Order Status: Completed Specimen: Blood Updated: 04/15/20335 Lactate, Serum 1.8 0.4 - 2.0 mmol/L CBC with Differential [[id number]] (Abnormal) Collected: 04/15/20310 Order Status: Completed Specimen: [...] Crocker, Tom Sign Date/Time: 04/15/2020 4:47 AM Narrative: CT [...] foreign body. Final Report Signed by: Kobi Crocker, Tom Sign Date/Time: 04/15/2020 3:37 AM Narrative: RIGHT [...] Admit Clinical impression: Abscess of deltoid region [[id number]] Clinical impression: IVDU (intravenous drug user) [[id number]] Admitting provider: CORIE HOSPITALIST [[id number]] Expected patient class: Observation [104] Level of service: Medical Procedures: Procedures Attending Provider Note: IJamaal MD personally performed the services described in this documentation, as scribed by Zoraida Mascorro and Gerri Jaimes in my presence, and it is both accurate and complete. Chart Reviewed and Completed. Scribe: Barron Benitez, scribing for and in the presence of Jamaal Sims MD . Completed by: Barron Lua 04/16/2020 3:14 AM PDT Scribe: I, barron Hong, scribing for and in the presence of Caro Mullins. Completed by: barron Hong 04/16/20 3:14 AM PDT. Jamaal Sims MD 04/16/20 0315 documented in this e ncounter Miscellaneous Notes Plan of Ana Lilia Chowdhury RN - 04/16/2020 8:09 AM PDTCare Management [...] RN 04/16/2020 7:59 AM PDT lan of Nicolás - Zulema Khan RN - 04/16/2020 2:44 AM PDT VSS [...] uneventful. End of shift audit complete. Zulema Khan RN Problem: Pain Acute Goal: Optimal Pain [...] of purulence was evacuated. The pulse lavage shipfitter helper was used to wash the cavity. A [...] Electronically signed by: Minoo Frank MD, 04/15/20 [facility] lan of Care - A vis, Ely Tran RN - 04/15/2020 12:15 PM PDTCare plan [...] | | n - | | | 08/04/ | | | 2020 | | | 2:48 | | | [...] | | | ON?08/ | | | 04/202 | | | 0 | | | 02:46? | | | GORGE | | | , | | | JENNIF | | | ER | | | L?MRN: | | | | | | [id number] | | | [id number] | | | riteri | | | [...] MED | | | | | | 2019 | | | 1-22 | | | [...] | | [facility] | [facility] | [place] | | | [place] | | | [...] | | [facility] | [place] | | | [place] | | | [...] | | [facility] | | | [place] | | | [place] | | | [...] MD | | | | | | Staffing Associate | | | al | | | [...] | | | ed.? | | | 2020 | | | Collec | | | [...] Testing | 1.7 - 2.4 mg/dL | [place] | | | | performed at [facility];[address] | | LABORATORY | | | | [address];[place], [place] | | | | | | [address] | | | | + + + + + + + + | Specimen | + + | Blood | + + + + + + + | Performing | Address | City/State/Zipcode | Phone Number | | Organization | | | | + + + + + | [facility] | [address] | [place] [address] | [phone] | + + + + + Comprehensive [...] | | | | | performed at [facility], [address] | | | | | | [facility], | | | | | | [place] [address] | | | | + + + + + + + + | Specimen | + + | Blood | + + + + + + + | Performing | Address | City/State/Zipcode | Phone Number | | Organization | | | | + + + + + | [facility] | [address] | [place] [address] | [phone] | + + + + + CBC [...] | | | Absolute | performed at [facility], [address] | K/uL | LABORATORY | | | | [address], | | | | | | [place] [address] | | | | + + + + + + + + | Specimen | + + | Blood | + + + + + + + | Performing | Address | City/State/Zipcode | Phone Number | | Organization | | | | + + + + + | [facility] | [address] | [place] [address] | [phone] | + + + + + Culture, [...] | [facility] | | | Requests | [address] | LABORATORY | | | | [address];[place] [address] | | | | + + + + + + | RESULT | NO GROWTH 6 DAYS | | [facility] | | | | | | LABORATORY | | + + + + + + | RESULT | Testing performed at | | [facility] | | | | [facility]CL, [address] [facility] | | LABORATORY | | | | [place] | | | | | | [address]Dmsgnhx: Testing | | | | | | performed at [facility], [address] | | | | | | [address] [place] | | | | | | [address] | | | | + + + + + + + + | Specimen | + + | Blood - Peripheral | | blood specimen | | (specimen) | + + + + + + + | Performing | Address | City/State/Zipcode | Phone Number | | Organization | | | | + + + + + | [facility] | [address] | [place] [address] | [phone] | + + + + + Culture, [...] | [facility] | | | Requests | [facility];[address] [facility] | | LABORATORY | | | | [place] [address] | | | | + + + + + + | RESULT | NO GROWTH 6 DAYS | | [facility] | | | | | | LABORATORY | | + + + + + + | RESULT | Testing performed at | | [facility] | | | | TCL, [address] [facility] | | LABORATORY | | | | [place], [place], [place] | | | | | | [address]Ndztehk: Testing | | | | | | performed at [facility], [address] | | | [address] [place], [place], [place] | | | | | | [address] | | | | + + + + + + + + | Specimen | + + | Blood - Peripheral | | blood specimen | | (specimen) | + + + + + + + | Performing | Address | City/State/Zipcode | Phone Number | | Organization | | | | + + + + + | [facility] | [address] | [place] [address] | [phone] | + + + + + Urinalysis [...] - 1.030 | [facility] | | | [place], | | | LABORATORY | | | [...] | Mucus, | 1+Comment: Testing | | [facility] | | | Urine | performed at [facility], [address] | | LABORATORY | | | | [address], | | | | | | [place] [address] | | | | + + + [...] | + + + + + | [facility] | [address] | [place] [address] | [phone] | + + + + + Culture, Wound, Smear, w/Anaerobe (04/15/2020 5:23 PM PDT) + + + + + + | Component | Value | Ref Range | Performed | Pathologist | | | | | At | Signature | + + + + + + | Special | SAMPLE 2 R SHOULDER | | [facility] | | | Requests | | | LABORATORY | | + + + + + + | Special | Testing performed at | | [facility] | | | Requests | [facility];[address] | | LABORATORY | | | | [address];[place] [address] | | | | + + + [...] | [facility] | | | Result | [facility], [address] | | LABORATORY | | | | [place] | | | | | | [address] | | | | + + + [...] Comment: Testing | | | performed at [facility], | | | [address], | | | [place] [address] | +---+ + + + + + + | Performing | Address | City/State/Zipcode | Phone Number | | Organization | | | | + + + + + | [facility] | [address] | [place] [address] | [phone] | + + + + + Culture, Wound, Smear, w/Anaerobe (04/15/2020 5:22 PM PDT) + + + + + + | Component | Value | Ref Range | Performed | Pathologist | | | | | At | Signature | + + + + + + | Special | SAMPLE 1 R SHOULDER | | [facility] | | | Requests | | | LABORATORY | | + + + + + + | Special | Testing performed at | | [facility] | | | Requests | [facility];[address] | | LABORATORY | | | | [address];[place] [address] | | | | + + + [...] | [facility] | | | Result | [facility], [address] [facility] | | LABORATORY | | | | [place], [place] | | | | | | [address] | | | | + + + [...] Comment: Testing | | | performed at [facility], | | | [address], | | | [place] [address] | +---+ + + + + + + | Performing | Address | City/State/Zipcode | Phone Number | | Organization | | | | + + + + + | [facility] | [address] | [place] [address] | [phone] | + + + + + MRSA [...] [facility] | | | | performed at [facility];[address] | | LABORATORY | | | | [address];[place] | | | | | | [address] | | | | + + + + + + + + | Specimen | + + | Tissue - Both | | anterior nares (body | | structure) | + + + + + + + | Performing | Address | City/State/Zipcode | Phone Number | | Organization | | | | + + + + + | [facility] | [address] | [place] [address] | [phone] | + + + + + HIV 1 and 2 AbKentrell (04/15/2020 9:02 AM PDT) + + + + + + | Component | Value | Ref Range | Performed | Pathologist | | | | | At | Signature | + + + + + + | HIV 1 and 2 | Non ReactiveComment: | Non Reactive | [facility] | | | Ab | Testing performed at Lab | | LABORATORY | | | | [place], [address], [place] | | | | | | [address], [facility] [address] | | | | + + + + + + + + | Specimen | + + | Blood | + + + + + + + | Performing | Address | City/State/Zipcode | Phone Number | | Organization | | | | + + + + + | [facility] | [address] | [place] [address] | [phone] | + + + + + Hepatitis C Ab (04/15/2020 9:02 AM PDT) + + + + + + | Component | Value | Ref Range | Performed | Pathologist | | | | | At | Signature | + + + + + + | HCV Ab | SPHEMOComment: Specimen | s/co ratio | [facility] | | | | was too hemolyzed for | | LABORATORY | | | | analysis.Notfied Cherry | | | | | | Brittany. [...] Amplificationtest | | | | | | ([id number]).Testing | | | | | | performed at [facility], | | | | | | [address], [address], | | | | | | [facility] [address] | | | | + + + + + + + + | Specimen | + + | Blood | + + + + + + + | Performing | Address | City/State/Zipcode | Phone Number | | Organization | | | | + + + + + | [facility] | [address] | [place] [address] | [phone] | + + + + + Coronavirus (COVID-19) NAAT (04/15/2020 6:03 AM PDT) + + + + + + | Component | Value | Ref Range | Performed | Pathologist | | | | | At | Signature | + + + + + + | SARS-CoV-2, | NEGATIVEComment: This | NEG | [facility] | | | NAAT | test was developed and | | LABORATORY | | | (COVID-19) | its performance | | | | | | characteristics | | | | | | determined byCepheid. It | | | | | | [...] | | | | | performed at [facility] | | | | | | [facility];[place], [place] | | | | | | [address] | | | | + + + + + + + + | Specimen | + + | Tissue - Entire | | nasopharynx (body | | structure) | + + + + + + + | Performing | Address | City/State/Zipcode | Phone Number | | Organization | | | | + + + + + | [facility] | [address] | [place] [address] | [phone] | + + + + + CT [...] | | | by: Kobi Crocker, Tom Sign Date/Time: 04/15/2020 4:47 AM | | + [...] Procedure Note | + + | Rick, [id number] - 04/15/2020 4:50 AM PDT | | [...] wirelike foreign body. Final Report Signed by: Lizzette, | | | Tom Peace Date/Time: 04/15/2020 3:37 AM | | + [...] Procedure Note | + + | Rick, [id number] - 04/15/2020 3:40 AM PDT | | [...] | | | | | | at [facility];[address] [place] [address] | | | | | | Blvd;[place] [address] | | | | + + + + + + + + | Specimen | + + | Blood | + + + + + + + | Performing | Address | City/State/Zipcode | Phone Number | | Organization | | | | + + + + + | [facility] | [address] | [place] [address] | [phone] | + + + + + HCG, Serum, Quant (04/15/2020 3:11 AM PDT) + + + + + + | Component | Value | Ref Range | Performed | Pathologist | | | | | At | Signature | + + + + + + | hCG Quant, | <4Comment: APPROX | <4 mIU/mL | [facility] | | | Serum | [...] | | | | | 100 - 98873 - 4 WEEKS | | | | | | . . . . 500 - 008646 - | | | | | | 5 WEEKS . . . . 1000 - | | | | | | 014024 - 6 WEEKS . . . | | | | | | 92969 - 5677426 - 8 | | | | | | WEEKS . . . 06902 - | | | | | | [id number] - 3 MONTHS . . . | | | | | | 12077 - 173870 Testing | | | | | | performed at [facility] | | | | | | [facility];[place], [place] | | | | | | [address] | | | | + + + + + + + + | Specimen | + + | Blood | + + + + + + + | Performing | Address | City/State/Zipcode | Phone Number | | Organization | | | | + + + + + | [facility] | [address] | [place] [address] | [phone] | + + + + + Lactic Acid (04/15/2020 3:11 AM PDT) + + + + + + | Component | Value | Ref Range | Performed | Pathologist | | | | | At | Signature | + + + + + + | Lactate, | 1.8Comment: Testing | 0.4 - 2.0 | [facility] | | | Serum | performed at [facility];[address] | mmol/L | LABORATORY | | | | [address];[place] | | | | | | [address] | | | | + + + + + + + + | Specimen | + + | Blood | + + + + + + + | Performing | Address | City/State/Zipcode | Phone Number | | Organization | | | | + + + + + | [facility] | [address] | [place] [address] | [phone] | + + + + + C-Reactive Protein (04/15/2020 3:11 AM PDT) + + + + + + | Component | Value | Ref Range | Performed | Pathologist | | | | | At | Signature | + + + + + + | CRP | 15.5 (H)Comment: Testing | <0.5 mg/dL | [facility] | | | | performed at [facility];[address] | | LABORATORY | | | | [address];[place] | | | | | | [address] | | | | + + + + + + + + | Specimen | + + | Blood | + + + + + + + | Performing | Address | City/State/Zipcode | Phone Number | | Organization | | | | + + + + + | [facility] | [address] | [place] [address] | [phone] | + + + + + Comprehensive [...] 11 | 10 - 65 U/L | [facility] [...] | | | | | performed at [facility] | | | | | | [facility];[place], [place] | | | | | | [address] | | | | + + + + + + + + | Specimen | + + | Blood | + + + + + + + | Performing | Address | City/State/Zipcode | Phone Number | | Organization | | | | + + + + + | [facility] | [address] | [place] [address] | [phone] | + + + + + CBC [...] 0.03Comment: Testing | 0.00 - 0.10 | [facility] | | | Absolute | performed at [facility];[address] | [address] | LABORATORY | | | | [address];[place], [place] | | | | | | [address] | | | | + + + + + + + + | Specimen | + + | Blood | + + + + + + + | Performing | Address | City/State/Zipcode | Phone Number | | Organization | | | | + + + + + | [facility] | [address] | [place] [address] | [phone] | + + + + + documented in this encounter Visit Diagnoses + + | Diagnosis | + + | Abscess of deltoid region - Primary Cellulitis and abscess of upper arm and forearm | + + | IVDU (intravenous drug user) Other, mixed, or unspecified nondependent drug abuse, | | unspecified | + + | Current smoker Tobacco use disorder | + + | Heroin abuse (HCC) | + + | Mild intermittent asthma without complication Unspecified asthma | + + | Episode of recurrent major depressive disorder (HCC) | + + | Leukocytosis Leukocytosis, unspecified | + + documented in this [...] +------+-------+------+ +---+---+ | | | +---+---+ + +---------+ +--------+-------+---+ | clindamycin in dextrose | New Bag | 04/15/20 | 900 mg | 100 | | | (CLEOCIN) IVPB 900 mg 900 mg, | | 20 3:42 | | mL/hr | | | Intravenous, Administer over 30 | | AM PDT | | | | | Minutes, ONCE, Tue04/15/20 at | | | | | | | 0330, For 1 dose, Indications: | | | | | | | SKIN AND SOFT TISSUE ABSCESS | | | | | | + +---------+ +--------+-------+---+ +---+---+ | | | +---+---+ + +-------+ + +---+---+ | fluticasone (FLONASE) 50 | Given | 04/15/20 | 2 sprays | | | | mcg/nasal spray 2 spray 2 spray, | | 20 9:00 | | | | | Each Nare, 2 TIMES DAILY, First | | PM PDT | | | | | dose on Tue04/15/20 at 2100, Shake | | | | | | | gently., | | | | | | + +-------+ + +---+---+ +---+---+ | | | +---+---+ + +-------+ +------+---+---+ | HYDROmorphone (DILAUDID) | Given | 04/15/20 | 1 mg | | | | injection 0.2-0.6 mg 0.2-0.6 mg, | | 20 6:00 | | | | | Intravenous, EVERY 5 MIN PRN, | | PM PDT | | | | | Pain, Starting Tu04/15/20 at | | | | | | | 1739, First dose must be lowest | | | | | | | dose, can increase subsequent | | | | | | | doses by 0.2mg within dosing | | | | | | | range. If patient meets opioid | | | | | | | tolerant definition, can start | | | | | | | with 0.4mg dose. [Maximum total | | | | | | | PACU dose 2 mg] Use Pasero | | | | | | | Sedation Scale. [Opioid tolerant | | | | | | | = One week or longer, | | | | | | | [id number]-[id number] use of at least | | | | | | | the following DAILY dose: 60mg | | | | | | | oral morphine, 60mg oral | | | | | | | hydrocodone, 30mg oral oxycodone, | | | | | | | 8mg oral hydromorphone, fentanyl | | | | | | | patch 25mcg/hr, or equivalent | | | | | | | dose of another opioid], | | | | | | | Recovery/Phase I | | | | | | + +-------+ +------+---+---+ +---+---+ | | | +---+---+ + +-------+ +------+---+---+ | HYDROmorphone (DILAUDID) | Given | 04/15/20 | 1 mg | | | | injection 1 mg 1 mg, | | 20 5:56 | | | | | Intravenous, ONCE, Tue04/15/20 at | | AM PDT | | | | | 0535, For 1 dose | | | | | | + +-------+ +------+---+---+ +---+---+ | | | +---+---+ + +-------+ +------+---+---+ | HYDROmorphone (DILAUDID) | Given | 04/15/20 | 1 mg | | | | injection 1 mg 1 mg, | | 20 7:45 | | | | | Intravenous, EVERY 6 HOURS PRN, | | AM PDT | | | | | Moderate Pain, Severe Pain, | | | | | | | Starting 04/15/20 at 0723, Use | | | | | | [...] | | | | + +-------+ +------+---+---+ +---+---+ | | | +---+---+ [...] | | | | | | Starting Tue04/15/20 at 1245, Use | | | | [...] +---+---+ | | | +---+---+ + +-------+ +---------+---+---+ | iohexol (OMNIPAQUE 350) 350 | Given | 04/15/20 | 100 mLs | | | | mg/mL injection 100 mL 100 mL, | | 20 4:33 | | | | | Intravenous, ONCE PRN, Other, | | AM PDT | | | | | Starting Tu04/15/20 at 0432, For | | | | | | | 1 dose, Cat Scanner | | | | | | + +-------+ +---------+---+---+ +---+---+ | | | +---+---+ + +-------+ +-------+---+---+ | ketorolac (TORADOL) injection | Given | 04/15/20 | 30 mg | | | | 30 mg 30 mg, Intravenous, ONCE, | | 20 3:42 | | | | | Tue04/15/20 at 0305, For 1 dose | | AM PDT | | | [...] 9:01 | | | | | on Tue04/16/20 at 0830 | | AM PDT | | | | + +-------+ +-------+---+---+ +---+---+ | | | +---+---+ + +---------+ +---------+---+ + | nicotine (NICODERM) 14 mg/24 hr | Patch | 04/15/20 | 1 patch | | Arm-Left | | 1 patch 1 patch, Transdermal, | Applied | 20 5:56 | | | Upper | | DAILY, First dose on Tue04/15/20 | | AM PDT | | | | | at 0525 | | | | | | + +---------+ +---------+---+ + +---+---+ | | | +---+---+ + +-------+ +---+---+---+ | ondansetron (ZOFRAN) 2 mg/mL | Given | 04/15/20 | | | | | injection Starting Tue04/15/20 at | | 20 5:56 | | | | | 0537, For 1 dose, Patty, | | AM PDT | | | | | Johnny: roxana hassanide, | | | | | | + +-------+ +---+---+---+ +---+---+ | | | +---+---+ + +---------+ +--------+-------+---+ | sodium chloride 0.9% (NS) bolus | New Bag | 04/15/20 | 2,000 | 2000 | | | 2,000 mL 2,000 mL, Intravenous, | | 20 3:41 | mLs | mL/hr | | | Administer over 1 Hours, ONCE, | | AM PDT | | | | | 04/15/20 at 0320, For 1 dose | | | | | | + +---------+ +--------+-------+---+ +---+---+ | | | +---+---+ + +---------+ [...] | | | | | | | Tue04/15/20 at 1400, Keep in | | | [...] + +--------+---+ +---+---+ | | | +---+---+ + +---------+ +--------+-------+---+ | vancomycin in saline IVPB 1.75 | New Bag | 04/15/20 | 1.75 g | 250 | | | g 1.75 g (rounded from 1.765 g = | | 20 5:56 | | mL/hr | | | 25 mg/kg | | AM PDT | | | | | 70.6 kg Adjusted weight), | | | | | | | Intravenous, Administer over 120 | | | | | | | Minutes, ONCE, 04/15/20 at | | | | | | | 0540, For 1 dose, Keep in | | | | | | | refrigerator., Indications: SKIN | | | | | | | AND SOFT TISSUE ABSCESS | | | | | | + +---------+ +--------+-------+---+ +---+---+ | | | +---+---+ documented in [...]
--- OUTSIDE RECORDS SUMMARY | ~2020-06-12 | XMS | Encounter Summary ---
Demographics + + + | Address | [address] | | | [address] | | | [place] [address] | + + + | Home Phone | | + + + | Preferred Language | Unknown | + + + | Marital Status | Legally | + + + | Anabaptist Affiliation | 1013 | + + + | Race | White | + + + | Ethnic Group | Not or | + + + Author + + + | Author | [facility] | | | and [place] | + + + | Organization | [facility] | | [...] Team Providers + +------+ + | Care Physical Laboratory Assistant Name | Role | Phone | + +------+ + PCP | Unavailable | + +------+ + Encounter Details +--------+ + + + + | Date | Type | Department | Care Team | Description | +--------+ + + + + | 02/21/ | Emergency | [facility] [place] | Unspecified Chest | | 2008 | | [facility] | [address] | Pain | | | | EMERGENCY CENTER | [place] [address] | | | | | [address] | [phone] | | | | | [place], [place] | | | | | | [address] | | | | | | [phone] | | | +--------+ + + + [...] + +--------+ + + + | XR CHEST 2 VIEWS | Routin | 02/21/2009 | | Results for this | | | e | 5:54 PM | | procedure are in the | | | | PDT | | results section. | + +--------+ + + + documented in this encounter Results XR Chest 2 Vws (02/21/2009 5:54 PM PDT) + + | Specimen | + + | | + + + + + | Narrative | Performed At | + + + | [id number] | | | Page 1 RADIOLOGY | | | ED FT B/ | | | EMR [facility] | | | [facility] NAME: [place] [address] | | | | | | | | | DATE OF : 1980 ORDER NUMBER: | | | [id number] EXAM DATE/TIME: 02/21/2009 05:36 P ORDERING PHYSICIAN: | | | YEISON SCHMIDT ORDER DETAIL: 7000 / / HDI EXAM | | | DESCRIPTION: XR CHEST 2 VIEW | | | | | | TWO-VIEW CHEST 02/21/2009 HISTORY Trauma. TECHNIQUE Chest PA | | | and lateral. COMPARISON Compared to 01/16/2004. FINDINGS | | | Lung volumes are normal. The lungs are clear. We see no evidence of | | | lung contusion and no hemothorax or pneumothorax. No focal | | | consolidation. No pleural effusion. No pulmonary edema. Heart is | | | normal size. No hilar or mediastinal mass or lymphadenopathy. The | | | bony thorax appears intact. IMPRESSION 1. No rib fracture and no | | | evidence of lung contusion. 2. No acute pneumonia or pulmonary edema. | | | Read by CAL PAVON MD 02/21/2009 06:54 P | | | Electronically Signed by CAL PAVON MD 02/22/2009 01:35 P DD: | | | 02/21/2009 06:54 P P [facility]//[id number]/ | | | cc: PHYSICIAN ED MD CAL BURRIS | | | MD YEISON PAVON ARNP | | + + + + + | Procedure Note | + + | Eron, Rad Conversion - 05/07/2019 4:00 AM PDT | | [id number] Page 1 | | RADIOLOGY ED FT B/ | | EMR | | [facility] NAME: MADHURI [address] | | [place] [address] | | | | DATE OF : 1980 | | | | ORDER NUMBER: [id number] | | EXAM DATE/TIME: 02/21/2009 05:36 P | | ORDERING PHYSICIAN: YEISON SCHMIDT | | ORDER DETAIL: 7000 / / HDI | | EXAM DESCRIPTION: XR CHEST 2 VIEW | | | | TWO-VIEW CHEST 02/21/2009 | | | | HISTORY | | Trauma. | | | | TECHNIQUE | | Chest PA and lateral. | | | | COMPARISON | | Compared to 01/16/2004. | | | | FINDINGS | | Lung volumes are normal. The lungs are clear. We see no evidence of lung | | contusion and no hemothorax or pneumothorax. No focal consolidation. No | | pleural effusion. No pulmonary edema. Heart is normal size. No hilar or | | mediastinal mass or lymphadenopathy. The bony thorax appears intact. | | | | IMPRESSION | | 1. No rib fracture and no evidence of lung contusion. | | 2. No acute pneumonia or pulmonary edema. | | | | | | | | Read by | | CAL PAVON MD 02/21/2009 06:54 P | | Electronically Signed by | | CAL PAVON MD 02/22/2009 01:35 P | | | | P | | P | | SINDY/yogi/[id number]/ | | cc: PHYSICIAN ED | | JULIO CÉSAR AUSTIN MD | | CAL PAVON MD | | RITIKA LALA | + + documented in this encounter Visit Diagnoses + + | Diagnosis | + + | Chest pain, unspecified | + + documented in this encounter"
--- OUTSIDE RECORDS SUMMARY | ~2020-06-12 | XMS | Encounter Summary ---
Demographics + + + | Address | [address] | | | [address] | | | [place] [address] | + + + | Home Phone | | + + + | Preferred Language | Unknown | + + + | Marital Status | Legally | + + + | Buddhist Affiliation | 1013 | + + + | Race | White | + + + | Ethnic Group | Not or | + + + Author + + + | Author | [facility] | | | and [place] | + + + | Organization | [facility] | | | [...] Team Providers + +------+ + | Care Clinical Documentation Consultant Name | Role | Phone | + +------+ + PCP | Unavailable | + +------+ + Encounter Details +--------+ + + + + | Date | Type | Department | Care Team | Description | +--------+ + + + + | 01/30/ | Emergency | [facility] | Alonso Ramos | Throat Pain | | 2007 | | [facility]ICAL CENTER | MD [address] | | | | | EMERGENCY CENTER | [address] [place], [place] | | | | | [address] [facility] | [address] | | | | | [place], [place] | [phone] | | | | | [address] | | | | | | [phone] | | | +--------+ + + + [...] + | Diagnosis | + + | Throat pain | + + documented in this encounter"
--- OUTSIDE RECORDS SUMMARY | ~2020-06-12 | XMS | Encounter Summary ---
Demographics + + + | Address | [address] | | | [address] | | | [place] [address] | + + + | Home Phone [...] Team Providers + +------+ + | Care Landscape Crew Member Name | Role | Phone | + +------+ + PCP | Unavailable | + +------+ + Encounter Details +--------+ + + + + | Date | Type | Department | Care Team | Description | +--------+ + + + + | 04/14/ | [facility] | [facility] | [place], | | | 2005 | Encounter | [facility] | Tawanda Elizondo MD [address] | | | | [address] | | | | | [address] | [place] [address] | | | | | [place], [place] | [phone] | | | | | [address] | | | | | | [phone] | | | +--------+ + + + [...]
--- OUTSIDE RECORDS SUMMARY | ~2020-06-12 | XMS | Encounter Summary ---
Demographics + + + | Address | [address] | | | [address] [address] | | | [place] [address] | + + + | Home Phone | | + + + | Preferred Language | Unknown | + + + | Marital Status | Legally | + + + | Denominational Affiliation | 1013 | + + + | Race | White | + + + | Ethnic Group | Not or | + + + Author + + + | Author | [facility] | | | and [place] | + + + | Organization | [facility] | | | and [...] Team Providers + +------+ + | Care Griddle Cook Name | Role | Phone | + +------+ + | Nery Maynard MD | PCP | | + +------+ + Reason for Visit Auth/Cert +--------+--------+ + + + + | [...] + + + + | 04/15/ | Anesthesia | [facility] | Amadou Hong, | | | 2020 | [facility] | MD [address] | | | | | OPERATING RO[address] | [place] [address] | | | | | [address] | [phone] | | | | | [place], [place] | | | | | | [address] | | | | | | [phone] | | | +--------+ + + + + Anesthesia Record + + + + + | Procedure Name | Responsible | Anesthesia Start | Anesthesia Stop Time | | | Anesthesiologist | Time | | + + + + + | INCISION AND | Amadou Hong MD | 04/15/20 6891 | 04/15/20 8014 | | DRAINAGE -DELTOID | | | | | (Right Deltoid) | | | | + + + + + +----+---+ + + | Da | T | Event | Comment | | te | i | | | | | m | | | | | e | | | +----+---+ + + | 08 | 1 | An Start | Reassessment prior to anesthesia induction/procedure. | | /0 | 6 | | | | 4/ | 5 | | | | 20 | 9 | | | | 20 | | | | +----+---+ + + | | 1 | An | | | | 7 | Induction | | | | 0 | | | | | 5 | | | +----+---+ + + | | 1 | An | | | | 7 | Intubation | | | | 0 | | | | | 7 | | | +----+---+ + + | | 1 | Anesthesia | | | | 7 | Ready | | | | 0 | | | | | 8 | | | +----+---+ + + | | 1 | Extubation/ | | | | 7 | Airway LDA | | | | 3 | Removal | | | | 7 | | | +----+---+ + + | | 1 | | | | | 7 | | | | | 3 | | | | | 8 | | | +----+---+ + + | | 1 | an stop | | | | 7 | data | | | | 4 | | | | | 0 | | | +----+---+ + + | | 1 | An Stop | Patient handed off to recovery nurse. | | | 4 | | | | | 6 | | | +----+---+ + + +------+ | Meds | +------+ + +---------+ | Name | Total | + +---------+ | fentaNYL | 100 mcg | + +---------+ | propofol | 200 mg | + +---------+ | ondansetron | 8 mg | + +---------+ | dexamethasone | 4 mg | + +---------+ | Plasmalyte | 800 mL | + +---------+ + + | Name | + + | N2O Flow Rate (L/Min) | + + | O2 Flow Rate (L/Min) | + + | Insp O2 | + + | Exp N2O | + + | Exp SEV | + + | Air Flow Rate (L/Min) | + + + + | No blood administrations on file. | + + +--------+ + + + | Type | Details | Placement | Removal | +--------+ + + + | Periph | 04/15/20; 2; Left; | 04/15/20 1642 by | | | eral | Antecubital; [id number] | Flor Estrada RN | | | IV | catheter system; 20 gauge | | | +--------+ + + + | Wound | 04/15/20; 1757; Y; Incision; | 04/15/201756 by | | | | Right; shoulder | Black Rodriguez RN | | +--------+ + + + | Airway | Placement Date: 04/15/20; | 04/15/201706 by | 04/15/201736 by | | | Placement Time: 1706 (created via | Amadou Hong MD | Amadou Hong MD | | | procedure documentation); Mask | | | | | Ventilation: EZ; Attempts: 1; | | | | | Airway Type: laryngeal mask; | | | | | Size: 4; Trauma: none; Placement | | | | | Check: exhaled CO2 detection | | | | | device, bilateral chest rise; | | | | | Removal Date: 04/15/20; Removal | | | | | Time: 1736 | | | +--------+ + + + documented in this encounter Social History + +-------+ +--------+------+ | Tobacco [...] + + documented as of this encounter OR Notes Anesthesia Postprocedure Evaluation - Amadou Hong MD - 04/15/2020 5:50 PM PDTFormat ting of this note might be different from the original. ANESTHESIA POSTANESTHESIA EVALUATION Minoo Watson 40 y.o. female 1980 [id number] Procedure(s) INCISION AND DRAINAGE -DELTOID (Right ) Cooperates? Yes Mental Status Performs simple tasks. Respiratory Satisfactory - Airway patent (self maintained). Cardiovascular Satisfactory - Blood pressure and heart rate acceptable Temperature Satisfactory Pain Satisfactory N/V Control Satisfactory Hydration Satisfactory - No signs of dehydration Adverse Events ADVERSE EVENTS: No adverse events Vitals Value Taken Time Temp 36.7 C (98.1 F) 04/15/20 1743 Pulse 97 04/15/20 1748 Resp 11 04/15/20 1748 BP 121/63 04/15/20 1745 Arterial Line BP Arterial Line BP 2 SpO2 100 % 04/15/20 1748 Vitals shown include unvalidated device data. Electronically signed by Amadou Hong MD 04/15/2020 5:50 PM PDT [facility] 20 5:50 PM PDTAnesthesia Procedure Notes - Amadou Hong MD - 04/15/2020 5:31 PM PDTA ssociated Order(s): Anesthesia Airway NoteAnesthesia Airway Placement 04/15/2020 5:07 PM Preprocedure check: patient identified, airway equipment checked, patient reassessment prio r to induction, airway assessed, oxygen and suction Mask ventilation: easy Attempts: 1 Airway type: laryngeal mask Size: 4 Route, reference point: center of mouth Tube secured with: adhesive tape Trauma: none Tube placement verification: bilateral chest rise and carbon dioxide detection Performing provider: Amadou Hong MD Authorizing provider: Amadou Hong MD Please see intraoperative grid for any additional medication documentation. nesthesia Preproce dure Evaluation - Amadou Hong MD - 04/15/2020 4:49 PM PDTFormatting of this note maribeth ht be different from the original. ANESTHESIA PREANESTHESIA EVALUATION Minoo Watson 40 y.o. female 1980 [id number] Procedure(s): INCISION AND DRAINAGE -DELTOID (Right ) Medical,anesthesia, drug, allergy histories reviewed, NPO status verified. (-) perioperative beta-enriqueta/statin not given/taken, reason: not applicable/Not taking Be ta-Enriqueta. Review of Systems / Med History Anesthesia History No anesthesia complications except where noted below. Family Anesthesia History Family Anesthesia Negative except where noted below. Cardiovascular Negative except where noted below. . Pulmonary Negative except where noted below.(+) asthma.(+) tobacco use. Gastrointestinal/Hepatic Negative except where noted below. Renal Negative except where noted below. Endocrine Negative except where noted below. Hematology/Other Negative except where noted below. Cancer Negative except where noted below. Neuromuscular Negative except where noted below. (+) back pain. Psychology (+) substance abuse. Additional Comments: CONTACT OR EXPOSURE TO OTHER VIRAL DISEASES ALLERGIC RHINITIS DUE TO POLLEN CONSTIPATION, NOS Allergic rhinitis Cervical disc herniation DDD (degenerative disc disease), cervical Cervical radiculopathy Cervical stenosis of spine GERD (gastroesophageal reflux disease) H/O bee sting allergy History of intravenous drug use in remission snf prescription opiate use Low HDL (under 40) Pelvic pain in female Abscess of deltoid region Heroin abuse (HCC) Current smoker Episode of recurrent major depressive disorder (HCC) Leukocytosis Mild intermittent asthma without complication Physical Exam Airway MP II, TM >3 FB, Neck: full ROM, Jaw protrusion normal. Dental grossly normal except where noted below. CV cardiovascular normal Rhythm regular. Rate normal. Pulm Clear to auscultation bilaterally. Neuro grossly normal. Anesthesia Plan ASA: 2E Type: General. LMA vs GETA, Risks and benefits discussed. Induction: Intravenous. Potential problems: None anticipated. Monitors: Standard ASA monitors. Consent statement: Anesthetic plan, alternatives, risks and benefits discussed with patient. , discussed risks to teeth, heart problems, infection, nausea, perioperative CV events, respiratory even ts, stroke Consenting person understands and agrees to proceed. documented in this encounter Miscellaneous Notes Anesthesia Post-op Handoff - Amadou Hong MD - 04/15/2020 5:46 PM PDTFormatting of t his note might be different from the original. ANESTHESIA HANDOFF NOTE Minoo Sienna ZambranoWalter 40 y.o. female 1980 [id number] INCISION AND DRAINAGE -DELTOID (Right ) HANDOFF NOTE Handoff Protocol Used: post-procedure handoff checklist completed The following were completed during the transfer of care: 1. Identification of patient 2. Identification of responsible practitioner (primary service) 3. Discussion of pertinent medical history 4. Discussion of the surgical/procedure course (procedure, reason for surgery, procedure pe rformed) 5. Intraoperative anesthetic management and issues/concerns 6. Expectations/plans for the early post-procedure period 7. Opportunity for questions and acknowledgement of understanding of report from receiving team Patient Location: Phase I Condition: responds to stimuli and sedated Airway/O2: face mask with O2 Multimodal analgesia: multimodal analgesia used between 6 hours prior to anesthesia start t o PACU discharge The significant anesthesia concerns and VS in Epic were reviewed with the receiving team. Amadou Hong MD 04/15/2020 5:46 PM PDT [facility] documented in this encounter Plan of Treatment Not on filedocumented as of this encounter Procedures + +--------+ + + + | Procedure Name | Priori | Date/Time | Associated Diagnosis | Comments | | | ty | | | | + +--------+ + + + | ANE AIRWAY NOTE | Routin | 04/15/2020 | | Results for this | | | e | 5:31 PM | | procedure are in the | | | | PDT | | results section. | + +--------+ + + + documented in this encounter Results Anesthesia Airway Note (04/15/2020 5:31 PM PDT) + + + | Narrative | Performed At | + + + | Amadou Hong MD 04/15/2020 5:31 PM Anesthesia Airway | | | Placement 04/15/2020 5:07 PM Preprocedure check: patient | | | identified, airway equipment checked, patient reassessment prior to | | | induction, airway assessed, oxygen and suction Mask ventilation: | | | easy Attempts: 1 Airway type: laryngeal mask Size: 4 Route, | | | reference point: center of mouth Tube secured with: adhesive tape | | | Trauma: none Tube placement verification: bilateral chest rise and | | | carbon dioxide detection Performing provider: Amadou Hong MD | | | Authorizing provider: Amadou Hong MD Please see | | | intraoperative grid for any additional medication documentation. | | + + + documented in this encounter Visit Diagnoses Not on filedocumented in this encounter Administered Medications + +---------+ +------+------+------+ | Medication Order | MAR | Action | Dose | Rate | Site | | | Action | Date | | | | + +---------+ +------+------+------+ | balanced electrolytes in water | New Bag | 04/15/20 | | | | | (PLASMALYTE-148/NORMOSOL-R) | | 20 4:53 | | | | | infusion Intravenous, CONTINUOUS | | PM PDT | | | | | PRN, Starting 04/15/20 at | | | | | | | 1653, Anesthesia Intra-op | | | | | | + +---------+ +------+------+------+ +---+---+ | | | +---+---+ + +-------+ +------+---+---+ | dexamethasone (DECADRON) 4 | Given | 04/15/20 | 4 mg | | | | mg/mL injection Intravenous, | | 20 5:15 | | | | | PRN, Starting Tue04/15/20 at 1715, | | PM PDT | | | | | Anesthesia Intra-op | | | | | | + +-------+ +------+---+---+ +---+---+ | | | +---+---+ + +-------+ +---------+---+---+ | fentaNYL (PF) injection | Given | 04/15/20 | 100 mcg | | | | Intravenous, PRN, Starting Tue | | 20 5:33 | | | | | 04/15/20 at 1733, Anesthesia | | PM PDT | | | | | Intra-op | | | | | | + +-------+ +---------+---+---+ +---+---+ | | | +---+---+ + +-------+ +------+---+---+ | ondansetron (ZOFRAN) injection | Given | 04/15/20 | 8 mg | | | | Intravenous, PRN, Starting Tue | | 20 5:15 | | | | | 04/15/20 at 1715, Anesthesia | | PM PDT | | | | | Intra-op | | | | | | + +-------+ +------+---+---+ +---+---+ | | | +---+---+ + +-------+ +--------+---+---+ | propofol (DIPRIVAN) injection | Given | 04/15/20 | 200 mg | | | | Intravenous, PRN, Starting Tue | | 20 5:05 | | | | | 04/15/20 at 1705, Anesthesia | | PM PDT | | | | | Intra-op | | | | | | + +-------+ +--------+---+---+ +---+---+ | | | +---+---+ documented in this encounter"
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
--- OUTSIDE RECORDS SUMMARY | ~2020-06-12 | XMS | Encounter Summary ---
Demographics + + + | Address | [address] | | | [address] [facility] | | | [place] [address] | + + + | Home Phone [...] Team Providers + +------+ + | Care Energy Projects Lead Name | Role | Phone | + +------+ + PCP | Unavailable | + +------+ + Encounter Details +--------+ + + + + | Date | Type | Department | Care Team | Description | +--------+ + + + + | 09/08/ | Hospital | [facility] | Christopher Lindsay | POISONING-ANTICONVUL | | 2003 - | Encounter | MEDICAL CENTER | MD [address] | NEC/NOS | | | | CLINICAL DECISION | [address] [place], [place] | | | 09/10/ | | [address] | [address] | | | 2003 | | [place], [place] | | | | | | [address] | Conversion | | | | | [phone] | Transaction, | | | | | | Provider Unknown | | | | | | [phone] | | | | | | | [...] Diagnosis | + + | Poisoning by other and unspecified anticonvulsants | + + documented in this encounter"
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
--- OUTSIDE RECORDS SUMMARY | ~2020-06-12 | XMS | Clinical Summary ---
Demographics + + + | Address | [address] | | | [address] | | | [place] [address] | + + + | Home Phone | | + + + | Preferred Language | Unknown | + + + | Marital Status | Legally | + + + | Moravian Affiliation | 1013 | + + + | Race | White | + + + | Ethnic Group | Not or | + + + Author + + + | Author | [facility] | | | and [place] | + + + | Organization | [facility] | | | and [...] Team Providers + +------+ + | Care Animal Care Taker Name | Role | Phone | + +------+ + | No, Physician | PCP | Unavailable | + +------+ + Allergies + + + + + + | Active Allergy | Reactions | Severity | Noted | Comments | | | | | Date | | + + + + + + | Bee Venom | Anaphylaxis | High | 02/26/20 | | | | | | 14 | | + + + + + + | Codeine | Gwen Moulton, | High | 09/12/18 | | | | Shortness Of Breath | | 97 | | + + + + + + | Droperidol | Anxiety | Low | 03/23/20 | | | | | | 11 | | + + + + + + | Lactose Intolerance | Other (See Comments) | Low | 03/02/20 | | | (Gi) | | | 16 | | + + + + + + | Morphine | | | 02/01/20 | | | | | | 12 | | + + + + + + | Morphine And Related | Other (See Comments) | | 07/13/20 | Abstracted | | | | | 10 | | + + + + + + | Penicillins | Hives | | 03/01/20 | | | | | | 11 | | + + + + + + | Promethazine Hcl | | | 02/01/20 | | | | | | 12 | | + + + + + + Medications + + + +---------+------+------+-------+ | Medication | Sig | Dispensed | Refills | Star | End | Statu | | | | | | t | Date | s | | | | | | Date | | | + + + +---------+------+------+-------+ | EPINEPHrine | TOÑO | | 0 | 05/2 | | Activ | | (EPIPEN IJ) | | | | 2/20 | | e | | | | | | 12 | | | + + + +---------+------+------+-------+ | fluticasone | 2 INH per nostril | | 0 | 05/2 | | Activ | | (FLONASE) 50 | daily | | | 2/20 | | e | | mcg/nasal spray | | | | 12 | | | + + + +---------+------+------+-------+ | Albuterol Sulfate | AERS | | 0 | 05/2 | | Activ | | (PROAIR HFA IN) | | | | 2/20 | | e | | | | | | 12 | | | + + + +---------+------+------+-------+ | ibuprofen | Take 600 mg by mouth | | 0 | 05/2 | | Activ | | (ADVIL,MOTRIN) 600 | every 6 hours as | | | 2/20 | | e | | MG tablet | needed. | | | 12 | | | + + + +---------+------+------+-------+ | multivitamin | one tablet by mouth | | 0 | 05/2 | | Activ | | (THERAGRAN) tablet | daily | | | 2/20 | | e | | | | | | 12 | | | + + + +---------+------+------+-------+ | | TB24; Take one | | 0 | 05/2 | | Activ | | Loratadine-Pseudoeph | tablet orally daily | | | 2/20 | | e | | edrine (CLARITIN-D | | | | 12 | | | | 24 HOUR PO) | | | | | | | + + + +---------+------+------+-------+ | bismuth | | | 0 | | | Activ | | subsalicylate (PEPTO | | | | | | e | | BISMOL) 262 mg/15 | | | | | | | | mL suspension | | | | | | | + + + +---------+------+------+-------+ | baclofen | Take 1 tablet by | | 0 | 01/1 | | Activ | | (LIORESAL) 10 mg | mouth 3 (three) | | | 6/20 | | e | | tablet | times daily. | | | 18 | | | + + + +---------+------+------+-------+ | docusate sodium | One po bid for stool | | 0 | 07/2 | | Activ | | (COLACE) 100 mg | softening | | | 4/20 | | e | | capsule | | | | 17 | | | + + + +---------+------+------+-------+ | naproxen | Take 1 tablet by | | 0 | 06/2 | | Activ | | (NAPROSYN) 500 mg | mouth 2 (two) times | | | 2/20 | | e | | tablet | daily as needed. | | | 17 | | | + + + +---------+------+------+-------+ | PEG | Take 8 oz by mouth | | 0 | 03/2 | | Activ | | [id number]-NaCl- | every 20 (twenty) | | | 1/20 | | e | | NaSulf 227.1 g PACK | minutes. Drink 8oz | | | 18 | | | | | every 20 minutes | | | | | | | | until bowel | | | | | | | | movements occur | | | | | | + + + +---------+------+------+-------+ | tiZANidine | Take 1-2 capsules by | | 0 | 08/2 | | Activ | | (ZANAFLEX) 4 MG | mouth nightly as | | | 2/20 | | e | | capsule | needed for Muscle | | | 17 | | | | | spasms. | | | | | | + + + +---------+------+------+-------+ | EPINEPHrine | Inject 0.3 mLs into | | 0 | 06/1 | | Activ | | auto-injector 0.3 | the muscle as | | | 6/20 | | e | | mg/0.3 mL injection | needed. | | | 14 | | | + + + +---------+------+------+-------+ | fluticasone | | | 0 | 02/0 | | Activ | | (FLONASE) 50 | | | | 7/20 | | e | | mcg/nasal spray | | | | 17 | | | + + + +---------+------+------+-------+ | buprenorphine | USE PER TAPER | | 0 | 08/1 | | Activ | | (SUBUTEX) 2 mg SUBL | INSTRUCTIONS | | | 7/20 | | e | | | | | | 18 | | | + + + +---------+------+------+-------+ | | PLACE 1 & 1 2 (ONE & | | 0 | 06/2 | | Activ | | buprenorphine-naloxo | ONE HALF) TABLETS | | | 5/20 | | e | | ne (SUBOXONE) 8-2 mg | UNDER THE TONGUE | | | 19 | | | | SL tablet | TWICE DAILY FOR 7 | | | | | | | | DAYS | | | | | | + + + +---------+------+------+-------+ | buPROPion | | | 0 | 08/2 | | Activ | | (WELLBUTRIN XL) 150 | | | | 1/20 | | e | | mg 24 hr tablet | | | | 18 | | | + + + +---------+------+------+-------+ | hydrOXYzine | TAKE ONE CAPSULE BY | | 0 | 08/2 | | Activ | | (VISTARIL) 50 MG | MOUTH EVERY 6 HOURS | | | 2/20 | | e | | capsule | NEEDED | | | 18 | | | + + + +---------+------+------+-------+ | ondansetron | TAKE 1 TABLET BY | | 0 | 06/2 | | Activ | | (ZOFRAN) 4 mg tablet | MOUTH EVERY 6 HOURS | | | 0/20 | | e | | | | | | 19 | | | + + + +---------+------+------+-------+ | traZODone | TAKE 1 OR 2 TABLETS | | 0 | 08/2 | | Activ | | (DESYREL) 50 mg | BY MOUTH AT BEDTIME | | | 2/20 | | e | | tablet | NEEDED | | | 18 | | | + + + +---------+------+------+-------+ | ondansetron | Take 1 tablet by | 12 | 0 | 04/2 | | Activ | | (ZOFRAN ODT) 4 mg | mouth every 8 hours | tablet | | 4/20 | | e | | disintegrating | as needed for | | | 20 | | | | tablet | Nausea. | | | | | | + + + +---------+------+------+-------+ | lactobacillus | Take 1 tablet by | 84 | 0 | 08/0 | 09/0 | Expir | | (FLORANEX) tablet | mouth 3 times daily | tablet | | 5/20 | 2/20 | ed | | | for 28 days. | | | 20 | 20 | | + + + +---------+------+------+-------+ Active Problems + + + | Problem | Noted Date | + + + | Status post incision and drainage | 04/18/2020 | + + + | Abscess of deltoid region | 04/15/2020 | + + + | Heroin abuse | 04/15/2020 | + + + | Current smoker | 04/15/2020 | + + + | Episode of recurrent major depressive disorder | 04/15/2020 | + + + | Leukocytosis | 04/15/2020 | + + + | Mild intermittent asthma without complication | 04/15/2020 | + + + | Pelvic pain in female | 04/04/2017 | + + + | DDD (degenerative disc disease), cervical | 01/31/2017 | + + + | Cervical radiculopathy | 01/31/2017 | + + + | Cervical stenosis of spine | 01/31/2017 | + + + | long term acute care registered nurse prescription opiate use | 01/31/2017 | + + + | Cervical disc herniation | 01/03/2017 | + + + | History of intravenous drug use in remission | 01/01/2015 | + + + | Allergic rhinitis | 04/01/2014 | + + + | Low HDL (under 40) | 04/01/2014 | + + + | GERD (gastroesophageal reflux disease) | 02/25/2014 | + + + | H/O bee sting allergy | 02/25/2014 | + + + | CONTACT OR EXPOSURE TO OTHER VIRAL DISEASES | 02/01/2012 | + + + | ALLERGIC RHINITIS DUE TO POLLEN | 02/01/2012 | + + + | ISSA NOS | 02/01/2012 | + + + + + | Overview: ICD-10 Record update | + + Encounters +--------+ + + + + | Date | Type | Specialty | Care Team | Description | +--------+ + + + + | 04/29/ | Office | General Surgery | Magdy Conrad, | Status post incision | | 2020 | Visit | | CALL CENTER SUPERVISOR | and drainage | | | | | | (Primary Dx) | +--------+ + + + + | 04/28/ | Telephone | General Surgery | Magdy Conrad, | Post-op Question | | 2019 | | | CALL CENTER SUPERVISOR | | +--------+ + + + + | 04/21/ | Telephone | General Surgery | Magdy Conrad, | Referral Question | | 2019 | | | CALL CENTER SUPERVISOR | (Outgoing | | | | | | (Clarification | | | | | | Needed)) | +--------+ + + + + | 04/18/ | Clinical | General Surgery | Magdy Conrad, | Status post incision | | 2019 | Support | | CALL CENTER SUPERVISOR | and drainage | | | | | | (Primary Dx) | +--------+ + + + + | 04/17/ | Emergency | Emergency Medicine | Ting Dubois, | Encounter for post | 2019 | | | Curt Alaniz | surgical wound check | | | | | MD Russell | (Primary Dx); | | | | | | Encounter for | | | | | | removal of abscess | | | | | | packing | +--------+ + + + + | 04/17/ | Telephone | General Surgery | Minoo Frank | Other | | 2019 | | | MD Ashlee | | +--------+ + + + + | 04/17/ | Telephone | General Surgery | Antonio Sol | Post-op Question | | 2019 | | | RITIKA Mosquera | | +--------+ + + + + | 04/15/ | Surgery | | Minoo Frank | INCISION AND | | 2019 | | | MD Ashlee | DRAINAGE -DELTOID | +--------+ + + + + | 04/15/ | Anesthesia | | Amadou Hong, | | | 2020 | Event | | MD | | +--------+ + + + + | 04/15/ | Hospital | Internal Medicine | Jamaal Sims, | Abscess of deltoid | | 2019 - | Encounter | | Boyd Ye, | region (Primary Dx); | | | | | Aleks Zhao, | IVDU (intravenous | | 04/16/ | | | MD | drug user); Current | | 2019 | | | | smoker; Heroin abuse | | | | | | ([facility]); Mild | | | | | | intermittent asthma | | | | | | without complication | +--------+ + + + + from Last 3 Months Immunizations + + + + | Name | Administration Dates | Next Due | + + + + | TDAP, (ADOL/ADULT) | 02/29/2016, 05/01/2012, 02/14/2011 | | + + + + Family History + + +------+ + | Medical History | Relation | Name | Comments | + + +------+ + | Stroke | Father | | | + + +------+ + | Diabetes | Maternal | | | | | Grandfath | | | | | er | | | + + +------+ + | Heart attack | Maternal | | | | | Grandfath | | | | | er | | | + + +------+ + | Diabetes | Maternal | | | | | Grandmoth | | | | | er | | | + + +------+ + | Stroke | Maternal | | | | | Grandmoth | | | | | er | | | + + +------+ + | Malig hypertherm | Neg Hx | | | + + +------+ + + +------+--------+ + | Relation | Name | Status | Comments | + +------+--------+ + | Father | | | | + +------+--------+ + | Father | | | | + +------+--------+ + | Maternal Grandfather | | | | + +------+--------+ + | Maternal Grandfather | | | | + +------+--------+ + | Maternal Grandmother | | | | + +------+--------+ + | Maternal Grandmother | | | | + +------+--------+ + Social History + +-------+ +--------+------+ | [...] on file | | + + + Last Filed Vital Signs + + + + + | Vital Sign | Reading | Time Taken | Comments | + + + + + | Blood Pressure | 112/78 | 04/29/2020 10:26 AM | | | | | PDT | | + + + + + | Pulse | 107 | 04/29/2020 10:26 AM | | | | | PDT | | + + + + + | Temperature | 36.6 C (97.9 F) | 04/29/2020 10:26 AM | | | | | PDT | | + + + + + | Respiratory Rate | 16 | 04/17/2020 1:57 PM | | | | | PDT | | + + + + + | Oxygen Saturation | 96% | 04/29/2020 10:26 AM | | | | | PDT [...] | | + + + + + Plan of Treatment + + + + + | Health Maintenance | Due Date | Last | Comments | | | | Done | | + + + + + | Vaccine: | | | | | Pneumococcal 19-64 | 7 | | | | (1 of 1 - PPSV23) | | | | + + + + + | Urine Drug Screening | | 11/23/19 | | | | 9 | 18 | | + + + + + | Vaccine: Influenza | | 07/14/20 | | | (#1) | 0 | 19, | | | | | 07/15/20 | | | | | 16, | | | | | 08/21/20 | | | | | 15, | | | | | Addition | | | | | al | | | | | history | | | | | exists | | + + + + + | Med Mgmt: BUN | | 04/16/20 | | | | 1 | 20, | | | | | 04/15/20 | | | | | 20, | | | | | 01/04/20 | | | | | 20, | | | | | Addition | | | | | al | | | | | history | | | | | exists | | + + + + + | Med Mgmt: Cr | | 04/16/20 | | | | 1 | 20, | | | | | 04/15/20 | | | | | 20, | | | | | 01/04/20 | | | | | 20, | | | | | Addition | | | | | al | | | | | history | | | | | exists | | + + + + + | Medication | | 04/16/20 | | | Management | 1 | 20 | | + + + + + | Vaccine: | | 02/29/20 | | | Dtap/Tdap/Td (5 - | 6 | 16, | | | Td) | | 09/26/19 | | | | | 16, | | | | | 05/01/20 | | | | | 12, | | | | | Addition | | | | | al | | | | | history | | | | | exists | | + + + + + | Hepatitis C | Completed | 04/15/20 | | | Screening | | 20, | | | | | 01/02/20 | | | | | 15, | | | | | 02/01/20 | | | | | 12 | | + + + + + Procedures + +--------+ + + + | [...] | | Note - | | | Eron, | | | Lab In | | | | | | Hlseve | | | n - | | | 04/17/ | | | 2019 | | | [...] L?MRN: | | | | | | [id number] | | | [id number] | | | riteri | | | [...] | | | [place] | | | Razor Sharpener | | | al | | | [...] MD | | | | | | Razor Sharpener | | | al | | | [...] [email or web address] | | | m | +---+--------+ + +--------+ + + + | MAGNESIUM [...] | | Note - | | | Eron, | | | Lab In | | | | | | Hlseve | | | n - | | | 04/15/ | | | 2020 | | | [...] L?MRN: | | | | | | [id number] | | | [id number] | | | riteri | | | [...] | | | 25 | | | BAI | | | | | | CAMPBE [...] | | [facility] | | | [place] | | | [place] | | | [...] | | [facility] | | | [place] | | | [place] | | | [...] | | [facility] | | | [place] | | | [place] | | | [...] MD | | | | | | Razor Sharpener | | | al | | | [...] [email or web address] | | | m | +---+--------+ from Last 3 Months Results CBC with Differential (04/16/2020 7:28 AM PDT)Only the most recent of 2 results within the time period is included. + + + + + + | [...] | | | Absolute | performed at [facility], [address] | LABORATORY | | | | [address], | | | | | | [place] [address] | | | | + + + + + + + + | Specimen | + + | Blood | + + + + + + + | Performing | Address | City/State/Zipcode | Phone Number | | Organization | | | | + + + + + | [facility] | [address] | [place] [address] | [phone] | + + + + + Magnesium (04/16/2020 7:28 AM PDT) + + + + + + | Component | Value | Ref Range | Performed | Pathologist | | | | | At | Signature | + + + + + + | Magnesium | 1.8Comment: Testing | 1.7 - 2.4 mg/dL | [facility] | | | | performed at [facility];[address] | | LABORATORY | | | | [address];[place] | | | | | | [address] | | | | + + + + + + + + | Specimen | + + | Blood | + + + + + + + | Performing | Address | City/State/Zipcode | Phone Number | | Organization | | | | + + + + + | [facility] | [address] | [place] [address] | [phone] | + + + + + Comprehensive Metabolic Panel (04/16/2020 7:28 AM PDT)Only the most recent of 2 results wi thin the time period is included. + + + + + + | [...] 20 | 10 - 65 U/L | KR [...] | | | | | | MDRD IDAR traceable | | | | | | equation.Testing | | | | | | performed at [facility], [address] | | | | | | [facility], | | | | | | [place] [address] | | | | + + + + + + + + | Specimen | + + | Blood | + + + + + + + | Performing | Address | City/State/Zipcode | Phone Number | | Organization | | | | + + + + + | [facility] | [address] | [place] [address] | [phone] | + + + + + Culture, Blood (04/16/2020 12:46 AM PDT)Only the most recent of 2 results within the time margarita wells is included. + + + + + + | [...] Special | Testing performed at | | [facility] | | | Requests | [facility];[address] | | LABORATORY | | | | [place] [address] | | | | + + + + + + | RESULT | NO GROWTH 6 DAYS | | [facility] | | | | | | LABORATORY | | + + + + + + | RESULT | Testing performed at | | [facility] | | | | [facility], [address] [facility] | | LABORATORY | | | | [place], [place] | | | | | | [id number]: Testing | | | | | | performed at [facility], [facility] | | | | | | [address] [place], [place] | | | | | | [address] | | | | + + + + + + + + | Specimen | + + | Blood - Peripheral | | blood specimen | | (specimen) | + + + + + + + | Performing | Address | City/State/Zipcode | Phone Number | | Organization | | | | + + + + + | [facility] | [address] | [place] [address] | [phone] | + + + + + Urinalysis [...] - 1.030 | [facility] | | | [place], | | | LABORATORY | | | [...] | | | Urine | performed at [facility], [address] | | LABORATORY | | | | [address], | | | | | | [place] [address] | | | | + + + [...] | + + + + + | [facility] | [address] | [place] [address] | [phone] | + + + + + Anesthesia Airway Note (04/15/2020 5:31 PM PDT) [...] medication documentation. | | + + + Culture, Wound, Smear, w/Anaerobe (04/15/2020 5:23 PM PDT)Only the most recent of 2 result s within the time period is included. + + + + + + | [...] | [facility] | | | Requests | [facility] [address] | | LABORATORY | | | | [address];[place] [address] | | | | + + + [...] Stain | Testing performed at | | [facility] | | | Result | [facility], [address] | | LABORATORY | | | | [place] | | | | | | [address] | | | | + + + + + + | RESULT | 4+METHICILLIN RESISTANT | | KR | | | | S. AUREUS (MRSA) [...] Comment: Testing | | | performed at [facility], | | | [address], | | | [place] [address] | +---+ + + + + + + | Performing | Address | City/State/Zipcode | Phone Number | | Organization | | | | + + + + + | [facility] | [address] | [place] [address] | [phone] | + + + + + MRSA NAAT (04/15/2020 9:45 AM PDT) + + + + + + | Component | Value | Ref Range | Performed | Pathologist | | | | | At | Signature | + + + + + + | SOURCE: | [facility](NOSE) | | [facility] | | | | | | LABORATORY | | + + + + + + | Result | NEGATIVEComment: Testing | MRSNEG | [facility] | | | | performed at [facility];[address] | | LABORATORY | | | | [address];[place] | | | | | | [address] | | | | + + + + + + + + | Specimen | + + | Tissue - Both | | anterior nares (body | | structure) | + + + + + + + | Performing | Address | City/State/Zipcode | Phone Number | | Organization | | | | + + + + + | [facility] | [address] | [place] [address] | [phone] | + + + + + Hepatitis [...] | | | | | | 0.9The [facility] recommends | | | | | | that a positive HCV | | | | | | antibody resultbe | | | | | | followed up with a HCV | | | | | | Nucleic Acid | | | | | | Amplificationtest | | | | | | ([id number]).Testing | | | | | | performed at [facility], | | | | | | [address], | | | | | | [facility] [address] | | | | + + + + + + + + | Specimen | + + | Blood | + + + + + + + | Performing | Address | City/State/Zipcode | Phone Number | | Organization | | | | + + + + + | [facility] | [address] | [place] [address] | [phone] | + + + + + HIV 1 and 2 Ab Reflex (04/15/2020 9:02 AM PDT) + + + + + + | Component | Value | Ref Range | Performed | Pathologist | | | | | At | Signature | + + + + + + | HIV 1 and 2 | Non ReactiveComment: | Non Reactive | [facility] | | | Ab | Testing performed at Lab | | LABORATORY | | | | [place], [address] | | | | | [address], [facility] [address] | | | | + + + + + + + + | Specimen | + + | Blood | + + + + + + + | Performing | Address | City/State/Zipcode | Phone Number | | Organization | | | | + + + + + | [facility] | [address] | [place] [address] | [phone] | + + + + + Coronavirus (COVID-19) NAAT (04/15/2020 6:03 AM PDT) + + + + + + | Component | Value | Ref Range | Performed | Pathologist | | | | | At | Signature | + + + + + + | SARS-CoV-2, | NEGATIVEComment: This | NEG | [facility] | | | NAAT | test was [...] | | | | | performed at [facility] | | | | | | [facility];[place], [place] | | | | | | [address] | | | | + + + + + + + + | Specimen | + + | Tissue - Entire | | nasopharynx (body | | structure) | + + + + + + + | Performing | Address | City/State/Zipcode | Phone Number | | Organization | | | | + + + + + | [facility] | [address] | [place] [address] | [phone] | + + + + + CT [...] Procedure Note | + + | Eron, [id number] - 04/15/2020 4:50 AM PDT | | [...] Procedure Note | + + | Eron, [id number] - 04/15/2020 3:40 AM PDT | | [...] + + | Performing | Address | City/State/[facility] | Phone Number | | Organization | [...] | | | | | | at [facility];[address];[place] [address] | | | | + + + + + + + + | Specimen | + + | Blood | + + + + + + + | Performing | Address | City/State/Zipcode | Phone Number | | Organization | | | | + + + + + | [facility] | [address] | [place] [address] | [phone] | + + + + + C-Reactive Protein (04/15/2020 3:11 AM PDT) + + + + + + | Component | Value | Ref Range | Performed | Pathologist | | | | | At | Signature | + + + + + + | CRP | 15.5 (H)Comment: Testing | <0.5 mg/dL | [facility] | | | | performed at [facility] | | LABORATORY | | | | [facility];[place], [place] | | | | | | [address] | | | | + + + + + + + + | Specimen | + + | Blood | + + + + + + + | Performing | Address | City/State/Zipcode | Phone Number | | Organization | | | | + + + + + | [facility] | [address] | [place] [address] | [phone] | + + + + + HCG, Serum, Quant (04/15/2020 3:11 AM PDT) + + + + + + | Component | Value | Ref Range | Performed | Pathologist | | | | | At | Signature | + + + + + + | hCG Quant, | <4Comment: APPROX | <4 mIU/mL | [facility] | | | Serum | [...] | | | | | 100 - 28791 - 4 WEEKS | | | | | | . . . . 500 - 942944 - | | | | | | 5 WEEKS . . . . 1000 - | | | | | | 160674 - 6 WEEKS . . . | | | | | | [address] - [id number] - 8 | | | | | | WEEKS . . . [address] - | | | | | | [id number] - 3 MONTHS . . . | | | | | | 137[address] - 398145 Testing | | | | | | performed at [facility];[address] | | | | | | [address];[place], [place] | | | | | | [address] | | | | + + + + + + + + | Specimen | + + | Blood | + + + + + + + | Performing | Address | City/State/Zipcode | Phone Number | | Organization | | | | + + + + + | [facility] | [address] | [place] [address] | [phone] | + + + + + Lactic Acid (04/15/2020 3:11 AM PDT) + + + + + + | Component | Value | Ref Range | Performed | Pathologist | | | | | At | Signature | + + + + + + | Lactate, | 1.8Comment: Testing | 0.4 - 2.0 | [facility] | | | Serum | performed at [facility] [place];[address] | mmol/L | LABORATORY | | | | [address];[place], [place] | | | | | | [address] | | | | + + + + + + + + | Specimen | + + | Blood | + + + + + + + | Performing | Address | City/State/Zipcode | Phone Number | | Organization | | | | + + + + + | [facility] | [address] | [place] [address] | [phone] | + + + + + from Last 3 Months Additional Health Concerns + + + + + | Infection | Onset Date | Last Indicated | Resolved Time | + + + + + | Methicillin-resistan | 04/15/2020 | 04/15/2020 | | | t Staphylococcus | | | | | aureus | | | | + + + + + Insurance + +--------+ +--------+ +---------+------+ | Payer | Benefi | Subscriber | Effect | Phone | Address | Type | | | t Plan | ID | lucas | | | | | | / | | Dates | | | | | | Group | | | | | | + +--------+ +--------+ +---------+------+ | [employer] | [employer] | [id number] | 09/12/19 | [phone] | | PPO | | HEALTH | [place] | | 20-Pre | 0 | | | | | GROUP | | sent | | | | | | HEALTH | | | | | | | | | | | | | | | | OPTION | | | | | | | | S POS | | | | | | + +--------+ +--------+ +---------+------+ + +--------+ +--------+ + + | Guarantor Name | Accoun | Relation to | Date | Phone | Billing Address | | | t Type | Patient | of | | | | | | | | | | + +--------+ +--------+ + + | GorgeMinoo | Person | Self [birth year] | [phone] | Betty | al/Fam | | 1980 | [phone] | [address] | | | anita | | | [address] (Home) | [place] [address] | + +--------+ +--------+ + + Advance Directives + + + + + | Type | Date Recorded | Patient | Explanation | | | | 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
--- OUTSIDE RECORDS SUMMARY | ~2020-06-12 | XMS | Encounter Summary ---
Demographics + + + | Address | [address] | | | [address] [facility] | | | [place] [address] | + + + | Home Phone | | + + + | Preferred Language | Unknown | + + + | Marital Status | Legally | + + + | Scientology Affiliation | 1013 | + + + [...] Team Providers + +------+ + | Care Bacon Skinner Name | Role | Phone | + +------+ + PCP | Unavailable | + +------+ + Encounter Details +--------+ + + + + | Date | Type | Department | Care Team | Description | +--------+ + + + + | 01/15/ | Hospital | [facility] | Arely Treadwell, | POISONING-CARDIOVASC | | 2004 - | Encounter | [facility] | [address] | AGT NEC | | | | INTENSIVE CARE UNIT | [address], | | | 01/16/ | | [address] | [place] [address] | | | 2003 | | [place], [place] | [phone] | | | | | [address] | | | | | | [phone] | | | +--------+ + + + [...] + | Diagnosis | + + | Poisn by oth uns agents prim aff cv sys Poisoning by other and unspecified agents | | primarily affecting the cardiovascular system | + + documented in this encounter"
--- OUTSIDE RECORDS SUMMARY | ~2020-06-12 | XMS | Encounter Summary ---
Demographics + + + | Address | [address] | | | [address] [facility] | | | [place] [address] | + + + | Home Phone | | + + + | Preferred Language | Unknown | + + + | Marital Status | Legally | + + + | Hinduism Affiliation | 1013 | + + + [...] Team Providers + +------+ + | Care Rubber Block Layer Name | Role | Phone | + +------+ + PCP | Unavailable | + +------+ + Encounter Details +--------+ + + + + | Date | Type | Department | Care Team | Description | +--------+ + + + + | 04/07/ | Emergency | [facility] | MandeepKaushikVitaly Bal, | Encounter for Other | | 2008 | | MEDICAL CENTER | [address] | Specified Aftercare | | | | EMERGENCY CENTER | [place] [address] | | | | | [address] | [phone] | | | | | [place], [place] | | | | | | [address] | | | | | | [phone] | | | +--------+ + + + [...] Diagnosis | + + | Encounter for other specified aftercare | + + documented in this encounter"
--- OUTSIDE RECORDS SUMMARY | ~2020-06-12 | XMS | Encounter Summary ---
Demographics + + + | Address | [address] | | | [address] [facility] | | | [place] [address] | + + + | Home Phone [...] Author + + + | Author | [facility] | | | and Carlosana | + + + | Organization | [facility] | | [...] Team Providers + +------+ + | Care Tool Turret Lathe Set Up Operator Name | Role | Phone | + +------+ + PCP | Unavailable | + +------+ + Encounter Details +--------+ + + + + | Date | Type | Department | Care Team | Description | +--------+ + + + + | 03/17/ | Hospital | [facility] | Julio César Liriano MD | Abdominal Pain, | | 2008 | Encounter | CONVERSION [address] | [address] | Unspecified Site | | | | [address] | [place] [address] | | | | | [place], [place] | [phone] | | | | | [address] | | | | | | [phone] | | | +--------+ + + + [...] | + +--------+ + + + | NM HEPATOBILIARY W | Routin | 11/26/2008 | | Results for this | | CCK | e | 10:00 AM | | procedure are in the | | | | PDT | | results section. | + +--------+ + + + documented in this encounter Results NM Hepatobiliary w PHARM (11/26/2008 10:00 AM PDT) + + | Specimen | + + | | + + + + + | Narrative | Performed At | + + + | [id number] | | | Page 1 RADIOLOGY | | | / | | | O/P [facility] | | | NAME: [place] [address] | | | | | | | | | DATE OF : 1980 ORDER NUMBER: [id number] | | | EXAM DATE/TIME: 11/26/2008 07:05 A ORDERING PHYSICIAN: NORMAN | | | JULIO CÉSAR Nelson ORDER DETAIL: 6400 / / ONM EXAM DESCRIPTION: NM | | | HEPATOBILARY DUCTAL IMAGING | | | | | | NUCLEAR MEDICINE HEPATOBILIARY SCAN WITH GALLBLADDER EJECTION FRACTION | | | 11/26/2008 HISTORY Abdominal pain. COMPARISON None. | | | TECHNIQUE The patient received 4.8 mCi of technetium-99m Choletec | | | intravenously (IV). Anterior planar images over liver and gallbladder | | | were obtained for 60 minutes. The patient then received 1.8 mcg of | | | CCK infused IV slowly over 30 minutes. A region of interest was drawn | | | around the gallbladder and the gallbladder ejection fraction was | | | calculated at 15, 30, and 45 minutes. FINDINGS There is prompt | | | appearance of radiotracer in the liver. Intrahepatic biliary ducts | | | and gallbladder are first visualized at 6 to 9 minutes. There is | | | appearance of radiotracer in the dysfunctional uterine bleeding at 9 | | | to 12 minutes. The radiotracer steadily accumulates in the | | | gallbladder over the first hour of imaging. Gallbladder ejection | | | fraction is 73% at 15 minutes, 92% at 30 minutes and 88% at 45 | | | minutes. These values are within the range of normal. IMPRESSION | | | 1. We do not see evidence of biliary tract obstruction. 2. | | | Gallbladder ejection fraction is normal. Read by CAL Soto | | | MD LIBRADO 11/26/2008 03:52 P Electronically Signed by CAL PAVON | | | 11/26/2008 07:17 P P DT: | | | 11/26/2008 04:11 P VICTOR ML/gabi/[id number]/ cc: JULIO CÉSAR LIRIANO MD | | | CAL PAVON MD | | + + + + + | Procedure Note | + + | Yahir Littlejohn Conversion - 05/07/2019 4:00 AM PDT | | [id number] Page 1 | | RADIOLOGY / | | O/P | | [facility] NAME: MADHURI PENNINGTON | | [place] [address] | | | | DATE OF : 1980 | | | | ORDER NUMBER: [id number] | | EXAM DATE/TIME: 11/26/2008 07:05 A | | ORDERING PHYSICIAN: JULIO CÉSAR LIRIANO | | ORDER DETAIL: 6400 / / ONM | | EXAM DESCRIPTION: NM HEPATOBILARY DUCTAL IMAGING | | | | NUCLEAR MEDICINE HEPATOBILIARY SCAN WITH GALLBLADDER EJECTION FRACTION | | 11/26/2008 | | | | HISTORY | | Abdominal pain. | | | | COMPARISON | | None. | | | | TECHNIQUE | | The patient received 4.8 mCi of technetium-99m Choletec intravenously | | (IV). Anterior planar images over liver and gallbladder were obtained | | for 60 minutes. The patient then received 1.8 mcg of CCK infused IV | | slowly over 30 minutes. A region of interest was drawn around the | | gallbladder and the gallbladder ejection fraction was calculated at 15, | | 30, and 45 minutes. | | | | FINDINGS | | There is prompt appearance of radiotracer in the liver. Intrahepatic | | biliary ducts and gallbladder are first visualized at 6 to 9 minutes. | | There is appearance of radiotracer in the dysfunctional uterine bleeding | | at 9 to 12 minutes. The radiotracer steadily accumulates in the | | gallbladder over the first hour of imaging. | | | | Gallbladder ejection fraction is 73% at 15 minutes, 92% at 30 minutes | | and 88% at 45 minutes. These values are within the range of normal. | | | | IMPRESSION | | 1. We do not see evidence of biliary tract obstruction. | | 2. Gallbladder ejection fraction is normal. | | | | | | Read by | | CAL PAVON MD 11/26/2008 03:52 P | | Electronically Signed by | | CAL PAVON MD 11/26/2008 07:17 P | | | | P | | P | | VICTOR ML/[facility]/[id number]/ | | cc: JULIO CÉSAR LIRIANO MD | | CAL PAVON MD | + + documented in this encounter Visit Diagnoses + + | Diagnosis | + + | Abdominal pain, unspecified site | + + documented in this encounter"
--- OUTSIDE RECORDS SUMMARY | ~2020-06-12 | XMS | Encounter Summary ---
Demographics + + + | Address | [address] | | | [address] | | | [place] [address] | + + + | Home Phone [...] Team Providers + +------+ + | Care Dredge Pipe Installer Name | Role | Phone | + +------+ + PCP | Unavailable | + +------+ + Encounter Details +--------+ + + + + | Date | Type | Department | Care Team | Description | +--------+ + + + + | 03/25/ | Emergency | [facility] | Alex Rhoades | [facility] | | 2004 | | MEDICAL CENTER | DO Abhil[address] | | | | | EMERGENCY CENTER | [place], [place] | | | | | [address] [facility] | [address] | | | | | [place], [place] | | | | | | [address] | | | | | | [phone] | | | +--------+ + + + [...] + | Diagnosis | + + | Otalgia, unspecified | + + documented in this encounter"
--- OUTSIDE RECORDS SUMMARY | ~2020-06-12 | XMS | Encounter Summary ---
Demographics + + + | Address | [address] | | | [address] [facility] | | | [place] [address] | + + + | Home Phone | | + + + | Preferred Language | Unknown | + + + | Marital Status | Legally | + + + | Catholic Affiliation | 1013 | + + + | Race | White | + + + | Ethnic Group | Not or | + + + Author + + + | Author | [facility] | | | and [place]ana | + + + | Organization | [facility] | | [...] Team Providers + +------+ + | Care Accounting Machine Operator Name | Role | Phone | + +------+ + PCP | Unavailable | + +------+ + Encounter Details +--------+ + + + + | Date | Type | Department | Care Team | Description | +--------+ + + + + | 05/18/ | [facility] | [facility] | Matt Oliveros [address] | | | 2005 - | Encounter | MEDICAL CENTER LABOR | [address] | | | | | [address] | [place] [address] | | | 05/19/ | | [address] | [phone] | | | 2005 | | [place], [place] | | | | | | [address] | | | | | | [phone] | | | +--------+ + + + [...]
--- OUTSIDE RECORDS SUMMARY | ~2020-06-12 | XMS | Encounter Summary ---
Demographics + + + | Address | [address] | | | [address] [facility] | | | [place] [address] | + + + | Home Phone [...] Author + + + | Author | [facility] | | | and Carlosana | + + + | Organization | [facility] | | | [...] Team Providers + +------+ + | Care Electrical Engineering Designer Name | Role | Phone | + +------+ + PCP | Unavailable | + +------+ + Encounter Details +--------+ + + + + | Date | Type | Department | Care Team | Description | +--------+ + + + + | 04/19/ | Orders Only | [facility] | Provider, | | | 2019 | | SYSTEM GENERIC OP | [address], [address] | | | | | [address] | Alberto Tomlinson | | | | | [address] [place], [place] | [place] [address] | | | | | [address] | | | | | | [phone] | | | +--------+ + + + [...]
--- OUTSIDE RECORDS SUMMARY | ~2020-06-12 | XMS | Encounter Summary ---
Demographics + + + | Address | [address] | | | [address] [facility] | | | [place] [address] | + + + | Home Phone | | + + + | Preferred Language | Unknown | + + + | Marital Status | Legally | + + + | Yarsanism Affiliation | 1013 | + + + | Race | White | + + + | Ethnic Group | Not or | + + + Author + + + | Author | [facility] | | | and [place]ana | + + + | Organization | [facility] | | [...] Team Providers + +------+ + | Care Mid Wife Name | Role | Phone | + +------+ + PCP | Unavailable | + +------+ + Encounter Details +--------+ + + + + | Date | Type | Department | Care Team | Description | +--------+ + + + + | 04/17/ | Emergency | [facility] | Kayleigh Adhikari, | Pain in Limb | | 2006 | | MEDICAL CENTER | DO [address] | | | | | EMERGENCY CENTER | [place] [address] | | | | | [address] | [phone] | | | | | [place], [place] | | | | | | [address] | | | | | | [phone] | | | +--------+ + + + [...]
--- OUTSIDE RECORDS SUMMARY | ~2020-06-12 | XMS | Encounter Summary ---
Demographics + + + | Address | [address] | | | [address] [facility] | | | [place] [address] | + + + | Home Phone [...] Team Providers + +------+ + | Care Procedure Tech Name | Role | Phone | + +------+ + PCP | Unavailable | + +------+ + Encounter Details +--------+ + + + + | Date | Type | Department | Care Team | Description | +--------+ + + + + | 04/26/ | Hospital | [facility] | Shilo-Sandoval, | | | 2005 | Encounter | [address] | Lex Mueller MD [address] | | | | | [address] | [facility] | | | | | [place], [place] | [place] [address] | | | | | [address] | [phone] | | | | | [phone] | | | +--------+ + + + [...]
--- OUTSIDE RECORDS SUMMARY | ~2020-06-12 | XMS | Encounter Summary ---
Demographics + + + | Address | [address] | | | [address] [facility] | | | [place] [address] | + + + | Home Phone [...] Team Providers + +------+ + | Care Electric Clock Mechanic Name | Role | Phone | + +------+ + | No, Physician | PCP | Unavailable | + +------+ + Encounter Details +--------+---------+ + + + | Date | Type | Department | Care Team | Description | +--------+---------+ + + + | 04/29/ | Office | [facility] | Magdy Conrad, | Status post incision | | 2020 | Visit | GENERAL SURGERY [address] | BOXER OPERATOR [address] | and drainage | | | | [address] | [address] [place], (Primary Dx) | | | | [place], [place] | [place] [address] | | | | | [address] | [phone] | | | | | [phone] | | | +--------+---------+ + + + [...] encounter Progress Notes Magdy Conrad ARNP - 04/29/2020 10:20 AM PDTFormatting of this note might be different fr om the original. [id number] Minoo Watson 40 y.o.female 04/29/2020 10:28 AM PDT Minoo Watson is a 40-year-old with history of heroin abuse seen in the [facility] with an abscess to the right deltoid region, she underwent surgical incision and dra corona of right deltoid abscess, she is seen today for follow-up and wound check. She has no complaints of nausea/vomiting, constipation/diarrhea, fever/chills. Her pain is well controlled at 10/22. She denies any redness or irritation at ins. site. BP 112/78 | Pulse 107 | Temp 36.6 C (97.9 F) | SpO2 96% Examination: General Appearance: Alert, cooperative, no distress, appears stated age Head: Normocephalic, without obvious abnormality, atraumatic Eyes: PERRL, conjunctiva/corneas clear Ears: Normal external ear canals, both ears Nose: Nares normal Throat: Lips, mucosa, and tongue normal; teeth and gums normal Neck: Symmetrical, trachea midline Back: Symmetric, no curvature Lungs: Respirations unlabored Chest wall: No tenderness or deformity Heart: Regular rate Abdomen: Extremities: Extremities normal, atraumatic, no cyanosis or edema Skin: Skin color, texture, turgor normal, wound to the right deltoid area with pink wound bed, no purulence noticed, no necrotic tissue. Lymph nodes: Cervical nodes normal Neurologic: CNII-XII intact. Assessment and Plan: Post op I&D of abscess of right deltoid on 04/15/[address] Frank. Wound care with assistance of significant other, they have been doing daily wet-to-dry d ressing changes. Wound has good appearance with no purulence, patient denies fever chills malaise or any other signs or symptoms of infection. Completed course of antibiotics, I do not believe patient requires additional antibiotic treatment this time, will just continue to monitor closely. Continue with daily wet-to-dry dressing changes. Referral to wound care and wound care plan ordered. Patient has established care with Suboxone clinic to assist with her addiction problem Encouraged to avoid smoking, keep normal blood sugars, and have good protein intake. All questions were addressed. Follow up in 2 weeks Signed, RITIKA Stack [facility] Portions of [...]
--- OUTSIDE RECORDS SUMMARY | ~2020-06-12 | XMS | Encounter Summary ---
Demographics + + + | Address | [address] | | | [address] [facility] | | | [place] [address] | + + + | Home Phone | | + + + | Preferred Language | Unknown | + + + | Marital Status | Legally | + + + | Hindu Affiliation | 1013 | + + + [...] Team Providers + +------+ + | Care Nutrition Therapist Name | Role | Phone | + +------+ + PCP | Unavailable | + +------+ + Encounter Details +--------+ + + + + | Date | Type | Department | Care Team | Description | +--------+ + + + + | 03/26/ | [facility] | [facility] | Glenn Ross MD | | | 2002 - | Encounter | [facility] | [address] [facility] | | | | | EMERGENCY CENTER | [place], [place] | | | 03/27/ | | [address] | [address] | | | 2002 | | [place], [place] | [phone] | | | | | [address] | | | | | | [phone] | | | +--------+ + + + [...]
--- OUTSIDE RECORDS SUMMARY | ~2020-06-12 | XMS | Encounter Summary ---
Demographics + + + | Address | [address] | | | [address] [facility] | | | [place] [address] | + + + | Home Phone | | + + + | Preferred Language | Unknown | + + + | Marital Status | Legally | + + + | Buddhism Affiliation | 1013 | + + + | Race | White | + + + | Ethnic Group | Not or | + + + Author + + + | Author | [facility] | | | and Carlosana | + + + | Organization | [facility] | | | and [...] Team Providers + +------+ + | Care Equity Analyst Name | Role | Phone | + +------+ + PCP | Unavailable | + +------+ + Encounter Details +--------+ + + + + | Date | Type | Department | Care Team | Description | +--------+ + + + + | 03/06/ | Hospital | [facility] | America Rodriguez MD | Unspecified disorder | | 2009 - | Encounter | [address] | [address] [facility] | of esophagus | | | | [address] | [place] [address] | | | 03/15/ | | [place], [place] | [phone] | | | 2009 | | [address] | | | | | | [phone] | | | +--------+ + + + [...] | + + | Unspecified disorder of esophagus | + + documented in this encounter"
--- OUTSIDE RECORDS SUMMARY | ~2020-06-12 | XMS | Encounter Summary ---
Demographics + + + | Address | [address] | | | [address] [facility] | | | [place] [address] | + + + | Home Phone | | + + + | Preferred Language | Unknown | + + + | Marital Status | Legally | + + + | Holiness Affiliation | 1013 | + + + | Race | White | + + + | Ethnic Group | Not or | + + + Author + + + | Author | [facility] | | | and [place]ana | + + + | Organization | [facility] | | [...] Team Providers + +------+ + | Care Motor Bike Mechanic Name | Role | Phone | + +------+ + PCP | Unavailable | + +------+ + Encounter Details +--------+ + + + + | Date | Type | Department | Care Team | Description | +--------+ + + + + | 04/28/ | Emergency | [facility] | Kelle Clark, | SHLDR/UPPER ARM | | 2003 | | MEDICAL CENTER | MD [address] | INJURY NOS | | | | EMERGENCY CENTER | [place] [address] | | | | | [address] | [phone] | | | | | [place], [place] | | | | | | [address] | | | | | | [phone] | | | +--------+ + + + [...] + + | Injury, other and unspecified, shoulder and upper arm | + + documented in this encounter"
--- OUTSIDE RECORDS SUMMARY | ~2020-06-12 | XMS | Encounter Summary ---
Demographics + + + | Address | [address] | | | [address] [facility] | | | [place] [address] | + + + | Home Phone [...] Team Providers + +------+ + | Care Trenching Machine Operator Name | Role | Phone | + +------+ + PCP | Unavailable | + +------+ + Encounter Details +--------+ + + + + | Date | Type | Department | Care Team | Description | +--------+ + + + + | 04// | Emergency | [facility] | Donell Brock, | Unspecified Disorder | | 2008 | | MEDICAL CENTER | [address] | of Skin and | | | | EMERGENCY CENTER | [place], [place] | Subcutaneous Tissue | | | | [address] | [address] | | | | | [place], [place] | [phone] | | | | | [address] | | | | | | [phone] | | | +--------+ + + + [...] | + + | Unspecified disorder of skin and subcutaneous tissue | + + documented in this encounter"
--- OUTSIDE RECORDS SUMMARY | ~2020-06-12 | XMS | Encounter Summary ---
Demographics + + + | Address | [address] | | | [address] [facility] | | | [place] [address] | + + + | Home Phone [...] + | Author | [facility] | | | and [place]ana | + + + | Organization | [facility] | | | and [...] Team Providers + +------+ + | Care Make Ready Worker Name | Role | Phone | + +------+ + | No, Physician | PCP | Unavailable | + +------+ + Reason for Visit + +--------+ + | Reason | Onset | Comments | | | Date | | + +--------+ + | Post-op Question | 04/28/ | | | | 2020 | | + +--------+ + Encounter Details +--------+ + + + + | Date | Type | Department | Care Team | Description | +--------+ + + + + | 04/28/ | Telephone | [facility] | Magdy Conrad, | Post-op Question | | 2020 | | GENERAL SURGERY [address] | [place] [address] | | | | | [address] | [address] [place], | | | | | [place], [place] | [place] [address] | | | | | [address] | [phone] | | | | | [phone] | | | +--------+ + + + [...] this encounter Miscellaneous Notes Telephone Encounter - Jean Montoya RN - 04/28/2020 9:11 AM PDTPatient states that s he hasn't been able to get her packing in and she ran out of supplies. Patient is scheduled to see the provider tomorrow now instead of Weds. Patient verbalized understanding. No furth er questions at this time. 9:1 6 AM PDTTelephone Encounter - Tahmina Pearce - 04/28/2020 8:57 AM PDTPatient called aft er hours and left message with phone service. She stated she is suppose to be packing her w ound but she doesn't think she's doing it right. She stated the wound is closing and she wa nts to know if this is ok. Patient requesting call back at home number.Electronically lilia d by Tahmina Pearce at 04/28/2020 9:00 AM PDTdocumented in this encounter Plan of Treatment Not [...]
--- OUTSIDE RECORDS SUMMARY | ~2020-06-12 | XMS | Encounter Summary ---
Demographics + + + | Address | [address] | | | [address] [facility] | | | [place] [address] | + + + | Home Phone | | + + + | Preferred Language | Unknown | + + + | Marital Status | Legally | + + + | Alevism Affiliation | 1013 | + + + | Race | White | + + + | Ethnic Group | Not or | + + + Author + + + | Author | [facility] | | | and [place]ana | + + + | Organization | [facility] | | [...] Team Providers + +------+ + | Care News Camera Person Name | Role | Phone | + +------+ + PCP | Unavailable | + +------+ + Encounter Details +--------+ + + + + | Date | Type | Department | Care Team | Description | +--------+ + + + + | 07/25/ | Hospital | [facility] | Reza Liriano MD | | | 2008 | Encounter | [address] | [address] | | | | | [address] | [place] [address] | | | | | [place], [place] | [phone] | | | | | [address] | | | | | | [phone] | | | +--------+ + + + [...]
--- OUTSIDE RECORDS SUMMARY | ~2020-06-12 | XMS | Encounter Summary ---
Demographics + + + | Address | [address] | | | [address] [facility] | | | [place] [address] | + + + | Home Phone | | + + + | Preferred Language | Unknown | + + + | Marital Status | Legally | + + + | Sabianist Affiliation | 1013 | + + + | Race | White | + + + | Ethnic Group | Not or | + + + Author + + + | Author | [facility] | | | and [place]ana | + + + | Organization | [facility] | | | [...] Team Providers + +------+ + | Care Fashion Supervisor Name | Role | Phone | + +------+ + PCP | Unavailable | + +------+ + Encounter Details +--------+ + + + + | Date | Type | Department | Care Team | Description | +--------+ + + + + | 04/04/ | Hospital | [facility] | Conversion | | | 2016 | Encounter | CENTER [facility] | Transaction, | | | | | CLINIC [address] | Provider Unknown | | | | | [place], [place] | | | | | | [address] | (Fax) | | | | | [phone] | | | +--------+ + + + [...] Sulfate | AERS | | 0 | // | | | (PROAIR HFA IN) | [...] EPINEPHrine | TOÑO | | 0 | // | | | (EPIPEN IJ) | | [...] + + documented as of this encounter Procedure Notes Conversion Transaction, Provider Unknown - 04/04/2017 3:24 PM PDTFormatting of this note m ight be different from the original. Pre-Procedure Instructions by Erika Schmid RN at 04/04/171523 Author: Erika Schmid RN Service: (none) Author Type: Registered Nurse Filed: 04/04/171524 Date of Service: 04/04/171523 Status: Addendum Csr Retail: Erika Schmid RN (Registered Nurse) Related Notes: Original Note by Erika Schmid RN (Registered Nurse) filed at 1523 Patient meets AHA guidelines of mets of 4, ALLERGY TO PCN onver emmett Transaction, Provider Unknown - 04/04/2017 3:23 PM PDT Pre-Procedure Instructions by Erika Schmid RN at 04/04/171522 Author: Erika Schmid RN Service: (none) Author Type: Registered Nurse Filed: 04/04/171523 Date of Service: 04/04/171522 Status: Signed Csr Retail: Erika Schmid RN (Registered Nurse) Patient meets AHA guidelines of mets of 4 docume nted in this encounter Plan of Treatment Not on filedocumented as of this encounter Procedures + +--------+ + + + | Procedure Name | Priori | Date/Time | Associated Diagnosis | Comments | | | ty | | | | + +--------+ + + + | TYPE AND SCREEN | Routin | 04/04/2017 | | Results for this | | | e | 3:26 PM | | procedure are in the | | | | PDT | | results section. | + +--------+ + + + documented in this encounter Results Type and Screen (04/04/2017 3:26 PM PDT) + + + + + + | Component | Value | Ref Range | Performed | Pathologist | | | | | At | Signature | + + + + + + | ABO Rh | O NEGATIVE | | EXTERNAL | | | | | | LAB | | + + + + + + | Antibody | NEGATIVETesting | | EXTERNAL | | | Screen | performed at [facility];[address] | | LAB | | | | [address]adum[address] Tristan;[place] | | | | | | [id number] | | | | + + + [...]
--- OUTSIDE RECORDS SUMMARY | ~2020-06-12 | XMS | Encounter Summary ---
Demographics + + + | Address | [address] | | | [address] [facility] | | | [place] [address] | + + + | Home Phone | | + + + | Preferred Language | Unknown | + + + | Marital Status | Legally | + + + | Jehovah'S Witness Affiliation | 1013 | + + + | Race | White | + + + | Ethnic Group | Not or | + + + Author + + + | Author | [facility] | | | and Carlosana | + + + | Organization | [facility] | | | and [...] Team Providers + +------+ + | Care Anesthesiologists' Assistant Name | Role | Phone | + +------+ + PCP | Unavailable | + +------+ + Encounter Details +--------+ + + + + | Date | Type | Department | Care Team | Description | +--------+ + + + + | 06/12/ | Emergency | [facility] | Mandeep Vitaly Bal, | Vomiting Alone | | 2006 - | | MEDICAL CENTER | MD [address] | | | | | EMERGENCY CENTER | [place] [address] | | | 06/13/ | | [address] | [phone] | | | 2005 | | [place], [place] | | | | | | [address] | | | | | | [phone] | | | +--------+ + + + [...]
--- OUTSIDE RECORDS SUMMARY | ~2020-06-12 | XMS | Encounter Summary ---
Demographics + + + | Address | [address] | | | [address] [facility] | | | [place] [address] | + + + | Home Phone | | + + + | Preferred Language | Unknown | + + + | Marital Status | Legally | + + + | Orthodoxy Affiliation | 1013 | + + + [...] Team Providers + +------+ + | Care Priming Mixture Carrier Name | Role | Phone | + +------+ + PCP | Unavailable | + +------+ + Encounter Details +--------+ + + + + | Date | Type | Department | Care Team | Description | +--------+ + + + + | 07/17/ | Emergency | [facility] | Isaiah Manzano, | ABDOMINAL PAIN OTHER | | 2002 | | MEDICAL CENTER | [address] | SPEC SITE | | | | EMERGENCY CENTER | [place], [place] | | | | | [address] | [address] | | | | | [place], [place] | [phone] | | | | | [address] | | | | | | [phone] | | | +--------+ + + + [...] Diagnosis | + + | Abdominal pain, other specified site | + + documented in this encounter"
--- OUTSIDE RECORDS SUMMARY | ~2020-06-12 | XMS | Encounter Summary ---
Demographics + + + | Address | [address] | | | [address] [facility] | | | [place] [address] | + + + | Home Phone | | + + + | Preferred Language | Unknown | + + + | Marital Status | Legally | + + + | Anabaptism Affiliation | 1013 | + + + | Race | White | + + + | Ethnic Group | Not or | + + + Author + + + | Author | [facility] | | | and [place] | + + + | Organization | [facility] | | | [...] Team Providers + +------+ + | Care Garde Manager Name | Role | Phone | + +------+ + | No, Physician | PCP | Unavailable | + +------+ + Reason for Visit + +--------+ + | Reason | Onset | Comments | | | Date | | + +--------+ + | Post-op Question | 04/17/ | | | | 2020 | | + +--------+ + Encounter Details +--------+ + + + + | Date | Type | Department | Care Team | Description | +--------+ + + + + | 04/17/ | Telephone | [facility] | Antonio Sol | Post-op Question | | 2020 | | GENERAL SURGERY [address] | [address] | | | | | [address] | [address] | | | | | [place], [place] | [place] [address] | | | | | [address] | [phone] | | | | | [phone] | | | +--------+ + + + [...] this encounter Miscellaneous Notes Telephone Encounter - Tahmina Pearce - 04/17/2020 8:38 AM PDTPatient called after hour s and left message with phone service. She stated that [facility] Frank did and I&D on her arm and she was suppose to be referred to wound care. She has not heard anything from them and she is not wanting to get another infection in her arm. Patient requesting call [facility] at [facility] number. documented in this encounter Plan of Treatment [...]
--- OUTSIDE RECORDS SUMMARY | ~2020-06-12 | XMS | Encounter Summary ---
Demographics + + + | Address | [address] | | | [address] [facility] | | | [place] [address] | + + + | Home Phone [...] Author + + + | Author | [facility] | | | and [place]ana | + + + | Organization | [facility] | | | [...] Team Providers + +------+ + | Care Sandblaster Stone Name | Role | Phone | + +------+ + PCP | Unavailable | + +------+ + Encounter Details +--------+ + + + + | Date | Type | Department | Care Team | Description | +--------+ + + + + | 02/10/ | Hospital | [facility] | Yoel Navarro, | | | 2008 - | Encounter | CONVERSION [address] | MD | | | | | [address] | | | | 03/11/ | | [place] | | | | 2008 | | [address] | | | | | | [phone] | | | +--------+ + + + [...]
--- OUTSIDE RECORDS SUMMARY | ~2020-06-12 | XMS | Encounter Summary ---
Demographics + + + | Address | [address] | | | [address] [facility] | | | [place] [address] | + + + | Home Phone | | + + + | Preferred Language | Unknown | + + + | Marital Status | Legally | + + + | Mu-Ism Affiliation | 1013 | + + + | Race | White | + + + | Ethnic Group | Not or | + + + Author + + + | Author | [facility] | | | and [place] | + + + | Organization | [facility] | | [...] Team Providers + +------+ + | Care Cooker Process Cheese Name | Role | Phone | + +------+ + | Nery Maynard MD | PCP | | + +------+ + Encounter Details +--------+ + + + + | Date | Type | Department | Care Team | Description | +--------+ + + + + | 11/22/ | Orders Only | [facility] | Dam[facility] | | | 2017 | | [address] | [address] | | | | | [place], [place] | [address] | | | | | [address] | [place] [address] | | | | | [phone] | [phone] | | | | | | | [...] | + +--------+ + + + | DRUGS OF ABUSE, | Routin | 11/22/2017 | | Results for this | | PANEL, PAIN | e | 2:58 PM | | procedure are in the | | MANAGEMENT 2, REFLEX | | PDT | | results section. | + +--------+ + + + documented in this encounter Results Drugs of Abuse, Panel, Pain Management 2, Reflex (11/22/2017 2:58 PM PDT) + + + + + + | Component | Value | Ref Range | Performed | Pathologist | | | | | At | Signature | + + + + + + | Prescribed | SEE BELOWComment: NO | | EXTERNAL | | | Drug 10, | MEDICATION LIST | | LAB | | | Urine | PROVIDEDCORRECTED ON | | | | | | 11/23 AT 0159: | | | | | | PREVIOUSLY REPORTED | | | | | | DNR DNR | | | | + + + + + + | Alcohol, | NEGATIVEComment: | mg/dL | EXTERNAL | | | Screen, | POSITIVE CUTOFF 20 MG/DL | | LAB | | | Urine | | | | | + + + + + + | Amp/Methamp | NEGATIVEComment: | ng/mL | EXTERNAL | | | hetamine, | POSITIVE CUTOFF 500 | | LAB | | | Screen, | NG/ML | | | | | Urine | | | | | + + + + + + | Amphetamine | NEGATIVEComment: | ng/mL | EXTERNAL | | | , Urine, | POSITIVE CUTOFF 500 | | LAB | | | Screen | NG/ML | | | | + + + + + + | Cannabinoid | NEGATIVEComment: | ng/mL | EXTERNAL | | | Screen, | POSITIVE CUTOFF 20 NG/ML | | LAB | | | Urine | | | | | + + + + + + | Cocaine | NEGATIVEComment: | ng/mL | EXTERNAL | | | Metabolite | POSITIVE CUTOFF 150 | | LAB | | | | NG/ML | | | | + + + + + + | Morphine | NEGATIVEComment: LOQ: 50 | ng/mL | EXTERNAL | | | (LCMSMS) | NG/ML | | LAB | | + + + + + + | Oxymorphone | NEGATIVEComment: LOQ: 50 | ng/mL | EXTERNAL | | | (LCMSMS) | NG/ML | | LAB | | + + + + + + | Hydromorpho | NEGATIVEComment: LOQ: 50 | ng/mL | EXTERNAL | | | ne (LCMSMS) | NG/ML | | LAB | | + + + + + + | Noroxycodon | NEGATIVEComment: LOQ: 50 | ng/mL | EXTERNAL | | | e | NG/MLTHIS TEST WAS | | LAB | | | | DEVELOPED AND ITS | | | | | | PERFORMANCE | | | | | | CHARACTERISTICS | | | | | | DETERMINEDBY [facility]. THE | | | | | | [place]. FOOD AND DRUG | | | | | | ADMINISTRATION (FDA) HAS | | | | | | NOT APPROVEDOR CLEARED | | | | | | THIS TEST. HOWEVER, FDA | | | | | | APPROVAL OR CLEARANCE IS | | | | | | CURRENTLYNOT REQUIRED | | | | | | FOR CLINICAL USE OF THIS | | | | | | TEST.THE RESULTS ARE | | | | | | NOT INTENDED TO BE USED | | | | | | THE SOLE MEANS FOR | | | | | | CLINICALDIAGNOSIS OR | | | | | | PATIENT MANAGEMENT | | | | | | DECISIONS. [facility] IS | | | | | | AUTHORIZED UNDERCLINICAL | | | | | | LABORATORY IMPROVEMENT | | | | | | AMENDMENTS (CLIA) TO | | | | | | PERFORMHIGH-COMPLEXITY | | | | | | TESTING. | | | | + + + + + + | Hydrocodone | NEGATIVEComment: LOQ: 50 | ng/mL | EXTERNAL | | | , Confirm, | NG/ML | | LAB | | | LC-MS | | | | | + + + + + + | Oxycodone | NEGATIVEComment: LOQ: 50 | ng/mL | EXTERNAL | | | (LCMSMS) | NG/ML | | LAB | | + + + + + + | Codeine | NEGATIVEComment: LOQ: 50 | ng/mL | EXTERNAL | | | Urine | NG/ML | | LAB | | + + + + + + | Result | 15Comment: VERIFIED BY | ng/mL | EXTERNAL | | | | REPEAT | | LAB | | | | ANALYSIS.PRESCRIPTION | | | | | | MEDICATION NOT PROVIDED | | | | | | FOR INTERPRETIVE | | | | | | COMMENT.PRESENCE OF 6 | | | | | | ACETYL MORPHINE | | | | | | INDICATES THE | | | | | | CONSUMPTION OF | | | | | | HEROIN.LOQ: 10 NG/ML | | | | + + + + + + | Hydrcodone | 1075Comment: LOQ: 50 | ng/mL | EXTERNAL | | | | NG/MLPRESCRIPTION | | LAB | | | | MEDICATION NOT PROVIDED | | | | | | FOR INTERPRETIVE | | | | | | COMMENT.PRESENCE OF | | | | | | HYDROCODONE INDICATES | | | | | | THE CONSUMPTION OF | | | | | | VICODINE, LORTAB,ZYDONE, | | | | | | OR ANY MEDICATION | | | | | | CONTAINING HYDROCODONE | | | | | | AND IN LOWCONCENTRATIONS | | | | | | A METABOLITE OF | | | | | | CODEINE.LOQ: 50 NG/ML | | | | + + + + + + | Phencyclidi | NEGATIVEComment: | ng/mL | EXTERNAL | | | ne, Screen, | POSITIVE CUTOFF 25 NG/ML | | LAB | | | Urine | | | | | + + + + + + | Porpoxyphen | NEGATIVEComment: | ng/mL | EXTERNAL | | | e Screen, | POSITIVE CUTOFF 300 | | LAB | | | Urine | NG/ML | | | | + + + + + + | BARBITURATE | NEGATIVEComment: | ng/mL | EXTERNAL | | | S SCR | POSITIVE CUTOFF 200 | | LAB | | | | NG/ML | | | | + + + + + + | Benzodiazep | NEGATIVEComment: | ng/mL | EXTERNAL | | | ine Quant, | POSITIVE CUTOFF 200 | | LAB | | | Ur | NG/ML | | | | + + + + + + | Methadone | NEGATIVEComment: | ng/mL | EXTERNAL | | | Screen, | POSITIVE CUTOFF 100 | | LAB | | | Urine | NG/ML | | | | + + + + + + | Oxidants | NEGATIVEComment: | ug/mL | EXTERNAL | | | Screen, | POSITIVE CUTOFF 200 | | LAB | | | Urine | UG/ML | | | | + + + + + + | pH, Urine | 6.1 | | EXTERNAL | | | | | | LAB | | + + + + + + | Creatinine, | 114 | mg/dL | EXTERNAL | | | [...]
--- OUTSIDE RECORDS SUMMARY | ~2020-06-12 | XMS | Encounter Summary ---
Demographics + + + | Address | [address] | | | [address] [facility] | | | [place] [address] | + + + | Home Phone | | + + + | Preferred Language | Unknown | + + + | Marital Status | Legally | + + + | Advent Affiliation | 1013 | + + + | Race | White | + + + | Ethnic Group | Not or | + + + Author + + + | Author | [facility] | | | and [place] | + + + | Organization | [facility] [...] Team Providers + +------+ + | Care Disability Aide Name | Role | Phone | + +------+ + PCP | Unavailable | + +------+ + Encounter Details +--------+ + + + + | Date | Type | Department | Care Team | Description | +--------+ + + + + | 03/03/ | Emergency | [facility] | | Dysuria | | 2005 | | MEDICAL CENTER | | | | | | EMERGENCY CENTER | | | | | | [address] | | | | | | [place] | | | | | | [address] | | | | | | [phone] | | | +--------+ + + + [...] + | Diagnosis | + + | Dysuria | + + documented in this encounter"
--- OUTSIDE RECORDS SUMMARY | ~2020-06-12 | XMS | Encounter Summary ---
Demographics + + + | Address | [address] | | | [address] [facility] | | | [place] [address] | + + + | Home Phone | | + + + | Preferred Language | Unknown | + + + | Marital Status | Legally | + + + | Restorationism Affiliation | 1013 | + + + | Race | White | + + + | Ethnic Group | Not or | + + + Author + + + | Author | [facility] | | | and [place] | + + + | Organization | [facility] | | [...] Team Providers + +------+ + | Care Piping Drafter Name | Role | Phone | + +------+ + PCP | Unavailable | + +------+ + Encounter Details +--------+ + + + + | Date | Type | Department | Care Team | Description | +--------+ + + + + | 05/01/ | Hospital | [facility] | Matt Dubose, | IRRITABLE COLON | | 2001 - | Encounter | MEDICAL CENTER | MD [address] | | | | | CLINICAL DECISION | [address] | | | 05/06/ | | [address] | [id number] | | | 2001 | | [place], [place] | | | | | | [address] | | | | | | [phone] | | | +--------+ + + + [...] + | Diagnosis | + + | Irritable bowel syndrome | + + documented in this encounter"
--- OUTSIDE RECORDS SUMMARY | ~2020-06-12 | XMS | Encounter Summary ---
Demographics + + + | Address | [address] | | | [address] [facility] [address] | | | [place] [address] | + + + | Home Phone [...] Author + + + | Author | [facility] | | | and [place] | + + + | Organization | [facility] | | | and [...] Team Providers + +------+ + | Care Liquor Runner Name | Role | Phone | + +------+ + PCP | Unavailable | + +------+ + Encounter Details +--------+ + + + + | Date | Type | Department | Care Team | Description | +--------+ + + + + | 03/02/ | Emergency | [facility] | Adhikari, Kayleigh, | ABDOMINAL PAIN | | 2003 | | MEDICAL CENTER | DO [address] | [address] SITE | | | | EMERGENCY CENTER | [place] [address] | | | | | [address] | [phone] | | | | | [place], [place] | | | | | | [address] | | | | | | [phone] | | | +--------+ + + + [...]
--- OUTSIDE RECORDS SUMMARY | ~2020-06-12 | XMS | Encounter Summary ---
Demographics + + + | Address | [address] | | | [address] [facility] | | | [place] [address] | + + + | Home Phone [...] Team Providers + +------+ + | Care Senior Project Manager Engineering Name | Role | Phone | + +------+ + PCP | Unavailable | + +------+ + Encounter Details +--------+ + + + + | Date | Type | Department | Care Team | Description | +--------+ + + + + | 01/18/ | Emergency | [facility] | Yandel Kelley | ABN FIND-STOOL | | 2004 | | MEDICAL CENTER | MD Ervin [address] | [facility] | | | | EMERGENCY CENTER | [place], [place] | | | | | [address] | [address] | | | | | [place], [place] | [phone] | | | | | [address] | | | | | | [phone] | | | +--------+ + + + [...] + | Diagnosis | + + | Nonspecific abnormal finding in stool contents | + + documented in this encounter"
--- OUTSIDE RECORDS SUMMARY | ~2020-06-12 | XMS | Encounter Summary ---
Demographics + + + | Address | [address] | | | [address] [facility] | | | [place] [address] | + + + | Home Phone [...] Team Providers + +------+ + | Care Facilities Operator Name | Role | Phone | + +------+ + | Nery Maynard MD | PCP | | + +------+ + Reason for Visit + + + | Reason | Comments | + + + | Abdominal Pain | x 3 wks | + + + Encounter Details +--------+ + + + + | Date | Type | Department | Care Team | Description | +--------+ + + + + | 01/03/ | Emergency | [facility] | Vitaly Kaufman, | Acute abdominal pain | | 2019 | | MEDICAL CENTER | MD Brian TRISTAN | (Primary Dx); | | | | EMERGENCY CENTER | [place] [address] | Constipation, | | | | [address] | [phone] | unspecified | | | | [place], [place] | | constipation type; | | | | [id number] | | Opioid use disorder | | | | [phone] | | (HCC) | +--------+ + + + + Social [...] + + + | Blood Pressure | 115/71 | 01/04/2020 10:57 AM | | | | | PDT | | + + + + + | Pulse | 106 | 01/04/2020 10:57 AM | | | | | PDT | | + + + + + | Temperature | 36 C (96.8 F) | 01/04/2020 8:27 AM | | | | | PDT | | + + + + + | Respiratory Rate | 22 | 01/04/2020 9:30 AM | | | | | PDT | | + + + + + | Oxygen Saturation | 100% | 01/04/2020 10:57 AM | | | | | PDT | | + + + + + | Inhaled Oxygen | - | - | | | Concentration | | | | + + + + + | Weight | 77.9 kg (171 lb 11.8 | 01/04/2020 8:27 AM | | | | oz) | PDT | | + + + + + | Height | 175.3 cm (5' 9") | 01/04/2020 8:27 AM | | | | | PDT | | + + + + + | Body Mass Index | 25.36 | 01/04/2020 8:27 AM | | | | | PDT | | + + + + + documented in this encounter Discharge Instructions AttachmentsThe following attachments cannot be sent through Care Everywhere.Abdominal Pain, Adult (Namibian)documented in this encounter Medications at Time of [...] | 0 | 12/01/19 | | | [id number] | every 20 (twenty) | | | [...] + + +---------+ + + | | Place 1 Film under | 2 Film | 0 | 01/04/20 | | | buprenorphine-naloxo | the tongue every 24 | | | 20 | 0 | | ne (SUBOXONE) 8-2 mg | hours for 2 days. | | | | | | SL film | | | | | | + + + +---------+ + + | | Take 1 tablet by | | 0 | 10/28/19 | | | HYDROcodone-acetamin | mouth every 6 (six) | | | 18 | 0 | | ophen (NORCO) 10-325 | hours as needed for | | | | | | mg per tablet | Pain. | | | | | + + + +---------+ + + | hydrOXYzine | Take 1 tablet by | 12 | 0 | 01/04/20 | | | hydrochloride | mouth every 6 hours | tablet | | 20 | 0 | | (ATARAX) 25 mg | as needed for | | | | | | tablet | Anxiety. | | | | | + + [...] + +---------+ + + | polyethylene | Take 17 g by mouth | 255 g | 0 | 01/04/20 | | | glycol (MIRALAX) | Daily for 30 days. | | | 20 | 0 | | powder | Mix into 4-8 oz of | | | | | | | juice or water. | | | | | + + + +---------+ + + | venlafaxine | Take 150 mg by mouth | | 0 | 02/01/20 | | | (EFFEXOR XR) 150 mg | Daily. | | | 12 | 0 | | 24 hr capsule | | | | | | + + + +---------+ + + documented as of this encounter ED Notes Vitaly Kaufman MD - 01/04/2020 8:37 AM PDTFormatting of this note might be different fro m the original. [facility] Department of Emergency Medicine No flowsheet data found. History of Present Illness Patient Identification Minoo Watson is a 39 y.o. female. Minoo Watson Patient information was obtained from patient patient History/Exam limitations: none. Patient presented to the Emergency Department by: Car Chief Complaint Chief Complaint Patient presents with Abdominal Pain x 3 wks Patient presents to ED with chief complaint of abdominal pain. Onset of symptoms was 3 wee ks ago with a worsening course since that time. The symptoms are described to be of severe severity. Pt describes the quality and location as pain mid abdomen, with "sulfur". Pt rep orts pain/symptoms do not radiate. Pt states nothing makes the pain/symptoms better and not maycol makes the pain/symptoms worse. Pt also complains of no diarrhea or fever. Pt denies c ough or any other symptoms at this time. Care prior to arrival reported as opiates, has rel apsed, no longer on suboxone.. PCP: Nery Maynard MD Past Medical History: Diagnosis Date Asthma due to seasonal allergies Back pain 12/18/2009 Bipolar disorder (HCC) 09/2008 Herniated disc, cervical C5,C6 Joint pain Seasonal allergies Past Surgical History: Procedure Laterality Date SECTION x 2 COLONOSCOPY HERNIA REPAIR HYSTERECTOMY Bilateral 04/13/2017 Procedure: ROBOTIC ASSISTED LAPAROSCOPIC HYSTERECTOMY WITH SALPINGECTOMY; Surgeon: Glenn aleman MD; Location: [facility] MAIN OR; Service: MANAGER OPERATIONAL; Laterality: Bilateral; HYSTERECTOMY UPPER GASTROINTESTINAL ENDOSCOPY 2009 Prior to Admission medications Medication Sig Start Date End Date Taking? Authorizing Provider Albuterol Sulfate (PROAIR HFA IN) AERS 02/01/12 DATA MIGRATION RICK SR baclofen (LIORESAL) 10 mg tablet Take 1 tablet by mouth 3 (three) times daily. 09/27/17 Ks storical Provider, bismuth subsalicylate (PEPTO BISMOL) 262 mg/15 mL suspension Historical Provider, buprenorphine (SUBUTEX) 2 mg SUBL USE PER TAPER INSTRUCTIONS 04/28/18 Historical Provider, buprenorphine-naloxone (SUBOXONE) 8-[address] 1 & 1 2 (ONE & ONE HALF) STRIPS UNDE R THE TONGUE TWICE DAILY FOR 7 DAYS 03/14/19 Historical Provider, buprenorphine-naloxone (SUBOXONE) 8-2 mg SL [...] Daily. 02/01/12 DATA MIGRATION RICK SR ondansetron (ZOFRAN) 4 mg tablet TAKE 1 TABLET BY MOUTH EVERY 6 HOURS 03/01/19 Historical Provider, PEG [id number]-NaCl-NaSulf 227.1 g PACK Take 8 oz by mouth every 20 (twenty) minutes. D rink 8oz every 20 minutes until bowel movements occur 11/30/17 Historical Provider, polyethylene glycol (MIRALAX) powder 17 GM by mouth with 8 oz. of water by mouth daily for constipation 02/01/12 DATA MIGRATION RICK SR tiZANidine (ZANAFLEX) 4 MG capsule Take 1-2 capsules by mouth nightly as needed for Muscle spasms. 05/03/17 Historical Provider, traZODone (DESYREL) 50 mg tablet TAKE 1 OR 2 TABLETS BY MOUTH AT BEDTIME NEEDED 05/03/18 Historical Provider, venlafaxine (EFFEXOR XR) 150 mg 24 hr capsule Take 150 mg by mouth Daily. 02/01/12 DATA NE GRATION RICK SR Allergies Allergen Reactions Bee Venom Anaphylaxis Morphine Morphine And Related Other (See Comments) Abstracted Penicillins Hives Promethazine Hcl Droperidol Anxiety Lactose Intolerance (Gi) Other (See Comments) Social History Socioeconomic History Marital status: Single Spouse name: Not on file Number of children: Not on file Years of education: Not on file Highest education level: Not on file Occupational History Not on file Social Needs Financial resource strain: Not on file Food insecurity: Worry: Not on file Inability: Not on file Transportation needs: Medical: Not on file Non-medical: Not on file Tobacco Use Smoking status: Current Every Day Smoker Packs/day: 0.25 Substance and Sexual Activity Alcohol use: Not on file Comment: Alcoholic Drinks/day: rarely Drug use: Not on file Comment: Drug use: No Sexual activity: Not on file Lifestyle Physical activity: Days per week: Not on file Minutes per session: Not on file Stress: Not on file Relationships Social connections: Talks on phone: Not on file Gets together: Not on file Attends [employer] service: Not on file Active member of club or organization: Not on file Attends meetings of clubs or organizations: Not on file Relationship status: Not on file Intimate partner violence: Fear of current or ex partner: Not on file Emotionally abused: Not on file Physically abused: Not on file Forced sexual activity: Not on file Other Topics Concern Not on file Social History Narrative Not on file Family History Problem Relation Age [...] chest pain, shortness of breath, cough Gastrointestinal: Negative for: abdominal pain, vomiting, diarrhea, black or bloody stools Genitourinary: Negative for: dysuria, hematuria, urinary problems Musculoskeletal: Negative for: myalgias and arthralgias Skin: Negative for: laceration or lesion Neuro and psych: Negative for: fainting, head injury, seizure Endocrine/Heme/Lymph: Negative for: swollen lymph nodes, easy bruising All systems reviewed and otherwise negative Physical Exam Temp: 36 C (96.8 F) Pulse: 124 Resp: 24 BP: (!) 151/98 SpO2: 100 % Vital signs reviewed and tachycardic and hypertensvie Pulse Oximetry interpretation: normal General: Alert, in moderate apparent distress, moaning Eyes: Normal inspection, pupils equal and round, non-icteric ENT: Ears normal Nose normal Pharynx normal Neck: Normal inspection Supple No lymphadenopathy No meningismus Cardiovascular: Rate and rhythm tachycardic and regular No murmurs Respiratory: Breath sounds normal bilaterally Abdomen: Soft, moderate diffuse mid abdomen-tender, non-distended No rebound Genitourinary: Deferred Rectal exam: Deferred Back: Normal inspection Skin: Color normal Warm and dry No rash Neuro: No motor deficit No sensory deficit No confusion Medical Decision Making and Emergency Department Course This patient presents with the chief complaint of abdominal pain. The patient has tenderne ss on exam, however, I do not feel that the patient has an acute surgical abdomen. I feel t hat the list of possible emergent diagnoses that the patient requires an evaluation for incl udes (but is not limited to) cholelithiasis, cholecystitis, hepatitis, pancreatitis, nephrol ithiasis, urine infection, anemia, dehydration, acute renal failure, acute appendicitis, shavon ctrolyte changes, gastritis, gastroenteritis and also ileus. I believe that laboratory test ing and further diagnostic testing is necessary to ensure that there is no acute emergent ca use of the symptoms. Records Reviewed Old medical records. ED Department Course Medical Decision Making as of Jan 03 1401TueJan 04, 2020 0944 Normal CMP and lipase, no renal failure or acute metabolic complications. 0952 Normal CBC, no leukocytosis, doubt acute inflammatory process like appendicitis coliti s. 1048 CT and labs essentially normal, other than some increased stool. Symptoms likely rela martha to opioid withdrawal, will recommend she get back on suboxone. She used heroin this mor maura so will not give dose in ED due to risk of precipitated withdrawal. 1053 She had been on suboxone in [place], wanting to get back into treatment. I will star t her on suboxone (first dose tomorrow) and follow up at [facility]. The patient will fol low up with their doctor for further outpatient treatment as indicated. Agrees to return to the ED if symptoms worsen or if any other concerns. Medications sodium chloride 0.9% (NS) bolus 1,000 mL (0 mLs Intravenous Stopped 01/04/20 1114) iohexol (OMNIPAQUE 350) 350 mg/mL injection 100 mL (100 mLs Intravenous Given 01/04/20 1020) Laboratory Evaluation Labs Reviewed CBC WITH DIFFERENTIAL - Abnormal; Notable for the following components: Result Value Eosinophils, Absolute 0.67 (*) All other components within normal limits URINALYSIS WITH MICROSCOPIC - Abnormal; Notable for the following components: Urobilinogen, Ur 4.0 (*) All other components within normal limits COMPREHENSIVE METABOLIC PANEL LIPASE Available Labs reviewed and interpreted by me. Radiology Evaluation Recent Results (from the past 360 hour(s)) CT Abdomen Pelvis w Contrast Narrative CT ABDOMEN AND PELVIS WITH CONTRAST CLINICAL INFORMATION: Abdominal pain for three weeks. COMPARISON: CT ABDOMEN PELVIS WO CONTRAST (05/18/2018); XR ABDOMEN ACUTE SERIES (04/14/2017); OR GENERAL SCOPE IMAGING (04/13/2017); PROCEDURE: Axial images through the abdomen and pelvis after the administration of 100 mL Omnipaque 350 intravenous contrast. Multiplanar reconstructions. At least one of the following CT dose optimization techniques were used: Automated exposure control; Adjustment of mA and/or kV according to patient size; Use of iterative reconstruction technique. FINDINGS: LUNG BASES: No significant pulmonary abnormality. No pleural effusion or pneumothorax. ABDOMEN Liver: Mild fatty infiltration but no focal lesion or fibrosis. No adjacent ascites. Normal enhancement of vascular structures adjacent Gallbladder somewhat distended but this is a nonspecific finding. No dense gallstones or ductal dilatation. No localizing fluid or convincing inflammatory change Adrenal glands normal Spleen: Normal Pancreas: Normal. No inflammatory change from lesion or localizing fluid Kidneys: No hydronephrosis, calculus or solid renal mass. Cyst peripheral aspect upper pole right kidney without aggressive features. Parenchymal cysts and cystic tissue in the midbody of both kidneys also, previously evaluated. More and larger on the left. No dense features or worrisome enhancement ABDOMEN AND PELVIS Bowel: No small bowel or colonic dilation or adjacent inflammation. Dense stool in the proximal large bowel in the right lower quadrant could be associated with some symptoms. There is no extraluminal or inflammatory lesion. Poor tissue planes. Appendix not discernible from adjacent tissue Vessels: No significant abnormality in the aorta or its proximal branches. No significant abnormality in the portal veins, mesenteric veins or systemic veins. Lymph Nodes: No adenopathy. Peritoneum and Retroperitoneum: No ascites or free air. No significant retroperitoneal abnormality. PELVIS Genitourinary: Distal ureters and bladder appear normal. No pelvic masses. Uterus absent post hysterectomy. Ovarian tissue symmetric and of normal appearance BODY WALL Soft Tissues: No bowel or inflamed fat containing hernia, mass or hemorrhage. Bones: No acute fracture or vertebral end plate destruction. No lytic or blastic lesion. Transitional anatomy of the lumbosacral junction Impression 1. Generous dense stool in the noninflammatory and nonobstructed proximal large bowel. Appendix not identified. Could be associated with some symptoms but there is no extraluminal lesion, high-grade inflammatory change, or discernible fluid collection Signed by: Kobi Larsen Timothy Sign Date/Time: 01/04/2020 10:42 AM Available radiology studies reviewed and interpreted contemporaneously by me. Diagnosis 1. Acute abdominal pain 2. Constipation, unspecified constipation type 3. Opioid use disorder (HCC) Disposition: Discharge Home Stable Condition Follow-up Information [facility]. Specialty: Addiction Medicine Contact information: [address] [facility] [phone] Nery Maynard MD. Specialty: Family Medicine Contact information: [address] [id number] Discharge Medications: Discharge Medication List as of 01/04/2020 11:14 AM START taking these medications Details hydrOXYzine hydrochloride (ATARAX) 25 mg tablet Take 1 tablet by mouth every 6 hours as nee ded for Anxiety.Disp-12 tablet, R-0, Print ondansetron (ZOFRAN ODT) 4 mg disintegrating tablet Take 1 tablet by mouth every 8 hours as needed for Nausea.Disp-12 tablet, R-0, Print Vitaly Kaufman MD 01/04/20 1401 documented in this en counter Plan of Treatment + +------+--------+ + + | Name | Type | Priori | Associated Diagnoses | Date/Time | | | | ty | | | + +------+--------+ + + | ED INFORMATION | MARTHA | Routin | | 01/04/2020 8:22 AM | | EXCHANGE | | e | | PDT | + +------+--------+ + + documented as of this encounter Procedures + +--------+ + + + | Procedure Name | Priori | Date/Time | Associated Diagnosis | Comments | | | ty | | | | + +--------+ + + + | URINALYSIS WITH | STAT | 01/04/2020 | | Results for this | | MICROSCOPIC | | 11:03 AM | | procedure are in the | | | | PDT | | results section. | + +--------+ + + + | CT ABDOMEN PELVIS W | AURA | 01/04/2020 | | Results for this | | CONTRAST | | 10:20 AM | | procedure are in the | | | | PDT | | results section. | + +--------+ + + + | CBC WITH | STAT | 01/04/2020 | | Results for this | | DIFFERENTIAL | | 8:50 AM | | procedure are in the | | | | PDT | | results section. | + +--------+ + + + | LIPASE | STAT | 01/04/2020 | | Results for this | | | | 8:50 AM | | procedure are in the | | | | PDT | | results section. | + +--------+ + + + | COMPREHENSIVE | STAT | 01/04/2020 | | Results for this | | METABOLIC PANEL | | 8:50 AM | | procedure are in the | | | | PDT | | results section. | + +--------+ + + + | ED INFORMATION | Routin | 01/04/2020 | | | | EXCHANGE | e | 8:22 AM | | | | | | PDT | | | + +--------+ + + + +---+--------+ | | | | | Proced | | | ure | | | Note - | | | Rick, | | | Lab In | | | | | | Hlseve | | | n - | | | 04/24/ | | | 2020 | | | 8:23 | | | AM PDT | | [...] | | | FICATI | | | ON?04/ | | | 24/202 | | | 0 | | | 08:21? | | | GORGE | | | , | | | JENNIF | | | ER | | | L?MRN: | | | | | | [id number] | | | [id number] | | | riteri | | | a | | | MetSec | | | urity | | | and | | | [...] | | | ABI | | | G | | | CAMPBE | | | LL 3 | | | 120 | | | 2019-1 | | | 1-08 | | | BUPREN | | | ORPHIN | | | -NALOX | | | ON 8-2 | | | MG SL | | | 19 | | | ABI | | | G | | | CAMPBE | | | LL 3 | | | 304 | | | 2019-1 | | | 0-24 | | | BUPREN | | | ORPHIN | | | -NALOX | | | ON 8-2 | | | MG SL | | | 25 | | | ABI | | | G | | | CAMPBE | | | LL 3 | | | 428.57 | | | 1 | | | 2019-1 | | | 0-09 | | | BUPREN | | | ORPHIN | | | -NALOX | | | ON 8-2 | | | MG SL | | | 28 | | | ABI | | | G | | | CAMPBE | | | [...] | | | 2019-0 | | | 8-01 | | | BUPREN | | | ORPHIN | | | -NALOX | | | ON 8-2 | | | MG SL | | | 42 | | | KEMUNT | | | O | | | KAKUMB | | | A 3 | | | 720 | | | 2019-0 | | | 7-24 | | | BUPREN | | | ORPHIN | | | -NALOX | | | ON 8-2 | | | MG SL | | | 21 | | | KEMUNT | | | O | | | KAKUMB | | | A 3 | | | 720 | | | 2019-0 | | | 7-17 | | | BUPREN | | | ORPHIN | | | -NALOX | | | ON 8-2 | | | MG SL | | | 21 | | | THADDEUS | | | L | | | HOWERT | | | ON 3 | | | 720 | | | 2019-0 | | | 7-12 | | | BUPREN | | | ORPHIN | | | -NALOX | | | ON 8-2 | | | MG SL | | | 19 | | | THADDEUS | | | L | | | HOWERT | | | ON 3 | | | 760 | | | 2019-0 | | | 7-11 | | | BUPREN | | | ORPHIN | | | -NALOX | | | ON 8-2 | | | MG SL | | | 2 | | | THADDEUS | | | L | | | HOWERT | | | ON 3 | | | 480 | | | 2019-0 | | | 7-03 | | | BUPREN | | | ORP-NA | | | LOX | | | 8-2 MG | | | SL | | | FILM | | | 21 | | | THADDEUS | | | L | | | HOWERT | | | ON 0 | | | 2019-0 | | | 6-25 | | | BUPREN | | | ORPHIN | | | -NALOX | | | ON 8-2 | | | MG SL | | | 21 | | | THADDEUS | | | L | | | HOWERT | | | ON 3 0 | | | | | | 2019-0 | | | 6-19 | | | BUPREN | | | ORP-NA | | | LOX | | | 8-2 MG | | | SL | | | FILM | | | 19 | | | THADDEUS | | | L | | | HOWERT | | | ON 0 | | | 2019-0 | | | 6-18 | | | BUPREN | | | ORP-NA | | | LOX | | | 8-2 MG | | | SL | | | FILM 2 | | | | | | THADDEUS | | | L | | | HOWERT | | | ON 0 | | | Rx | | | Summar | | | yMetri | | | c | | | Count | | | CS | | | II-V | | | Rx 14 | | | CS-II | | | Rx 0 | | | Quanti | | | ty | | | Dispen | | | sed | | | 444 | | | Unique | | | | | | Prescr | | | ibers | | | 3 | | | Unique | | | | | | Pharma | | | cies 2 | | | | | | Benzos | | | 0 | | | Opioid | | | s 13 | | | Long | | | Acting | | | | | | Opioid | | | s 0 | | | E.D. | | | Visit | | | Count | | | (12 | | | mo.)Fa | | | cility | | | | | | Visits | | | Low | | | Acuity | | | | | | [facility] | | | | | | Region | | | al | | | Medica | | | l | | | Center | | | 1 0 | | | [place] | | | s | | | Medica | | | l | | | Center | | | 4 0 | | | KP | | | [facility] | | | ghislaine | | | Medica | | | l | | | Center | | | 1 0 | | | Total | | [...] | | | int | | | Apr | | | [...] | | | Pain | | | Cipriano | | | 31, | | | 2020 | | | [place] | | | [facility] | | | [place] | | | [place] | | | [...] | | [facility] | | | [place] | | | [place] | | | [...] | | [facility] | | | [place] | | | [place] | | | Emerge | | | ncy | | | Chief | | | Compla | | | int: | | | ABD | | | PAIN | | | Jovanny | | | 20, | | | 2019 | | | [place] | | | [facility] | | | [place] | | | [place] | | | Emerge | | | ncy | | | Chief | | | Compla | | | int: | | | VOMIIT | | | ING | | | Apr | | | 30, | | | 2019 | | | KP | | | [facility] | | | ghislaine | | | [facility] | | | [place] 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 | | | d in | | | charmaine | | | ion | | | with | | | other | | | type | | | car in | | | | | | traffi | | | | | | Dorsal | | | wilman, | | | unspec | | | ified | | | | | | Recent [...] | | | Dates | | | CRISIS CLINICIAN, | | | Carolin | | | Espinoza | | | Nurse | | | | | | Practi | | | tioner | | | : | | | Family | | | ([phone]) | | | | | | [phone] | | | 35 | | | Curren | | | [...] MD | | | | | | Jack Winder | | | al | | | [...] | | | t | | | TABITH | | | A, | | | JHON | | | , AUGER SUPERVISOR | | | Nurse | | | Practi | | | tioner | | | : | | | Family | | | ([phone]) | | | | | | [phone] | | | 95 | | | Curren | | | [...] | | | /notif | | | y/[id number] | | | [id number] | | | 218-48 | | | 71-acd | | | [id number] | | | [id number] | | | e7 | | | PLEASE | | | [...] | +---+--------+ documented in this encounter Results Urinalysis With Microscopic (01/04/2020 11:03 AM PDT) + + + + + + | Component | Value | Ref Range | Performed | Pathologist | | | | | At | Signature | + + + + + + | Color, UA | SRIKANTH | | [facility] | | | | | | LABORATORY | | + + + + + + | Clarity, | CLEAR | | [facility] | | | Urine | | | LABORATORY | | + + + + + + | Specific | 1.005 | 1.002 - 1.030 | [facility] | | | [place], | | | LABORATORY | | | [...] + + + + | Urobilinoge | 4.0 (H) | <1.6 mg/dL | [facility] | | | n, Ur | | | LABORATORY | | + + + + + + | Protein, | NEGATIVE | NEG mg/dL | [facility] | | | Urine | | | LABORATORY | | | (mg/dL) | | | | | + + + + + + | pH, Urine | 8.0 | 5.0 - 8.0 | [facility] | [...] + + + | Red Blood | 6-10 | 0 - 5 /hpf | [facility] | | | Cells, | | | LABORATORY | | | Urine | | | | | + + + + + + | Squamous | 26-49 | /lpf | [facility] | | | Epithelial | | | LABORATORY | | | Cells, | | | | | | Urine | | | | | + + + + + + | Bacteria, | NONE SEEN | NONE | [facility] | | | Urine | | | LABORATORY | | + + + + + + | Mucus, | 1+Comment: Testing | | KR | | | Urine | performed at [facility];[address] | | LABORATORY | | | | [address];[place] | | | | | | [phone] | | | | + + + [...] | + + + + + | [facility] | [address] | [place] [address] | [phone] | + + + + + CT Abdomen Pelvis w Contrast (01/04/2020 10:20 AM PDT) + + | Specimen | + + | | + + + + + | Impressions | Performed At | + + + | 1. Generous dense stool in the noninflammatory and nonobstructed | [facility] | | proximal large bowel. Appendix not identified. Could be | | | associated with some symptoms but there is no extraluminal lesion, | | | high-grade inflammatory change, or discernible fluid collection | | | Signed by: Kobi Larsen, Thaddeus Sign Date/Time: 01/04/2020 | | | 10:42 AM | | + + + + + + | Narrative | Performed At | + + + | CT ABDOMEN AND PELVIS WITH CONTRAST CLINICAL INFORMATION: | [facility] | | Abdominal pain for three weeks. COMPARISON: CT ABDOMEN PELVIS WO | | | CONTRAST (05/18/2018); XR ABDOMEN ACUTE SERIES (04/14/2017); OR GENERAL | | | SCOPE IMAGING (04/13/2017); PROCEDURE: Axial images through the | | | abdomen and pelvis after the administration of 100 mL Omnipaque 350 | | | intravenous contrast. Multiplanar reconstructions. At least one of | | | the following CT dose optimization techniques were used: Automated | | | exposure control; Adjustment of mA and/or kV according to patient | | | size; Use of iterative reconstruction technique. FINDINGS: LUNG | | | BASES: No significant pulmonary abnormality. No pleural effusion or | | | pneumothorax. ABDOMEN Liver: Mild fatty infiltration but no focal | | | lesion or fibrosis. No adjacent ascites. Normal enhancement of | | | vascular structures adjacent Gallbladder somewhat distended but | | | this is a nonspecific finding. No dense gallstones or ductal | | | dilatation. No localizing fluid or convincing inflammatory change | | | Adrenal glands normal Spleen: Normal Pancreas: Normal. No | | | inflammatory change from lesion or localizing fluid Kidneys: No | | | hydronephrosis, calculus or solid renal mass. Cyst peripheral | | | aspect upper pole right kidney without aggressive features. | | | Parenchymal cysts and cystic tissue in the midbody of both kidneys | | | also, previously evaluated. More and larger on the left. No dense | | | features or worrisome enhancement ABDOMEN AND PELVIS Bowel: No | | | small bowel or colonic dilation or adjacent inflammation. Dense | | | stool in the proximal large bowel in the right lower quadrant could | | | be associated with some symptoms. There is no extraluminal or | | | inflammatory lesion. Poor tissue planes. Appendix not discernible | | | from adjacent tissue Vessels: No significant abnormality in the | | | aorta or its proximal branches. No significant abnormality in the | | | portal veins, mesenteric veins or systemic veins. Lymph Nodes: No | | | adenopathy. Peritoneum and Retroperitoneum: No ascites or free air. | | | No significant retroperitoneal abnormality. PELVIS | | | Genitourinary: Distal ureters and bladder appear normal. No pelvic | | | masses. Uterus absent post hysterectomy. Ovarian tissue symmetric | | | and of normal appearance BODY WALL Soft Tissues: No bowel or | | | inflamed fat containing hernia, mass or hemorrhage. Bones: No acute | | | fracture or vertebral end plate destruction. No lytic or blastic | | | lesion. Transitional anatomy of the lumbosacral junction | | + + + + + | Procedure Note | + + | Rick, Rad Results In 01/04/2020 10:45 AM PDT | | CT ABDOMEN AND PELVIS WITH CONTRAST | | | | CLINICAL INFORMATION: | | Abdominal pain for three weeks. | | | | COMPARISON: | | CT ABDOMEN PELVIS WO CONTRAST (05/18/2018); XR ABDOMEN ACUTE SERIES | | (04/14/2017); OR GENERAL SCOPE IMAGING (04/13/2017); | | | | PROCEDURE: | | Axial images through the abdomen and pelvis after the administration of | | 100 mL Omnipaque 350 intravenous contrast. Multiplanar reconstructions. | | | | At least one of the following CT dose optimization techniques were | | used: Automated exposure control; Adjustment of mA and/or kV according | | to patient size; Use of iterative reconstruction technique. | | | | FINDINGS: | | LUNG BASES: No significant pulmonary abnormality. No pleural effusion | | or pneumothorax. | | | | ABDOMEN | | Liver: Mild fatty infiltration but no focal lesion or fibrosis. No | | adjacent ascites. Normal enhancement of vascular structures adjacent | | | | Gallbladder somewhat distended but this is a nonspecific finding. | | No dense gallstones or ductal dilatation. No localizing fluid or | | convincing inflammatory change | | | | Adrenal glands normal | | Spleen: Normal | | Pancreas: Normal. No inflammatory change from lesion or localizing | | fluid | | | | Kidneys: No hydronephrosis, calculus or solid renal mass. Cyst | | peripheral aspect upper pole right kidney without aggressive features. | | Parenchymal cysts and cystic tissue in the midbody of both kidneys | | also, previously evaluated. More and larger on the left. No dense | | features or worrisome enhancement | | | | ABDOMEN AND PELVIS | | Bowel: No small bowel or colonic dilation or adjacent inflammation. | | | | Dense stool in the proximal large bowel in the right lower quadrant | | could be associated with some symptoms. There is no extraluminal or | | inflammatory lesion. Poor tissue planes. Appendix not discernible | | from adjacent tissue | | | | Vessels: No significant abnormality in the aorta or its proximal | | branches. No significant abnormality in the portal veins, mesenteric | | veins or systemic veins. | | Lymph Nodes: No adenopathy. | | Peritoneum and Retroperitoneum: No ascites or free air. No significant | | retroperitoneal abnormality. | | | | PELVIS | | Genitourinary: Distal ureters and bladder appear normal. No pelvic | | masses. | | Uterus absent post hysterectomy. Ovarian tissue symmetric and of | | normal appearance | | | | BODY WALL | | Soft Tissues: No bowel or inflamed fat containing hernia, mass or | | hemorrhage. | | Bones: No acute fracture or vertebral end plate destruction. No lytic | | or blastic lesion. Transitional anatomy of the lumbosacral junction | | | | IMPRESSION: | | 1. Generous dense stool in the noninflammatory and nonobstructed | | proximal large bowel. Appendix not identified. | | | | Could be associated with some symptoms but there is no extraluminal | | lesion, high-grade inflammatory change, or discernible fluid collection | | | | | | | | Signed by: Kobi Larsen Timothy | | Sign Date/Time: 01/04/2020 10:42 AM | + + + +---------+ + + | Performing | Address | City/State/[facility] | Phone Number | | Organization | | | | + +---------+ + + | [facility] | | | | + +---------+ + + Lipase (01/04/2020 8:50 AM PDT) + + + + + + | Component | Value | Ref Range | Performed | Pathologist | | | | | At | Signature | + + + + + + | Lipase | 53Comment: Testing | 12 - 53 U/L | [facility] | | | | performed at [facility];[address] | | LABORATORY | | | | [address];[place] | | | | | | [address] | | | | + + + + + + + + | Specimen | + + | Blood | + + + + + + + | Performing | Address | City/State/Zipcode | Phone Number | | Organization | | | | + + + + + | [facility] | [address] | [place] [address] | [phone] | + + + + + Comprehensive Metabolic Panel (01/04/2020 8:50 AM PDT) + + + + + + | Component | Value | Ref Range | Performed | Pathologist | | | | | At | Signature | + + + + + + | Na | 140 | 135 - 145 | [facility] | | | | | mmol/L | LABORATORY | | + + + + + + | K | 4.4 | 3.5 - 4.9 | [facility] | | | | | mmol/L | LABORATORY | | + + + + + + | Cl | 104 | 99 - 109 mmol/L | [facility] | | | | | | LABORATORY | | + + + + + + | CO2 | 28 | 23 - 32 mmol/L | [facility] | | | | | | LABORATORY | | + + + + + + | Anion Gap | 12 | 5 - 20 mmol/L | [facility] | | | | | | LABORATORY | | + + + + + + | Glucose | 99 | 65 - 99 mg/dL | [facility] | | | | | | LABORATORY | | + + + + + + | BUN | 14 | 8 - 25 mg/dL | [facility] | | | | | | LABORATORY | | + + + + + + | Creatinine | 0.77 | 0.50 - 1.00 | [facility] | | | | | mg/dL | LABORATORY | | + + + + + + | BUN/Creatin | 18 | | [facility] | | | ine Ratio | | | LABORATORY | | + + + + + + | Calcium | 9.5 | 8.5 - 10.5 | [facility] | | | | | mg/dL | LABORATORY | | + + + + + + | Protein, | 6.5 | 6.3 - 8.2 g/dL | [facility] | | | Total | | | LABORATORY | | + + + + + + | Albumin | 4.4 | 3.6 - 5.0 g/dL | [facility] | | | | | | LABORATORY | | + + + + + + | Globulin | 2.1 | 1.3 - 4.9 g/dL | [facility] | | | | | | LABORATORY | | + + + + + + | A/G Ratio | 2.1 | 1.0 - 2.4 | [facility] | | | | | | LABORATORY | | + + + + + + | BILIRUBIN, | 0.7 | 0.1 - 1.5 mg/dL | [facility] | | | TOTAL | | | LABORATORY | | + + + + + + | ALK PHOS | 71 | 35 - 115 U/L | [facility] | | | | | | LABORATORY | | + + + + + + | AST | 18 | 10 - 45 U/L | [facility] [...] | | | | | performed at [facility] | | | | | | [facility];[place], [place] | | | | | | [address] | | | | + + + + + + + + | Specimen | + + | Blood | + + + + + + + | Performing | Address | City/State/Zipcode | Phone Number | | Organization | | | | + + + + + | [facility] | [address] | [place] [address] | [phone] | + + + + + CBC with Differential (01/04/2020 8:50 AM PDT) + + + + + + | Component | Value | Ref Range | Performed | Pathologist | | | | | At | Signature | + + + + + + | WBC | 7.86 | 3.80 - 11.00 | [facility] | | | | | K/uL | LABORATORY | | + + + + + + | Red Blood | 4.98 | 3.70 - 5.10 | [facility] | | | Cells | | M/uL | LABORATORY | | + + + + + + | Hemoglobin | 14.3 | 11.3 - 15.5 | [facility] | | | | | g/dL | LABORATORY | | + + + + + + | Hematocrit | 42.8 | 34.0 - 46.0 % | [facility] | | | | | | LABORATORY | | + + + + + + | MCV | 85.9 | 80.0 - 100.0 fl | [facility] | | | | | | LABORATORY | | + + + + + + | MCH | 28.7 | 27.0 - 34.0 pg | [facility] | | | | | | LABORATORY | | + + + + + + | MCHC | 33.4 | 32.0 - 35.5 | [facility] | | | | | g/dL | LABORATORY | | + + + + + + | RDW-SD | 37.8 | 37 - 53 fl | [facility] | | | | | | LABORATORY | | + + + + + + | Platelet | 267 | 150 - 400 K/uL | [facility] | | | Count | | | LABORATORY | | + + + + + + | MPV | 10.6Comment: NO NORMAL | fl | [facility] | [...] + + + + | % | 65.00 | % | [facility] | | | Neutrophils | | | LABORATORY | | + + + + + + | IMMATURE | 0.10 | % | [facility] | | | GRANULOCYTE | | | LABORATORY | | + + + + + + | % | 19.70 | % | [facility] | | | Lymphocytes | | | LABORATORY | | + + + + + + | Monocyte % | 6.10 | % | [facility] | | | | | | LABORATORY | | + + + + + + | Eosinophils | 8.50 | % | [facility] | | | % | | | LABORATORY | | + + + + + + | Basophils % | 0.60 | % | [facility] | | | | | | LABORATORY | | + + + + + + | Neutrophils | 5.10 | 1.90 - 7.40 | [facility] | | | , Absolute | | K/uL | LABORATORY | | + + + + + + | IMMATURE | 0.01Comment: NOTE NEW | 0.00 - 0.07 | [facility] | | | GRANS AB | REFERENCE RANGE | K/uL | LABORATORY | | + + + + + + | Absolute | 1.55 | 1.00 - 3.90 | [facility] | | | Lymphocytes | | K/uL | LABORATORY | | + + + + + + | Absolute | 0.48 | 0.00 - 0.80 | [facility] | | | Monocytes | | K/uL | LABORATORY | | + + + + + + | Eosinophils | 0.67 (H) | 0.00 - 0.50 | [facility] | | | , Absolute | | K/uL | LABORATORY | | + + + + + + | Basophils, | 0.05Comment: Testing | 0.00 - 0.10 | [facility] | | | Absolute | performed at [facility];[address] | K/uL | LABORATORY | | | | [address];[place], [place] | | | | | | [address] | | | | + + + + + + + + | Specimen | + + | Blood | + + + + + + + | Performing | Address | City/State/Zipcode | Phone Number | | Organization | | | | + + + + + | [facility] | [address] | [place] [address] | [phone] | + + + + + documented in this encounter Visit Diagnoses + + | Diagnosis | + + | Acute abdominal pain - Primary Abdominal pain, unspecified site | + + | Constipation, unspecified constipation type | + + | Opioid use disorder (HCC) | + + documented in this encounter Administered Medications + +--------+ +------+------+------+ | Medication Order | MAR | Action | Dose | Rate | Site | | | Action | Date | | | | + +--------+ +------+------+------+ | HYDROmorphone (DILAUDID) | Given | 01/04/20 | 1 mg | | | | injection 1 mg 1 mg, | | 20 8:58 | | | | | Intravenous, EVERY 1 HOUR PRN, | | AM PDT | | | | | Pain, Starting 01/04/20 at | | | | | | | 0834, For 2 doses | | | | | | + +--------+ +------+------+------+ +---+---+ | | | +---+---+ + +-------+ +---------+---+---+ | iohexol (OMNIPAQUE 350) 350 | Given | 01/04/20 | 100 mLs | | | | mg/mL injection 100 mL 100 mL, | | 20 10:20 | | | | | Intravenous, ONCE PRN, Other, | | AM PDT | | | | | Starting Tue01/04/20 at 1007, For | | | | | | | 1 dose, Cat Scanner | | | | | | + +-------+ +---------+---+---+ +---+---+ | | | +---+---+ + +-------+ +------+---+---+ | ondansetron (ZOFRAN ODT) | Given | 01/04/20 | 4 mg | | | | disintegrating tablet 4 mg 4 mg, | | 20 8:49 | | | | | Oral, EVERY 1 HOUR PRN, Nausea, | | AM PDT | | | | | Vomiting, Starting Tue01/04/20 at | | | | | | | 0847, For 2 doses | | | | | | + +-------+ +------+---+---+ +---+---+ | | | +---+---+ + +---------+ +--------+-------+---+ | sodium chloride 0.9% (NS) bolus | New Bag | 01/04/20 | 1,000 | 2000 | | | 1,000 mL 1,000 mL, Intravenous, | | 20 8:57 | mLs | mL/hr | | | Administer over 30 Minutes, | | AM PDT | | | | | ONCE, 01/04/20 at 0840, For 1 | | | | | | | dose | | | | | | + +---------+ +--------+-------+---+ +---+---+ | | | +---+---+ documented in this encounter
--- OUTSIDE RECORDS SUMMARY | ~2020-06-12 | XMS | Encounter Summary ---
Demographics + + + | Address | [address] | | | [address] | | | [place] [address] | + + + | Home Phone [...] Team Providers + +------+ + | Care Portable Machine Cutter Name | Role | Phone | + +------+ + PCP | Unavailable | + +------+ + Encounter Details +--------+ + + + + | Date | Type | Department | Care Team | Description | +--------+ + + + + | 03// | Emergency | [facility] | Vitaly Wright | Constipation, | | 2017 | | [facility] | DO [address] | unspecified | | | | [facility] | PEARL HERNANEDZ | constipation type; | | | | [address] | [place], [place] | Elevated blood | | | | [place], [place] | [address] | pressure reading | | | | [address] | [phone] | | | | | [phone] | | | +--------+ + + + [...] + + + | Blood Pressure | 144/81 | 11/30/2017 8:28 PM | | | | | PDT | | + + + + + | Pulse | 78 | 11/30/2017 8:28 PM | | | | | PDT | | + + + + + | Temperature | 36.7 C (98.1 F) | 11/30/2017 8:28 PM | | | | | PDT | | + + + + + | Respiratory Rate | 16 | 11/30/2017 8:28 PM | | | | | PDT | | + + + + + | Oxygen Saturation | - | - | | + + + + + | Inhaled Oxygen | - | - | | | Concentration | | | | + + + + + | Weight | 81.9 kg (180 lb 9 | 11/30/2017 8:28 PM | | | | oz) | PDT | | + + + + + | Height | 175.3 cm (5' 9") | 11/30/2017 8:28 PM | | | | | PDT | | + + + + + | Body Mass Index | 26.66 | 11/30/2017 8:28 PM | | | | | PDT [...] | 0 | 12/01/19 | | | [id number]- | every 20 (twenty) | | | [...] ED Notes Conversion Transaction, Provider Unknown - 11/30/2017 8:40 PM PDTFormatting of this note m ight be different from the original. ED Notes by Jay Castellanos RN at 11/30/172039 Author: Jay Castellanos RN Service: (none) Author Type: Registered Nurse Filed: 11/30/172039 Date of Service: 11/30/172039 Status: Signed Senior Android Software Engineer: Jay Castellanos RN (Registered Nurse) Patient in restroom at this time. Jay Castellanos RN 11/30/172039 oung, Vitaly Diallo DO - 11/30/2017 8:21 PM PDT ED Provider Notes by Vitaly Wright DO at 11/30/172020 Author: Vitaly Wright DO Service: Emergency Department Author Type: Physician Filed: 11/30/172146 Date of Service: 11/30/172020 Status: Signed Senior Android Software Engineer: Vitaly Wright DO (Physician) [facility] Department of Emergency Medicine 8:21 PM History of Present Illness Patient Identification Minoo Watson is a 37 y.o. female. Patient information was obtained from patient. History/Exam limitations: none. Patient presented to the Emergency Department by: Car History of Presenting Illness The patient is a 37 y.o. female presenting with Chief Complaint Patient presents with Constipation x 2 weeks per patient Location- GI Onset- Two weeks ago Duration- Persistent Severity/Character- Constipated Worse with- Nothing Better with- Nothing Radiation- N/A Denies- fevers, cough, congestion, sore throat, abdominal pain, dysuria, or any other sympt oms at this time Admits- nausea and vomiting Context-The pt's last bowel movement was about two weeks ago. Pt reports that she has const ipation frequently. Also has a hx of GERD. In the past, the pt has had relief from using Nahum alax and Golytely. Care WHEAT INSPECTOR consist of an enema with a couple "paulino" of stool, but no oth er relief. PCP: MOISE MAYNARD Past Medical History Diagnosis Date Asthma due to seasonal allergies Back pain 12/18/2009 Bipolar disorder (HCC) 09/2008 Herniated disc, cervical C5,C6 Joint pain Seasonal allergies Past Surgical History Procedure Laterality Date SECTION x 2 COLONOSCOPY ESOPHAGOGASTRODUODENOSCOPY 2009 HERNIA REPAIR HYSTERECTOMY ROBOTIC ASSISTED HYSTERECTOMY Bilateral 04/13/2017 Procedure: ROBOTIC ASSISTED LAPAROSCOPIC HYSTERECTOMY WITH SALPINGECTOMY; Surgeon: Glenn aleman MD; Location: [facility] OR; Service: MACHINE HOSE CUTTER; Laterality: Bilateral; Prior to Admission medications Medication Sig Start Date End Date Taking? Authorizing Provider baclofen (LIORESAL) 10 MG tablet Take 1 tablet by mouth 3 (three) times daily. 09/27/17 RITIKA Ortega Bismuth Subsalicylate (PEPTO-BISMOL PO) Take by mouth. Historical Provider docusate sodium (COLACE) 100 MG capsule One po bid for stool softening 04/04/17 Glenn maier MD EPINEPHrine (EPIPEN) 0.3 MG/0.3ML injection Inject 0.3 mLs into the muscle as needed. RITIKA Holt fluticasone (FLONASE) 50 MCG/ACT nasal 1 spray by Each Nare route daily. 10/19/16 10/19/17 Yuri Her PA-C HYDROcodone-acetaminophen (NORCO) 10-325 MG per tablet Take 1 tablet by mouth every 6 (six) hours as needed for Pain. 10/28/17 RITIKA Woodward HYDROcodone-acetaminophen (NORCO) 10-325 MG per tablet Take 1 tablet by mouth every 6 (six) hours as needed for Pain. 12/05/17 RITIKA Woodward naproxen (NAPROSYN) 500 MG tablet Take 1 tablet by mouth 2 (two) times daily as needed. 02/11 10/29 RITIKA Woodward polyethylene glycol (GLYCOLAX) packet Take 17 g by mouth daily. Historical Provider tizanidine (ZANAFLEX) 4 MG capsule Take 1-2 capsules by mouth nightly as needed for Muscle spasms. 05/03/17 RITIKA Woodward varenicline (CHANTIX PORFIRIO) 0.5 MG X 11 & 1 MG X 42 tablet Take one 0.5mg tablet by mouth onc e daily for 3 days, then increase to one 0.5mg tablet twice daily for 3 days, then increase to one 1mg tablet twice daily. 11/22/17 02/20/18 Opal Bruno, PILOT BOAT DECKHAND Allergies Allergen Reactions Bee Venom Anaphylaxis Morphine And Related Other (See Comments) Abstracted Penicillins Hives Inapsine [Droperidol] Anxiety Lactose Intolerance (Gi) Abdominal Pain Social History Social History Marital status: Spouse name: N/A Number of children: N/A Years of education: N/A Occupational History Not on file. Social History Main Topics Smoking status: Current Every Day Smoker Packs/day: 0.25 Years: 17.00 Smokeless tobacco: Never Used Alcohol use Yes Comment: rarely Drug use: No Comment: Quit IV drug use in 2010. Sexual activity: Not Currently control/ protection: Surgical-Self Other Topics Concern Not on file Social History Narrative No narrative on file Family History Problem Relation Age of Onset Stroke Father Stroke Maternal Grandmother Diabetes Maternal Grandmother Diabetes Maternal Grandfather Heart attack Maternal Grandfather Malig hypertherm Neg Hx I have personally reviewed the social history, pertinent history has been addressed. Review of Systems Constitutional: Negative for fever, chills Eyes: Negative for vision changes Nose: Negative for congestion, nosebleeds Throat: Negative for sore throat CV/Resp: Negative for chest pain, [id number], cough GI: Positive for nausea, vomiting, and constipation Negative for abdominal pain, diarrhea : Negative for urinary problems Musculoskeletal: Negative for back pain, joint pain Skin: Negative for rash Neuro/Psych: Negative for headache Endo/heme/Lymph: Negative for swollen lymph nodes, easy bruising Physical Exam BP 144/81 (BP Location: Left upper arm) | Pulse 78 | Temp 98.1 F (36.7 C) (Oral) | R dwight 16 | Ht 1.753 m (5' 9") | Wt 81.9 kg (180 lb 8.9 oz) | LMP 03/21/2017 (Approximate) | SpO2 98% | BMI 26.66 kg/m Vital signs interpretation: elevated blood pressure, otherwise WNL Pulse Oximetry interpretation: Normal General: Alert, in no apparent distress Eyes: Normal inspection, pupils equal and round, non-icteric ENT: Ears normal Nose normal Moist mucous membranes Neck: Normal inspection Supple Cardiovasc: Rate and rhythm normal No murmurs Respiratory: Breath sounds normal bilaterally No rales, wheezing or rhonchi Abdomen: Soft, non-distended No guarding or rebound Diffuse tenderness Bowel sounds present in all four quadrants No tympany No peritoneal sign Genitourinary: Deferred Rectal exam: Deferred Back: Normal inspection Extremities: No swelling or redness Skin: Color normal Warm and dry No rash Neuro: Alert, no AMS No gross motor/sensory deficits Moving all extremities Medical Decision Making and Emergency Department Course ED Department Course 37 y.o. female presents to the ED with a chief complaints of constipation. Pt has chronic constipation that has been worse over the last several weeks. No signs of SBO on exam. Will start on golytely and discharge the pt home. I discussed my clinical impression with the pat delphine. Patient is ready for discharge. I advised patient to follow up with a PCP and we discu ssed the emergent signs and symptoms that would necessitate a return to ED. The patient unde rstands and agrees with the plan. All questions and concerns addressed. Review of vitals BP 144/81 (BP Location: Left upper arm) | Pulse 78 | Temp 98.1 F (36.7 C) (Oral) | Resp 16 | Ht 1.753 m (5' 9") | Wt 81.9 kg (180 lb 8.9 oz) | LMP 07//201 7 (Approximate) | SpO2 98% | BMI 26.66 kg/m Records Reviewed Old medical records. Nursing notes. Previous ED visits for similar and unrelated complaints. Laboratory Evaluation Results None I personally reviewed the lab results and they have been posted to the chart. Pertinent po sitive and negative findings have been addressed appropriately and I have discussed any abno rmal labs with the patient. Radiology and EKG Evaluation Imaging Results None ED Diagnoses Final diagnoses Constipation, unspecified constipation type Elevated blood pressure reading Disposition: ED Disposition ED Disposition Condition Comment Discharge Stable Follow-up Information Follow up With Specialties Details Why Contact Info Moise Maynard MD Family Medicine Go in 1 week For follow up regarding your constipation and blood pressure [address], [place] [address] [facility] [address] [facility] Emergency Department in [place] Emergency Medicine Go to If symptoms worsen [address] [facility] [id number] Discharge Medications: Discharge Medication List as of 11/30/2017 8:34 PM START taking these medications Details PEG [id number]-[id number]-NaCl-NaSulf 227.1 g PACK Take 8 oz by mouth every 20 (twenty) minutes. D rink 8oz every 20 minutes until bowel movements occur, Starting Tue11/30/2017, Print Procedures Additional Documentation Procedures Attending Provider Note: I, Vitaly Wright DO personally performed the services described i n this documentation, as scribed by Danita Meléndez in my presence, and it is both accurate and c omplete. Chart Reviewed and Completed: 11/30/2017 9:46 PM Scribe: Benjamin Noel, scribing for and in the presence of Vitaly Wright DO. Signed by: Benjamin Yost 11/30/2017 8:29 PM Vitaly Wright DO 11/30/17 2147 documented in t his encounter Plan of Treatment Not on filedocumented as of this encounter Visit Diagnoses + + | Diagnosis | + + | Constipation, unspecified constipation type | + + | Elevated blood pressure reading Elevated blood pressure reading without diagnosis of | | hypertension | + + documented in this encounter
--- OUTSIDE RECORDS SUMMARY | ~2020-06-12 | XMS | Encounter Summary ---
Demographics + + + | Address | [address] | | | [address] | | | [place] [address] | + + + | Home Phone | | + + + | Preferred Language | Unknown | + + + | Marital Status | Legally | + + + | Christianity Affiliation | 1013 | + + + | Race | White | + + + | Ethnic Group | Not or | + + + Author + + + | Author | [facility] | | | and [place] | + + + | Organization | [facility] | | [...] Team Providers + +------+ + | Care Under Cutting Machine Operator Name | Role | Phone | + +------+ + PCP | Unavailable | + +------+ + Encounter Details +--------+ + + + + | Date | Type | Department | Care Team | Description | +--------+ + + + + | 07/17/ | Emergency | [facility] | Yoel Mary | Poisoning by | | 2005 | | [facility] | MD [address] | Unspecified Drug or | | | | [facility]ENTER | [address] | Medicinal Substance | | | | [address] | [place] [address] | | | | | [place], [place] | [phone] | | | | | [address] | | | | | | [phone] | | | +--------+ + + + [...]
--- OUTSIDE RECORDS SUMMARY | ~2020-06-12 | XMS | Encounter Summary ---
Demographics + + + | Address | [address] | | | [address] [facility] | | | [place] [address] | + + + | Home Phone | | + + + | Preferred Language | Unknown | + + + | Marital Status | Legally | + + + | Mormonism Affiliation | 1013 | + + + | Race | White | + + + | Ethnic Group | Not or | + + + Author + + + | Author | [facility] | | | and [place] | + + + | Organization | [facility] | | | [...] Team Providers + +------+ + | Care Bench Patternmaker Metal Name | Role | Phone | + +------+ + PCP | Unavailable | + +------+ + Encounter Details +--------+ + + + + | Date | Type | Department | Care Team | Description | +--------+ + + + + | 11/10/ | Hospital | [facility] | Reza Liriano MD | Spinal Stenosis of | | 2009 | Encounter | CONVERSION [address] | [address] | Lumbar Region | | | | [address] | [place] [address] | | | | | [place], [place] | [phone] | | | | | [address] | | | | | | [phone] | | | +--------+ + + + [...]
--- OUTSIDE RECORDS SUMMARY | ~2020-06-12 | XMS | Encounter Summary ---
Demographics + + + | Address | [address] | | | [address] [facility] | | | [place] [address] | + + + | Home Phone | | + + + | Preferred Language | Unknown | + + + | Marital Status | Legally | + + + | Islam Affiliation | 1013 | + + + | Race | White | + + + | Ethnic Group | Not or | + + + Author + + + | Author | [facility] | | | and [place] | + + + | Organization | [facility] | | [...] Team Providers + +------+ + | Care Hand Quilter Name | Role | Phone | + +------+ + PCP | Unavailable | + +------+ + Encounter Details +--------+ + + + + | Date | Type | Department | Care Team | Description | +--------+ + + + + | 08/19/ | Emergency | [facility] | Conversion | Anxiety State, | | 2008 | | MEDICAL CENTER | Transaction, | Unspecified | | | | EMERGENCY CENTER | Provider Unknown | | | | | [address] | | | | | | [place], [place] | (Fax) | | | | | [address] | | | | | | [phone] | | | +--------+ + + + [...]
--- OUTSIDE RECORDS SUMMARY | ~2020-06-12 | XMS | Encounter Summary ---
Demographics + + + | Address | [address] | | | [address] [facility] | | | [place] [address] | + + + | Home Phone | | + + + | Preferred Language | Unknown | + + + | Marital Status | Legally | + + + | Taoist Affiliation | 1013 | + + + | Race | White | + + + | Ethnic Group | Not or | + + + Author + + + | Author | [facility] | | | and [place] | + + + | Organization | [facility] | | [...] Team Providers + +------+ + | Care Ferry Pilot Name | Role | Phone | + +------+ + PCP | Unavailable | + +------+ + Encounter Details +--------+ + + + + | Date | Type | Department | Care Team | Description | +--------+ + + + + | 04/13/ | Emergency | [facility] | Manfred, Glenn E, | Open Wound of | | 2008 | | MEDICAL CENTER | [address] [facility] | Forearm | | | | EMERGENCY CENTER | [place], [place] | | | | | [address] | [address] | | | | | [place], [place] | [phone] | | | | | [address] | | | | | | [phone] | | | +--------+ + + + [...] + | Diagnosis | + + | Open wound of forearm Open wound of forearm, without mention of complication | + + documented in this encounter"
--- OUTSIDE RECORDS SUMMARY | ~2020-06-12 | XMS | Encounter Summary ---
Demographics + + + | Address | [address] | | | [address] [facility] | | | [place] [address] | + + + | Home Phone [...] + + + | Author | [facility] | | | and [place] | + + + | Organization | [facility] | | | and [...] Team Providers + +------+ + | Care Prepress Proofer Name | Role | Phone | + +------+ + PCP | Unavailable | + +------+ + Encounter Details +--------+ + + + + | Date | Type | Department | Care Team | Description | +--------+ + + + + | 04/11/ | Emergency | [facility] | Conversion | Nausea with Vomiting | | 2006 | | MEDICAL CENTER | Transaction, | | | | | EMERGENCY CENTER | Provider Unknown | | | | | [address] | | | | | | [place], [place] | (Fax) | | | | | [address] | | | | | | [phone] | | | +--------+ + + + [...]
--- OUTSIDE RECORDS SUMMARY | ~2020-06-12 | XMS | Encounter Summary ---
Demographics + + + | Address | [address] | | | [address] [facility] [address] [address] | | | [place] [address] | + + + | Home Phone [...] + + + | Author | [facility] | | | and [place] | + + + | Organization | [facility] | | | [...] Team Providers + +------+ + | Care Ncqa Specialist Name | Role | Phone | + +------+ + PCP | Unavailable | + +------+ + Encounter Details +--------+ + + + + | Date | Type | Department | Care Team | Description | +--------+ + + + + | 12/28/ | Hospital | [facility] | Sammy Pereira | Routine medical exam | | 1993 | Encounter | CONVERSION [address] | [address] | | | | | [address] | [place] [address] | | | | | [place], [place] | [phone] | | | | | [address] | | | | | | [phone] | | | +--------+ + + + [...] + | Diagnosis | + + | Routine medical exam Routine general medical examination at a health care facility | + + documented in this encounter"
--- OUTSIDE RECORDS SUMMARY | ~2020-06-12 | XMS | Encounter Summary ---
Demographics + + + | Address | [address] | | | [address] [facility] | | | [place] [address] | + + + | Home Phone | | + + + | Preferred Language | Unknown | + + + | Marital Status | Legally | + + + | Confucianist Affiliation | 1013 | + + + | Race | White | + + + | Ethnic Group | Not or | + + + Author + + + | Author | [facility] | | | and [place] | + + + | Organization | [facility] | | | [...] Team Providers + +------+ + | Care Primary Care Provider Name | Role | Phone | + +------+ + PCP | Unavailable | + +------+ + Encounter Details +--------+ + + + + | Date | Type | Department | Care Team | Description | +--------+ + + + + | 06/10/ | Emergency | [facility] | [facility], | Unspecified Backache | | 2008 | | MEDICAL CENTER | [address] | | | | | EMERGENCY CENTER | [place] [address] | | | | | [address] | [phone] | | | | | [place], [place] | | | | | | [address] | | | | | | [phone] | | | +--------+ + + + [...]
--- OUTSIDE RECORDS SUMMARY | ~2020-06-12 | XMS | Encounter Summary ---
Demographics + + + | Address | [address] | | | [address] [facility] | | | [place] [address] | + + + | Home Phone [...] Team Providers + +------+ + | Care Disciplinary Hearing Officer Name | Role | Phone | + +------+ + PCP | Unavailable | + +------+ + Encounter Details +--------+ + + + + | Date | Type | Department | Care Team | Description | +--------+ + + + + | 11/08/ | Emergency | [facility] | KaufmanVitaly, | Vomiting Alone | | 2007 | | MEDICAL CENTER | [place] [address] | | | | | EMERGENCY CENTER | [place] [address] | | | | | [address] | [phone] | | | | | [place], [place] | | | | | | [address] | | | | | | [phone] | | | +--------+ + + + [...]
--- OUTSIDE RECORDS SUMMARY | ~2020-06-12 | XMS | Encounter Summary ---
Demographics + + + | Address | [address] | | | [address] [facility] | | | [place] [address] | + + + | Home Phone [...] Team Providers + +------+ + | Care Optical Instrument Inspector Name | Role | Phone | + +------+ + PCP | Unavailable | + +------+ + Encounter Details +--------+ + + + + | Date | Type | Department | Care Team | Description | +--------+ + + + + | 03/03/ | Emergency | [facility] | | Nausea with Vomiting | | 2005 | | MEDICAL CENTER | | | | | | EMERGENCY CENTER | | | | | | [address] | | | | | | [place], [place] | | | | | | [address] | | | | | | [phone] | | | +--------+ + + + [...]
--- OUTSIDE RECORDS SUMMARY | ~2020-06-12 | XMS | Encounter Summary ---
Demographics + + + | Address | [address] | | | [address] [facility] | | | [place] [address] | + + + | Home Phone [...] Team Providers + +------+ + | Care Supervisor Plate Pasting Name | Role | Phone | + +------+ + PCP | Unavailable | + +------+ + Encounter Details +--------+ + + + + | Date | Type | Department | Care Team | Description | +--------+ + + + + | 10/10/ | Emergency | [facility] | Glenn Shearer, | Special Symptom | | 2009 - | | MEDICAL CENTER | [address] | NEC/NOS | | | | EMERGENCY CENTER | [place] | | | 06/[birth year]/ | | [address] | [address] | | | 2008 | | [place], [place] | [phone] | | | | | [address] | | | | | | [phone] | | | +--------+ + + + [...] | Diagnosis | + + | Other and unspecified special symptom or syndrome, not elsewhere classified | + + documented in this encounter"
--- OUTSIDE RECORDS SUMMARY | ~2020-06-12 | XMS | Encounter Summary ---
Demographics + + + | Address | [address] | | | [address] | | | [place] [address] | + + + | Home Phone [...] Team Providers + +------+ + | Care Home Service Director Name | Role | Phone | + +------+ + PCP | Unavailable | + +------+ + Encounter Details +--------+ + + + + | Date | Type | Department | Care Team | Description | +--------+ + + + + | 08/02/ | Hospital | [facility] | Lexy Boyd | Menorrhagia with | | 2017 | Encounter | [facility] | MD Omar [address] | regular cycle; | | | | [address] | [address] | Pelvic pain in | | | | [place], [place] | [place] [address] | female; Preop | | | | [address] | [phone] | examination; | | | | [phone] | | Menorrhagia with | | | | | | irregular cycle; | | | | | | Pelvic pain; Uterine | | | | | | leiomyoma, | | | | | | unspecified location | +--------+ + + + + Social [...] + + + | Blood Pressure | 99/59 | 04/13/2017 5:57 PM | | | | | PDT | | + + + + + | Pulse | 82 | 04/13/2017 5:57 PM | | | | | PDT | | + + + + + | Temperature | 36.9 C (98.5 F) | 04/13/2017 5:57 PM | | | | | PDT | | + + + + + | Respiratory Rate | 12 | 04/13/2017 5:57 PM | | | | | PDT | | + + + + + | Oxygen Saturation | - | - | | + + + + + | Inhaled Oxygen | - | - | | | Concentration | | | | + + + + + | Weight | 95.4 kg (210 lb 5.1 | 04/13/2017 5:57 PM | | | | oz) | PDT | | + + + + + | Height | 175.3 cm (5' 9") | 04/13/2017 5:57 PM | | | | | PDT | | + + + + + | Body Mass Index | 31.06 | 04/13/2017 5:57 PM | | | | | PDT | | + + + + + documented in this encounter Discharge Summaries Lexy Boyd - 04/13/2017 6:12 PM PDT Discharge Summaries by Lexy Boyd MD at 04/13/171811 Author: Lexy Boyd MD Service: Obstetrics/Gynecology Author Type: Physician Filed: 04/13/171812 Date of Service: 04/13/171811 Status: Signed Box Car Bracer: Lexy Boyd MD (Physician) [facility] Service: Obstetrics & Gynecology Brief Post-op Discharge Note DISCHARGE DIAGNOSES: Principal Problem: Menorrhagia with regular cycle Active Problems: Pelvic pain in female Resolved Problems: * No resolved hospital problems. * Procedures: Procedure(s): ROBOTIC ASSISTED LAPAROSCOPIC HYSTERECTOMY WITH SALPINGECTOMY 04/13/17 1209 []Hide copied text Patient ID: Minoo Watson is a 37 y.o. female. CC: Pelvic pain in female Menorrhagia with regular cycle HPI Patient presents today for a preoperative exam for a Robotic Hysterectomy Salpingectomy scheduled on 04/13/2017 due to Pelvic pain in female and Menorrhagia with regular cycle Robotic hyst/BS Ovaries remain in situ, cystoscopy ebl <1DATE OF SERVICE April 13, 2017 PREOPERATIVE DIAGNOSES 1. Menorrhagia. 2. Pelvic pain. 3. Fibroid uterus. POSTOPERATIVE DIAGNOSES 1. Menorrhagia. 2. Pelvic pain. 3. Fibroid uterus. PROCEDURES 1. Total robotic hysterectomy and bilateral salpingectomy. Ovaries remain in situ. 2. Cystoscopy, with excellent efflux of urine from bilateral ureteral jets. SURGEON Lexy Boyd MD ASSISTANTS DEONTE Epps RNFA, operated the uterine manipulator. ANESTHESIA General endotracheal anesthesia. COMPLICATIONS None. ESTIMATED BLOOD LOSS Less than 25 mL. FINDINGS Enlarged uterus with an apparent fibroid. Tubes are status post tubal ligation with a Pomer oy technique. Ovaries were unremarkable bilaterally. Ureters were noted before and after vipul mickey. They were in their normal anatomic course in the pelvis and orthotopic course in the b ladder. Excellent peristalsis in diameter before and after the case. Good efflux of urine in the bladder after the case at time of cystoscopy with fluorescein-stained dye being seen ej ected with strong jets. Liver edge and gallbladder were also unremarkable to visual inspecti on. This patient was transferred to the recovery area post-operatively and has experienced no d ifficulties at the time of my assessment. The patient is anticipated to continue to meet di scharge criteria per protocol as assessed by nursing and may be discharged at that time with designated caregiver. Disposition: Home Condition: Good Code Status: Full Code No discharge procedures on file. Follow up: Nery Maynard MD [address], [place] [address] [facility] [phone] Lexy Boyd MD [address] [facility] [address] [facility] [phone] Go on 05/17/2017 post op follow up as already scheduled Medication List CONTINUE taking these medications docusate sodium 100 MG capsule QTY: 60 capsule Refills: 0 For diagnoses: Menorrhagia with regular cycle, Pelvic pain in female Commonly known as: COLACE One po bid for stool softening EPINEPHrine 0.3 MG/0.3ML auto-injector QTY: 2 each Refills: 0 Inject 0.3 mLs into the muscle as needed. fluticasone 50 MCG/ACT nasal QTY: 16 g Refills: 0 For diagnoses: Acute nasopharyngitis Commonly known as: FLONASE 1 spray by Each Nare route daily. HYDROcodone-acetaminophen 10-325 MG per tablet QTY: 120 tablet Refills: 0 For diagnoses: Cervical disc herniation, Cervical stenosis of spine, DDD (degenerative dis c disease), cervical, Cervical radiculopathy Commonly known as: NORCO Take 1 tablet by mouth every 6 (six) hours as needed for Pain. ibuprofen 800 MG tablet QTY: 40 tablet Refills: 0 For diagnoses: Menorrhagia with regular cycle, Pelvic pain in female Commonly known as: MOTRIN Take 1 tablet by mouth every 8 (eight) hours as needed for Pain. naproxen 500 MG tablet QTY: 60 tablet Refills: 2 For diagnoses: Cervical disc herniation, Cervical stenosis of spine, DDD (degenerative dis c disease), cervical, Cervical radiculopathy Commonly known as: NAPROSYN Take 1 tablet by mouth 2 (two) times daily as needed. oxyCODONE 5 MG immediate release tablet QTY: 40 tablet Refills: 0 For diagnoses: Menorrhagia with regular cycle, Pelvic pain in female Commonly known as: ROXICODONE Take 1 tablet by mouth every 4 (four) hours as needed for Pain. PEPTO-BISMOL PO Refills: 0 polyethylene glycol packet Refills: 0 Commonly known as: GLYCOLAX tizanidine 4 MG capsule QTY: 120 capsule Refills: 2 For diagnoses: Cervical disc herniation, Cervical stenosis of spine, DDD (degenerative dis c disease), cervical, Cervical radiculopathy Commonly known as: ZANAFLEX Take 1 capsule by mouth 2 (two) times daily as needed for Muscle spasms. 1 to 2 tablets at bedtime. You might also be taking other medications not listed above. If you have questions about an y of your other medications, talk to the person who prescribed them or your Primary Care Pro vider. LEXY BOYD MD 04/13/2017 documented in this en counter Medications at Time of Discharge + + + +---------+ + + | Medication | Sig | Dispensed | Refills | Start | End Date | | | | | | Date | | + + + +---------+ + + | Albuterol Sulfate | AERS | | 0 | //20 | | | (PROAIR HFA IN) | | | | 12 | | + + + +---------+ + + | docusate sodium | One po bid for stool | | 0 | //20 | | | (COLACE) 100 mg | [...] 0.3 mLs into | | 0 | //20 | | | auto-injector 0.3 | the [...] Progress Notes Conversion Transaction, Provider Unknown - 04/13/2017 6:27 PM PDTFormatting of this note m ight be different from the original. Nurse Progress Note by Eugenie Downing RN at 04/13/171826 Author: Eugenie Downing RN Service: (none) Author Type: Registered Nurse Filed: 04/13/171827 Date of Service: 04/13/171826 Status: Signed Box Car Bracer: Eugenie Downing RN (Registered Nurse) Patient discharging home. AVS reviewed with patient and no concerns or complaints at time of discharge.Eugenie Downing RN 04/13/2017 6:28 PM uLexy lam E - 04/13/2017 6:09 PM PDTFormatting of this note might be different from the or iginal. Progress Notes by Lexy Boyd MD at 04/13/171808 Author: Lexy Boyd MD Service: Obstetrics/Gynecology Author Type: Physician Filed: 04/13/171809 Date of Service: 04/13/171808 Status: Signed Box Car Bracer: Lexy Boyd MD (Physician) Pt doing great post op Requesting to go home Exam is reassuring , Ok for discharge and has meds at home already Follow up 05/17/17 onversion Transactio n, Provider Unknown - 04/13/2017 3:00 PM PDT Therapy Progress Note by DESI Echeverria at 04/13/17 1500 Author: DESI Echeverria Service: (none) Author Type: Massage Therapist Filed: 04/13/17 1500 Date of Service: 04/13/17 1500 Status: Signed Box Car Bracer: DESI Echeverria (Massage Therapist) 04/13/17 1500 Massage Therapy Interventions Locations Back;Neck;Shoulder Massage Therapy Technique Effleurage;Petrissage;Nepali massage Response to treatment Decreased muscle tension onver emmett Transaction, Provider Unknown - 04/13/2017 2:53 PM PDT Case Management by Dominick Chamberlain RN at 04/13/17 680 Author: Dominick Chamberlain RN Service: (none) Author Type: Registered Nurse Filed: 04/13/171456 Date of Service: 04/13/171452 Status: Signed Box Car Bracer: Dominick Chamberlain RN (Registered Nurse) 04/13/171452 Discharge Planning Evaluation Admitting Diagnosis S/P OBGYN Surgery Readmission No Living Arrangements Spouse/significant other Support Systems Spouse/significant other Type of Residence Private residence Independent with ADL's Yes Home Care Services No Caregiver after Discharge No Mental Status Oriented Prior functional status Independent Anticipated Discharge Plan Post Acute Care Needs None at this time Resources Financial concerns No Transportation issues No Patient/Family concerns No Prescription Plan Yes Anticipated Disposition Facility Type Home Pt is a 37 y.o., female who lives with her spouse and prior to admit and surgery was indepe ndent. Was not receiving any outpatient or home health services. Patient's PCP is: Nery Maynard Patient's insurance: [facility] Coverage concerns: No concerns Medication coverage/concerns: Has coverage, no concerns Rx Bedside Delivery: No Community resources utilized / needed: None at this time Assistance in transportation: Family Identification of any specific education / training: None at this time Barriers to Discharge / Alternative housing needed: None at this time Anticipated DCP: Home with family DOMINICK CHAMBERLAIN onver emmett Transaction, Provider Unknown - 04/13/2017 2:12 PM PDT Nurse Progress Note by Jesusita Terrazas RN at 04/13/171411 Author: Jesusita Terrazas RN Service: (none) Author Type: Registered Nurse Filed: 04/13/17 1412 Date of Service: 04/13/171411 Status: Signed Box Car Bracer: Jesusita Terrazas RN (Registered Nurse) Pt stated she needed to use the bathroom prior to transferring to floor. Pt was offered bed leone right before transferring to floor, pt refused, stating she wished to "walk to the bath room and not sit on anything and feel like she was peeing the bed." Pt was ambulate to bath room immediately upon arrival to room 9102. JESUSITA TERRAZAS RN 04/13/17 2:15 PM docume nted in this encounter H&P Notes Lexy Boyd - 04/13/2017 10:14 AM PDT Interval H&P Note by Lexy Boyd MD at 04/13/17 1014 Author: Lexy Boyd MD Service: Obstetrics/Gynecology Author Type: Physician Filed: 04/13/174 Date of Service: 04/13/171013 Status: Signed Box Car Bracer: Lexy Boyd MD (Physician) [facility] Service: Obstetrics & Gynecology Pre-Operative History & Physical Interval Update There have been no significant clinical changes since the completion of the above H&P. LEXY BOYD MD 04/13/2017 *CORE MEASURES REMINDER: If the patient has a known or suspected infection prior to surger y, please add diagnosis to the problem list (consider: Infection 136.9). Source Note Author: Lexy Boyd MD Service: (none) Author Type: Physician Filed: 04/06/179 Date of Service: 04/06/179 Status: Signed Box Car Bracer: Lexy Boyd MD (Physician) Service: Obstetrics & Gynecology Note , CS x2 Minoo is here for preop today She has questions about recovery and how long the surgery takes She is scheduled for hysterectomy on 04/13/2017 Subjective: Patient ID: Minoo Watson is a 37 y.o. female. CC: Pelvic pain in female Menorrhagia with regular cycle HPI Patient presents today for a preoperative exam for a Robotic Hysterectomy Salpingectomy s cheduled on 04/13/2017 due to Pelvic pain in female and Menorrhagia with regular cycle The following portions of the patient's history were reviewed and updated as appropriate: She has a past medical history of Back pain (12/18/2009); Bipolar disorder (HCC) (09/2008) ; Asthma; and Herniated disc, cervical (C5,C6). She does not have any pertinent problems on file. She has past surgical history that includes Esophagogastroduodenoscopy (2009); Colonoscopy ; section; and Hernia repair. Her family history includes Diabetes in her maternal grandfather and maternal grandmother; Heart attack in her maternal grandfather; Stroke in her father and maternal grandmother. She reports that she has been smoking. She has never used smokeless tobacco. She reports that she does not drink alcohol or use illicit drugs. She has a current medication list which includes the following prescription(s): bismuth sub salicylate, docusate sodium, epinephrine, fluticasone, hydrocodone-acetaminophen, hydrocodon e-acetaminophen, ibuprofen, multivitamins, naproxen, oxycodone, and tizanidine. Current Outpatient Prescriptions on File Prior to Visit Medication Sig Dispense Refill Bismuth Subsalicylate (PEPTO-BISMOL PO) Take by mouth. EPINEPHrine (EPIPEN) 0.3 MG/0.3ML injection Inject 0.3 mLs into the muscle as needed. 2 each 0 fluticasone (FLONASE) 50 MCG/ACT nasal 1 spray by Each Nare route daily. 16 g 0 HYDROcodone-acetaminophen (NORCO) 10-325 MG per tablet Take 1 tablet by mouth every 6 ( six) hours as needed for Pain. 120 tablet 0 HYDROcodone-acetaminophen (NORCO) 10-325 MG per tablet Take 1 tablet by mouth every 6 ( six) hours as needed for Pain. 30 tablet 0 Multiple Vitamin (MULTIVITAMINS) TABS naproxen (NAPROSYN) 500 MG tablet Take 1 tablet by mouth 2 (two) times daily as needed. 60 tablet 2 tizanidine (ZANAFLEX) 4 MG capsule Take 1 capsule by mouth 2 (two) times daily as neede d for Muscle spasms. 1 to 2 tablets at bedtime. 120 capsule 2 No current facility-administered medications on file prior to visit. She is allergic to bee venom; morphine and related; penicillins; inapsine; and lactose into lerance (gi).. Review of Systems Constitutional: Negative for fever, fatigue and unexpected weight change. Gastrointestinal: Negative for nausea, vomiting, diarrhea and constipation. Genitourinary: Positive for menstrual problem and pelvic pain. Negative for dyspareunia. Stay-- Out patient Preforming Dept :[facility] Surgery : Robotic Hysterectomy Salpingectomy Provider : Tyler Senior Drupal Developer Surgeon : Lilli Keys Length of the surgery : 150 minutes Pre op Date : 04/04/2017 Surgery date 04/13/2017 Post op Date 05/17/2017 Objective: Physical Exam Constitutional: She is oriented to person, place, and time. She appears well-developed and well-nourished. HENT: Head: Normocephalic and atraumatic. Cardiovascular: Normal rate and regular rhythm. No murmur heard. Pulmonary/Chest: Effort normal and breath sounds normal. She has no wheezes. Abdomina/Gl: Soft. She exhibits no distension and no mass. There is no tenderness. There is no guarding. Genitourinary: Pelvic exam deferred at today's visit Neurological: She is alert and oriented to person, place, and time. Skin: Skin is warm and dry. Psychiatric: She has a normal mood and affect. Her behavior is normal. Judgment and thought content normal. Vitals reviewed. EXAM: PELVIC ULTRASOUND EXAM DATE: 03/06/2017 11:10 [...] IMPRESSION: 1. IUD is poorly seen. Echogenic shadowing area along the right uterine wall which could re present a portion of the IUD. 2. Prominent uterus with suspected myomatous changes. 3. Thickened heterogeneous endometrium with some increased blood flow signal. Endometrial m argins are not well seen. 4. Ovaries could not be visualized. RADIA Electronically signed by Lexy Montoya MD on Mar 06 2017 11:30PM Referring Provider Line: [phone] ID: [id number] Assessment and Plan: Visit Diagnoses and Associated Orders: Preop examination Pelvic pain in female Menorrhagia with regular cycle Pre op today. She is scheduled for Robotic Hysterectomy Salpingectomy on 04/13/2017. Procedure process and benefits were discussed. Nature of the procedure(s), risks to include , but not limited to, bleeding, transfusion risks, infection, injury to other organs or str uctures requiring further surgery, either at the time of this procedure or a future date, fo r repair or removal of injured structure, failure to relieve symptoms, anesthesia risks were all discussed and explained. She voices understanding and wishes to proceed. Patient's que stions answered. Consent signed. Post-surgery precautions reviewed. Patient consents to receive blood if needed in an emergency to save her life or organs Recovery discussed No lifting over 10 pounds for the first week No lifting over 20 pounds , bending , squatting , repetitive motion , exercise or sex for 6 weeks. Patient plans to return to work after 2 weeks. No lifting trays until 4 weeks post operatio n. - ibuprofen (MOTRIN) 800 MG tablet; Take 1 tablet by mouth every 8 (eight) hours as nee ded for Pain. - oxyCODONE (ROXICODONE) 5 MG immediate release tablet; Take 1 tablet by mouth every 4 (four) hours as needed for Pain. - docusate sodium (COLACE) 100 MG capsule; One po bid for stool softening I, Dr. Boyd, personally performed the services described in this documentation, as sc ribed by FLOR Arndt in my presence, and it is both accurate and complete. LEXY BOYD MD 04/06/2017 Lexy Velazco - 04/06/2017 12:10 AM PDT H&P (View-Only) by Lexy Boyd MD at 04/06/179 Author: Lexy Boyd MD Service: (none) Author Type: Physician Filed: 04/06/179 Date of Service: 04/06/179 Status: Signed Box Car Bracer: Lexy Boyd MD (Physician) Service: Obstetrics & Gynecology Note , CS x2 Minoo is here for preop today She has questions about recovery and how long the surgery takes She is scheduled for hysterectomy on 04/13/2017 Subjective: Patient ID: Minoo Watson is a 37 y.o. female. CC: Pelvic pain in female Menorrhagia with regular cycle HPI Patient presents today for a preoperative exam for a Robotic Hysterectomy Salpingectomy s cheduled on 04/13/2017 due to Pelvic pain in female and Menorrhagia with regular cycle The following portions of the patient's history were reviewed and updated as appropriate: She has a past medical history of Back pain (12/18/2009); Bipolar disorder (HCC) (09/2008) ; Asthma; and Herniated disc, cervical (C5,C6). She does not have any pertinent problems on file. She has past surgical history that includes Esophagogastroduodenoscopy (2009); Colonoscopy ; section; and Hernia repair. Her family history includes Diabetes in her maternal grandfather and maternal grandmother; Heart attack in her maternal grandfather; Stroke in her father and maternal grandmother. She reports that she has been smoking. She has never used smokeless tobacco. She reports that she does not drink alcohol or use illicit drugs. She has a current medication list which includes the following prescription(s): bismuth sub salicylate, docusate sodium, epinephrine, fluticasone, hydrocodone-acetaminophen, hydrocodon e-acetaminophen, ibuprofen, multivitamins, naproxen, oxycodone, and tizanidine. Current Outpatient Prescriptions on File Prior to Visit Medication Sig Dispense Refill Bismuth Subsalicylate (PEPTO-BISMOL PO) Take by mouth. EPINEPHrine (EPIPEN) 0.3 MG/0.3ML injection Inject 0.3 mLs into the muscle as needed. 2 each 0 fluticasone (FLONASE) 50 MCG/ACT nasal 1 spray by Each Nare route daily. 16 g 0 HYDROcodone-acetaminophen (NORCO) 10-325 MG per tablet Take 1 tablet by mouth every 6 ( six) hours as needed for Pain. 120 tablet 0 HYDROcodone-acetaminophen (NORCO) 10-325 MG per tablet Take 1 tablet by mouth every 6 ( six) hours as needed for Pain. 30 tablet 0 Multiple Vitamin (MULTIVITAMINS) TABS naproxen (NAPROSYN) 500 MG tablet Take 1 tablet by mouth 2 (two) times daily as needed. 60 tablet 2 tizanidine (ZANAFLEX) 4 MG capsule Take 1 capsule by mouth 2 (two) times daily as neede d for Muscle spasms. 1 to 2 tablets at bedtime. 120 capsule 2 No current facility-administered medications on file prior to visit. She is allergic to bee venom; morphine and related; penicillins; inapsine; and lactose into lerance (gi).. Review of Systems Constitutional: Negative for fever, fatigue and unexpected weight change. Gastrointestinal: Negative for nausea, vomiting, diarrhea and constipation. Genitourinary: Positive for menstrual problem and pelvic pain. Negative for dyspareunia. Stay-- Out patient Preforming Dept :[facility] Surgery : Robotic Hysterectomy Salpingectomy Provider : Tyler Lunsford Surgeon : Lilli Keys Length of the surgery : 150 minutes Pre op Date : 04/04/2017 Surgery date 04/13/2017 Post op Date 05/17/2017 Objective: Physical Exam Constitutional: She is oriented to person, place, and time. She appears well-developed and well-nourished. HENT: Head: Normocephalic and atraumatic. Cardiovascular: Normal rate and regular rhythm. No murmur heard. Pulmonary/Chest: Effort normal and breath sounds normal. She has no wheezes. Abdomina/Gl: Soft. She exhibits no distension and no mass. There is no tenderness. There is no guarding. Genitourinary: Pelvic exam deferred at today's visit Neurological: She is alert and oriented to person, place, and time. Skin: Skin is warm and dry. Psychiatric: She has a normal mood and affect. Her behavior is normal. Judgment and thought content normal. Vitals reviewed. EXAM: PELVIC ULTRASOUND EXAM DATE: 03/06/2017 11:10 PM. CLINICAL HISTORY: Pelvic pain. Recent IUD. Unable to feel the IUD strings. Constant heavy b chu. COMPARISON: 05/01/2002. TECHNIQUE: Realtime transabdominal pelvic scan [...] IMPRESSION: 1. IUD is poorly seen. Echogenic shadowing area along the right uterine wall which could re present a portion of the IUD. 2. Prominent uterus with suspected myomatous changes. 3. Thickened heterogeneous endometrium with some increased blood flow signal. Endometrial m argins are not well seen. 4. Ovaries could not be visualized. RADIA Electronically signed by Lexy Montoya MD on Mar 06 2017 11:30PM Referring Provider Line: [phone] ID: [id number] Assessment and Plan: Visit Diagnoses and Associated Orders: Preop examination Pelvic pain in female Menorrhagia with regular cycle Pre op today. She is scheduled for Robotic Hysterectomy Salpingectomy on 04/13/2017. Procedure process and benefits were discussed. Nature of the procedure(s), risks to include , but not limited to, bleeding, transfusion risks, infection, injury to other organs or str uctures requiring further surgery, either at the time of this procedure or a future date, fo r repair or removal of injured structure, failure to relieve symptoms, anesthesia risks were all discussed and explained. She voices understanding and wishes to proceed. Patient's que stions answered. Consent signed. Post-surgery precautions reviewed. Patient consents to receive blood if needed in an emergency to save her life or organs Recovery discussed No lifting over 10 pounds for the first week No lifting over 20 pounds , bending , squatting , repetitive motion , exercise or sex for 6 weeks. Patient plans to return to work after 2 weeks. No lifting trays until 4 weeks post operatio n. - ibuprofen (MOTRIN) 800 MG tablet; Take 1 tablet by mouth every 8 (eight) hours as nee ded for Pain. - oxyCODONE (ROXICODONE) 5 MG immediate release tablet; Take 1 tablet by mouth every 4 (four) hours as needed for Pain. - docusate sodium (COLACE) 100 MG capsule; One po bid for stool softening I, Dr. Boyd, personally performed the services described in this documentation, as sc ribed by FLOR Arndt in my presence, and it is both accurate and complete. LEXY BOYD MD 04/06/2017 documented in this en counter Miscellaneous Notes Op Note - Lexy Boyd - 04/13/2017 12:09 PM PDTFormatting of this note might be diff erent from the original. Op Note by Lexy Boyd MD at 04/13/17 1209 Author: Lexy Boyd MD Service: Obstetrics/Gynecology Author Type: Physician Filed: 04/13/17 1052 Date of Service: 04/13/17 1209 Status: Signed Box Car Bracer: Lexy Boyd MD (Physician) Related Notes: Original Note by Lexy Boyd MD (Physician) filed at 04/13/17 1210 Patient ID: Minoo Watson is a 37 y.o. female. CC: Pelvic pain in female Menorrhagia with regular cycle HPI Patient presents today for a preoperative exam for a Robotic Hysterectomy Salpingectomy s cheduled on 04/13/2017 due to Pelvic pain in female and Menorrhagia with regular cycle Robotic hyst/BS Ovaries remain in situ, cystoscopy ebl <1DATE OF SERVICE April 13, 2017 PREOPERATIVE DIAGNOSES 1. Menorrhagia. 2. Pelvic pain. 3. Fibroid uterus. POSTOPERATIVE DIAGNOSES 1. Menorrhagia. 2. Pelvic pain. 3. Fibroid uterus. PROCEDURES 1. Total robotic hysterectomy and bilateral salpingectomy. Ovaries remain in situ. 2. Cystoscopy, with excellent efflux of urine from bilateral ureteral jets. SURGEON Lexy Boyd MD ASSISTANTS DEONTE Epps RNFA, operated the uterine manipulator. ANESTHESIA General endotracheal anesthesia. COMPLICATIONS None. ESTIMATED BLOOD LOSS Less than 25 mL. FINDINGS Enlarged uterus with an apparent fibroid. Tubes are status post tubal ligation with a Pomer oy technique. Ovaries were unremarkable bilaterally. Ureters were noted before and after vipul mickey. They were in their normal anatomic course in the pelvis and orthotopic course in the b ladder. Excellent peristalsis in diameter before and after the case. Good efflux of urine in the bladder after the case at time of cystoscopy with fluorescein-stained dye being seen ej ected with strong jets. Liver edge and gallbladder were also unremarkable to visual inspecti on. DESCRIPTION OF PROCEDURE The patient was taken to the operating room, identified, anesthesia was administered. She w as prepped and draped in the usual manner. A timeout was held. Appropriate consents verified and confirmed. After the patent safety pause had been completed, antibiotic confirmation pe rformed, we proceeded with placing a Arguello catheter and uterine manipulator. We did not have the SideKick, so Kristyn SchaeferGENEVAA, was the uterine manipulator for the case. Attention was turned towards the abdomen with fresh gloves. Uterine wt >350 gm An intraumbilical incision was made and a 5 mm Optiview was placed, insufflation carried ou t and inspection of the underlying viscera failed to reveal evidence of injury upon entry. T he patient was placed in Trendelenburg. The bowel swept out of the pelvis nicely. She was an appropriate candidate to proceed. The other robotic ports were placed in their appropriate location as was the assist port. The robot was docked and we proceeded. The above findings w ere noted regarding the anatomic associations. I then amputated the right fallopian tube acr oss the mesosalpinx with monopolar and bipolar cautery. I removed it from the operative fiel d. The utero-ovarian ligament, round ligament, and intervening superior parametrial tissues were cauterized and divided. The anterior and posterior leaf of the broad ligament were open ed and bisected. The lateral vessels were identified. With the bladder flap well off of the lateral area, I cauterized the uterine artery and vein and divided them on the patient's rig ht. I further developed a bladder flap and then turned attention towards the left side where the same procedure was carried out in a similar manner. The uterosacral vascular supply as also dessicated and divided. The uterus at this point was then amputated circumferentially w ith monopolar cautery and brought out through the vagina. A sponge wrapped in a glove was ut ilized to maintain vaginal occlusion and maintain pneumoperitoneum. The vagina was closed in a double layer, first getting pubocervical fascia, vaginal epithelium both in the anterior and posterior side and the rectovaginal fascia using a double-armed bi-directional barbed St rataFix suture. The uterosacral ligaments were also utilized as apex support. The second arm was then utilized in a continuous running imbricating stitch. The needles were removed. The pelvis was irrigated. Images were taken. That part of the case came to a close. The patient had already received IV fluorescein. The ports were removed after using the Tho alexei closure device to close the camera port site. The other fascial sites did not require closure. Skin closed with 4-0 Monocryl and Dermabond. Cystoscopy was carried out and the abo ve findings noted and, as stated, strong ureteral jets that were stained with fluorescein we re noted. The bladder was drained. Arguello remained out. The patient as brought up from under anesthesia, transferred to a gurney, and taken to the recovery room in good condition. documented in this en counter Plan of Treatment Not on filedocumented as of this encounter Procedures + +--------+ + + + | Procedure Name | Priori | Date/Time | Associated Diagnosis | Comments | | | ty | | | | + +--------+ + + + | TYPE AND SCREEN | Routin | 04/13/2017 | | Results for this | | | e | 9:27 AM | | procedure are in the | | | | PDT | | results section. | + +--------+ + + + | TISSUE REQUEST FOR | Routin | 04/13/2017 | | Results for this | | PATHOLOGY (NON-ORD) | e | 12:00 AM | | procedure are in the | | | | PDT | | results section. | + +--------+ + + + documented in this encounter Results Type and Screen (04/13/2017 9:27 AM PDT) + + + + + [...] + + + | BB BAND | [id number] | | EXTERNAL | | | | performed at [facility];[address] | | LAB | | | | [address];[place] | | | | | | [id number] | | | | + + + + + + + + | Specimen | + + | Blood specimen | | (specimen) | + + + +---------+ + + | Performing | Address | City/State/Zipcode | Phone Number | | Organization | | | | + +---------+ + + | EXTERNAL LAB | | | | + +---------+ + + Tissue Request For Pathology (04/13/2017 12:00 AM PDT) + + | Specimen | + + | Soft tissue sample | | (specimen) | + + + + + | Narrative | Performed At | + + + | SPECIMEN(S): A UTERUS, BILATERAL FALLOPIAN TUBES SPECIMEN | EXTERNAL LAB | | SOURCE: A. UTERUS, BILATERAL FALLOPIAN TUBES CLINICAL HISTORY: | | | 04/13/2017 at 1138 H. Menorrhagia with irregular cycle, pelvic pain, | | | uterine leiomyoma. FINAL PATHOLOGIC DIAGNOSIS: Uterus, cervix, | | | bilateral fallopian tubes, hysterectomy with bilateral salpingectomy: | | | - Unremarkable ectocervical and endocervical epithelia. - | | | Nabothian cysts. - Uterus with proliferative phase | | | endometrium, adenomyosis, leiomyomata and features suggestive of an | | | endometrial polyp. - Unremarkable fallopian tubes with paratubal | | | cysts. GROSS DESCRIPTION: One specimen is received in one | | | container, labeled with the patient's name: A. Received in | | | formalin designated "uterus, cervix with bilateral fallopian tubes" | | | consists of a 319 gram uterus and cervix with separate fallopian | | | tubes. The uterus is 3.7 x 8.1 x 11.6 cm. The serosal surface is | | | violaceous and smooth with 3 subserosal nodules that range in size | | | from 0.3 cm up to 1.0 cm in greatest dimension. The uterus and | | | displays an area of distention present on the posterior aspect | | | measuring up to 7.5 cm in greatest dimension. The ectocervical mucosa | | | is pale pink and smooth. Serial sectioning of the cervix fails to | | | demonstrate any gross abnormalities. The triangular endometrial | | | cavity is lined by a red smooth endometrium that has an average | | | thickness of 0.4 cm. Sectioning through the uterus reveals a pink | | | moderately trabeculated myometrium with 2 well-circumscribed pink | | | intramural nodules that measure 0.6 x 0.5 x 0.5 cm and 6.5 x 5.7 x 5.5 | | | cm. The largest intramural nodule is associated with the previously | | | described area of distention. Also present is a lower uterine segment | | | defect that measures 1.4 cm in greatest dimension. The first | | | fallopian tube is 6.4 x 1.0 cm, with delicate fimbriae and paratubal | | | cysts. The serosa is violaceous and smooth. Cut sections reveal a | | | pinpoint lumen. The second fallopian tube is 7.3 x 1.0 cm, with | | | delicate fimbriae and paratubal cysts. The serosa is violaceous and | | | smooth and inked black. Cut sections reveal a pinpoint lumen. | | | County Ad[employer]er sections are submitted in 6 cassettes. Cassette | | | summary: (A1) cervix; (A2) uterine wall; (A3) subserosal intramural | | | nodules and lower uterine segment defect; (A4-A5) largest intramural | | | nodule; (A6) first and second fallopian tube (second tube inked | | | black). FM The gross description section of this report has been | | | prepared using a voice recognition system. The report was reviewed for | | | accuracy, however, sound-alike word errors, addition and/or deletions | | | may occur. If there is any question about this report please contact | | | the originating pathologist. MICROSCOPIC EXAMINATION: Histologic | | | sections of all submitted blocks are examined by light microscopy. | | | These findings, together with the gross examination, support the | | | pathologic diagnosis. PERFORMING LABORATORY: Professional | | | interpretation and technical preparation was performed by [facility] | | | [facility], [facility], [address] [place] [address], | | | [place] [address] (Lens Grinding Machine Operator: Vitaly Batista M.D.; CLIA#: | | | [id number]). Diagnostician: Lex Oliveira MD Pathologist | | | Electronically Signed 04/15/2017 | | + + + + +---------+ + + | Performing | Address | City/State/Zipcode | Phone Number | | Organization | | | | + +---------+ + + | EXTERNAL LAB | | | | + +---------+ + + documented in this encounter Visit Diagnoses + + | Diagnosis | + + | Menorrhagia with regular cycle Excessive or frequent menstruation | + + | Pelvic pain in female Unspecified symptom associated with female genital organs | + + | Preop examination Preoperative examination, unspecified | + + | Menorrhagia with irregular cycle Excessive or frequent menstruation | + + | Pelvic pain | + + | Uterine leiomyoma, unspecified location | + + documented in this encounter
--- OUTSIDE RECORDS SUMMARY | ~2020-06-12 | XMS | Encounter Summary ---
Demographics + + + | Address | [address] | | | [address] | | | [place] [address] | + + + | Home Phone [...] + + + | Author | [facility] | | | and [place] | + + + | Organization | [facility] | | | and [...] Team Providers + +------+ + | Care Transportation Planner Name | Role | Phone | + +------+ + PCP | Unavailable | + +------+ + Encounter Details +--------+ + + + + | Date | Type | Department | Care Team | Description | +--------+ + + + + | 05/10/ | [facility] | [facility] | [address] | | | 2005 | Encounter | [facility] | [address] | | | | | [address] | [place] [address] | | | | | [address] | [phone] | | | | | [place], [place] | | | | | | [address] | | | | | | [phone] | | | +--------+ + + + [...]
--- OUTSIDE RECORDS SUMMARY | ~2020-06-12 | XMS | Encounter Summary ---
Demographics + + + | Address | [address] | | | [address] | | | [place] [address] | + + + | Home Phone | | + + + | Preferred Language | Unknown | + + + | Marital Status | Legally | + + + | Yazdanism Affiliation | [id number] | + + + [...] Team Providers + +------+ + | Care Mate Ship Name | Role | Phone | + +------+ + PCP | Unavailable | + +------+ + Encounter Details +--------+ + + + + | Date | Type | Department | Care Team | Description | +--------+ + + + + | 08/19/ | Emergency | [facility] | Conversion | Unspecified Disorder | | 2008 | | [facility] | Transaction, | [facility] | Provider Unknown | Supporting | | | | [address] | | Structures | | | | [place], [place] | (Fax) | | | | | [address] | | | | | | [phone] | | | +--------+ + + + [...]
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
--- OUTSIDE RECORDS SUMMARY | ~2020-06-12 | XMS | Encounter Summary ---
Demographics + + + | Address | [address] | | | [address] | | | [place] [address] | + + + | Home Phone | | + + + | Preferred Language | Unknown | + + + | Marital Status | Legally | + + + | Gnosticism Affiliation | 1013 | + + + [...] Team Providers + +------+ + | Care Catalogue Clerk Name | Role | Phone | + +------+ + PCP | Unavailable | + +------+ + Encounter Details +--------+ + + + + | Date | Type | Department | Care Team | Description | +--------+ + + + + | 05/22/ | Hospital | [facility] | Matt [address] | ROUT POSTPART | | 2005 | Encounter | [address] | FOLLOW-UP | | | | [address] | [place] [address] | | | | | [place], [place] | [phone] | | | | | [address] | | | | | | [phone] | | | +--------+ + + + [...] | Diagnosis | + + | Routine follow-up | + + documented in this encounter"
--- OUTSIDE RECORDS SUMMARY | ~2020-06-12 | XMS | Encounter Summary ---
Demographics + + + | Address | [address] | | | [address] | | | [place] [address] | + + + | Home Phone | | + + + | Preferred Language | Unknown | + + + | Marital Status | Legally | + + + | Spiritism Affiliation | 1013 | + + + [...] Team Providers + +------+ + | Care Scrap Iron Loader Name | Role | Phone | + +------+ + | No, Physician | PCP | Unavailable | + +------+ + Reason for Visit +--------+--------+ + | Reason | Onset | Comments | | | Date | | +--------+--------+ + | Other | 04/17/ | | | | 2020 | | +--------+--------+ + Encounter Details +--------+ + + + + | Date | Type | Department | Care Team | Description | +--------+ + + + + | 04/17/ | Telephone | [facility] | Minoo Frank | Other | | 2020 | | GENERAL SURGERY [address] | MD Ashlee | | | | | [address] | | | | | | [place] | | | | | | [address] | | | | | | [phone] | | | +--------+ + + + [...] Telephone Encounter - Jean Montoya RN - 04/18/2020 9:17 AM PDTCalled and scheduled the patient for a wound care appointment with the provider today so she can get a therapy pl an in place. No further questions at this time. elephone Encounter - Shanta Santillan PA-C - 04/17/2020 4:05 PM PDTPlease have patient come to the clinic tomorrow for evaluation. At that time, we can change packing, and write a therapy plan. I am not comfortable writing a therapy plan without seeing the patient first. Depending on what time she can come, she can either see Magdy before 330, or myself after 3 30. Thank you. Shanta Santillan PA-C [facility] 04/17/2020 Portions of this chart may have been created with voice recognition software. Occasional wr jose elias-word or "sound-alike" substitutions may have occurred, even after review, due to the inh erent limitations of voice recognition software. Please read the chart carefully and recogni ze, using context, where these substitutions have occurred. Personal communication is reques martha for any clarifications. elephone Danielle Crews - 04/17/2020 3:32 PM Kp, ER Drying Tunnel Operator, is calling reg domingo Other and would like a call back. Additional Call Details: Stated the [facility] is needing a therapy plan, a new order for wound care and an authorization from insurance. Please call Izzy back at [phone] If this is a symptom based call, was patient offered triage? Not Applicable If this is a symptom based call and you were unable to immediately transfer the call to a margarita klein fluorescent lighting model maker was caller made aware that if at [...]
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
== END ==
LOC: ED 14:32
DX: L02.414 Cutaneous abscess of left upper limb (principal); F17.200 Nicotine dependence, unspecified, uncomplicated; Z88.8 Allergy status to other drugs, medicaments and biological substances; Z88.0 Allergy status to penicillin; Z79.899 Other long term (current) drug therapy
CPT/HCPCS: 10060; 73200; 87070; 87077; 87186; 87205; 99283-25

== ENCOUNTER 2020-06-13 13:43 | Emergency (ER) | payer MEDICAID | END 2020-06-13 15:00 | disposition home or self-care (01) | LOC: ED 13:43 | DX: L02.414 Cutaneous abscess of left upper limb (principal); F17.200 Nicotine dependence, unspecified, uncomplicated; Z88.8 Allergy status to other drugs, medicaments and biological substances; Z88.0 Allergy status to penicillin; Z79.899 Other long term (current) drug therapy ==